=== PATIENT | female | born 1995 | race Caucasian/White ===

== ENCOUNTER 2023-11-02 15:18 | Outpatient (OUT) | payer MEDICAID, SELFPAY ==
[2023-11-02 15:45] LABS: Basophils Absolute Auto 0.1 10^3/uL (0.0-0.1); Basophils Percent Auto 0.6 % (0.2-2.0); Eosinophils Absolute Auto 0.2 10^3/uL (0.0-0.7); Eosinophils Percent Auto 1.6 % (0.9-7.0); Hematocrit 43.1 % (36.0-48.0); Hemoglobin 14.1 g/dL (12.0-16.0); Immature Granulocytes Abs Auto 0.04 10^3/uL (0.00-0.03); Immature Granulocytes Pct Auto 0.4 % (0.0-0.5); Lymphocytes Absolute Auto 2.5 10^3/uL (1.2-3.8); Lymphocytes Percent Auto 23.8 % (20.5-60.0); Mean Corpuscular HGB Conc 32.7 g/dL (29.9-35.2); Mean Corpuscular Hemoglobin 29.8 pg (26.7-34.0); Mean Corpuscular Volume 91.1 fL (81.0-99.0); Mean Platelet Volume 9.9 fL (9.5-13.5); Monocytes Absolute Auto 0.8 10^3/uL (0.3-0.8); Monocytes Percent Auto 7.9 % (1.7-12.0); Neutrophils Absolute Auto 6.8 10^3/uL (1.4-6.5); Neutrophils Percent Auto 65.7 % (43.0-75.0); Platelet Count 358 10^3/uL (150-450); Red Blood Count 4.73 10^6/uL (4.20-5.40); Red Cell Distribution Width 11.7 % (11.0-15.0); White Blood Count 10.4 10^3/uL (4.0-11.0)
[2023-11-02 15:53] LABS: Estimated Average Glucose 103 mg/dL; Glycohemoglobin A1C 5.2 % (4.5-6.2)
[2023-11-02 16:44] LABS: HCG Quantitative <1 mIU/mL; Thyroid Stimulating Hormone 2.276 uIU/mL (0.358-3.740)
[2023-11-03 04:07] LABS: Prolactin 8.1 ng/mL (4.8-33.4)
== END 2023-11-02 15:19 | disposition home or self-care (01) ==
LOC: LAB 15:22
PROVIDERS: PCP Family Medicine; Visit Provider Physician Assistant
DX: N91.2 Amenorrhea, unspecified (principal)
CPT/HCPCS: 36415; 83036; 84146; 84443; 84702; 85025

== ENCOUNTER 2023-11-04 18:51 | Outpatient (OUT) | payer MEDICAID, SELFPAY ==
--- OUTSIDE RECORDS SUMMARY | 2023-11-04 18:56 | XMS_ITS | CCD ---
Author Name Unknown Address Formerly [facility] [address] [place] [address] Organization [facility] Care Team Providers Care Etcher Photoengraving Name Role Phone Todd WHALEY Attending Unavailable PAY ., DR BROOKS Admitting Unavailable PAY ., DR BROOKS Consulting Unavailable PAY ., DR BROOKS Attending Unavailable BRISTOL, DR RUTHERFORD Primary Care Unavailable KARASIK, JEMAL Admitting Unavailable KARASIK, JEMAL Consulting Unavailable KARASIK, JEMAL Attending Unavailable BRISTOL, DR RUTHERFORD Primary Care Unavailable REINECK, DR KORY Mahan Admitting Unavailabl e REINECK, DR KORY Mahan Consulting Unavailabl e REINECK, DR KORY Mahan Attending Unavailabl e BRISTOL, DR RUTHERFORD Primary Care Unavailable BRISTOL, DR RUTHERFORD Primary Care Unavailable HOLLY ., KATIE Admitting Unavailable HOLLY ., KATIE Consulting Unavailable HOLLY ., KATIE Attending Unavailable Allergies Allergy Classification Reported Allergen(s) Allergy Type Date of Onset Reaction(s) Facility (1 source) No Known Medication Allergies; Translations: [No Known Medication Allergies] Propensity to adverse reactions (disorder) [facility] Repository Problems Active Problems Problem Classification Problem Date Documented Da te Episodic/Chronic Headache; including migraine (1 source) Headache; including migraine; Translations: [HEADACHE UNSPECIFIED] Onset: 03-15-2023 Lymphadenitis (1 source) Generalized enlarged lymph nodes; Translations: [GENERALIZED ENLARGED LYMPH NODES] Onset: 03-11-2023 Episodic Other screening for suspected conditions (not mental disorders or infectious disease) (4 sources) Encounter for screening for malignant neoplasm of cervix; Translations: [ENC SCREENING MALIG NEOPLASM CERV] Onset: 02-11-2023 Episodic Other upper respiratory infections (1 source) Chronic sinusitis, unspecified; Translations: [CHRONIC SINUSITIS UNSPECIFIED] Onset: 03-11-2023 Chronic Other upper respiratory infections (7 sources) Acute pharyngitis, unspecified; Translations: [Acute upper respiratory infection, unspecified] Onset: 07-24-2022 Episodic Screening and history of mental health and substance abuse codes (1 source) Personal history of nicotine dependence; Translations: [PERSONAL HISTORY OF NICOTINE DEPEND] Onset: 03-15-2023 Episodic Unclassified (3 sources) COUGH, UNSPECIFIED; Translations: [COUGH, UNSPECIFIED] Onset: 03-11-2023 Unclassified (1 source) CONTACT W/AND (SUSP) EXPOS COVID-19; Translations: [CONTACT W/AND (SUSP) EXPOS COVID-19] Onset: 07-24-2022 Viral infection (1 source) Disease caused by 2019-nCoV; Translations: [UNVACCINATED COVID 19] Onset: 07-24-2022 Past or Other Problems Problem Classification Problem Date Documented Da te Episodic/Chronic Unclassified (1 source) COUGH, UNSPECIFIED; Translations: [COUGH, UNSPECIFIED] Onset: 03-10-2023 Results Test Name Value Interpretation Reference Range Facil ity GROUP A STREP CULTUREon 02-14 S. pyogenes Ag Ql (Unsp spec) Culture Observations: NEGATIVE FOR GROUP A STREPTOCOCCUS. Normal The [facility] Comment on above: Performed By: #### G RASTCX, SSCRN #### [facility] [address] [place] [address] Dr. Aniceto Ashby MONOon 03-13-2023 Monocytes (Bld) [#/Vol] Negative Normal NEGATIVE The [facility] Comment on above: Performed By: #### M ERVIN #### [facility] [address] [place] [address] [address] Aniceto Ashby STREPT SCREENon 03-13-2023 STREP SCREEN A Negative Normal NEGATIVE The [facility] Comment on above: Performed By: #### G RASTCX, SSCRN #### [facility] [address] [address] [address] Aniceto Ashby GROUP A STREP CULTUREon 02-14 S. pyogenes Ag Ql (Unsp spec) Culture Observations: NEGATIVE FOR GROUP A STREPTOCOCCUS. Normal The [facility] Comment on above: Performed By: #### G RASTCX, SSCRN #### [facility] [address] [place] [address] Dr. Aniceto Ashby STREPT SCREENon 03-10-2023 STREP SCREEN A Negative Normal NEGATIVE [facility] Comment on above: Performed By: #### G RASTCX, SSCRN #### [facility] [address] [place] [address] Dr. Aniceto Ashby PAP ACOG PANEL 2: 21 to 29on 02-19-2023 . . Normal [facility] Comment on above: Performed By: #### 4 [id number] #### [facility] [address] [place] [address] Dr. Aniceto Ashby Age Gdln ACOG Testing - [facility] Comment on above: Performed By: #### 4 [id number] #### [facility] [address] [place] [address] Dr. Aniceto Ashby DIAGNOSIS: Comment [facility] Comment on above: Result Comment: NEGA TIVE FOR INTRAEPITHELIAL LESION OR MALIGNANCY. SHIFT IN DENNY SUGGESTIVE OF BACTERIAL VAGINOSIS. THIS SPECIMEN WAS RESCREENED PART OF OUR LYE TREATER PROGRAM. Performed By: #### 4 [id number] #### [facility] [address] [place] [address] Dr. Aniceto Ashby Methodology: Comment [facility] Comment on above: Result Comment: This liquid based ThinPrep(R) pap test was screened with the use of an image guided system. Performed By: #### 4 [id number] #### [facility] [address] [place] [address] Dr. Aniceto Ashby Note: Comment Normal [facility] Comment on above: Result Comment: The Pap smear is a screening test designed to aid in the detection of premalignant and malignant conditions of the uterine cervix. It is not a diagnostic procedure and should not be used as the sole means of detecting cervical cancer. Both false-positive and false-negative reports do occur. . Performed By: #### 4 [id number] #### [facility] [address] [place] [address] Dr. Aniceto Ashby Performed by: Comment Normal [facility] Comment on above: Result Comment: Cleo Dubon [employer] (ASCP) Performed By: #### 4 [id number] #### [facility] [address] [address] [address] Aniceto Ashby QC reviewed by: Comment Normal [facility] Comment on above: Result Comment: Cleo Dasilva, [employer] (ASCP) Performed By: #### 4 [id number] #### [facility] [address] [address] [address] Aniceto Ashby Reflex Criteria: Comment Normal [facility] Comment on above: Result Comment: The HPV DNA reflex criteria were not met with this specimen result therefore, no HPV testing was performed. . Performed By: #### 4 [id number] #### [facility] [address] [address] [address] Aniceto Ashby Specimen adequacy: Comment Normal [facility] Comment on above: Result Comment: Sati sfactory for evaluation. Endocervical and/or squamous metaplastic cells (endocervical component) are present. Performed By: #### 4 [id number] #### [facility] [address] [place] [address] Dr. Aniceto Ashby Consenton 02-01-2023 Consent [id number]. [id number]:127 Normal [facility] Registrationon 02-01-2023 Registration [id number]. [id number]:127 Normal [facility] Covid-19 PCR (CVDTB)on SARS-CoV-2 (COVID-19) RNA HUSEYIN+probe Ql (Unsp spec) Not detected Normal NOT DETECTED [facility] Comment on above: Result Comment: When diagnostic testing is negative, the possibility of a false negative should be considered in the context of a patient's recent exposures and the presence of clinical signs and symptoms consistent with SARS-CoV-2. This test is not yet approved or cleared by the [place] FDA. When there are no FDA-approved or cleared tests available, and other criteria are met, FDA can make tests available under an emergency access mechanism called an Emergency Use Authorization (EUA). The EUA for this test is supported by the Skin Care Therapist of Health and Human Service's declaration that circumstances exist to justify the emergency use of in vitro diagnostics for the detection and/or diagnosis of the virus that causes COVID-19. This EUA will remain in effect for the duration of the COVID-19 declaration justifying emergency of IVDs, unless it is terminated or revoked by the FDA (after which the test may no longer be used). Performed By: #### C [facility] #### [facility] [address] [place] [address] Dr. Aniceto Ashby Encounters Encounter Date Encounter Type Care Provider Facility Start: 03-13-2023 End: 03-13-[address] SANGEETA FUNK Facility:[facility] Start: 03-10-2023 End: 03-10-[address] TODD Yeboah Facility:[facility] Start: 02-11-2023 End: 02-11-2023 ambulatory JEMAL BEGUM Facility:[facility] Start: 02-01-2023 End: 02-02-2023 ambulatory Todd WHALEY Facility:[facility] Start: 07-23-2022 End: 07-23-[address] KORY MCLEAN Facility: Payers Date Payer Category Payer Medicaid [id number] 1995 Unknown [id number] 2.16.84 [id number] 1995 Unknown [id number] 2.16.84 [id number] 1996 Unknown [id number] 2.16.84 [id number] 1996 Unknown [id number] 2.16.84 [id number] 1959 Unknown [id number] Summary Purpose Family History No Family History Records FoundNo Family History Records Found Advance Directives No Advanced Directives Records FoundNo Advanced Directives Records Found Additional Source Comments INFORMATION SOURCE (unrecogn ized section and content) DATE CREATED AUTHOR 02/02/2023 [facility] DATE CREATED AUTHOR AUTHOR'S ORGANIZ ATION 03/15/2023 [facility] FOR RECORDS PERTAINING TO PATIENTS WHO ARE OR HAVE BEEN ENROLLED IN A CHEMICAL DEPENDENCY/SUBSTANCEABUSE PROGRAM, SOME INFORMATION MAY BE OMITTED. This clinical summary was aggregated from multiple sources. Caution should be exercised in using it in the provision of clinical care. This summary normalizes information from multiple sources, and as a consequence, information in this document may materially change the coding, format and clinical context of patient data. In addition, data may be omitted in some cases. CLINICAL DECISIONS SHOULD BE BASED ON THE PRIMARY CLINICAL RECORDS. [facility] [employer] [facility]. provides no warranty or guarantee of the accuracy or completeness of information in this document.
--- NOTE | 2023-11-04 19:01 | US_ITS ---
The [address] [address] Patient Name: LUKE OJEDA MRN: [id number] date: 1995 Sex: F Assigned Patient Location: US Current Patient Location: LAB Accession/Order Number: [id number] Exam Date: 11/04/2023 19:08 Report Date: 11/05/2023 13:33 At the request of: RAMSEY MADRID Procedure: US pelvis w/ transvaginal EXAMINATION: US pelvis w/ transvaginal HISTORY: AMENORRHEA N91.2 COMPARISON: No relevant comparison available. TECHNIQUE: Transabdominal and/or transvaginal sonographic examination was performed as indicated by examination type. FINDINGS: UTERUS: Normal size and appearance. Uterus size: 7.6 x 2.8 x 3.0 cm ENDOMETRIUM: Normal homogeneous appearance. Endometrial thickness: 8 mm RIGHT OVARY: Normal size and appearance. Duplex Doppler demonstrates normal waveform and flow; resistive index 0.6. Ovary size: 2.7 x 2.0 x 2.2 cm LEFT OVARY: Normal size and appearance. Duplex Doppler demonstrates normal waveform and flow; resistive index 0.6. Ovary size: 2.2 x 1.5 x 1.8 cm CUL-DE-SAC: Unremarkable. No significant free fluid. BLADDER: Unremarkable. OTHER: None. US/US pelvis w/ transvaginal IMPRESSION: 1. Normal pelvic ultrasound. No suspicious findings to account for patient's symptoms. Electronically authenticated by: GHAZALA WRIGHT Date: 11/05/2023 13:33
== END 2023-11-04 18:52 | disposition home or self-care (01) ==
LOC: US 18:51
PROVIDERS: PCP Family Medicine; Visit Provider Physician Assistant
DX: N91.2 Amenorrhea, unspecified (principal)
CPT/HCPCS: 76830; 76856

== ENCOUNTER 2024-09-07 12:53 | Outpatient (OUT) | payer BC, SELFPAY ==
--- NOTE | 2024-09-07 12:55 | US_ITS ---
[place] [id number] Patient Name: LUKE OJEDA MRN: [id number] date: 1995 Sex: F Assigned Patient Location: [facility] Current Patient Location: Accession/Order Number: [id number] Exam Date: 09/07/2024 12:56 Report Date: 09/08/2024 06:28 At the request of: MADIHA BURRELL Procedure: US OB transvaginal EXAMINATION: US OB transvaginal HISTORY: MISSED MENSES COMPARISON: No relevant comparison available. FINDINGS: GESTATIONAL SAC: Present and normal appearing. YOLK SAC: Present and normal appearing. POLE: Present and normal appearing. CARDIAC: Present. UTERUS: Normal size and appearance. OVARIES: Right: Corpus lutein cyst. Left: Not seen. CERVIX: 4.2 cm in length and closed. CUL-DE-SAC: Normal. OTHER: None. AGE BY LMP: 9 weeks 4 days LAN BY LMP: 04/08/2025 AGE BY US CRL: 6 weeks 2 days LAN BY US CRL: 05/01/2025 US/US OB transvaginal IMPRESSION: 1. Single live intrauterine . Electronically authenticated by: GHAZALA WRIGHT Date: 09/08/2024 06:28
--- OUTSIDE RECORDS SUMMARY | 2024-09-07 12:58 | XMS_ITS | CCD ---
Author Organization [facility] Care Team Providers Care Supervisor Inspection Room Name Role Phone PAY ., DR BROOKS Admitting Unavailable PAY ., DR BROOKS Consulting Unavailable PAY ., DR BROOKS Attending Unavailable BRISTOL, DR RUTHERFORD Primary Care Unavailable KARJEMAL BURGER Admitting Unavailable KARJEMAL BURGER Consulting Unavailable JEMAL BEGUM Attending Unavailable BRISTOL, DR RUTHERFORD Primary Care Unavailable REINECK, DR KORY Mahan Admitting Unavailabl e REINECK, DR KORY Mahan Consulting Unavailabl e REINECK, DR KORY Mahan Attending Unavailabl e BRISTOL, DR RUTHERFORD Primary Care Unavailable BRISTOL, DR RUTHERFORD Primary Care Unavailable HOLLY ., KATIE Admitting Unavailable HOLLY ., KATIE Consulting Unavailable HOLLY ., KATIE Attending Unavailable Michael Anderson Attending Unavailable IGNACIA CRAWFORD Attending Unavailable Michael Anderson Attending Unavailable Michael Anderson Attending Unavailable Allergies Allergy Classification Reported Allergen(s) Allergy Type Date of Onset Reaction(s) Facility (1 source) No Known Medication Allergies; Translations: [No Known Medication Allergies] Propensity to adverse reactions (disorder) [facility] Repository Problems Active Problems Problem Classification [...] Name Value Interpretation Reference Range Facil ity Ambulatory Visit Summaryon 0 06-22-2024 Ambulatory Visit Summary Ambulatory Visit Summary OJEDAJESICA :1995 Visit Date:06/22/2024 Ambulatory Visit Instructions Your Diagnosis Adult wellness visit Former smoker BMI 34.0-34.9,adult Your Care Team Attending Physician - IGNACIA CRAWFORD CNP Primary Care Physician - Michael Anderson MD Procedures Performed section. Discharge Vitals Temperature (Oral) 36.4 ?C Heart Rate (Peripheral) 76 Respiratory Rate 20 Blood Pressure 122/80 Height 166.0 cm Height 65 in Weight 95.3 kg Weight 209.66 lb BMI 34.58 Allergies No Known Medication Allergies Problems Ongoing - Any problem that you are currently receiving treatment for. Acute URI Cough COVID Elevated BP without diagnosis of hypertension Smoker 17-MAY-2014 12:37:00<$> Patient Survey You may receive a survey via text or e-mail asking about your office visit. Please share your experience with us by completing your survey. We appreciate your feedback and thank you for choosing us for your care. Education Materials Health Maintenance, Female Adopting a healthy lifestyle and getting preventive care are important in promoting health and wellness. Ask your health care provider about: ? The right schedule for you to have regular tests and exams. ? Things you can do on your own to prevent diseases and keep yourself healthy. What should I know about diet, weight, and exercise? Eat a healthy diet ? Eat a diet that includes plenty of vegetables, fruits, low-fat dairy products, and lean protein. ? Do not eat a lot of foods that are high in solid fats, added sugars, or sodium. Maintain a healthy weight Body mass index (BMI) is used to identify weight problems. It estimates body fat based on height and weight. Your health care provider can help determine your BMI and help you achieve or maintain a healthy weight. Get regular exercise Get regular exercise. This is one of the most important things you can do for your health. Most adults should: ? Exercise for at least 150 minutes each week. The exercise should increase your heart rate and make you sweat (moderate-intensity exercise). ? Do strengthening exercises at least twice a week. This is in addition to the moderate-intensity exercise. ? Spend less time sitting. Even light physical activity can be beneficial. Watch cholesterol and blood lipids Have your blood tested for lipids and cholesterol at 20 years of age, then have this test every 5 years. Have your cholesterol levels checked more often if: ? Your lipid or cholesterol levels are high. ? You are older than 40 years of age. ? You are at high risk for heart disease. What should I know about cancer screening? Depending on your health history and family history, you may need to have cancer screening at various ages. This may include screening for: ? Breast cancer. ? Cervical cancer. ? Colorectal cancer. ? Skin cancer. ? Lung cancer. What should I know about heart disease, diabetes, and high blood pressure? Blood pressure and heart disease ? High blood pressure causes heart disease and increases the risk of stroke. This is more likely to develop in people who have high blood pressure readings or are overweight. ? Have your blood pressure checked: ? Every 3?5 years if you are 18?39 years of age. ? Every year if you are 40 years old or older. Diabetes Have regular diabetes screenings. This checks your fasting blood sugar level. Have the screening done: ? Once every three years after age 40 if you are at a normal weight and have a low risk for diabetes. ? More often and at a younger age if you are overweight or have a high risk for diabetes. What should I know about preventing infection? Hepatitis B If you have a higher risk for hepatitis B, you should be screened for this virus. Talk with your health care provider to find out if you are at risk for hepatitis B infection. Hepatitis C Testing is recommended for: ? Everyone born from 1945 through 1965. ? Anyone with known risk factors for hepatitis C. Sexually transmitted infections (STIs) ? Get screened for STIs, including gonorrhea and chlamydia, if: ? You are sexually active and are younger than 24 years of age. ? You are older than 24 years of age and your health care provider tells you that you are at risk for this type of infection. ? Your sexual activity has changed since you were last screened, and you are at increased risk for chlamydia or gonorrhea. Ask your health care provider if you are at risk. ? Ask your health care provider about whether you are at high risk for HIV. Your health care provider may recommend a prescription medicine to help prevent HIV infection. If you choose to take medicine to prevent HIV, you should first get tested for HIV. You should then be tested every 3 months for as long as you are taki (more content not included)... Normal [facility] Family Medicine Office/Clini c Noteon 06-22-2024 Family Medicine Office/Clinic Note Family Medicine Office/Clinic Note HPI Staff Jose is a 29 year old female presenting for wellness PE for work Health Maintenance: Colonoscopy: never Mammo: never Pap: UTD January 2024 Last Labs: few years ago No paper work will all go through the portal History of Present Illness 29 [address] patient of Dr[address] Anderson presents today for a well visit. She reports she needs a well visit for her insurance through her employer. Review of Systems PHQ Score Initial Depression Screen Score: 0 SCORE Constitutional: no fever, no chills, no sweats, no weakness Skin: no Jaundice, no rash, no lesions, nopetechiae ENMT: no ear pain, no sore throat, no congestion, no hoarseness Respiratory: no shortness of breath, no cough, no orthopnea, no wheezing Cardiovascular: no chest pain, no palpitations, no edema Gastrointestinal: no nausea, no vomiting, no diarrhea, no GI bleeding Genitourinary: no dysuria, no hematuria, no discharge, no pain Musculoskeletal: no back pain, no trauma Neurologic: no headache, no dizziness, no numbness, no weakness Psychiatric: no sleeping problems, no irritability, no mood swings/depression. Heme/Lymph: no bleeding tendency, no bruising tendency, no petechiae, no swollen nodes Allergy/Immunologic: no seasonal allergies, no food allergies, no recurrent infections, no impaired immunity Additional ROS info: Except as noted in the above Review of Systems and in the History of Present Illness all other systems have been reviewed and are negative or noncontributory. Physical Exam Vitals & Measurements T: 36.4 ?C(Oral) HR: 76(Peripheral) RR: 20 BP: 122/80 SpO2: 98% HT: 65 in HT: 166.0 cm WT: 95.3 kg WT: 209.66 lb BMI: 34.58 General: alert, no acute distress Skin: warm, dry Head: no trauma, normocephalic Neck: Trachea midline, no adenopathy, no tenderness Eye: normal conjunctiva, sclera clear ENMT: TM's clear, oral mucosa moist, no pharyngeal erythema or exudate Cardiovascular: regular rate and rhythm, normal peripheral perfusion Respiratory: Lungs CTA, respirations non labored Chest wall: no deformity. Gastrointestinal: soft, non distended, no tenderness, no guarding. Back: No tenderness, Normal ROM, Normal alignment. Extremities: no deformity, no trauma Neurological: oriented x 4, LOC appropriate for age, CN II-XII intact, motor strength equal & normal bilaterally, sensation equal & normal bilaterally, speech normal Psychiatric: cooperative, affect appropriate for age, normal judgement, normal psychiatric thoughts. Assessment/Plan 1. Adult wellness visit (Z00.00: Encounter for general adult medical examination without abnormal findings) Healthy Encouraged daily exercise and portion control Immunizations UTD f/u one year 2. Former smoker (Z87.891: Personal history of nicotine dependence) Encouraged to continue as a non-smoker 3. BMI 34.0-34.9,adult (Z68.34: Body mass index [BMI] 34.0-34.9, adult) The standard range for ages 18 and older is >=18.5 and < 25 kg/m2. Your BMI today was above this range, this falls in the overweight to obese category and there are medical benefits to weight loss. We can offer counselling, referral, and/or medical support in addressing this problem. Your BMI and weight management will be followed at subsequent visits. Follow-up No qualifying data available Patient Education Health Maintenance, Female Problem List/Past Medical History Ongoing Acute URI Cough COVID Elevated BP without diagnosis of hypertension Smoker 17-MAY-2014 12:37:00<$> Historical No qualifying data Procedure/Surgical History section. Medications No active medications Allergies No Known Medication Allergies Social History Tobacco Former smoker, quit more than 30 days ago, quit 2022 Tobacco Use:. Never Smokeless Tobacco Use:. Cigarettes, Stopped age 28 Years., 06/22/2024 Former smoker, quit more than 30 days ago Tobacco Use:., 11/23/2023 Current Every Day Smoker, Cigarettes, Previous treatment: None. Ready to change: No. Household tobacco concerns: No., 07/04/2014 Family History Family history is negative Immunizations Vaccine Date Status poliovirus vaccine, inactivated 08/06/2001 Recorded measles/mumps/rubella virus vaccine 08/06/2001 Recorded DTaP, unspecified formulation 08/06/2001 Recorded varicella virus vaccine 07/15/1999 Recorded Normal [facility] Comment on above: Result Comment: Elec tronically Signed By: IGNACIA CRAWFORD CNP\.br\Date and Time Signed: 06/22/24 14:51 EDT Provider Letteron 06-16-2024 Provider Letter Provider Letter June 16, 2024 JESICA OJEDA [address] [place] [address] : 1995 To Whom It May Concern, Please excuse above patient from work due to Covid diagnosis. Date of Illness: From: 06/15/2024 To: 06/22/2024 May Return to Work On: 06/23/2024 Comments: May return to work sooner if symptom free. Sincerely, Family Medicine [address] [address] [facility] Ambulatory Visit Summaryon 0 06-15-2024 Ambulatory Visit Summary Ambulatory Visit Summary JESICA OJEDA :1995 Visit Date:06/15/2024 Ambulatory Visit Instructions Your Diagnosis COVID BMI 34.0-34.9,adult Class 1 obesity due to excess calories in adult Former smoker Your Care Team Attending Physician - Justin PEREIRAMichael Primary Care Physician - Michael Anderson MD Procedures Performed section. Discharge Vitals Temperature (Oral) 36.9 ?C Heart Rate (Peripheral) 84 Respiratory Rate 18 Blood Pressure 122/80 Height 166 cm Height 65 in Weight 95.6 kg Weight 210.32 lb BMI 34.69 What to do next Scheduled Follow-Up Appointments 2023 8:30 AM EDT With: Michael Anderson MD Where: [address] [address]- Allergies No Known Medication Allergies Problems Ongoing - Any problem that you are currently receiving treatment for. Acute URI Cough COVID Elevated BP without diagnosis of hypertension Smoker 17-MAY-2014 12:37:00<$> Patient Survey You may receive a survey via text or e-mail asking about your office visit. Please share your experience with us by completing your survey. We appreciate your feedback and thank you for choosing us for your care. Normal [facility] Family Medicine Office/Clini c Noteon 06-15-2024 Family Medicine Office/Clinic Note Family Medicine Office/Clinic Note HPI Staff Geno is a 29 year old female presenting with wellness visit for work She is sick today and prefers that be taken care of instead of her physical if we cannot do both Health Maintenance: Colonoscopy: never Mammo: never Pap: UTD Last Labs: few years Questions/Concerns: exposed to strep from her dad and his girlfriend, not feeling well for 4 days and now going into her chest, throat is sore and body aches, taking tylenol and ibuprofen around the clock History of Present Illness - See staff HPI. Review of Systems PHQ Score Initial Depression Screen Score: 1 SCORE Physical Exam Vitals & Measurements T: 36.9 ?C(Oral) HR: 84(Peripheral) RR: 18 BP: 122/80 SpO2: 99% HT: 65 in HT: 166 cm WT: 95.6 kg WT: 210.32 lb BMI: 34.69 General: alert, no acute distress ENMT: oral mucosa moist, Cardiovascular: regular rate and rhythm, normal peripheral perfusion Respiratory: Lungs CTA, respirations non labored Extremities: no deformity, no trauma Neurological: oriented x 4, LOC appropriate for age, CN II-XII intact, motor strength equal & normal bilaterally, speech normal Abdomen: Soft, Nontender, Non-distended, + BS Assessment/Plan 1. COVID (U07.1: COVID-19) - Will do medrol and azithromycin - OTC meds - Follow up in 1 week Ordered: azithromycin, 500 mg = 1 tab(s), Oral, Daily, # 3 tab(s), Refills(s) 0, Pharmacy: [facility] #[id number], 166, cm, 06/15/24 8:34:00 EDT, Height/Length Dosing, 95.6, kg, 06/15/24 8:34:00 EDT, Weight Dosing benzonatate, 200 mg = 1 cap(s), Oral, TID, X 7 day(s), # 21 cap(s), Refills(s) 0, Pharmacy: [facility] #[id number], 166, cm, 06/15/24 8:34:00 EDT, Height/Length Dosing, 95.6, kg, 06/15/24 8:34:00 EDT, Weight Dosing methylPREDNISolone, = 1 packet(s), Oral, As Directed, as directed on package labeling, X 6 day(s), # 21 tab(s), Refills(s) 0, Pharmacy: [facility] #[id number], 166, cm, 06/15/24 8:34:00 EDT, Height/Length Dosing, 95.6, kg, 06/15/24 8:34:00 EDT, Weight Dosing 2. BMI 34.0-34.9,adult (Z68.34: Body mass index [BMI] 34.0-34.9, adult) - BMI education added Ordered: azithromycin, 500 mg = 1 tab(s), Oral, Daily, # 3 tab(s), Refills(s) 0, Pharmacy: [facility] #[id number], 166, cm, 06/15/24 8:34:00 EDT, Height/Length Dosing, 95.6, kg, 06/15/24 8:34:00 EDT, Weight Dosing benzonatate, 200 mg = 1 cap(s), Oral, TID, X 7 day(s), # 21 cap(s), Refills(s) 0, Pharmacy: [facility] #[id number], 166, cm, 06/15/24 8:34:00 EDT, Height/Length Dosing, 95.6, kg, 06/15/24 8:34:00 EDT, Weight Dosing methylPREDNISolone, = 1 packet(s), Oral, As Directed, as directed on package labeling, X 6 day(s), # 21 tab(s), Refills(s) 0, Pharmacy: [facility] #[id number], 166, cm, 06/15/24 8:34:00 EDT, Height/Length Dosing, 95.6, kg, 06/15/24 8:34:00 EDT, Weight Dosing Rapid COVID POC 82917 Rapid Strep POC 08693 3. Class 1 obesity due to excess calories in adult (E66.09: Other obesity due to excess calories) - Diet and exercise advised Ordered: azithromycin, 500 mg = 1 tab(s), Oral, Daily, # 3 tab(s), Refills(s) 0, Pharmacy: [facility] #[id number], 166, cm, 06/15/24 8:34:00 EDT, Height/Length Dosing, 95.6, kg, 06/15/24 8:34:00 EDT, Weight Dosing benzonatate, 200 mg = 1 cap(s), Oral, TID, X 7 day(s), # 21 cap(s), Refills(s) 0, Pharmacy: [facility] #[id number], 166, cm, 06/15/24 8:34:00 EDT, Height/Length Dosing, 95.6, kg, 06/15/24 8:34:00 EDT, Weight Dosing methylPREDNISolone, = 1 packet(s), Oral, As Directed, as directed on package labeling, X 6 day(s), # 21 tab(s), Refills(s) 0, Pharmacy: [facility] #[id number], 166, cm, 06/15/24 8:34:00 EDT, Height/Length Dosing, 95.6, kg, 06/15/24 8:34:00 EDT, Weight Dosing Rapid COVID POC 34193 Rapid Strep POC 00652 4. Former smoker (Z87.891: Personal history of nicotine dependence) - Please continue to not smoke. Ordered: azithromycin, 500 mg = 1 tab(s), Oral, Daily, # 3 tab(s), Refills(s) 0, Pharmacy: [facility] #[id number], 166, cm, 06/15/24 8:34:00 EDT, Height/Length Dosing, 95.6, kg, 06/15/24 8:34:00 EDT, Weight Dosing benzonatate, 200 mg = 1 cap(s), Oral, TID, X 7 day(s), # 21 cap(s), Refills(s) 0, Pharmacy: [facility] #[id number], 166, cm, 06/15/24 8:34:00 EDT, Height/Length Dosing, 95.6, kg, 06/15/24 8:34:00 EDT, Weight Dosing methylPREDNISolone, = 1 packet(s), Oral, As Directed, as directed on package labeling, X 6 day(s), # 21 tab(s), Refills(s) 0, Pharmacy: [facility] #[id number], 166, cm, 06/15/24 8:34:00 EDT, Height/Length Dosing, 95.6, kg, 06/15/24 8:34:00 EDT, Weight Dosing Rapid COVID POC 75628 Rapid Strep POC 30970 Follow-up No qualifying data available Problem List/Past Medical History Ongoing Acute URI Cough COVID Elevated BP without diagnosis of hypertension Smoker 17-MAY-2014 12:37:00<$> Historical No qualifying data Procedure/Surgical History section. Medications Azithromycin 3 Day Dose Pack 500 mg oral tabl (more content not included)... Normal [facility] Comment on above: Result Comment: Elec tronically Signed By: Justin PEREIRA, Michael Dewitt.br\Date and Time Signed: 06/15/24 09:10 EDT Provider Letteron 06-15-2024 Provider Letter Provider Letter June 15, 2024 JESICA OJEDA [address] [place] [address] : 1995 To Whom It May Concern, Please excuse above patient from work due to illness. Date of Illness: From: 06-15-24 To: 06-22-24 May Return to Work On:06-23-24 Restrictions: _ Comments: _ Sincerely, [facility] [place] [address] [facility] Ambulatory Visit Summaryon 0 11-23-2023 Ambulatory Visit Summary JESICA OJEDA :1995 Visit Date:11/23/2023 Ambulatory Visit Instructions Your Diagnosis Acute URI Cough BMI 36.0-36.9,adult Non-smoker Elevated BP without diagnosis of hypertension Your Care Team Attending Physician - Michael Anderson MD Primary Care Physician - Michael Anderson MD This Is Your Medications List benzonatate (benzonatate 200 mg oral capsule) methylPREDNISolone (Medrol Dosepack 4 mg Tab) Procedures Performed section. Discharge Vitals Temperature (Temporal Artery) 36.4 ?C Heart Rate (Peripheral) 101 Blood Pressure 140/100 Height 65 in Height 166 cm Weight 201.52 lb Weight 91.6 kg BMI 33.24 What to do next Scheduled Follow-Up Appointments Wednesday 3:15 PM EST With: Michael Anderson MD Where: [facility] Family Medicine Office/Clini c Noteon 11-23-2023 Family Medicine Office/Clinic Note HPI Staff Jesica is a 28 year old female presenting to establish care Acute: cough, congestions, diarrhea,vomiting Establish Care: History: Any previous diagnosis: History of seeing any specialist: When was your last doctors visit: Last provider: Tammy Any recent labs: Health Maintenance UTD: Colonoscopy: Mammogram: Pelvic/Pap: flu: due Acute: Current issues/complaints: productive cough, sinus congestion, green/brown plem, vomiting and diarrhea History of Present Illness See staff HPI. - Loose stools are once a day. - Vomited once. Physical Exam Vitals & Measurements T: 36.4 ?C(Temporal Artery) HR: 101(Peripheral) BP: 140/100 SpO2: 98% HT: 65 in HT: 166 cm WT: 91.6 kg WT: 201.52 lb BMI: 33.24 General: alert, no acute distress ENMT: oral mucosa moist, Cardiovascular: regular rate and rhythm, normal peripheral perfusion Respiratory: Lungs CTA, respirations non labored, No cough During the exam Extremities: no deformity, no trauma Neurological: oriented x 4, LOC appropriate for age, CN II-XII intact, motor strength equal & normal bilaterally, speech normal Abdomen: Soft, Nontender, Non-distended, + BS Assessment/Plan 1. Acute URI (J06.9: Acute upper respiratory infection, unspecified) - Medrol, Lena conner - If no improvement in a few days Azithromycin Ordered: benzonatate, 200 mg = 1 cap(s), Oral, TID, X 7 day(s), # 21 cap(s), Refills(s) 0, Pharmacy: [facility] #[id number], 166, cm, 11/23/23 13:05:00 EST, Height/Length Dosing, 91.6, kg, 11/23/23 13:05:00 EST, Weight Dosing methylPREDNISolone, = 1 packet(s), Oral, As Directed, as directed on package labeling, X 6 day(s), # 21 tab(s), Refills(s) 0, Pharmacy: [facility] #[id number], 166, cm, 11/23/23 13:05:00 EST, Height/Length Dosing, 91.6, kg, 11/23/23 13:05:00 EST, Weight Dosing 2. Cough (R05.9: Cough, unspecified) - As above - Pending covid test. Ordered: benzonatate, 200 mg = 1 cap(s), Oral, TID, X 7 day(s), # 21 cap(s), Refills(s) 0, Pharmacy: [facility] #[id number], 166, cm, 11/23/23 13:05:00 EST, Height/Length Dosing, 91.6, kg, 11/23/23 13:05:00 EST, Weight Dosing methylPREDNISolone, = 1 packet(s), Oral, As Directed, as directed on package labeling, X 6 day(s), # 21 tab(s), Refills(s) 0, Pharmacy: [facility] #[id number], 166, cm, 11/23/23 13:05:00 EST, Height/Length Dosing, 91.6, kg, 11/23/23 13:05:00 EST, Weight Dosing 3. BMI 36.0-36.9,adult (Z68.36: Body mass index [BMI] 36.0-36.9, adult) - BMI education given Ordered: benzonatate, 200 mg = 1 cap(s), Oral, TID, X 7 day(s), # 21 cap(s), Refills(s) 0, Pharmacy: [facility] #[id number], 166, cm, 11/23/23 13:05:00 EST, Height/Length Dosing, 91.6, kg, 11/23/23 13:05:00 EST, Weight Dosing methylPREDNISolone, = 1 packet(s), Oral, As Directed, as directed on package labeling, X 6 day(s), # 21 tab(s), Refills(s) 0, Pharmacy: [facility] #[id number], 166, cm, 11/23/23 13:05:00 EST, Height/Length Dosing, 91.6, kg, 11/23/23 13:05:00 EST, Weight Dosing 4. Non-smoker (Z78.9: Other specified health status) - Please continue to not smoke Ordered: benzonatate, 200 mg = 1 cap(s), Oral, TID, X 7 day(s), # 21 cap(s), Refills(s) 0, Pharmacy: [facility] #[id number], 166, cm, 11/23/23 13:05:00 EST, Height/Length Dosing, 91.6, kg, 11/23/23 13:05:00 EST, Weight Dosing methylPREDNISolone, = 1 packet(s), Oral, As Directed, as directed on package labeling, X 6 day(s), # 21 tab(s), Refills(s) 0, Pharmacy: [facility] #[id number], 166, cm, 11/23/23 13:05:00 EST, Height/Length Dosing, 91.6, kg, 11/23/23 13:05:00 EST, Weight Dosing 5. Elevated BP without diagnosis of hypertension (R03.0: Elevated blood-pressure reading, without diagnosis of hypertension) - Likely 2/2 Meds and illness - Will recheck in 1 month - Monitor at home. Follow-up No qualifying data available Patient Education BMI for Adults Problem List/Past Medical History Ongoing Acute URI Cough Elevated BP without diagnosis of hypertension Smoker 17-MAY-2014 12:37:00<$> Historical No qualifying data Procedure/Surgical History section. Medications benzonatate 200 mg oral capsule, 200 mg= 1 cap(s), Oral, TID Medrol Dosepack 4 mg Tab, 1 packet(s), Oral, As Directed Allergies No Known Medication Allergies Social History Tobacco Former smoker, quit more than 30 days ago Tobacco Use:., 11/23/2023 10 or more cigarettes (1/2 pack or more)/day in last 30 days Tobacco Use:. Never Smokeless Tobacco Use:. Cigarettes, 11/23/2023 Current Every Day Smoker, Cigarettes, Previous treatment: None. Ready to change: No. Household tobacco concerns: No., 07/04/2014 Family History Family history is negative Immunizations Vaccine Date Status poliovirus vaccine, inactivated 08/06/2001 Recorded measles/mumps/rubella virus vaccine 08/06/2001 Recorded DTaP, unspecified formulation 08/06/2001 Recorded varicella virus vaccine 07/15/1999 Recorded Normal [facility] Comment on above: Result Comment: Elec tronically Signed By: Justin PEREIRA, Michael Quinones\.br\Date and Time Signed: 11/23/23 13:40 EST Patient Educationon 11-23-19 24 Patient Education Nutrition BMI for Adults What is BMI? Body mass index (BMI) is a number that is calculated from a person's weight and height. BMI can help estimate how much of a person's weight is composed of fat. BMI does not measure body fat directly. Rather, it is an alternative to procedures that directly measure body fat, which can be difficult and expensive. BMI can help identify people who may be at higher risk for certain medical problems. What are BMI measurements used for? BMI is used as a screening tool to identify possible weight problems. It helps determine whether a person is obese, overweight, a healthy weight, or underweight. BMI is useful for: ? Identifying a weight problem that may be related to a medical condition or may increase the risk for medical problems. ? Promoting changes, such as changes in diet and exercise, to help reach a healthy weight. BMI screening can be repeated to see if these changes are working. How is BMI calculated? BMI involves measuring your weight in relation to your height. Both height and weight are measured, and the BMI is calculated from those numbers. This can be done either in [place] or metric measurements. Note that charts and online BMI calculators are available to help you find your BMI quickly and easily without having to do these calculations yourself. To calculate your BMI in [place] measurements: 1. Measure your weight in pounds (lb). 2. Multiply the number of pounds by 703. ? For example, for a person who weighs 180 lb, multiply that number by 703, which equals 126,540. 3. Measure your height in inches. Then multiply that number by itself to get a measurement called inches squared. ? For example, for a person who is 70 inches tall, the inches squared measurement is 70 inches x 70 inches, which equals 4,900 inches squared. 4. Divide the total from step 2 (number of lb x 703) by the total from step 3 (inches squared): 126,540 ? 4,900 = 25.8. This is your BMI. To calculate your BMI in metric measurements: 1. Measure your weight in kilograms (kg). 2. Measure your height in meters (m). Then multiply that number by itself to get a measurement called meters squared. ? For example, for a person who is 1.75 m tall, the meters squared measurement is 1.75 m x 1.75 m, which is equal to 3.1 meters squared. 3. Divide the number of kilograms (your weight) by the meters squared number. In this example: 70 ? 3.1 = 22.6. This is your BMI. What do the results mean? BMI charts are used to identify whether you are underweight, normal weight, overweight, or obese. The following guidelines will be used: ? Underweight: BMI less than 18.5. ? Normal weight: BMI between 18.5 and 24.9. ? Overweight: BMI between 25 and 29.9. ? Obese: BMI of 30 or above. Keep these notes in mind: ? Weight includes both fat and muscle, so someone with a muscular build, such as an athlete, may have a BMI that is higher than 24.9. In cases like these, BMI is not an accurate measure of body fat. ? To determine if excess body fat is the cause of a BMI of 25 or higher, further assessments may need to be done by a health care provider. ? BMI is usually interpreted in the same way for men and women. Where to find more information For more information about BMI, including tools to quickly calculate your BMI, go to these websites: ? Centers for Disease Control and Prevention: www.cdc.gov ? [place] [employer]: www.heart.org ? National Heart, Lung, and Blood [place]: www.nhlbi.nih.gov Summary ? Body mass index (BMI) is a number that is calculated from a person's weight and height. ? BMI may help estimate how much of a person's weight is composed of fat. BMI can help identify those who may be at higher risk for certain medical problems. ? BMI can be measured using [place] measurements or metric measurements. ? BMI charts are used to identify whether you are underweight, normal weight, overweight, or obese. This information is not intended to replace advice given to you by your health care provider. Make sure you discuss any questions you have with your health care provider. Document Revised: 07/24/2020 Document Reviewed: 05/31/2020 [employer] Patient Education ? 2022 [employer] Normal [facility] GROUP A STREP CULTUREon 02-14 S. pyogenes Ag Ql (Unsp spec) Culture Observations: NEGATIVE FOR GROUP A STREPTOCOCCUS. Normal [facility] Comment on above: Performed By: #### G RASTCX, SSCRN #### [facility] [address] [address] [address] Aniceto Ashby MONOon 03-13-2023 Monocytes (Bld) [#/Vol] Negative Normal NEGATIVE [facility] Comment on above: Performed By: #### M ERVIN #### [facility] [address], [place] [address] Dr. Aniceto Ashby STREPT SCREENon 03-13-2023 STREP SCREEN A Negative Normal NEGATIVE [facility] Comment on above: Performed By: #### G RASTCX, SSCRN #### [facility] [address], [place] [address] Dr. Aniceto Ashby GROUP A STREP CULTUREon 02-14 S. pyogenes Ag Ql (Unsp spec) Culture Observations: NEGATIVE FOR GROUP A STREPTOCOCCUS. Normal [facility] Comment on above: Performed By: #### G RASTCX, SSCRN #### [facility] [address] [place] [address] Dr. Aniceto Ashby STREPT SCREENon 03-10-2023 STREP SCREEN A Negative Normal NEGATIVE [facility] Comment on above: Performed By: #### G RASTCX, SSCRN #### [facility] [address] [place] [address] Dr. Aniceto Ashby PAP ACOG PANEL 2: 21 to 29on 02-19-2023 . . Normal [facility] Comment on above: Performed By: #### [id number] #### [facility] [address] [place] [address] Dr. Aniceto Ashby Age Gdln ACOG Testing - [facility] Comment on above: Performed By: #### [id number] #### [facility] [address] [place] [address] Dr. Aniceto Ashby DIAGNOSIS: Comment [facility] Comment on above: Result Comment: NEGA TIVE FOR INTRAEPITHELIAL LESION OR MALIGNANCY. SHIFT IN DENNY SUGGESTIVE OF BACTERIAL VAGINOSIS. THIS SPECIMEN WAS RESCREENED PART OF OUR INTERVENTIONAL NEURORADIOLOGIST PROGRAM. Performed By: #### [id number] #### [facility] [address] [place] [address] Dr. Aniceto Ashby Methodology: Comment [facility] Comment on above: Result Comment: This liquid based ThinPrep(R) pap test was screened with the use of an image guided system. Performed By: #### [id number] #### [facility] [address] [place] [address] Dr. Aniceto Ashby Note: Comment [facility] Comment on above: Result Comment: The Pap smear is a screening test designed to aid in the detection of premalignant and malignant conditions of the uterine cervix. It is not a diagnostic procedure and should not be used as the sole means of detecting cervical cancer. Both false-positive and false-negative reports do occur. . Performed By: #### [id number] #### [facility] [address] [place] [address] Dr. Aniceto Ashby Performed by: Comment Normal [facility] Comment on above: Result Comment: Cleo Dubon, Supply Chain Associate (ASCP) Performed By: #### [id number] #### [facility] [address] [place] [address] Dr. Aniceto Ashby QC reviewed by: Comment Normal [facility] Comment on above: Result Comment: Cleo Dasilva, Supply Chain Associate (ASCP) Performed By: #### [id number] #### [facility] [address] [place] [address] Dr. Aniceto Ashby Reflex Criteria: Comment Normal [facility] Comment on above: Result Comment: The HPV DNA reflex criteria were not met with this specimen result therefore, no HPV testing was performed. . Performed By: #### [id number] #### [facility] [address] [place] [address] Dr. Aniceto Ashby Specimen adequacy: Comment Normal [facility] Comment on above: Result Comment: Sati sfactory for evaluation. Endocervical and/or squamous metaplastic cells (endocervical component) are present. Performed By: #### [id number] #### [facility] [address] [place] [address] Dr. Aniceto Ashby Covid-19 PCR ([facility])on SARS-CoV-2 (COVID-19) RNA HUSEYIN+probe Ql (Unsp spec) Not detected Normal NOT DETECTED [facility] Comment on above: Result Comment: When [...] for this test is supported by the Info Specialist of Health and Human Service's declaration that [...] longer be used). Performed By: #### [facility] #### [facility] [address] [place] [address] Dr. Aniceto Ashby Encounters Encounter Date Encounter Type Care Provider Facility Start: 06-22-2024 End: 06-22-2024 ambulatory IGNACIA CRAWFORD [facility] Start: 06-15-2024 End: 06-15-2024 ambulatory Michael Anderson Facility:[facility] [place] rafaela Start: 12-28-2023 ambulatory Michael Anderson Facility :[facility] [place] Start: 11-23-2023 ambulatory [facility] Start: 11-23-2023 [facility] Start: 03-13-2023 End: 03-13-[address] SANGEETA FUNK Facility:[facility] Start: 03-10-2023 End: 03-10-[address] TODD Yeboah Facility:[facility] Start: 02-11-2023 End: 02-11-2023 ambulatory JMEAL BEGUM Facility:[facility] Start: 07-23-2022 End: 07-23-[address] KORY MCLEAN Facility:[facility] Payers Date Payer Category Payer Unknown [id number] 2022 Medicaid [id number] 1996 Unknown [id number] .16.84 [id number] 1996 Unknown [id number] .16.84 [id number] 1996 Unknown [id number] .16.84 [id number] 1996 Unknown [id number] 1996 Unknown [id number] 2.16.8 [id number] 1996 Unknown [id number] 2.16.8 [id number] 1996 Unknown [id number] 2.16.8 [id number] 1996 Unknown [id number] 2.16.8 [id number] 1959 Unknown [id number] Clinical Note 06-22-2024 Note Date & Type Note Facility 06-22-2024 Note Patient Education Obstetrics and Gynecology Health Maintenance, Female Adopting a healthy lifestyle and getting preventive care are important in promoting health and wellness. Ask your health care provider about: ? The right schedule for you to have regular tests and exams. ? Things you can do on your own to prevent diseases and keep yourself healthy. What should I know about diet, weight, and exercise? Eat a healthy diet ? Eat a diet that includes plenty of vegetables, fruits, low-fat dairy products, and lean protein. ? Do not eat a lot of foods that are high in solid fats, added sugars, or sodium. Maintain a healthy weight Body mass index (BMI) is used to identify weight problems. It estimates body fat based on height and weight. Your health care provider can help determine your BMI and help you achieve or maintain a healthy weight. Get regular exercise Get regular exercise. This is one of the most important things you can do for your health. Most adults should: ? Exercise for at least 150 minutes each week. The exercise should increase your heart rate and make you sweat (moderate-intensity exercise). ? Do strengthening exercises at least twice a week. This is in addition to the moderate-intensity exercise. ? Spend less time sitting. Even light physical activity can be beneficial. Watch cholesterol and blood lipids Have your blood tested for lipids and cholesterol at 20 years of age, then have this test every 5 years. Have your cholesterol levels checked more often if: ? Your lipid or cholesterol levels are high. ? You are older than 40 years of age. ? You are at high risk for heart disease. What should I know about cancer screening? Depending on your health history and family history, you may need to have cancer screening at various ages. This may include screening for: ? Breast cancer. ? Cervical cancer. ? Colorectal cancer. ? Skin cancer. ? Lung cancer. What should I know about heart disease, diabetes, and high blood pressure? Blood pressure and heart disease ? High blood pressure causes heart disease and increases the risk of stroke. This is more likely to develop in people who have high blood pressure readings or are overweight. ? Have your blood pressure checked: ? Every 3?5 years if you are 18?39 years of age. ? Every year if you are 40 years old or older. Diabetes Have regular diabetes screenings. This checks your fasting blood sugar level. Have the screening done: ? Once every three years after age 40 if you are at a normal weight and have a low risk for diabetes. ? More often and at a younger age if you are overweight or have a high risk for diabetes. What should I know about preventing infection? Hepatitis B If you have a higher risk for hepatitis B, you should be screened for this virus. Talk with your health care provider to find out if you are at risk for hepatitis B infection. Hepatitis C Testing is recommended for: ? Everyone born from 1945 through 1965. ? Anyone with known risk factors for hepatitis C. Sexually transmitted infections (STIs) ? Get screened for STIs, including gonorrhea and chlamydia, if: ? You are sexually active and are younger than 24 years of age. ? You are older than 24 years of age and your health care provider tells you that you are at risk for this type of infection. ? Your sexual activity has changed since you were last screened, and you are at increased risk for chlamydia or gonorrhea. Ask your health care provider if you are at risk. ? Ask your health care provider about whether you are at high risk for HIV. Your health care provider may recommend a prescription medicine to help prevent HIV infection. If you choose to take medicine to prevent HIV, you should first get tested for HIV. You should then be tested every 3 months for as long as you are taking the medicine. ? If you are about to stop having your period (premenopausal) and you may become , seek counseling before you get . ? Take 400 to 800 micrograms (mcg) of folic acid every day if you become . ? Ask for control (contraception) if you want to prevent . Osteoporosis and menopause Osteoporosis is a disease in which the bones lose minerals and strength with aging. This can result in bone fractures. If you are 65 years old or older, or if you are at risk for osteoporosis and fractures, ask your health care provider if you should: ? Be screened for bone loss. ? Take a calcium or vitamin D supplement to lower your risk of fractures. ? Be given hormone replacement therapy (HRT) to treat symptoms of menopause. Follow these instructions at home: Alcohol use ? Do not drink alcohol if: ? Your health care provider tells you not to drink. ? You are , may be , or are planning to become . ? If you drink alcohol: ? Limit how much you have to: ? 0?1 drink a day. ? Know how (more content not included)... [facility] Summary Purpose Family History No Family History Records FoundNo Family History Records Found Advance Directives No Advanced Directives Records FoundNo Advanced Directives Records Found Additional Source Comments INFORMATION SOURCE (unrecogn ized section and content) DATE CREATED AUTHOR 03/15/2023 [facility] DATE CREATED AUTHOR AUTHOR'S ORGANIZ ATION 06/24/2024 [facility] FOR RECORDS PERTAINING TO PATIENTS WHO ARE [...] BE BASED ON THE PRIMARY CLINICAL RECORDS. [employer] provides no warranty or guarantee of the accuracy or completeness of information in this document.
== END 2024-09-07 12:54 | disposition home or self-care (01) ==
LOC: NOMS 12:54
PROVIDERS: PCP Family Medicine; Visit Provider Obstetrics & Gynecology
DX: N92.6 Irregular menstruation, unspecified (principal); Z3A.01 Less than 8 weeks gestation of pregnancy
CPT/HCPCS: 76817

== ENCOUNTER 2024-10-10 14:13 | Outpatient (OUT) | payer MEDICAID, SELFPAY ==
[2024-10-10 14:43] LABS: Basophils Percent Auto 0.2 % (0.2-2.0); Eosinophils Absolute Auto 0.1 10^3/uL (0.0-0.7); Hemoglobin 13.1 g/dL (12.0-16.0); Immature Granulocytes Abs Auto 0.04 10^3/uL (0.00-0.03); Immature Granulocytes Pct Auto 0.3 % (0.0-0.5); Lymphocytes Absolute Auto 2.1 10^3/uL (1.2-3.8); Lymphocytes Percent Auto 16.5 % (20.5-60.0); Mean Corpuscular HGB Conc 34.5 g/dL (29.9-35.2); Mean Corpuscular Hemoglobin 30.5 pg (26.7-34.0); Mean Corpuscular Volume 88.4 fL (81.0-99.0); Mean Platelet Volume 9.5 fL (9.5-13.5); Monocytes Absolute Auto 0.8 10^3/uL (0.3-0.8); Monocytes Percent Auto 6.1 % (1.7-12.0); Neutrophils Absolute Auto 9.4 10^3/uL (1.4-6.5); Neutrophils Percent Auto 75.9 % (43.0-75.0); Platelet Count 335 10^3/uL (150-450); Red Cell Distribution Width 11.9 % (11.0-15.0); White Blood Count 12.4 10^3/uL (4.0-11.0)
[2024-10-10 14:47] LABS: BOX Test Reference Lab UNITY; BOX Test Sent Out Y
[2024-10-10 14:57] LABS: Amphetamine Screen Urine NEGATIVE (NEGATIVE); Barbiturates Screen Urine NEGATIVE (NEGATIVE); Benzodiazepines Screen Urine NEGATIVE (NEGATIVE); Buprenorphine Screen Urine NEGATIVE (NEGATIVE); Cannabinoid Screen Urine POSITIVE (NEGATIVE); Cocaine Screen Urine NEGATIVE (NEGATIVE); Methadone Screen Urine NEGATIVE (NEGATIVE); Methamphetamines Screen Urine NEGATIVE (NEGATIVE); Opiate Screen Urine NEGATIVE (NEGATIVE); Oxycodone Screen Urine NEGATIVE (NEGATIVE); Phencyclidine Screen Urine NEGATIVE (NEGATIVE); Tricyclic Antidepressant Urine NEGATIVE (NEGATIVE)
[2024-10-10 15:36] LABS: Estimated Average Glucose 94 mg/dL; Glycohemoglobin A1C 4.9 % (4.5-6.2)
[2024-10-11 06:10] LABS: HBsAg Screen Negative (Negative)
[2024-10-11 07:09] LABS: HCV Ab Non Reactive (Non Reactive)
[2024-10-11 08:13] LABS: Rubella Antibodies, IgG 1.67 index (Immune >0.99)
[2024-10-11 09:09] LABS: HIV Ab/p24 Ag Screen Non Reactive (Non Reactive)
[2024-10-11 13:11] LABS: Rapid Plasma Reagin, Quant Non Reactive titer (NonRea<1:1)
[2024-10-13 22:06] LABS: Cannabinoid Positive (.); Carboxy THC Conf, MS, UR >750 ng/mL (Cutoff=10)
== END 2024-10-10 14:14 | disposition home or self-care (01) ==
LOC: LAB 14:15
PROVIDERS: PCP Family Medicine; Visit Provider Obstetrics & Gynecology
DX: Z34.01 Encounter for supervision of normal first pregnancy, first trimester (principal); Z36.0 Encounter for antenatal screening for chromosomal anomalies; N92.6 Irregular menstruation, unspecified
CPT/HCPCS: 36415; 80307; 80349; 83036; 85025; 86592; 86762; 86803; 86850; 86900; 86901; 87086; 87340; 87389

== ENCOUNTER 2024-11-09 11:14 | Outpatient (OUT) | payer MEDICAID, SELFPAY ==
--- OUTSIDE RECORDS SUMMARY | 2024-11-09 11:23 | XMS_ITS | CCD ---
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 Name Role Phone PAY ., DR BROOKS Admitting Unavailable PAY ., DR BROOKS Consulting Unavailable PAY ., DR BROOKS Attending Unavailable BLESSING, DR RUTHERFORD Primary Care Unavailable JEMAL BEGUM Admitting Unavailable JEMAL BEGUM Consulting Unavailable JEMAL BEGUM Attending Unavailable BLESSING, DR RUTHERFORD Primary Care Unavailable CARIDAD, DR KORY Mahan Admitting Unavailabl e REINSTACIA, DR KORY Mahan Consulting Unavailabl e CARIDAD, DR KORY Mahan Attending Unavailabl e BRISTOL, DR RUTHERFORD Primary Care Unavailable BRISTOL, DR RUTHERFORD Primary Care Unavailable HOLLY ., KATIE Admitting Unavailable HOLLY ., KATIE Consulting Unavailable KATIE GEORGE Attending Unavailable Michael Anderson Attending Unavailable IGNACIA CRAWFORD Attending Unavailable Michael Anderson Attending Unavailable Michael Anderson Attending Unavailable Michael Anderson MD Primary Care Provider MADIHA HAIRSTON Attending Unavailable RAMSEY MADRID Attending Unavailable Allergies Allergy Classification Reported Allergen(s) Allergy Type Date of Onset Reaction(s) Facility (1 source) No Known Medication Allergies; Translations: [No Known Medication Allergies] Propensity to adverse reactions (disorder) [facility] Medications Current Medications Medication Drug Class(es) Dates Sig (Normalized) Sig (Original) Ethinyl Estradiol / Ferrous fumarate / Norethindrone (1 source) Estrogen End: 09-07-2024 take 1 tablet by mouth in the morning [place] FE 12/04 1-20 MG-MCG tablet Take 1 tablet by mouth in the morning. 09/07/2024 Discontinued ondansetron 4 mg disintegrating oral tablet (5 sources) Serotonin-3 Receptor Antagonist Start: 09-07-2024 End: 10-28-2024 take 1 tablet by mouth every six hours for nausea ondansetron ODT (Zofran-ODT) 4 MG disintegrating tablet Indications: Nausea and vomiting in Take 1 tablet (4 mg) by mouth every 6 (six) hours if needed for nausea or vomiting 30 tablet 3 09/28/2024 10/28/2024 Active Vit-Fe Fumarate-FA ( Vitamins) 28-0.8 MG tablet (6 sources) Start: 09-28-2024 End: 09-28-2025 take 1 tablet by mouth once daily Vit-Fe Fumarate-FA ( Vitamins) 28-0.8 MG tablet Indications: , unspecified gestational age Take 1 tablet by mouth Daily 30 tablet 11 09/28/2024 09/28/2025 Active Start: 09-07-2024 End: 09-07-2025 take 1 tablet by mouth once daily Vit-Fe Fumarate-FA ( Vitamins) 28-0.8 MG tablet Indications: 6 weeks gestation of , , unspecified gestational age Take 1 tablet by mouth Daily 30 tablet 3 09/07/2024 09/07/2025 Active Problems Active Problems Problem Classification Problem Date Documented Da te Episodic/Chronic Headache; including migraine (1 source) Headache; including migraine; Translations: [HEADACHE UNSPECIFIED] Onset: 03-15-2023 Lymphadenitis (1 source) Generalized enlarged lymph nodes; Translations: [GENERALIZED ENLARGED LYMPH NODES] Onset: 03-11-2023 Episodic Menstrual disorders (1 source) Missed period; Translations: [Irregular menstruation, unspecified] 09-07-2024 Chronic Other and delivery including normal (4 sources) ; Translations: [Encounter for supervision of normal , unspecified, unspecified trimester] 09-07-2024 Episodic Other screening for suspected conditions (not [...] upper respiratory infection, unspecified] Onset: 07-24-2022 Episodic Residual codes; unclassified (1 source) Gestation period, 6 weeks; Translations: [Less than 8 weeks gestation of ] 09-07-2024 Episodic Residual codes; unclassified (2 sources) Gestation period, 11 weeks; Translations: [11 weeks gestation of ] 10-10-2024 Episodic Screening and history of mental health [...] Results Test Name Value Interpretation Reference Range Facility ALL CBC WITH AUTO DIFFon BASOPHILS ABSOLUTE AUTO 0 [facility] Basophils/100 WBC (Bld) 0.2 % 0.2 - 2.0 % [facility] Eosinophils/100 WBC (Bld) 1 % 0.9 - 7.0 % [facility] Erythrocyte distribution width (RBC) [Ratio] 11.9 % 11.0 - 15.0 % [facility] Hematocrit (Bld) [Volume fraction] 38 % 36.0 - 48.0 % [facility] Hemoglobin (Bld) [Mass/Vol] 13.1 g/dL 12.0 - 16.0 g/dL [facility] IMMATURE GRANULOCYTES ABS AUTO 0.04 High [facility] Immature granulocytes/100 WBC (Bld) 0.3 % 0.0 - 0.5 % [facility] Interpretation and review of laboratory results Abnormal [facility] LYMPHOCYTES ABSOLUTE AUTO 2.1 [facility] Lymphocytes/100 WBC (Bld) 16.5 % Low 20.5 - 60.0 % [facility] MCH (RBC) [Entitic mass] 30.5 pg 26.7 - 34.0 pg [facility] MCHC (RBC) [Mass/Vol] 34.5 g/dL 29.9 - 35.2 g/dL [facility] MCV (RBC) [Entitic vol] 88.4 fL 81.0 - 99.0 fL [facility] MONOCYTES ABSOLUTE AUTO 0.8 [facility] Monocytes/100 WBC (Bld) 6.1 % 1.7 - 12.0 % [facility] NEUTROPHILS ABSOLUTE AUTO 9.4 High [facility] Neutrophils/100 WBC (Bld) 75.9 % High 43.0 - 75.0 % [facility] Platelet mean volume (Bld) [Entitic vol] 9.5 fL 9.5 - 13.5 fL [facility] EO # 0.1 [facility] PLT [address] [facility] RBC 4.3 [facility] WBC 12.4 High [facility] BOX TESTon 10-10-2024 BOX TEST SENT OUT Y [facility] BOX1 [facility] BOX2 10/10/24 [facility] S[facility] RAPID (URINE )on 10-10-2024 AMPHETAMINE SCREEN URINE Negative NEGATIVE [facility] BARBITURATES SCREEN URINE Negative NEGATIVE [facility] BENZODIAZEPINES SCREEN URINE Negative NEGATIVE [facility] BUPRENORPHINE SCREEN URINE Negative NEGATIVE [facility] Comment on above: DRUG CLASS TEST SYST EM CUT-OFF CONCENTRATIONS ARE FOLLOWS: AMP (Amphetamine): 500 ng/mL BAR (Barbiturates): 200 ng/mL BZO (Benzodiazepines): 150 ng/mL BUP (Buprenorphine): 10 ng/mL CHIARA (Cocaine): 150 ng/mL mAMP (Methamphetamine): 500 ng/mL MTD (Methadone): 200 ng/mL OPI (Opiates): 100 ng/mL OXY (Oxycodone): 100 ng/mL PCP (Phencyclidine): 25 ng/mL THC (Cannabinoids): 50 ng/mL TCA (Trycyclic Antidepressants): 300 ng/mL CANNABINOID SCREEN URINE Positive Abnormal NEGATIVE [facility] COCAINE SCREEN URINE Negative NEGATIVE [facility] Interpretation and review of laboratory results Abnormal [facility] METHADONE SCREEN URINE Negative NEGATIVE [facility] METHAMPHETAMINES SCREEN URINE Negative NEGATIVE [facility] OPIATE SCREEN URINE Negative NEGATIVE [facility] OXYCODONE SCREEN URINE Negative NEGATIVE [facility] PHENCYCLIDINE SCREEN URINE Negative NEGATIVE [facility] TRICYCLIC ANTIDEPRESSANT URINE Negative NEGATIVE [facility] Urinalysis macro (dipstick) panel (U)on 10-10-2024 Bilirubin, UA Negative Negative - 4(70) +++ mg/dL [facility] Blood, UA Negative Negative - 50 Neil/mcL [facility] Clarity, UA Clear [facility] Color, UA Yellow [facility] Glucose, UA Negative Negative - 1999(110) ++++ mg/dL [facility] Interpretation and review of laboratory results Normal [facility] Ketones, UA Negative Negative - 160(16) ++++ mg/dL [facility] Leukocytes, UA Negative Negative - 500+++ Chanel/mcL [facility] Nitrite, UA Negative Negative - Positive [facility] pH, UA 7 5 - 9 [facility] Protein, UA Negative Negative - 1999(20) ++++ mg/dL [facility] Spec Grav, UA 1.02 1 - 1.03 [facility] Urobilinogen, UA 0.2 0.2 - 12 mg/dL [facility] HCG ( test) Ql (U)o n 09-07-2024 Interpretation and review of laboratory results Abnormal [facility] Preg Test, Ur Positive [facility] Urinalysis macro (dipstick) panel (U)on 09-07-2024 Bilirubin, UA Negative Negative - 4(70) +++ mg/dL [facility] Blood, UA Negative Negative - 50 Neil/mcL [facility] Clarity, UA Clear [facility] Color, UA Yellow [facility] Glucose, UA Negative Negative - 1999(110) ++++ mg/dL [facility] Interpretation and review of laboratory results Normal [facility] Ketones, UA Negative Negative - 160(16) ++++ mg/dL [facility] Leukocytes, UA Negative Negative - 500+++ Chanel/mcL [facility] Nitrite, UA Negative Negative - Positive [facility] pH, UA 6 5 - 9 [facility] Protein, UA Negative Negative - 1999(20) ++++ mg/dL [facility] Spec Grav, UA 1.02 1 - 1.03 [facility] Urobilinogen, UA 1.0 0.2 - 12 mg/dL [facility] Ambulatory Visit Summaryon 0 06-22-2024 Ambulatory Visit Summary Ambulatory Visit Summary JESICA DOSHI :1995 Visit Date:06/22/2024 Ambulatory Visit Instructions Your [...] are taki (more content not included)... [facility] Family Medicine Office/Clini c Andie 06-22-2024 Family Medicine Office/Clinic Note Family Medicine Office/Clinic Note [facility] Staff Jose is a 29 year old [...] varicella virus vaccine 07/15/1999 Recorded [facility] Comment on above: Result Comment: Elec tronically Signed By: IGNACIA CRAWFORD CNP\pedro luis\Date and Time Signed: 06/22/24 14:51 EDT Provider Letteron 06-16-2024 Provider Letter Provider Letter June 16, 2024 JESICA DOSHI [address] [place] [address] : 1995 To Whom It May Concern, Please excuse above patient from work due to Covid diagnosis. Date of Illness: From: 06/15/2024 To: 06/22/2024 May Return to Work On: 06/23/2024 Comments: May return to work sooner if symptom free. Sincerely, Family Medicine [address] [address] [facility] Ambulatory Visit Summaryon 0 06-15-2024 Ambulatory Visit Summary Ambulatory Visit Summary JESICA DOSHI :1995 Visit Date:06/15/2024 Ambulatory Visit Instructions Your Diagnosis COVID BMI 34.0-34.9,adult Class 1 obesity due to excess calories in adult Former smoker Your Care Team Attending Physician - Michael [...] AM EDT With: Michael Anderson MD Where: [address] [address]- Allergies No Known Medication Allergies Problems Ongoing [...] for choosing us for your care. [facility] Family Medicine Office/Clini c Noteon 06-15-2024 Family Medicine Office/Clinic Note Family Medicine Office/Clinic Note HPI Staff Gill is a 29 year old female presenting [...] Daily, # 3 tab(s), Refills(s) 0, Pharmacy: [facility] #[id number], 166, cm, 06/15/24 8:34:00 EDT, Height/Length Dosing, 95.6, kg, 06/15/24 8:34:00 EDT, Weight Dosing benzonatate, 200 mg = 1 cap(s), Oral, TID, X 7 day(s), # 21 cap(s), Refills(s) 0, Pharmacy: [facility] #[id number], 166, cm, 06/15/24 8:34:00 EDT, Height/Length Dosing, 95.6, kg, 06/15/24 8:34:00 EDT, Weight Dosing methylPREDNISolone, = 1 packet(s), Oral, As Directed, as directed on package labeling, X 6 day(s), # 21 tab(s), Refills(s) 0, Pharmacy: [facility] #[id number], 166, cm, 06/15/24 8:34:00 EDT, Height/Length Dosing, 95.6, kg, 06/15/24 8:34:00 EDT, Weight Dosing 2. BMI 34.0-34.9,adult (Z68.34: Body mass index [BMI] 34.0-34.9, adult) - BMI education added Ordered: azithromycin, 500 mg = 1 tab(s), Oral, Daily, # 3 tab(s), Refills(s) 0, Pharmacy: [facility] #[id number], 166, cm, 06/15/24 8:34:00 EDT, Height/Length Dosing, 95.6, kg, 06/15/24 8:34:00 EDT, Weight Dosing benzonatate, 200 mg = 1 cap(s), Oral, TID, X 7 day(s), # 21 cap(s), Refills(s) 0, Pharmacy: [facility] #[id number], 166, cm, 06/15/24 8:34:00 EDT, Height/Length Dosing, 95.6, kg, 06/15/24 8:34:00 EDT, Weight Dosing methylPREDNISolone, = 1 packet(s), Oral, As Directed, as directed on package labeling, X 6 day(s), # 21 tab(s), Refills(s) 0, Pharmacy: [facility] #[id number], 166, cm, 06/15/24 8:34:00 EDT, Height/Length Dosing, 95.6, kg, 06/15/24 8:34:00 EDT, Weight Dosing Rapid COVID POC 28260 Rapid Strep POC 95254 3. Class 1 obesity due to excess calories in adult (E66.09: Other obesity due to excess calories) - Diet and exercise advised Ordered: azithromycin, 500 mg = 1 tab(s), Oral, Daily, # 3 tab(s), Refills(s) 0, Pharmacy: [facility] #[id number], 166, cm, 06/15/24 8:34:00 EDT, Height/Length Dosing, 95.6, kg, 06/15/24 8:34:00 EDT, Weight Dosing benzonatate, 200 mg = 1 cap(s), Oral, TID, X 7 day(s), # 21 cap(s), Refills(s) 0, Pharmacy: [facility] #[id number], 166, cm, 06/15/24 8:34:00 EDT, Height/Length Dosing, 95.6, kg, 06/15/24 8:34:00 EDT, Weight Dosing methylPREDNISolone, = 1 packet(s), Oral, As Directed, as directed on package labeling, X 6 day(s), # 21 tab(s), Refills(s) 0, Pharmacy: [facility] #[id number], 166, cm, 06/15/24 8:34:00 EDT, Height/Length Dosing, 95.6, kg, 06/15/24 8:34:00 EDT, Weight Dosing Rapid COVID POC 59925 Rapid Strep POC 63844 4. Former smoker (Z87.891: Personal history of nicotine dependence) - Please continue to not smoke. Ordered: azithromycin, 500 mg = 1 tab(s), Oral, Daily, # 3 tab(s), Refills(s) 0, Pharmacy: [facility] #[id number], 166, cm, 06/15/24 8:34:00 EDT, Height/Length Dosing, 95.6, kg, 06/15/24 8:34:00 EDT, Weight Dosing benzonatate, 200 mg = 1 cap(s), Oral, TID, X 7 day(s), # 21 cap(s), Refills(s) 0, Pharmacy: [facility] #[id number], 166, cm, 06/15/24 8:34:00 EDT, Height/Length Dosing, 95.6, kg, 06/15/24 8:34:00 EDT, Weight Dosing methylPREDNISolone, = 1 packet(s), Oral, As Directed, as directed on package labeling, X 6 day(s), # 21 tab(s), Refills(s) 0, Pharmacy: [facility] #[id number], 166, cm, 06/15/24 8:34:00 EDT, Height/Length Dosing, 95.6, kg, 06/15/24 8:34:00 EDT, Weight Dosing Rapid COVID POC 92655 Rapid Strep POC 43717 Follow-up No qualifying data available Problem List/Past Medical History Ongoing Acute URI Cough COVID Elevated BP without diagnosis of hypertension Smoker 17-MAY-2014 12:37:00<$> Historical No qualifying data Procedure/Surgical History section. Medications Azithromycin 3 Day Dose Pack 500 mg oral tabl (more content not included)... [facility] Comment on above: Result Comment: Elec tronically Signed By: Michael Anderson MD\.br\Date and Time Signed: 06/15/24 09:10 EDT Provider Letteron 06-15-2024 Provider Letter Provider Letter June 15, 2024 JESICA DOSHI [address] [place] [address] : 1995 To Whom It May Concern, Please excuse above patient from work due to illness. Date of Illness: From: _06-15-24 To: _06-22-24 May Return to Work On:06-23-24 Restrictions: _ Comments: _ Sincerely, [place] [address] [facility] Ambulatory Visit Summaryon 0 11-23-2023 Ambulatory Visit Summary RUSTY JESICA GILL :1995 Visit Date:11/23/2023 Ambulatory Visit Instructions Your [...] Follow-Up Appointments Wednesday 3:15 PM EST With: Justin PEREIRA, Michael Quinones Where: [facility] Medicine [place] [facility] Medicine Office/Clini c Noteon 11-23-2023 Family Medicine [...] day(s), # 21 cap(s), Refills(s) 0, Pharmacy: [facility] #[id number], 166, cm, 11/23/23 13:05:00 EST, Height/Length Dosing, 91.6, kg, 11/23/23 13:05:00 EST, Weight Dosing methylPREDNISolone, = 1 packet(s), Oral, As Directed, as directed on package labeling, X 6 day(s), # 21 tab(s), Refills(s) 0, Pharmacy: [facility] #[id number], 166, cm, 11/23/23 13:05:00 EST, Height/Length Dosing, 91.6, kg, 11/23/23 13:05:00 EST, Weight Dosing 2. Cough (R05.9: Cough, unspecified) - As above - Pending covid test. Ordered: benzonatate, 200 mg = 1 cap(s), Oral, TID, X 7 day(s), # 21 cap(s), Refills(s) 0, Pharmacy: [facility] #[id number], 166, cm, 11/23/23 13:05:00 EST, Height/Length Dosing, 91.6, kg, 11/23/23 13:05:00 EST, Weight Dosing methylPREDNISolone, = 1 packet(s), Oral, As Directed, as directed on package labeling, X 6 day(s), # 21 tab(s), Refills(s) 0, Pharmacy: [facility] #[id number], 166, cm, 11/23/23 13:05:00 EST, Height/Length Dosing, 91.6, kg, 11/23/23 13:05:00 EST, Weight Dosing 3. BMI 36.0-36.9,adult (Z68.36: Body mass index [BMI] 36.0-36.9, adult) - BMI education given Ordered: benzonatate, 200 mg = 1 cap(s), Oral, TID, X 7 day(s), # 21 cap(s), Refills(s) 0, Pharmacy: [facility] #[id number], 166, cm, 11/23/23 13:05:00 EST, Height/Length Dosing, 91.6, kg, 11/23/23 13:05:00 EST, Weight Dosing methylPREDNISolone, = 1 packet(s), Oral, As Directed, as directed on package labeling, X 6 day(s), # 21 tab(s), Refills(s) 0, Pharmacy: [facility] #[id number], 166, cm, 11/23/23 13:05:00 EST, Height/Length Dosing, 91.6, kg, 11/23/23 13:05:00 EST, Weight Dosing 4. Non-smoker (Z78.9: Other specified health status) - Please continue to not smoke Ordered: benzonatate, 200 mg = 1 cap(s), Oral, TID, X 7 day(s), # 21 cap(s), Refills(s) 0, Pharmacy: [facility] #[id number], 166, cm, 11/23/23 13:05:00 EST, Height/Length Dosing, 91.6, kg, 11/23/23 13:05:00 EST, Weight Dosing methylPREDNISolone, = 1 packet(s), Oral, As Directed, as directed on package labeling, X 6 day(s), # 21 tab(s), Refills(s) 0, Pharmacy: [facility] #[id number], 166, cm, 11/23/23 13:05:00 EST, Height/Length Dosing, [...] Recorded varicella virus vaccine 07/15/1999 Recorded [facility] Comment on above: Result Comment: Elec tronically Signed By: uJstin PEREIRA, Michael Dewitt.mark\Date and Time Signed: 11/23/23 13:40 EST Patient Educationon 11-23-19 Patient Education Nutrition BMI for Adults What [...] numbers. This can be done either in [place] or metric measurements. Note that charts and online BMI calculators are available to help you find your BMI quickly and easily without having to do these calculations yourself. To calculate your BMI in [place] measurements: 1. Measure your weight in [...] for Disease Control and Prevention: www.cdc.gov ? [employer]: www.heart.org ? National Heart, Lung, and Blood [place]: www.nhlbi.nih.gov Summary ? Body mass index (BMI) is a number that is calculated from a person's weight and height. ? BMI may help estimate how much of a person's weight is composed of fat. BMI can help identify those who may be at higher risk for certain medical problems. ? BMI can be measured using [place] measurements or metric measurements. ? BMI charts are used to identify whether you are underweight, normal weight, overweight, or obese. This information is not intended to replace advice given to you by your health care provider. Make sure you discuss any questions you have with your health care provider. Document Revised: 07/24/2020 Document Reviewed: 05/31/2020 Elsevier Patient Education ? 2022 [employer]. [facility] GROUP A STREP CULTUREon 02-14 S. pyogenes Ag Ql (Unsp spec) Culture Observations: NEGATIVE FOR GROUP A STREPTOCOCCUS. Normal [facility] Comment on above: Performed By: #### G RASTCX, SSCRN #### [facility] [address] [place] [address] Dr. Aniceto Ashby MONOon 03-13-2023 Monocytes (Bld) [#/Vol] Negative Normal NEGATIVE [facility] Comment on above: Performed By: #### M ERVIN #### [facility] [address] [place] [address] Dr. Aniceto Ashby STREPT SCREENon 03-13-2023 STREP SCREEN A Negative Normal NEGATIVE [facility] Comment on above: Performed By: #### G RASTCX, SSCRN #### [facility] [address] [place] [address] Dr. Aniceto Ashby GROUP A STREP CULTUREon 02-14 S. pyogenes Ag Ql (Unsp spec) Culture Observations: NEGATIVE FOR GROUP A STREPTOCOCCUS. [facility] Comment on above: Performed By: #### G RASTCX, SSCRN #### [facility] [address] [place] [address] Dr. Aniceto Ashby STREPT SCREENon 03-10-2023 STREP SCREEN A Negative Normal NEGATIVE [facility] Comment on above: Performed By: #### G RASTCX, SSCRN #### [facility] [address] [place] [address] Dr. Aniceto Ashby PAP ACOG PANEL 2: to on 02-19-2023 . . Normal [facility] Comment on above: Performed By: #### [id number] #### [facility] [address] [place] [address] Dr. Aniceto Ashby Age Gdln ACOG Testing [facility] Comment on above: Performed By: #### [id number] #### [facility] [address] [place] [address] Dr. Aniceto Ashby DIAGNOSIS: Comment [facility] Comment on above: Result Comment: NEGA TIVE FOR INTRAEPITHELIAL LESION OR MALIGNANCY. SHIFT IN DENNY SUGGESTIVE OF BACTERIAL VAGINOSIS. THIS SPECIMEN WAS RESCREENED PART OF OUR [employer] PROGRAM. Performed By: #### [id number] #### [facility] [address] [place] [address] Dr. Aniceto Ashby Methodology: Comment Normal [facility] Comment on above: Result Comment: This liquid based ThinPrep(R) pap test was screened with the use of an image guided system. Performed By: #### [id number] #### [facility] [address] [place] [address] Dr. Aniceto Ashby Note: Comment Normal [facility] Comment on above: Result Comment: The Pap smear is a screening test designed to aid in the detection of premalignant and malignant conditions of the uterine cervix. It is not a diagnostic procedure and should not be used as the sole means of detecting cervical cancer. Both false-positive and false-negative reports do occur. . Performed By: #### [id number] #### [facility] [address] [place] [address] Dr. Aniceto Ashby Performed by: Comment Normal [facility] Comment on above: Result Comment: Cleo Dubon, Machine Hoop Maker (ASCP) Performed By: #### [id number] #### [facility] [address] [place] [address] Dr. Aniceto Ashby QC reviewed by: Comment Normal [facility] Comment on above: Result Comment: Cleo Dasilva Machine Hoop Maker (ASCP) Performed By: #### [id number] #### [facility] [address] [place] [address] Dr. Aniceto Ashby Reflex Criteria: Comment Normal [facility] Comment on above: Result Comment: The HPV DNA reflex criteria were not met with this specimen result therefore, no HPV testing was performed. . Performed By: #### [id number] #### [facility] [address] [place] [address] Dr. Aniceto Ashby Specimen adequacy: Comment Normal [facility] Comment on above: Result Comment: Sati sfactory for evaluation. Endocervical and/or squamous metaplastic cells (endocervical component) are present. Performed By: #### 4 [id number] #### [facility] [address] [place] [address] Dr. Aniceto Ashby Covid-19 PCR ([facility])on SARS-CoV-2 (COVID-19) RNA HUSEYIN+probe Ql (Unsp spec) Not detected Normal NOT DETECTED [facility] Comment on above: Result Comment: When [...] for this test is supported by the [place] of Health and Human Service's declaration that [...] longer be used). Performed By: #### C VDTBH #### [facility] [facility] [address] [place] [id number] Aniceto Ashby Vital Signs Date Time Vital Sign Value Performing Clinician Faci lity 10-10-2024 13:35-0500 Body mass index (BMI) [Ratio] 33.17 kg/m2 [employer] Work Phone: [facility] 10-10-2024 13:35-0500 Body weight 96.07 kg [employer] Work Phone: [facility] 10-10-2024 13:35-0500 Diastolic blood pressure 80 mm[Hg] [employer] Work Phone: [facility] 10-10-2024 13:35-0500 Systolic blood pressure 120 mm[Hg] [employer] Work Phone: [facility] 09-07-2024 13:52-0400 Body mass index (BMI) [Ratio] 34.16 kg/m2 [facility] 09-07-2024 13:52-0400 Body weight 98.94 kg [facility] 09-07-2024 13:52-0400 Diastolic blood pressure 70 mm[Hg] [facility] 09-07-2024 13:52-0400 Systolic blood pressure 120 mm[Hg] [facility] Encounters Encounter Date Encounter Type Care Provider Facility Start: 11-09-2024 End: 11-09-2024 Bamboo flowsheet Madiha Marika DO Work Phone: [facility] Start: 11-09-2024 End: 11-09-2024 Bamboo flowsheet Madiha Marika DO Work Phone: [facility] Start: 10-10-2024 End: 10-10-2024 Bamboo flowsheet Madiha Marika DO Work Phone: [facility] Start: 10-10-2024 End: 10-10-2024 Bamboo flowsheet Madiha Marika DO Work Phone: [facility] Start: 10-10-2024 End: 10-10-2024 Clinisync Result Encounter Madiha Marika DO Work Phone: [facility] External Department Unsolicited Start: 10-10-2024 End: 10-10-2024 Office outpatient visit 15 minutes Madiha Marika DO Work Phone: [facility] Comment on above: 11 weeks gestation o f ; First trimester Start: 10-10-2024 End: 10-10-2024 ambulatory MADIHA MARIKA Not Available Start: 09-07-2024 End: 09-07-2024 Office outpatient visit 5 minutes [facility] Marika Nurse [facility] Comment on above: GA: 6w2d Start: 09-07-2024 End: 09-07-2024 ambulatory MADIHA MARIKA Not Available Start: 06-22-2024 End: 06-22-2024 ambulatory IGNACIA CRAWFORD Facility:[facility] Start: 06-15-2024 End: 06-15-2024 ambulatory Michael EObinna Anderson Facility: [facility] Start: 12-28-2023 ambulatory Michael Joni Anderson Facility : [facility] Start: 11-23-2023 ambulatory Michael Anderson Facility :[facility] Start: 11-23-2023 ambulatory Michael Anderson Facility:[facility] Start: 11-02-2023 End: 11-02-2023 ambulatory RAMSEY JULIUS Not Available Start: 03-13-2023 End: 03-13-[address] SANGEETA FUNK Facility:[facility] Start: 03-10-2023 End: 03-10-[address] TODD Yeboah Facility:[facility] Start: 02-11-2023 End: 02-11-2023 ambulatory JEMAL BEGUM Facility:[facility] Start: 07-23-2022 End: 07-23-[address] KORY MCLEAN Facility: Procedures Date Procedure Procedure Detail Performing Clinician Start: 10-10-2024 ALL CBC WITH AUTO DIFF Madiha Marika DO Work Phone: Start: 10-10-2024 BOX TEST Madiha Fazi o DO Work Phone: Start: 10-10-2024 TB DRUG SCREEN RAPI D (URINE) Madiha Marika DO Work Phone: Start: 10-10-2024 Urnls dip stick/tabl et rgnt non-auto w/o micrscp Madiha Marika DO Work Phone: Start: 09-07-2024 End: 09-07-2024 Urnls dip stick/tablet rgnt non-auto w/o micrscp Madiha Marika DO Work Phone: Plan of Treatment Date Care Activity Detail Author Start: 11-09-2024 End: 11-09-2024 Patient encounter procedure [facility] Comment on above: Arrived Start: 10-10-2024 End: 10-10-2024 Patient encounter procedure 10/10/2024 1:10 PM EST Routine [facility] [address] [place] [id number] Madiha Hairston, DO [address] [place] [address] [facility] Start: 09-07-2024 End: 09-07-2025 ABO/Rh ABO/Rh Lab Routine Missed menses , unspecified gestational age Expected: 09/07/2024 (Approximate), Expires: 09/07/2025 [facility] Comment on above: Expected: 09/07/2024 (Approximate), Expires: 09/07/2025 Start: 09-07-2024 End: 09-07-2025 Blood type and Indirect antibody screen panel - Blood Type and screen Lab Routine Missed menses , unspecified gestational age Expected: 09/07/2024 (Approximate), Expires: 09/07/2025 [facility] Work Phone: Comment on above: Expected: 09/07/2024 (Approximate), Expires: 09/07/2025 Start: 09-07-2024 End: 09-07-2025 Drugs of abuse panel - Urine by Screen method Rapid drug screen, urine Lab Routine , unspecified gestational age Encounter for supervision of normal first in first trimester Expected: 09/07/2024 (Approximate), Expires: 09/07/2025 [facility] Comment on above: Expected: 09/07/2024 (Approximate), Expires: 09/07/2025 Start: 09-07-2024 End: 09-07-2025 US Pelvis transvaginal US OB transvaginal Imaging Routine Missed menses Expected: 09/07/2024 (Approximate), Expires: 09/07/2025 [facility] Comment on above: Expected: 09/07/2024 (Approximate), Expires: 09/07/2025 Bacteria identified in Urine by Culture Urine culture Microbiology Routine Missed menses Ordered: 09/07/2024 [facility] Comment on above: Ordered: 09/07/2024 CBC W Auto Different ial panel - Blood CBC and differential Lab Routine Missed menses , unspecified gestational age Ordered: 09/07/2024 [facility] Comment on above: Ordered: 09/07/2024 Hemoglobin A1c/Hemoglobin.total in Blood Hemoglobin A1c Lab Routine Missed menses , unspecified gestational age Ordered: 09/07/2024 [facility] Comment on above: Ordered: 09/07/2024 Hepatitis B virus surface Ag [Presence] in Serum or Plasma by Immunoassay Hepatitis B surface antigen Lab Routine Missed menses , unspecified gestational age Ordered: 09/07/2024 [facility] Comment on above: Ordered: 09/07/2024 Hepatitis C virus Ab [Presence] in Serum or Plasma by Immunoassay Hepatitis C antibody Lab Routine Missed menses , unspecified gestational age Ordered: 09/07/2024 [facility] Comment on above: Ordered: 09/07/2024 HIV-1/HIV-2 antigen/antibody combination immunoassay HIV-1 and HIV-2 antibodies Lab Routine Missed menses , unspecified gestational age Ordered: 09/07/2024 [facility] Comment on above: Ordered: 09/07/2024 Reagin Ab [Presence] in Serum by RPR RPR Lab Routine Missed menses , unspecified gestational age Ordered: 09/07/2024 [facility] Comment on above: Ordered: 09/07/2024 Rubella antibody, IgG Rubella an tibody, IgG Lab Routine Missed menses , unspecified gestational age Ordered: 09/07/2024 [facility] Comment on above: Ordered: 09/07/2024 Payers Date Payer Category Payer Medicaid [employer] [place] [place] [id number] 2023 [facility] [id number] 2023 Unknown [id number] 2022 Medicaid [id number] 1996 Unknown [id number]. 593 1996 Unknown [id number]. 593 1996 Unknown [id number] [id number]. 593 1996 Unknown [id number] [id number]. 593 1996 Unknown [id number] [id number]. 727 1996 Unknown [id number]. 727 1996 Unknown [id number] [id number]. 727 1996 Unknown [id number] [id number]. 727 1996 Unknown [id number] [id number]. 1259 1996 Unknown [id number] [id number]. 1259 1996 Unknown [id number] [id number]. 1259 1959 Unknown [id number] Social History Date Type Detail Facility Start: 11-01-2023 Tobacco smoking status NHIS Ex-smoke r [facility] Start: 01-13-2013 End: 10-19-2022 History of tobacco use Current smoker [facility] Start: 01-13-2013 End: 10-19-2022 History of tobacco use Cigarette Smoker [facility] Start: 11-01-2023 History of Social function [facility] Start: 11-01-2023 Tobacco use panel [facility] Start: 08-08-2024 [facility] Start: 1995 Sex assigned at Not on file [facility] History of Present illness Narrative 10-10-2024 Ramila Stone, [employer] - 10/10/2024 1:10 PM EST Note Date & Type Note Facility 10-10-2024 History of Presen t illness Narrative Reason for Appointment: Patient ID: Jesica Doshi is a 29 y.o. female who presents for Well Women Visit Patient presents today for Return OB appointment. MEDICATIONS Current Outpatient Medications Medication Instructions ondansetron ODT (ZOFRAN-ODT) 4 mg, Oral, Every 6 hours PRN Vit-Fe Fumarate-FA ( Vitamins) 28-0.8 MG tablet 1 tablet, Oral, Daily ALLERGIES No Known Allergies PROBLEMS Active Ambulatory Problems Diagnosis Date Noted No Active Ambulatory Problems Resolved Ambulatory Problems Diagnosis Date Noted No Resolved Ambulatory Problems Past Medical History: Diagnosis Date Pap smear for cervical cancer screening 02/11/2023 HISTORY PAST MEDICAL HISTORY SOCIAL HISTORY Past Medical History: Diagnosis Date Pap smear for cervical cancer screening 02/11/2023 neg Social History Tobacco Use Smoking status: Former Current packs/day: 0.00 Types: Cigarettes Start date: 01/13/2013 Quit date: 10/19/2022 Years since quittin.9 Smokeless tobacco: Not on file Substance Use Topics Alcohol use: Not on file Drug use: Not on file FAMILY HISTORY Family History Problem Relation Name Age of Onset Other (mhthr) Mother Other (rh negative) Mother Melanoma Neg Hx SURGICAL HISTORY Past Surgical History: Procedure Laterality Date SECTION, LOW TRANSVERSE 09/02/2013 REVIEW OF SYSTEMS Review of Systems: Review of Systems Constitutional: Negative. HENT: Negative. Eyes: Negative. Respiratory: Negative. Cardiovascular: Negative. Gastrointestinal: Negative. Genitourinary: Negative. Musculoskeletal: Negative. Skin: Negative. Neurological: Negative. All other systems reviewed and are negative. Hematological: Negative. Endocrine: Negative. Allergic/Immunologic: Negative. OBJECTIVE Objective: Physical Exam Constitutional: Appearance: Normal appearance. She is well-developed. Cardiovascular: Rate and Rhythm: Normal rate and regular rhythm. Pulmonary: Effort: Pulmonary effort is normal. Breath sounds: Normal breath sounds. Abdominal: General: Bowel sounds are normal. There is no distension. Palpations: Abdomen is soft. Tenderness: There is no abdominal tenderness. There is no guarding or rebound. Musculoskeletal: General: No swelling. Normal range of motion. Right lower leg: No edema. Left lower leg: No edema. Neurological: Mental Status: She is alert and oriented to person, place, and time. Skin: General: Skin is warm and dry. Psychiatric: Mood and Affect: Mood normal. Behavior: Behavior normal. Vitals and nursing note reviewed. Exam conducted with a supervisor lump room present. Vitals: Estimated body mass index is 33.17 kg/m as calculated from the following: Height as of 08/11/23: 5' 7 . Weight as of this encounter: 211 lb 12.8 oz. BP: 120/80 Patient's last menstrual period was 07/02/2024. ASSESSMENT & PLAN ICD-10-CM 1. 11 weeks gestation of Z3A.11 POCT urinalysis dipstick manually resulted 2. First trimester Z34.91 POCT urinalysis dipstick manually resulted New OB: Patient presents today for 1st time obstetrics appointment with provider. Patient is currently 11w0d . Patients history has been reviewed in great detail including any potential risks. Patient stated she currently has no complaints. Expectations throughout regarding labs, ultrasounds, and appointments have been discussed with the patient in detail. It was reiterated that the patient is to drink 6-8 glasses of water a day, eat 6 small meals a day, do not consume raw or undercooked meat, and stay away from [facility]. Patient has been consulted regarding any further do's and don'ts of . Patient voiced understanding and all questions and concerns were answered. Pt to start baby aspirin at 16 weeks. C/S date 04/24/25. Orders Placed This Encounter Procedures POCT urinalysis dipstick manually resulted Follow Up: Patient is to return in 4 weeks for routine OB appointment. Documented by Ramila Stone LPN on behalf of: Madiha Hairston DO documented in this encounter [facility] History of Present illness Narrative 09-07-2024 Milvia Chirinos LPN - 09/07/2024 1:30 PM EDT Note Date & Type Note Facility 09-07-2024 History of Presen t illness Narrative Reason for Appointment: Patient ID: Jesica Doshi is a 29 y.o. female who presents for Amenorrhea Patient presents today for a Nurse OB Intake appointment. Patient is 6w2d with a Estimated Date of Delivery: 05/01/25 OB History Para Term AB Living 2 1 1 0 0 1 SAB IAB Ectopic Multiple Live Births 0 0 0 0 0 # Outcome Date GA Lbr Reji/2nd Weight Sex Type Anes PTL Lv 2 Current 1 Term 09/02/13 7 lb 1 oz CS-[id number] Obstetric Comments Last pap smear date 02/11/2023 Current Medications: has a current medication list which includes the following prescription(s): ondansetron odt and vitamins. Medical History: Active Ambulatory Problems Diagnosis Date Noted No Active Ambulatory Problems Resolved Ambulatory Problems Diagnosis Date Noted No Resolved Ambulatory Problems Past Medical History: Diagnosis Date Pap smear for cervical cancer screening 02/11/2023 Family History Problem Relation Name Age of Onset Other (mhthr) Mother Other (rh negative) Mother Melanoma Neg Hx Social History Tobacco Use Smoking status: Former Current packs/day: 0.00 Types: Cigarettes Start date: 01/13/2013 Quit date: 10/19/2022 Years since quittin.8 Smokeless tobacco: Not on file Substance Use Topics Alcohol use: Not on file Drug use: Not on file Past Surgical History: Procedure Laterality Date SECTION, LOW TRANSVERSE 09/02/2013 No Known Allergies Vitals: Estimated body mass index is 34.16 kg/m as calculated from the following: Height as of 08/11/23: 5' 7 . Weight as of this encounter: 218 lb 1.9 oz. BP: 120/70 Patient's last menstrual period was 07/02/2024. Assessment/Plan Diagnoses and all orders for this visit: 6 weeks gestation of - ondansetron ODT (Zofran-ODT) 4 MG disintegrating tablet; Take 1 tablet (4 mg) by mouth every 6 (six) hours if needed for nausea or vomiting - Vit-Fe Fumarate-FA ( Vitamins) 28-0.8 MG tablet; Take 1 tablet by mouth Daily Missed menses - Type and screen; Future - ABO/Rh; Future - CBC and differential - Hemoglobin A1c - RPR - Rubella antibody, IgG - Hepatitis B surface antigen - Hepatitis C antibody - HIV-1 and HIV-2 antibodies - Urine culture - OB transvaginal; Future - POCT , urine manually resulted - POCT urinalysis dipstick manually resulted , unspecified gestational age - Type and screen; Future - ABO/Rh; Future - CBC and differential - Hemoglobin A1c - RPR - Rubella antibody, IgG - Hepatitis B surface antigen - Hepatitis C antibody - HIV-1 and HIV-2 antibodies - Rapid drug screen, urine; Future - ondansetron ODT (Zofran-ODT) 4 MG disintegrating tablet; Take 1 tablet (4 mg) by mouth every 6 (six) hours if needed for nausea or vomiting - Vit-Fe Fumarate-FA ( Vitamins) 28-0.8 MG tablet; Take 1 tablet by mouth Daily Encounter for supervision of normal first in first trimester - Rapid drug screen, urine; Future Nurse Note: OB Intake: Patient presents today for first OB visit. Patients history has been reviewed in great detail including any potential risks. Patient signed consent forms and patient desires testing in both trimesters. Patient currently has no complaints and has been advised to drink 6-8 glasses of water a day, eat no raw or undercooked meat, and stay away from [facility]. Patient has also been advised to not change litter boxes and eat 6 small meals a day. Patient has been consulted regarding the do's and don'ts of . Patient was given labs and all questions and concerns were answered. Script was sent for Zofran, and Fleming labs given to patient. Follow Up: Patient is to return in 4 weeks for routine OB appointment. Follow Up: Patient is to have labs drawn at directed and return to office for initial OB appointment with provider. Patient may call office as needed with any concerns or questions. Nurse Visit Completed by: Milvia Chirinos LPN documented in this encounter [facility] Clinical Note 06-22-2024 Note Date & Type [...] ? Know how (more content not included)... [facility] Evaluation note Note Date & Type Note Facility Evaluation note Diagnosis 6 weeks gestation of Missed menses , unspecified gestational age Encounter for supervision of normal first in first trimester documented in this encounter [facility] Evaluation note Note Date & Type Note Facility Evaluation note Diagnosis 11 weeks gestation of First trimester state, incidental documented in this encounter [facility] Summary Purpose Family History No Family History Records FoundNo Family History Records FoundNo Family History Records Found Advance Directives No Advanced Directives Records FoundNo Advanced Directives Records FoundNo Advanced Directives Records Found Additional Source Comments INFORMATION SOURCE (unrecogn ized section and content) DATE CREATED AUTHOR 03/15/2023 [facility] DATE CREATED AUTHOR AUTHOR'S ORGANIZ ATION 06/24/2024 [facility] DATE CREATED AUTHOR AUTHOR'S ORGANIZ ATION 10/13/2024 [facility] EPIC Reason for Visit (unrecogniz ed section and content) Reason Comments Amenorrhea Reason Comments [facility] Visit Care Teams (unrecognized sec tion and content) Table Top Tile Setter Relationship Specialty Start Date End Date Michael Anderson MD [address] [place] [address] PCP - General Family Medicine 09/07/24 Table Top Tile Setter Relationship Specialty Start Date End Date Michael Anderson MD [address] [place], [place] [id number] PCP - General Family Medicine 09/07/24 Table Top Tile Setter Relationship Specialty Start Date End Date Michael Anderson MD [address] [place], [place] [phone] PCP - General Family Medicine 09/07/24 Table Top Tile Setter Relationship Specialty Start Date End Date Michael Anderson MD [address] [place] [address] [id number] PCP - General Family Medicine 09/07/24 Table Top Tile Setter Relationship Specialty Start Date End Date Michael Anderson MD [address] [place] [address] PCP - General Family Medicine 09/07/24 FOR RECORDS PERTAINING TO PATIENTS WHO ARE [...] BE BASED ON THE PRIMARY CLINICAL RECORDS. [facility] [facility]. provides no warranty or guarantee of the accuracy or completeness of information in this document.
[2024-11-11 00:07] LABS: Gest. Age on Collection Date 15.3 weeks (.); Gestat. Age Based On Ultrasound (.); Insulin Dep Diabetes No (.); Maternal Age At EDD 28.9 yr (.); OSBR Risk 1 IN 4399 (.); Results Report (.)
== END 2024-11-09 11:15 | disposition home or self-care (01) ==
LOC: LAB 11:16
PROVIDERS: PCP Family Medicine; Visit Provider Obstetrics & Gynecology
DX: Z34.92 Encounter for supervision of normal pregnancy, unspecified, second trimester (principal)
CPT/HCPCS: 36415; 82105; 88175

== ENCOUNTER 2024-11-09 16:54 | Outpatient (REF) | payer MEDICAID, SELFPAY ==
--- OUTSIDE RECORDS SUMMARY | 2024-11-09 16:58 | XMS_ITS | CCD ---
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 Repository Medications Current Medications Medication Drug [...] Vit-Fe Fumarate-FA ( Vitamins) 28-0.8 MG tablet (8 sources) Start: 09-28-2024 End: 09-28-2025 take 1 [...] 09-07-2024 Chronic Other and delivery including normal (8 sources) ; Translations: [Encounter for supervision of normal , unspecified, unspecified trimester] Onset: 11-09-2024 09-07-2024 Episodic Other screening for suspected conditions (not mental disorders or infectious disease) (6 sources) Encounter for screening for malignant neoplasm of cervix; Translations: [Patient encounter status] Onset: 02-11-2023 Episodic Other upper respiratory infections [...] [11 weeks gestation of ] 10-10-2024 Episodic Residual codes; unclassified (4 sources) Gestation period, 15 weeks; Translations: [15 weeks gestation of ] Onset: 11-09-2024 11-09-2024 Episodic Screening and history of mental health [...] Test Name Value Interpretation Reference Range Facility Urinalysis macro (dipstick) panel (U)on 11-09-2024 Bilirubin, UA Negative Negative - 4(70) +++ mg/dL [facility] Blood, UA Negative Negative - 50 Neil/mcL [facility] Clarity, UA Clear [facility] Color, UA Yellow [facility] Glucose, UA Negative Negative - 1999(110) ++++ mg/dL [facility] Interpretation and review of laboratory results Normal [facility] Ketones, UA Negative Negative - 160(16) ++++ mg/dL [facility] Leukocytes, UA Negative Negative - 500+++ Chanel/mcL [facility] Nitrite, UA Negative Negative - Positive [facility] pH, UA 7.5 5 - 9 [facility] Protein, UA Negative Negative - 2000(20) ++++ mg/dL [facility] Spec Grav, UA 1.02 1 - 1.03 [facility] Urobilinogen, UA 0.2 0.2 - 12 mg/dL [facility] ALL CBC WITH AUTO DIFFon BASOPHILS ABSOLUTE AUTO 0 [facility] Basophils/100 WBC (Bld) 0.2 % 0.2 - 2.0 % [facility] Eosinophils/100 WBC (Bld) 1 % 0.9 - 7.0 % [facility] Erythrocyte distribution width (RBC) [Ratio] 11.9 % 11.0 - 15.0 % [facility] Hematocrit (Bld) [Volume fraction] 38 % 36.0 - 48.0 % [facility] Hemoglobin (Bld) [Mass/Vol] 13.1 g/dL 12.0 - 16.0 g/dL [facility] IMMATURE GRANULOCYTES ABS AUTO 0.04 High [facility] Immature granulocytes/100 WBC (Bld) 0.3 % 0.0 - 0.5 % [facility] Interpretation and review of laboratory results Abnormal [facility] LYMPHOCYTES ABSOLUTE AUTO 2.1 [facility] Lymphocytes/100 WBC (Bld) 16.5 % Low 20.5 - 60.0 % [facility] MCH (RBC) [Entitic mass] 30.5 pg 26.7 - 34.0 pg [facility] MCHC (RBC) [Mass/Vol] 34.5 g/dL 29.9 - 35.2 g/dL [facility] MCV (RBC) [Entitic vol] 88.4 fL 81.0 - 99.0 fL [facility] MONOCYTES ABSOLUTE AUTO 0.8 [facility] Monocytes/100 WBC (Bld) 6.1 % 1.7 - 12.0 % [facility] NEUTROPHILS ABSOLUTE AUTO 9.4 High [facility] Neutrophils/100 WBC (Bld) 75.9 % High 43.0 - 75.0 % [facility] Platelet mean volume (Bld) [Entitic vol] 9.5 fL 9.5 - 13.5 fL [facility] EO # 0.1 [facility] TB PLT 335 [facility] RBC 4.3 [facility] TB WBC 12.4 High [facility] BOX TESTon 10-10-2024 BOX TEST SENT OUT Y [facility] BOX1 [facility] BOX2 10/10/24 [facility] BOX [facility] DRUG SCREEN RAPID (URINE )on 10-10-2024 AMPHETAMINE SCREEN URINE Negative NEGATIVE [facility] BARBITURATES SCREEN URINE Negative NEGATIVE [facility] BENZODIAZEPINES SCREEN URINE Negative NEGATIVE [facility] BUPRENORPHINE SCREEN URINE Negative NEGATIVE [facility] Comment on above: DRUG CLASS TEST [...] ng/mL CANNABINOID SCREEN URINE Positive Abnormal NEGATIVE [facility] COCAINE SCREEN URINE Negative NEGATIVE [facility] Interpretation and review of laboratory results Abnormal [facility] METHADONE SCREEN URINE Negative NEGATIVE [facility] METHAMPHETAMINES SCREEN URINE Negative NEGATIVE [facility] OPIATE SCREEN URINE Negative NEGATIVE [facility] OXYCODONE SCREEN URINE Negative NEGATIVE [facility] PHENCYCLIDINE SCREEN URINE Negative NEGATIVE [facility] TRICYCLIC ANTIDEPRESSANT URINE Negative NEGATIVE [facility] Urinalysis macro (dipstick) panel (U)on 10-10-2024 Bilirubin, UA Negative Negative - 4(70) +++ mg/dL [facility] Blood, UA Negative Negative - 50 Neil/mcL [facility] Clarity, UA Clear [facility] Color, UA Yellow [facility] Glucose, UA Negative Negative - 1999(110) ++++ mg/dL [facility] Interpretation and review of laboratory results Normal [facility] Ketones, UA Negative Negative - 160(16) ++++ mg/dL [facility] Leukocytes, UA Negative Negative - 500+++ Chanel/mcL [facility] Nitrite, UA Negative Negative - Positive [facility] pH, UA 7 5 - 9 [facility] Protein, UA Negative Negative - 1999(20) ++++ mg/dL [facility] Spec Grav, UA 1.02 1 - 1.03 [facility] Urobilinogen, UA 0.2 0.2 - 12 mg/dL [facility] HCG ( test) Ql (U)o n 09-07-2024 Interpretation and review of laboratory results Abnormal [facility] Preg Test, Ur Positive [facility] Urinalysis macro (dipstick) panel (U)on 09-07-2024 Bilirubin, UA Negative Negative - 4(70) +++ mg/dL [facility] Blood, UA Negative Negative - 50 Neil/mcL [facility] Clarity, UA Clear [facility] Color, UA Yellow [facility] Glucose, UA Negative Negative - 2000(110) ++++ mg/dL [facility] Interpretation and review of laboratory results Normal [facility] Ketones, UA Negative Negative - 160(16) ++++ mg/dL [facility] Leukocytes, UA Negative Negative - 500+++ Chanel/mcL [facility] Nitrite, UA Negative Negative - Positive [facility] pH, UA 6 5 - 9 [facility] Protein, UA Negative Negative - 2000(20) ++++ mg/dL [facility] Spec Grav, UA 1.02 1 - 1.03 [facility] Urobilinogen, UA 1.0 0.2 - 12 mg/dL [facility] Ambulatory Visit Summaryon 0 06-22-2024 Ambulatory Visit Summary Ambulatory Visit Summary RUSTY JESICA GILL :1995 Visit Date:06/22/2024 Ambulatory Visit Instructions Your [...] are taki (more content not included)... Normal [facility] Family Medicine Office/Clini c Noteon 06-22-2024 [...] Recorded varicella virus vaccine 07/15/[address] [facility] Comment on above: Result Comment: Elec tronically Signed By: IGNACIA CRAWFORD CNP\.br\Date and Time Signed: 06/22/24 14:51 EDT Provider Letteron 06-16-2024 Provider Letter Provider Letter June 16, 2024 JESICA DOSHI [address] [place] [address] : 1995 To Whom It May Concern, Please excuse above patient from work due to Covid diagnosis. Date of Illness: From: 06/15/2024 To: 06/22/2024 May Return to Work On: 06/23/2024 Comments: May return to work sooner if symptom free. Sincerely, Family Medicine [address] [address] [facility] Ambulatory Visit Summaryon 0 06-15-2024 Ambulatory Visit [...] AM EDT With: Michael Anderson MD Where: [facility] Medicine [address] [address]- Allergies No Known Medication Allergies Problems Ongoing [...] for choosing us for your care. Normal [facility] Family Medicine Office/Clini c Noteon 06-15-2024 [...] Daily, # 3 tab(s), Refills(s) 0, Pharmacy: [facility] #[id number], 166, cm, 06/15/24 8:34:00 EDT, Height/Length Dosing, 95.6, kg, 06/15/24 8:34:00 EDT, Weight Dosing benzonatate, 200 mg = 1 cap(s), Oral, TID, X 7 day(s), # 21 cap(s), Refills(s) 0, Pharmacy: [facility] #[id number], 166, cm, 06/15/24 8:34:00 EDT, Height/Length Dosing, 95.6, kg, 06/15/24 8:34:00 EDT, Weight Dosing methylPREDNISolone, = 1 packet(s), Oral, As Directed, as directed on package labeling, X 6 day(s), # 21 tab(s), Refills(s) 0, Pharmacy: [facility] #[id number], 166, cm, 06/15/24 8:34:00 EDT, Height/Length Dosing, 95.6, kg, 06/15/24 8:34:00 EDT, Weight Dosing 2. BMI 34.0-34.9,adult (Z68.34: Body mass index [BMI] 34.0-34.9, adult) - BMI education added Ordered: azithromycin, 500 mg = 1 tab(s), Oral, Daily, # 3 tab(s), Refills(s) 0, Pharmacy: [facility] #[id number], 166, cm, 06/15/24 8:34:00 EDT, Height/Length Dosing, 95.6, kg, 06/15/24 8:34:00 EDT, Weight Dosing benzonatate, 200 mg = 1 cap(s), Oral, TID, X 7 day(s), # 21 cap(s), Refills(s) 0, Pharmacy: [facility] #[id number], 166, cm, 06/15/24 8:34:00 EDT, Height/Length Dosing, 95.6, kg, 06/15/24 8:34:00 EDT, Weight Dosing methylPREDNISolone, = 1 packet(s), Oral, As Directed, as directed on package labeling, X 6 day(s), # 21 tab(s), Refills(s) 0, Pharmacy: [facility] STORE #[id number], 166, cm, 06/15/24 8:34:00 EDT, Height/Length Dosing, 95.6, kg, 06/15/24 8:34:00 EDT, Weight Dosing Rapid COVID POC 51539 Rapid Strep POC 02774 3. Class 1 obesity due to excess calories in adult (E66.09: Other obesity due to excess calories) - Diet and exercise advised Ordered: azithromycin, 500 mg = 1 tab(s), Oral, Daily, # 3 tab(s), Refills(s) 0, [id number], 166, cm, 06/15/24 8:34:00 EDT, Height/Length Dosing, 95.6, kg, 06/15/24 8:34:00 EDT, Weight Dosing benzonatate, 200 mg = 1 cap(s), Oral, TID, X 7 day(s), # 21 cap(s), Refills(s) 0, [id number], 166, cm, 06/15/24 8:34:00 EDT, Height/Length Dosing, 95.6, kg, 06/15/24 8:34:00 EDT, Weight Dosing methylPREDNISolone, = 1 packet(s), Oral, As Directed, as directed on package labeling, X 6 day(s), # 21 tab(s), Refills(s) 0, [id number], 166, cm, 06/15/24 8:34:00 EDT, Height/Length Dosing, 95.6, kg, 06/15/24 8:34:00 EDT, Weight Dosing Rapid COVID POC 36231 Rapid Strep POC 75679 4. Former smoker (Z87.891: Personal history of nicotine dependence) - Please continue to not smoke. Ordered: azithromycin, 500 mg = 1 tab(s), Oral, Daily, # 3 tab(s), Refills(s) 0, Pharmacy: [facility] #[id number], 166, cm, 06/15/24 8:34:00 EDT, Height/Length Dosing, 95.6, kg, 06/15/24 8:34:00 EDT, Weight Dosing benzonatate, 200 mg = 1 cap(s), Oral, TID, X 7 day(s), # 21 cap(s), Refills(s) 0, Pharmacy: [facility] #[id number], 166, cm, 06/15/24 8:34:00 EDT, Height/Length Dosing, 95.6, kg, 06/15/24 8:34:00 EDT, Weight Dosing methylPREDNISolone, = 1 packet(s), Oral, As Directed, as directed on package labeling, X 6 day(s), # 21 tab(s), Refills(s) 0, Pharmacy: [facility] #[id number], 166, cm, 06/15/24 8:34:00 EDT, Height/Length Dosing, 95.6, kg, 06/15/24 8:34:00 EDT, Weight Dosing Rapid COVID POC 50503 Rapid Strep POC 18060 Follow-up No qualifying data available Problem List/Past Medical History Ongoing Acute URI Cough COVID Elevated BP without diagnosis of hypertension Smoker 17-MAY-2014 12:37:00<$> Historical No qualifying data Procedure/Surgical History section. Medications Azithromycin 3 Day Dose Pack 500 mg oral tabl (more content not included)... Normal [facility] Comment on above: Result Comment: Elec tronically Signed By: Justin PEREIRA, Michael Dewitt.br\Date and Time Signed: 06/15/24 09:10 EDT Provider Letteron 06-15-2024 Provider Letter Provider Letter June 15, 2024 JESICA DOSHI [address] [place] [address] : 1995 To Whom It May Concern, Please excuse above patient from work due to illness. Date of Illness: From: 06-15-24 To: _06-22-24 May Return to Work On:06-23-24 Restrictions: _ Comments: _ Sincerely, [place] [address] [facility] Ambulatory Visit Summaryon 0 11-23-2023 Ambulatory Visit Summary JESICA DOSHI :1995 Visit Date:11/23/2023 Ambulatory Visit Instructions Your [...] PM EST With: Michael Anderson MD Where: [facility] Family Medicine Office/Clini c Noteon [...] (J06.9: Acute upper respiratory infection, unspecified) - Medchayito, Lena conner - If no improvement in a few days Azithromycin Ordered: benzonatate, 200 mg = 1 cap(s), Oral, TID, X 7 day(s), # 21 cap(s), Refills(s) 0, Pharmacy: [facility] #[id number], 166, cm, 11/23/23 13:05:00 EST, Height/Length Dosing, 91.6, kg, 11/23/23 13:05:00 EST, Weight Dosing methylPREDNISolone, = 1 packet(s), Oral, As Directed, as directed on package labeling, X 6 day(s), # 21 tab(s), Refills(s) 0, Pharmacy: [facility] #[id number], 166, cm, 11/23/23 13:05:00 EST, Height/Length Dosing, 91.6, kg, 11/23/23 13:05:00 EST, Weight Dosing 2. Cough (R05.9: Cough, unspecified) - As above - Pending covid test. Ordered: benzonatate, 200 mg = 1 cap(s), Oral, TID, X 7 day(s), # 21 cap(s), Refills(s) 0, Pharmacy: [facility] #[id number], 166, cm, 11/23/23 13:05:00 EST, Height/Length Dosing, 91.6, kg, 11/23/23 13:05:00 EST, Weight Dosing methylPREDNISolone, = 1 packet(s), Oral, As Directed, as directed on package labeling, X 6 day(s), # 21 tab(s), Refills(s) 0, Pharmacy: [facility] #[id number], 166, cm, 11/23/23 13:05:00 EST, Height/Length Dosing, 91.6, kg, 11/23/23 13:05:00 EST, Weight Dosing 3. BMI 36.0-36.9,adult (Z68.36: Body mass index [BMI] 36.0-36.9, adult) - BMI education given Ordered: benzonatate, 200 mg = 1 cap(s), Oral, TID, X 7 day(s), # 21 cap(s), Refills(s) 0, Pharmacy: [facility] #[id number], 166, cm, 11/23/23 13:05:00 EST, Height/Length Dosing, 91.6, kg, 11/23/23 13:05:00 EST, Weight Dosing methylPREDNISolone, = 1 packet(s), Oral, As Directed, as directed on package labeling, X 6 day(s), # 21 tab(s), Refills(s) 0, Pharmacy: [facility] #[id number], 166, cm, 11/23/23 13:05:00 EST, Height/Length Dosing, 91.6, kg, 11/23/23 13:05:00 EST, Weight Dosing 4. Non-smoker (Z78.9: Other specified health status) - Please continue to not smoke Ordered: benzonatate, 200 mg = 1 cap(s), Oral, TID, X 7 day(s), # 21 cap(s), Refills(s) 0, Pharmacy: [facility] #[id number], 166, cm, 11/23/23 13:05:00 EST, Height/Length Dosing, 91.6, kg, 11/23/23 13:05:00 EST, Weight Dosing methylPREDNISolone, = 1 packet(s), Oral, As Directed, as directed on package labeling, X 6 day(s), # 21 tab(s), Refills(s) 0, Pharmacy: [facility] #[id number], 166, cm, 11/23/23 13:05:00 EST, Height/Length Dosing, [...] varicella virus vaccine 07/15/1999 Recorded Normal [facility] Comment on above: Result Comment: Elec tronically [...] numbers. This can be done either in [place] or metric measurements. Note that charts and online BMI calculators are available to help you find your BMI quickly and easily without having to do these calculations yourself. To calculate your BMI in [place] ([place] measurements: 1. Measure your weight in [...] for Disease Control and Prevention: www.cdc.gov ? [place] Heart Association: www.heart.org ? National Heart, Lung, and Blood [place]: www.nhlbi.nih.gov Summary ? Body mass index (BMI) is a number that is calculated from a person's weight and height. ? BMI may help estimate how much of a person's weight is composed of fat. BMI can help identify those who may be at higher risk for certain medical problems. ? BMI can be measured using [place]e measurements or metric measurements. ? BMI charts are used to identify whether you are underweight, normal weight, overweight, or obese. This information is not intended to replace advice given to you by your health care provider. Make sure you discuss any questions you have with your health care provider. Document Revised: 07/24/2020 Document Reviewed: 05/31/2020 [employer] Patient Education ? 2022 [employer] Normal [facility] GROUP A STREP CULTUREon 02-14 S. pyogenes Ag Ql (Unsp spec) Culture Observations: NEGATIVE FOR GROUP A STREPTOCOCCUS. Normal [facility] Comment on above: Performed By: #### G RASTCX, SSCRN #### [facility] [address] [address] [address] Aniceto Ashby MONOon 03-13-2023 Monocytes (Bld) [#/Vol] Negative Normal NEGATIVE [facility] Comment on above: Performed By: #### M ERVIN #### [facility] [address] [place], [place] [address] Dr. Aniceto Ashby STREPT SCREENon 03-13-2023 STREP SCREEN A Negative Normal NEGATIVE [facility] Comment on above: Performed By: #### G RASTCX, SSCRN #### [facility] [address] [place], [place] [address] Dr. Aniceto Ashby GROUP A STREP CULTUREon 02-14 S. pyogenes Ag Ql (Unsp spec) Culture Observations: NEGATIVE FOR GROUP A STREPTOCOCCUS. Normal [facility] Comment on above: Performed By: #### G RASTCX, SSCRN #### [facility] [address] [place] [address] Dr. Aniceto Ashby STREPT SCREENon 03-10-2023 STREP SCREEN A Negative Normal NEGATIVE [facility] Comment on above: Performed By: #### G RASTCX, SSCRN #### [facility] [address] [place] [address] Dr. Aniceto Ashby PAP ACOG PANEL 2: 21 to 29on 02-19-2023 . . Normal [facility] Comment on above: Performed By: #### [id number] #### [facility] [address] [place] [address] Dr. Aniceto Ashby Age Gdln ACOG Testing - [facility] Comment on above: Performed By: #### 4 [id number] #### [facility] [address] [place] [address] Dr. Aniceto Ashby DIAGNOSIS: Comment [facility] Comment on above: Result Comment: NEGA TIVE FOR INTRAEPITHELIAL LESION OR MALIGNANCY. SHIFT IN DENNY SUGGESTIVE OF BACTERIAL VAGINOSIS. THIS SPECIMEN WAS RESCREENED PART OF OUR BUSINESS SUPPORT ASSISTANT PROGRAM. Performed By: #### 4 [id number] #### [facility] [address] [place] [address] Dr. Aniceto Ashby Methodology: Comment [facility] Comment on above: Result Comment: This liquid based ThinPrep(R) pap test was screened with the use of an image guided system. Performed By: #### 4 [id number] #### [facility] [address] [place] [address] Dr. Aniceto Ashby Note: Comment [facility] Comment on above: Result Comment: The Pap smear is a screening test designed to aid in the detection of premalignant and malignant conditions of the uterine cervix. It is not a diagnostic procedure and should not be used as the sole means of detecting cervical cancer. Both false-positive and false-negative reports do occur. . Performed By: #### 4 [id number] #### [facility] [address] [address] [address] Aniceto Ashby Performed by: Comment Normal The [facility] Comment on above: Result Comment: Cleo Dubon, B2B Appointment Setter (ASCP) Performed By: #### [id number] #### [facility] [address] [address] [address] Aniceto Ashby QC reviewed by: Comment Normal [facility] Comment on above: Result Comment: Cleo Dasilva, B2B Appointment Setter (ASCP) Performed By: #### 4 [id number] #### [facility] [address] [address] [address] Aniceto Ashby Reflex Criteria: Comment Normal [facility] Comment on above: Result Comment: The HPV DNA reflex criteria were not met with this specimen result therefore, no HPV testing was performed. . Performed By: #### [id number] #### [facility] [address] [place] [address] Dr. Aniceto Ashby Specimen adequacy: Comment Normal [facility] Comment on above: Result Comment: Sati sfactory for evaluation. Endocervical and/or squamous metaplastic cells (endocervical component) are present. Performed By: #### 4 [id number] #### [facility] [address] [address] [address] Aniceto Ashby [facility]on SARS-CoV-2 (COVID-19) RNA HUSEYIN+probe Ql (Unsp spec) Not detected Normal NOT DETECTED [facility] Comment on above: Result Comment: When [...] for this test is supported by the [place] of Health and Human Service's declaration that [...] longer be used). Performed By: #### C [facility] #### [facility] [address] [place] [address] Dr. Aniceto Ashby Vital Signs Date Time Vital Sign Value Performing Clinician Faci lity 11-09-2024 10:53-0500 Body mass index (BMI) [Ratio] 33.67 kg/m2 Madiha Marika DO Work Phone: [facility] 11-09-2024 10:53-0500 Body weight 97.52 kg Madiha Marika DO Work Phone: [facility] 11-09-2024 10:53-0500 Diastolic blood pressure 82 mm[Hg] Madiha Marika DO Work Phone: [facility] 11-09-2024 10:53-0500 Systolic blood pressure 122 mm[Hg] Madiha Marika DO Work Phone: [facility] 10-10-2024 13:35-0500 Body mass index (BMI) [Ratio] 33.17 kg/m2 Madiha Marika DO Work Phone: [facility] 10-10-2024 13:35-0500 Body weight 96.07 kg Madiha Marika DO Work Phone: [facility] 10-10-2024 13:35-0500 Diastolic blood pressure 80 mm[Hg] Madiha Marika DO Work Phone: [facility] 10-10-2024 13:35-0500 Systolic blood pressure 120 mm[Hg] Madiha Marika DO Work Phone: [facility] 09-07-2024 13:52-0400 Body mass index (BMI) [Ratio] 34.16 kg/m2 [facility] 09-07-2024 13:52-0400 Body weight 98.94 kg [facility] Nurse [facility] 09-07-2024 13:52-0400 Diastolic blood pressure 70 mm[Hg] [facility] 09-07-2024 13:52-0400 Systolic blood pressure 120 mm[Hg] [facility] Encounters Encounter Date Encounter Type Care Provider Facility Start: 11-09-2024 End: 11-09-2024 Bamboo flowsheet Madiha Marika DO Work Phone: [facility] Start: 11-09-2024 End: 11-09-2024 Bamboo flowsheet Madiha Marika DO Work Phone: [facility] Start: 11-09-2024 End: 11-09-2024 Office outpatient visit 15 minutes Madiha Marika DO Work Phone: [facility] Comment on above: 15 weeks gestation o f ; Second trimester ; Screening, , for anatomic survey Start: 10-10-2024 End: 10-10-2024 Bamboo flowsheet Madiha Marika DO Work Phone: [facility] Start: 10-10-2024 End: 10-10-2024 Bamboo flowsheet Madiha Marika DO Work Phone: [facility] Start: 10-10-2024 End: 10-10-2024 [facility] Result Encounter Madiha Marika DO Work Phone: [facility] Unsolicited Start: 10-10-2024 End: 10-10-2024 Office outpatient visit 15 minutes Madiha Marika DO Work Phone: [facility] Comment on above: 11 weeks gestation o f ; First trimester Start: 10-10-2024 End: 10-10-2024 ambulatory MADIHA MARIKA Not Available Start: 09-07-2024 End: 09-07-2024 Office outpatient visit 5 minutes [facility] Nurse [facility] Comment on above: GA: 6w2d Start: 09-07-2024 End: 09-07-2024 ambulatory MADIHA MARIKA Not Available Start: 06-22-2024 End: 06-22-2024 ambulatory [facility] [facility] rafaela Start: 06-15-2024 End: 06-15-2024 ambulatory Michael Anderson Facility: [facility] Start: 12-28-2023 ambulatory Michael Anderson Facility : [facility] Start: 11-23-2023 ambulatory Michael Anderson Facility :[facility] Start: 11-23-2023 ambulatory Michael Anderson Facility: [facility] Start: 11-02-2023 End: 11-02-2023 ambulatory SUGEY JULIUS Not Available Start: 03-13-2023 End: 03-13-[address] SANGEETA FUNK Facility:[facility] Start: 03-10-2023 End: 03-10-[address] TODD Yeboah Facility:[facility] Start: 02-11-2023 End: 02-11-2023 ambulatory JEMAL BEGUM Facility:[facility] Start: 07-23-2022 End: 07-23-[address] KORY MCLEAN Facility: Procedures Date Procedure Procedure Detail Performing Clinician Start: 11-09-2024 Urnls dip stick/tabl et rgnt non-auto w/o micrscp Madiha Marika DO Work Phone: Start: 10-10-2024 ALL CBC WITH AUTO DIFF [...] Treatment Date Care Activity Detail Author Start: 12-07-2024 End: 12-07-2024 Patient encounter procedure 12/07/2024 11:30 AM EST Routine [facility] [address] [place] [id number] Sugey Madrid PA [address] [place] [address] [facility] Start: 11-09-2024 End: 01-10-2025 Alpha fetoprotein, maternal Alpha fetoprotein, maternal Lab Routine 15 weeks gestation of Second trimester Expected: 11/09/2024 (Approximate), Expires: 01/10/2025 [facility] Comment on above: Expected: 11/09/2024 (Approximate), Expires: 01/10/2025 Start: 11-09-2024 End: 11-09-2025 US for US OB ANATOMY SINGLE W US OB CERVICAL LENGTH Imaging Routine 15 weeks gestation of Second trimester Screening, , for anatomic survey Expected: 11/09/2024 (Approximate), Expires: 11/09/2025 [facility] Comment on above: Expected: 11/09/2024 (Approximate), Expires: 11/09/2025 Start: 11-09-2024 End: 11-09-2024 Patient encounter procedure [facility] Comment on above: Arrived Start: 10-10-2024 End: 10-10-2024 Patient encounter procedure 10/10/2024 1:10 PM EST Routine [facility] [address] [place] [id number] Madiha Hairston DO [address] [place] [address] [facility] Start: 09-07-2024 End: 09-07-2025 ABO/Rh ABO/Rh Lab Routine Missed menses , unspecified gestational age Expected: 09/07/2024 (Approximate), Expires: 09/07/2025 [facility] Comment on above: Expected: 09/07/2024 (Approximate), Expires: 09/07/2025 Start: 09-07-2024 End: 09-07-2025 Blood type and Indirect antibody screen panel - Blood Type and screen Lab Routine Missed menses , unspecified gestational age Expected: 09/07/2024 (Approximate), Expires: 09/07/2025 [facility] Work Phone: Comment on above: Expected: 09/07/2024 (Approximate), Expires: 09/07/2025 Start: 09-07-2024 End: 09-07-2025 Drugs of abuse panel - Urine by Screen method Rapid drug screen, urine Lab Routine , unspecified gestational age Encounter for supervision of normal first in first trimester Expected: 09/07/2024 (Approximate), Expires: 09/07/2025 [facility] Comment on above: Expected: 09/07/2024 (Approximate), Expires: 09/07/2025 Start: 09-07-2024 End: 09-07-2025 US Pelvis transvaginal US OB transvaginal Imaging Routine Missed menses Expected: 09/07/2024 (Approximate), Expires: 09/07/2025 [facility] Comment on above: Expected: 09/07/2024 (Approximate), Expires: 09/07/2025 Bacteria identified in Urine by Culture Urine culture Microbiology Routine Missed menses Ordered: 09/07/2024 [facility] Comment on above: Ordered: 09/07/2024 CBC W Auto Different ial panel - Blood CBC and differential Lab Routine Missed menses , unspecified gestational age Ordered: 09/07/2024 [facility] Comment on above: Ordered: 09/07/2024 CHLAMYDIA TRACHOMATI S (GENITO/STI) CHLAMYDIA TRACHOMATIS (GENITO/STI) Lab Routine 15 weeks gestation of Second trimester Ordered: 11/09/2024 [facility] Comment on above: Ordered: 11/09/2024 Cytology Cervical or vaginal smear or scraping study Pap Smear Pathology and Cytology Routine 15 weeks gestation of Second trimester Ordered: 11/09/2024 [facility] Work Phone: Comment on above: Ordered: 11/09/2024 Hemoglobin A1c/Hemoglobin.total in Blood Hemoglobin A1c Lab Routine Missed menses , unspecified gestational age Ordered: 09/07/2024 [facility] Comment on above: Ordered: 09/07/2024 Hepatitis B virus surface Ag [Presence] in Serum or Plasma by Immunoassay Hepatitis B surface antigen Lab Routine Missed menses , unspecified gestational age Ordered: 09/07/2024 [facility] Comment on above: Ordered: 09/07/2024 Hepatitis C virus Ab [Presence] in Serum or Plasma by Immunoassay Hepatitis C antibody Lab Routine Missed menses , unspecified gestational age Ordered: 09/07/2024 [facility] Comment on above: Ordered: 09/07/2024 HIV-1/HIV-2 antigen/antibody combination immunoassay HIV-1 and HIV-2 antibodies Lab Routine Missed menses , unspecified gestational age Ordered: 09/07/2024 [facility] Comment on above: Ordered: 09/07/2024 Neisseria gonorrhoea e DNA [Presence] in Unspecified specimen by HUSEYIN with probe detection Neisseria gonorrhea DNA probe, direct Lab Routine 15 weeks gestation of Second trimester Ordered: 11/09/2024 [facility] Comment on above: Ordered: 11/09/2024 Reagin Ab [Presence] in Serum by RPR RPR Lab Routine Missed menses , unspecified gestational age Ordered: 09/07/2024 [facility] Comment on above: Ordered: 09/07/2024 Rubella antibody, IgG Rubella an tibody, IgG Lab Routine Missed menses , unspecified gestational age Ordered: 09/07/2024 [facility] Comment on above: Ordered: 09/07/2024 SURESWAB(R) ADVANCED VAGINITIS PLUS, TMA SURESWAB(R) ADVANCED VAGINITIS PLUS, TMA Pathology and Cytology Routine 15 weeks gestation of Second trimester Ordered: 11/09/2024 [facility] Comment on above: Ordered: 11/09/2024 Payers Date Payer Category Payer Medicaid [employer] [place] [place] [id number] 2023 [facility] BCBS [id number] 2023 Unknown [id number] 2022 Medicaid [id number] 1996 Unknown [id number]. 593 1996 Unknown [id number] [id number]. 593 1996 Unknown [id number] [id number]. 593 1996 Unknown [id number] [id number]. 593 1996 Unknown [id number] [id number]. 727 1996 Unknown [id number] [id number]. 727 1996 Unknown [id number] 2.16.840.1.248730.3.579.2. 727 1996 Unknown [id number] 2.16.840.1.455760.3.579.2. 727 1996 Unknown [id number] 2.16.840.1.331015.3.579.2. 1259 1996 Unknown [id number] 2.16.840.1.586283.3.579.2. 1259 1996 Unknown [id number] [id number]. 1259 1959 Unknown [id number] Social History Date Type Detail Facility Start: 11-01-2023 Tobacco smoking status NHIS Ex-smoke r [facility] Start: 01-13-2013 End: 10-19-2022 History of tobacco use Current smoker [facility] Start: 01-13-2013 End: 10-19-2022 History of tobacco use Cigarette Smoker [facility] Start: 11-01-2023 History of Social function [facility] Start: 11-01-2023 Tobacco use panel [facility] Start: 08-08-2024 [facility] Start: 1995 Sex assigned at Not on file [facility] History of Present illness Narrative 11-09-2024 Ramila Stone, ERICKSON - 11/09/2024 10:00 AM EST Note Date & Type Note Facility 11-09-2024 History of Presen t illness Narrative Reason for Appointment: Patient ID: Jesica Doshi is a 29 y.o. female who presents for No chief complaint on file. Patient presents today for Return OB appointment. MEDICATIONS Current Outpatient Medications Medication Instructions Vit-Fe Fumarate-FA ( Vitamins) 28-0.8 MG tablet 1 tablet, Oral, Daily ALLERGIES No Known Allergies PROBLEMS Active Ambulatory Problems Diagnosis Date Noted 15 weeks gestation of 11/09/2024 Second trimester 11/09/2024 Resolved Ambulatory Problems Diagnosis Date Noted No Resolved Ambulatory Problems Past Medical History: Diagnosis Date Pap smear for cervical cancer screening 02/11/2023 HISTORY PAST MEDICAL HISTORY SOCIAL HISTORY Past Medical History: Diagnosis Date Pap smear for cervical cancer screening 02/11/2023 neg Social History Tobacco Use Smoking status: Former Current packs/day: 0.00 Types: Cigarettes Start date: 01/13/2013 Quit date: 10/19/2022 Years since quittin.0 Smokeless tobacco: Not on file Substance Use [...] Constitutional: Appearance: Normal appearance. She is well-developed. Genitourinary: Vulva normal. Breasts: Breasts are soft. Right: Normal. Left: Normal. Cardiovascular: Rate and Rhythm: Normal rate and [...] nursing note reviewed. Exam conducted with a machine tool mechanic present. Vitals: Estimated body mass index is 33.17 kg/m as calculated from the following: Height as of 08/11/23: 5' 7 . Weight as of 10/10/24: 211 lb 12.8 oz. BP: Patient's last menstrual period was 07/02/2024. ASSESSMENT & PLAN ICD-10-CM 1. 15 weeks gestation of Z3A.15 Pap Smear US OB ANATOMY SINGLE W US OB CERVICAL LENGTH SURESWAB(R) ADVANCED VAGINITIS PLUS, TMA CHLAMYDIA TRACHOMATIS (GENITO/STI) Neisseria gonorrhea DNA probe, direct POCT urinalysis dipstick manually resulted Alpha fetoprotein, maternal Alpha fetoprotein, maternal 2. Second trimester Z34.92 Pap Smear US OB ANATOMY SINGLE W US OB CERVICAL LENGTH SURESWAB(R) ADVANCED VAGINITIS PLUS, TMA CHLAMYDIA TRACHOMATIS (GENITO/STI) Neisseria gonorrhea DNA probe, direct POCT urinalysis dipstick manually resulted Alpha fetoprotein, maternal Alpha fetoprotein, maternal 3. Screening, , for anatomic survey Z36.89 US OB ANATOMY SINGLE W US OB CERVICAL LENGTH Return OB/Annual Exam: Patient presents today for a annual exam/routine obstetrics appointment. Patient is currently 15w2d . Patient states she is doing well but has complaints of nausea in the morning. Pap and cultures was obtained without difficulty and patient was given orders for anatomy scan and msAFP to be obtained. Orders Placed This Encounter Procedures US OB ANATOMY SINGLE W US OB CERVICAL LENGTH CHLAMYDIA TRACHOMATIS (GENITO/STI) Neisseria gonorrhea DNA probe, direct Alpha fetoprotein, maternal POCT urinalysis dipstick manually resulted Follow Up: Patient is to schedule annual exam for next year and return to office in 4 weeks for OB appointment. Documented by Ramila Stone LPN on behalf of: Madiha Hairston DO documented in this encounter [facility] History of Present illness Narrative 10-10-2024 Ramila Stone LPN - 10/10/2024 1:10 PM EST Note Date [...] nursing note reviewed. Exam conducted with a machine tool mechanic present. Vitals: Estimated body mass index is [...] or undercooked meat, and stay away from [facility]. Patient has been consulted regarding any [...] and HIV-2 antibodies - Urine culture - US OB transvaginal; Future - POCT , urine [...] or undercooked meat, and stay away from [facility]. Patient has also been advised to not change litter boxes and eat 6 small meals a day. Patient has been consulted regarding the do's and don'ts of . Patient was given labs and all questions and concerns were answered. Script was sent for Zofran, and Gladys labs given to patient. Follow Up: Patient is to return in 4 weeks for routine OB appointment. Follow Up: Patient is to have labs drawn at directed and return to office for initial OB appointment with provider. Patient may call office as needed with any concerns or questions. Nurse Visit Completed by: Milvia Chirinos LPN documented in this encounter [facility] Clinical Note 06-22-2024 Note Date & [...] ? Know how (more content not included)... [facility] Evaluation note Note Date & Type Note Facility Evaluation note Diagnosis 6 weeks gestation of Missed menses , unspecified gestational age Encounter for supervision of normal first in first trimester documented in this encounter [facility] Evaluation note Note Date & Type Note Facility Evaluation note Diagnosis 11 weeks gestation of First trimester state, incidental documented in this encounter [facility] Evaluation note Note Date & Type Note Facility Evaluation note Diagnosis 15 weeks gestation of Second trimester state, incidental Screening, , for anatomic survey Encounter for anatomic survey documented in this encounter [facility] Summary Purpose Family History No Family History Records FoundNo Family History Records FoundNo Family History Records Found Advance Directives No Advanced Directives Records FoundNo Advanced Directives Records FoundNo Advanced Directives Records Found Additional Source Comments INFORMATION SOURCE (unrecogn ized section and content) DATE CREATED AUTHOR 03/15/2023 [facility] DATE CREATED AUTHOR AUTHOR'S ORGANIZ ATION 06/24/2024 [facility] DATE CREATED AUTHOR AUTHOR'S ORGANIZ ATION 10/13/2024 [facility] EPIC Reason for Visit (unrecogniz ed section and content) Reason Comments Amenorrhea Reason Comments [facility] Visit Care Teams (unrecognized sec tion and content) [employer]ellite [employer] 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 Relationship Specialty Start Date End Date Michael Anderson MD [address] [place] [address] PCP - General Family Medicine 09/07/24 Satellite Tv 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 Relationship Specialty Start Date End Date Michael Anderson MD [address] [place] [address] PCP - General Family Medicine 09/07/24 Satellite Tv 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 Relationship Specialty Start Date End Date Michael Anderson MD [address] [place] [address] PCP - [facility] 09/07/24 Satellite Tv 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 Relationship Specialty Start Date End Date Michael Anderson MD [address] [facility] PCP - [facility] 09/07/24 Satellite Tv 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 Relationship Specialty Start Date End Date Michael Anderson MD [address] [facility] PCP - [facility] 09/07/24 Satellite Tv 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 Relationship Specialty Start Date End Date [facility] MD [address] [facility] [place] [id number] PCP - [facility] 09/07/24 FOR RECORDS PERTAINING TO PATIENTS WHO [...] BE BASED ON THE PRIMARY CLINICAL RECORDS. [facility] [employer] [facility]. provides no warranty or guarantee of the accuracy or completeness of information in this document.
--- OUTSIDE RECORDS SUMMARY | 2024-11-09 17:07 | XMS_ITS | CCD ---
Author Organization [facility] Care Team Providers Care Independent Beauty Consultant Name Role Phone PAY ., DR BROOKS [...] Primary Care Provider MADIHA HAIRSTON Attending Unavailable SUGEY MADRID Attending Unavailable Allergies Allergy Classification Reported Allergen(s) Allergy Type Date of Onset Reaction(s) Facility (1 source) No Known Medication Allergies; Translations: [No Known Medication Allergies] Propensity to adverse reactions (disorder) [facility] Repository Medications Current Medications Medication Drug Class(es) [...] UA Negative Negative - 4(70) +++ mg/dL [facility] Blood, UA Negative Negative - 50 Neil/mcL [facility] Clarity, UA Clear [facility] Color, UA Yellow [facility] Glucose, UA Negative Negative - 1999(110) ++++ mg/dL [facility] Interpretation and review of laboratory results Normal [facility] Ketones, UA Negative Negative - 160(16) ++++ mg/dL [facility] Leukocytes, UA Negative Negative - 500+++ Chanel/mcL [facility] Nitrite, UA Negative Negative - Positive [facility] pH, UA 7.5 5 - 9 [facility] Protein, UA Negative Negative - 2000(20) ++++ mg/dL [facility] Spec Grav, UA 1.02 1 - 1.03 [facility] Urobilinogen, UA 0.2 0.2 - 12 mg/dL [facility] ALL CBC WITH AUTO DIFFon BASOPHILS ABSOLUTE AUTO 0 [facility] Basophils/100 WBC (Bld) 0.2 % 0.2 - 2.0 % [facility] Eosinophils/100 WBC (Bld) 1 % 0.9 - 7.0 % [facility] Erythrocyte distribution width (RBC) [Ratio] 11.9 % 11.0 - 15.0 % [facility] Hematocrit (Bld) [Volume fraction] 38 % 36.0 - 48.0 % [facility] Hemoglobin (Bld) [Mass/Vol] 13.1 g/dL 12.0 - 16.0 g/dL [facility] IMMATURE GRANULOCYTES ABS AUTO 0.04 High [facility] Immature granulocytes/100 WBC (Bld) 0.3 % 0.0 - 0.5 % [facility] Interpretation and review of laboratory results Abnormal [facility] LYMPHOCYTES ABSOLUTE AUTO 2.1 [facility] Lymphocytes/100 WBC (Bld) 16.5 % Low 20.5 - 60.0 % [facility] MCH (RBC) [Entitic mass] 30.5 pg 26.7 - 34.0 pg [facility] MCHC (RBC) [Mass/Vol] 34.5 g/dL 29.9 - 35.2 g/dL [facility] MCV (RBC) [Entitic vol] 88.4 fL 81.0 - 99.0 fL [facility] MONOCYTES ABSOLUTE AUTO 0.8 [facility] Monocytes/100 WBC (Bld) 6.1 % 1.7 - 12.0 % [facility] NEUTROPHILS ABSOLUTE AUTO 9.4 High [facility] Neutrophils/100 WBC (Bld) 75.9 % High 43.0 - 75.0 % [facility] Platelet mean volume (Bld) [Entitic vol] 9.5 fL 9.5 - 13.5 fL [facility] EO # 0.1 [facility] TB PLT [address] [facility] RBC 4.3 [facility] TB WBC 12.4 High [facility] BOX TESTon 10-10-2024 BOX TEST SENT OUT Y [facility] BOX1 [facility] BOX2 10/10/24 [facility] BOX [facility] DRUG SCREEN RAPID (URINE )on 10-10-2024 AMPHETAMINE SCREEN URINE Negative NEGATIVE [facility] BARBITURATES SCREEN URINE Negative NEGATIVE [facility] BENZODIAZEPINES SCREEN URINE Negative NEGATIVE [facility] BUPRENORPHINE SCREEN URINE Negative NEGATIVE [facility] Comment on above: DRUG CLASS TEST [...] ng/mL CANNABINOID SCREEN URINE Positive Abnormal NEGATIVE [facility] COCAINE SCREEN URINE Negative NEGATIVE [facility] Interpretation and review of laboratory results Abnormal [facility] METHADONE SCREEN URINE Negative NEGATIVE [facility] METHAMPHETAMINES SCREEN URINE Negative NEGATIVE [facility] OPIATE SCREEN URINE Negative NEGATIVE [facility] OXYCODONE SCREEN URINE Negative NEGATIVE [facility] PHENCYCLIDINE SCREEN URINE Negative NEGATIVE [facility] TRICYCLIC ANTIDEPRESSANT URINE Negative NEGATIVE [facility] Urinalysis macro (dipstick) panel (U)on 10-10-2024 Bilirubin, UA Negative Negative - 4(70) +++ mg/dL [facility] Blood, UA Negative Negative - 50 Neil/mcL [facility] Clarity, UA Clear [facility] Color, UA Yellow [facility] Glucose, UA Negative Negative - 1999(110) ++++ mg/dL [facility] Interpretation and review of laboratory results Normal [facility] Ketones, UA Negative Negative - 160(16) ++++ mg/dL [facility] Leukocytes, UA Negative Negative - 500+++ Chanel/mcL [facility] Nitrite, UA Negative Negative - Positive [facility] pH, UA 7 5 - 9 [facility] Protein, UA Negative Negative - 1999(20) ++++ mg/dL [facility] Spec Grav, UA 1.02 1 - 1.03 [facility] Urobilinogen, UA 0.2 0.2 - 12 mg/dL [facility] HCG ( test) Ql (U)o n 09-07-2024 Interpretation and review of laboratory results Abnormal [facility] Preg Test, Ur Positive [facility] Urinalysis macro (dipstick) panel (U)on 09-07-2024 Bilirubin, UA Negative Negative - 4(70) +++ mg/dL [facility] Blood, UA Negative Negative - 50 Neil/mcL [facility] Clarity, UA Clear [facility] Color, UA Yellow [facility] Glucose, UA Negative Negative - 2000(110) ++++ mg/dL [facility] Interpretation and review of laboratory results Normal [facility] Ketones, UA Negative Negative - 160(16) ++++ mg/dL [facility] Leukocytes, UA Negative Negative - 500+++ Chanel/mcL [facility] Nitrite, UA Negative Negative - Positive [facility] pH, UA 6 5 - 9 [facility] Protein, UA Negative Negative - 2000(20) ++++ mg/dL [facility] Spec Grav, UA 1.02 1 - 1.03 [facility] Urobilinogen, UA 1.0 0.2 - 12 mg/dL [facility] Ambulatory Visit Summaryon 0 06-22-2024 Ambulatory Visit [...] are taki (more content not included)... Normal [facility] Family Medicine Office/Clini c Noteon 06-22-2024 Family [...] Recorded varicella virus vaccine 07/15/1999 Recorded Normal [facility] Comment on above: Result Comment: Elec tronically Signed By: IGNACIA CRAWFORD CNP\.br\Date and Time Signed: 06/22/24 14:51 EDT Provider Letteron 06-16-2024 Provider Letter Provider Letter June 16, 2024 JESICA DOSHI [address] [place] [address] : 1995 To Whom It May Concern, Please excuse above patient from work due to Covid diagnosis. Date of Illness: From: 06/15/2024 To: 06/22/2024 May Return to Work On: 06/23/2024 Comments: May return to work sooner if symptom free. Sincerely, Family Medicine [address] [address] [facility] Ambulatory Visit Summaryon 0 06-15-2024 Ambulatory [...] AM EDT With: Michael Anderson MD Where: [facility] [address] [address]- Allergies No Known Medication Allergies Problems Ongoing [...] for choosing us for your care. Normal [facility] Family Medicine Office/Clini c Noteon 06-15-2024 Family [...] Daily, # 3 tab(s), Refills(s) 0, Pharmacy: [facility] #[id number], 166, cm, 06/15/24 8:34:00 EDT, Height/Length Dosing, 95.6, kg, 06/15/24 8:34:00 EDT, Weight Dosing benzonatate, 200 mg = 1 cap(s), Oral, TID, X 7 day(s), # 21 cap(s), Refills(s) 0, Pharmacy: [facility] #[id number], 166, cm, 06/15/24 8:34:00 EDT, Height/Length Dosing, 95.6, kg, 06/15/24 8:34:00 EDT, Weight Dosing methylPREDNISolone, = 1 packet(s), Oral, As Directed, as directed on package labeling, X 6 day(s), # 21 tab(s), Refills(s) 0, Pharmacy: [facility] #[id number], 166, cm, 06/15/24 8:34:00 EDT, Height/Length Dosing, 95.6, kg, 06/15/24 8:34:00 EDT, Weight Dosing 2. BMI 34.0-34.9,adult (Z68.34: Body mass index [BMI] 34.0-34.9, adult) - BMI education added Ordered: azithromycin, 500 mg = 1 tab(s), Oral, Daily, # 3 tab(s), Refills(s) 0, Pharmacy: [facility] #[id number], 166, cm, 06/15/24 8:34:00 EDT, Height/Length Dosing, 95.6, kg, 06/15/24 8:34:00 EDT, Weight Dosing benzonatate, 200 mg = 1 cap(s), Oral, TID, X 7 day(s), # 21 cap(s), Refills(s) 0, Pharmacy: [facility][id number], 166, cm, 06/15/24 8:34:00 EDT, Height/Length Dosing, 95.6, kg, 06/15/24 8:34:00 EDT, Weight Dosing methylPREDNISolone, = 1 packet(s), Oral, As Directed, as directed on package labeling, X 6 day(s), # 21 tab(s), Refills(s) 0, Pharmacy: [facility] #[id number], 166, cm, 06/15/24 8:34:00 EDT, Height/Length Dosing, 95.6, kg, 06/15/24 8:34:00 EDT, Weight Dosing Rapid COVID POC 74635 Rapid Strep POC 40386 3. Class 1 obesity due to excess calories in adult (E66.09: Other obesity due to excess calories) - Diet and exercise advised Ordered: azithromycin, 500 mg = 1 tab(s), Oral, Daily, # 3 tab(s), Refills(s) 0, [id number], 166, cm, 06/15/24 8:34:00 EDT, Height/Length Dosing, 95.6, kg, 06/15/24 8:34:00 EDT, Weight Dosing benzonatate, 200 mg = 1 cap(s), Oral, TID, X 7 day(s), # 21 cap(s), Refills(s) 0, [id number], 166, cm, 06/15/24 8:34:00 EDT, Height/Length Dosing, 95.6, kg, 06/15/24 8:34:00 EDT, Weight Dosing methylPREDNISolone, = 1 packet(s), Oral, As Directed, as directed on package labeling, X 6 day(s), # 21 tab(s), Refills(s) 0, [id number], 166, cm, 06/15/24 8:34:00 EDT, Height/Length Dosing, 95.6, kg, 06/15/24 8:34:00 EDT, Weight Dosing Rapid COVID POC 67822 Rapid Strep POC 41541 4. Former smoker (Z87.891: Personal history of nicotine dependence) - Please continue to not smoke. Ordered: azithromycin, 500 mg = 1 tab(s), Oral, Daily, # 3 tab(s), Refills(s) 0, Pharmacy: [facility] #[id number], 166, cm, 06/15/24 8:34:00 EDT, Height/Length Dosing, 95.6, kg, 06/15/24 8:34:00 EDT, Weight Dosing benzonatate, 200 mg = 1 cap(s), Oral, TID, X 7 day(s), # 21 cap(s), Refills(s) 0, Pharmacy: [facility] #[id number], 166, cm, 06/15/24 8:34:00 EDT, Height/Length Dosing, 95.6, kg, 06/15/24 8:34:00 EDT, Weight Dosing methylPREDNISolone, = 1 packet(s), Oral, As Directed, as directed on package labeling, X 6 day(s), # 21 tab(s), Refills(s) 0, Pharmacy: [facility] #[id number], 166, cm, 06/15/24 8:34:00 EDT, Height/Length Dosing, 95.6, kg, 06/15/24 8:34:00 EDT, Weight Dosing Rapid COVID POC 33777 Rapid Strep POC 75792 Follow-up No qualifying data available Problem List/Past Medical History Ongoing Acute URI Cough COVID Elevated BP without diagnosis of hypertension Smoker 17-MAY-2014 12:37:00<$> Historical No qualifying data Procedure/Surgical History section. Medications Azithromycin 3 Day Dose Pack 500 mg oral tabl (more content not included)... Normal [facility] Comment on above: Result Comment: Elec tronically Signed By: Justin PEREIRA, Michael Dewitt.br\Date and Time Signed: 06/15/24 09:10 EDT Provider Letteron 06-15-2024 Provider Letter Provider Letter June 15, 2024 JESICA DOSHI [address] [place] [address] : 1995 To Whom It May Concern, Please excuse above patient from work due to illness. Date of Illness: From: 06-15-24 To: _06-22-24 May Return to Work On:06-23-24 Restrictions: _ Comments: _ Sincerely, [place] [address] [facility] Ambulatory Visit Summaryon 0 11-23-2023 Ambulatory [...] PM EST With: Michael Anderson MD Where: [facility] Family Medicine Office/Clini c Noteon [...] day(s), # 21 cap(s), Refills(s) 0, Pharmacy: [facility] #[id number], 166, cm, 11/23/23 13:05:00 EST, Height/Length Dosing, 91.6, kg, 11/23/23 13:05:00 EST, Weight Dosing methylPREDNISolone, = 1 packet(s), Oral, As Directed, as directed on package labeling, X 6 day(s), # 21 tab(s), Refills(s) 0, Pharmacy: [facility] #[id number], 166, cm, 11/23/23 13:05:00 EST, Height/Length Dosing, 91.6, kg, 11/23/23 13:05:00 EST, Weight Dosing 2. Cough (R05.9: Cough, unspecified) - As above - Pending covid test. Ordered: benzonatate, 200 mg = 1 cap(s), Oral, TID, X 7 day(s), # 21 cap(s), Refills(s) 0, Pharmacy: [facility] #[id number], 166, cm, 11/23/23 13:05:00 EST, Height/Length Dosing, 91.6, kg, 11/23/23 13:05:00 EST, Weight Dosing methylPREDNISolone, = 1 packet(s), Oral, As Directed, as directed on package labeling, X 6 day(s), # 21 tab(s), Refills(s) 0, Pharmacy: [facility] #[id number], 166, cm, 11/23/23 13:05:00 EST, Height/Length Dosing, 91.6, kg, 11/23/23 13:05:00 EST, Weight Dosing 3. BMI 36.0-36.9,adult (Z68.36: Body mass index [BMI] 36.0-36.9, adult) - BMI education given Ordered: benzonatate, 200 mg = 1 cap(s), Oral, TID, X 7 day(s), # 21 cap(s), Refills(s) 0, Pharmacy: [facility] #[id number], 166, cm, 11/23/23 13:05:00 EST, Height/Length Dosing, 91.6, kg, 11/23/23 13:05:00 EST, Weight Dosing methylPREDNISolone, = 1 packet(s), Oral, As Directed, as directed on package labeling, X 6 day(s), # 21 tab(s), Refills(s) 0, Pharmacy: [facility] #[id number], 166, cm, 11/23/23 13:05:00 EST, Height/Length Dosing, 91.6, kg, 11/23/23 13:05:00 EST, Weight Dosing 4. Non-smoker (Z78.9: Other specified health status) - Please continue to not smoke Ordered: benzonatate, 200 mg = 1 cap(s), Oral, TID, X 7 day(s), # 21 cap(s), Refills(s) 0, Pharmacy: [facility] #[id number], 166, cm, 11/23/23 13:05:00 EST, Height/Length Dosing, 91.6, kg, 11/23/23 13:05:00 EST, Weight Dosing methylPREDNISolone, = 1 packet(s), Oral, As Directed, as directed on package labeling, X 6 day(s), # 21 tab(s), Refills(s) 0, Pharmacy: [facility] #[id number], 166, cm, 11/23/23 13:05:00 EST, Height/Length Dosing, [...] varicella virus vaccine 07/15/1999 Recorded Normal [facility] Comment on above: Result Comment: Elec tronically [...] numbers. This can be done either in [place] ([place] or metric measurements. Note that charts and online BMI calculators are available to help you find your BMI quickly and easily without having to do these calculations yourself. To calculate your BMI in German ([place] measurements: 1. Measure your weight in [...] for Disease Control and Prevention: www.cdc.gov ? [place] [employer]: www.heart.org ? National Heart, Lung, and Blood [place]: www.nhlbi.nih.gov Summary ? Body mass index (BMI) is a number that is calculated from a person's weight and height. ? BMI may help estimate how much of a person's weight is composed of fat. BMI can help identify those who may be at higher risk for certain medical problems. ? BMI can be measured using German measurements or metric measurements. ? BMI charts are used to identify whether you are underweight, normal weight, overweight, or obese. This information is not intended to replace advice given to you by your health care provider. Make sure you discuss any questions you have with your health care provider. Document Revised: 07/24/2020 Document Reviewed: 05/31/2020 [employer] Patient Education ? 2022 [employer] Normal [facility] GROUP A STREP CULTUREon 02-14 S. pyogenes Ag Ql (Unsp spec) Culture Observations: NEGATIVE FOR GROUP A STREPTOCOCCUS. Normal [facility] Comment on above: Performed By: #### G RASTCX, SSCRN #### [facility] [address] [address] [address] Aniceto Ashby MONOon 03-13-2023 Monocytes (Bld) [#/Vol] Negative Normal NEGATIVE [facility] Comment on above: Performed By: #### M ERVIN #### [facility] [address] [place], [place] [address] Dr. Aniceto Ashby STREPT SCREENon 03-13-2023 STREP SCREEN A Negative Normal NEGATIVE [facility] Comment on above: Performed By: #### G RASTCX, SSCRN #### [facility] [address] [place], [place] [address] Dr. Aniceto Ashby GROUP A STREP CULTUREon 02-14 S. pyogenes Ag Ql (Unsp spec) Culture Observations: NEGATIVE FOR GROUP A STREPTOCOCCUS. Normal [facility] Comment on above: Performed By: #### G RASTCX, SSCRN #### [facility] [address] [place] [address] Dr. Aniceto Ashby STREPT SCREENon 03-10-2023 STREP SCREEN A Negative Normal NEGATIVE [facility] Comment on above: Performed By: #### G RASTCX, SSCRN #### [facility] [address] [place] [address] Dr. Aniceto Ashby PAP ACOG PANEL 2: 21 to 29on 02-19-2023 . . Normal [facility] Comment on above: Performed By: #### 4 [id number] #### [facility] [address] [place] [address] Dr. Aniceto Ashby Age Gdln ACOG Testing - [facility] Comment on above: Performed By: #### 4 [id number] #### [facility] [address] [place] [address] Dr. Aniceto Ashby DIAGNOSIS: Comment [facility] Comment on above: Result Comment: NEGA TIVE FOR INTRAEPITHELIAL LESION OR MALIGNANCY. SHIFT IN DENNY SUGGESTIVE OF BACTERIAL VAGINOSIS. THIS SPECIMEN WAS RESCREENED PART OF OUR BUMPER OPERATOR PROGRAM. Performed By: #### 4 [id number] #### [facility] [address] [place] [address] Dr. Aniceto Ashby Methodology: Comment [facility] Comment on above: Result Comment: This liquid based ThinPrep(R) pap test was screened with the use of an image guided system. Performed By: #### 4 [id number] #### [facility] [address] [place] [address] Dr. Aniceto Ashby Note: Comment [facility] Comment on above: Result Comment: The Pap smear is a screening test designed to aid in the detection of premalignant and malignant conditions of the uterine cervix. It is not a diagnostic procedure and should not be used as the sole means of detecting cervical cancer. Both false-positive and false-negative reports do occur. . Performed By: #### 4 [id number] #### [facility] [address] [address] [address] Aniceto Ashby Performed by: Comment Normal [facility] [place] [facility] Comment on above: Result Comment: Cleo Dubon, Forge Operator (ASCP) Performed By: #### 4 [id number] #### [facility] [address] [address] [address] Aniceto Ashby QC reviewed by: Comment Normal [facility] Comment on above: Result Comment: Cleo Dasilva, Forge Operator (ASCP) Performed By: #### 4 [id number] #### [facility] [address] [address] [address] Aniceto Ashby Reflex Criteria: Comment Normal [facility] Comment on above: Result Comment: The HPV DNA reflex criteria were not met with this specimen result therefore, no HPV testing was performed. . Performed By: #### 4 [id number] #### [facility] [address] [place] [address] Dr. Aniceto Ashby Specimen adequacy: Comment Normal [facility] Comment on above: Result Comment: Sati sfactory for evaluation. Endocervical and/or squamous metaplastic cells (endocervical component) are present. Performed By: #### 4 [id number] #### [facility] [address] [address] [address] Aniceto Ashby Covid-19 PCR ([facility])on SARS-CoV-2 (COVID-19) RNA HUSEYIN+probe Ql (Unsp spec) Not detected Normal NOT DETECTED [facility] Comment on above: Result Comment: When [...] for this test is supported by the Time Buyer of Health and Human Service's declaration that [...] longer be used). Performed By: #### C [facility] #### [facility] [address] [place] [address] Dr. Aniceto Ashby Vital Signs Date Time Vital Sign Value Performing Clinician Faci lity 11-09-2024 10:53-0500 Body mass index (BMI) [Ratio] 33.67 kg/m2 Amdiha Marika DO Work Phone: [facility] 11-09-2024 10:53-0500 Body weight 97.52 kg Madiha Marika DO Work Phone: [facility] 11-09-2024 10:53-0500 Diastolic blood pressure 82 mm[Hg] Madiha Marika DO Work Phone: [facility] 11-09-2024 10:53-0500 Systolic blood pressure 122 mm[Hg] Madiha Marika DO Work Phone: [facility] 10-10-2024 13:35-0500 Body mass index (BMI) [Ratio] 33.17 kg/m2 Madiha Marika DO Work Phone: [facility] 10-10-2024 13:35-0500 Body weight 96.07 kg Madiha Marika DO Work Phone: [facility] 10-10-2024 13:35-0500 Diastolic blood pressure 80 mm[Hg] Madiha Marika DO Work Phone: [facility] 10-10-2024 13:35-0500 Systolic blood pressure 120 mm[Hg] Madiha Marika DO Work Phone: [facility] 09-07-2024 13:52-0400 Body mass index (BMI) [Ratio] 34.16 kg/m2 [facility] 09-07-2024 13:52-0400 Body weight 98.94 kg [facility] Nurse [facility] 09-07-2024 13:52-0400 Diastolic blood pressure 70 [...] Not Available Start: 06-22-2024 End: 06-22-2024 ambulatory [facility]: MARIMAR Lynne rafaela Start: 06-15-2024 End: 06-15-2024 ambulatory Michael Anderson Facility: [facility] Start: 12-28-2023 ambulatory Michael Anderson Facility : [facility] Start: 11-23-2023 ambulatory Michael Anderson Facility :[facility] Start: 11-23-2023 ambulatory Michael Anderson Facility: T [...] AM EST Routine [facility] [address] [id number] Sugey Madrid PA [address] [place] [address] [facility] Start: 11-09-2024 End: 01-10-2025 [...] PM EST Routine [facility] [address] [id number] Madiha Hairston DO [address] [place] [address] [facility] Start: 09-07-2024 End: 09-07-2025 ABO/Rh ABO/Rh Lab Routine Missed menses , unspecified gestational age Expected: 09/07/2024 (Approximate), Expires: 09/07/2025 [facility] Comment on above: Expected: 09/07/2024 (Approximate), Expires: 09/07/2025 Start: 09-07-2024 End: 09-07-2025 Blood type and Indirect antibody screen panel - Blood Type and screen Lab Routine Missed menses , unspecified gestational age Expected: 09/07/2024 (Approximate), Expires: 09/07/2025 [facility] Work Phone: Comment on above: Expected: 09/07/2024 (Approximate), Expires: 09/07/2025 Start: 09-07-2024 End: 09-07-2025 Drugs of abuse panel - Urine by Screen method Rapid drug screen, urine Lab Routine , unspecified gestational age Encounter for supervision of normal first in first trimester Expected: 09/07/2024 (Approximate), Expires: 09/07/2025 [facility] Comment on above: Expected: 09/07/2024 (Approximate), Expires: 09/07/2025 Start: 09-07-2024 End: 09-07-2025 US Pelvis transvaginal US OB transvaginal Imaging Routine Missed menses Expected: 09/07/2024 (Approximate), Expires: 09/07/2025 [facility] Comment on above: Expected: 09/07/2024 (Approximate), Expires: 09/07/2025 Bacteria identified in Urine by Culture Urine culture Microbiology Routine Missed menses Ordered: 09/07/2024 [facility] Comment on above: Ordered: 09/07/2024 CBC W Auto Different ial panel - Blood CBC and differential Lab Routine Missed menses , unspecified gestational age Ordered: 09/07/2024 [facility] Comment on above: Ordered: 09/07/2024 CHLAMYDIA TRACHOMATI S (GENITO/STI) CHLAMYDIA TRACHOMATIS (GENITO/STI) Lab Routine 15 weeks gestation of Second trimester Ordered: 11/09/2024 [facility] Comment on above: Ordered: 11/09/2024 Cytology Cervical or vaginal smear or scraping study Pap Smear Pathology and Cytology Routine 15 weeks gestation of Second trimester Ordered: 11/09/2024 [facility] Work Phone: Comment on above: Ordered: 11/09/2024 Hemoglobin A1c/Hemoglobin.total in Blood Hemoglobin A1c Lab Routine Missed menses , unspecified gestational age Ordered: 09/07/2024 [facility] Comment on above: Ordered: 09/07/2024 Hepatitis B virus surface Ag [Presence] in Serum or Plasma by Immunoassay Hepatitis B surface antigen Lab Routine Missed menses , unspecified gestational age Ordered: 09/07/2024 [facility] Comment on above: Ordered: 09/07/2024 Hepatitis C virus Ab [Presence] in Serum or Plasma by Immunoassay Hepatitis C antibody Lab Routine Missed menses , unspecified gestational age Ordered: 09/07/2024 [facility] Comment on above: Ordered: 09/07/2024 HIV-1/HIV-2 antigen/antibody combination immunoassay HIV-1 and HIV-2 antibodies Lab Routine Missed menses , unspecified gestational age Ordered: 09/07/2024 [facility] Comment on above: Ordered: 09/07/2024 Neisseria gonorrhoea e DNA [Presence] in Unspecified specimen by HUSEYIN with probe detection Neisseria gonorrhea DNA probe, direct Lab Routine 15 weeks gestation of Second trimester Ordered: 11/09/2024 [facility] Comment on above: Ordered: 11/09/2024 Reagin Ab [Presence] in Serum by RPR RPR Lab Routine Missed menses , unspecified gestational age Ordered: 09/07/2024 [facility] Comment on above: Ordered: 09/07/2024 Rubella antibody, IgG Rubella an tibody, IgG Lab Routine Missed menses , unspecified gestational age Ordered: 09/07/2024 [facility] Comment on above: Ordered: 09/07/2024 SURESWAB(R) ADVANCED VAGINITIS PLUS, TMA SURESWAB(R) ADVANCED VAGINITIS PLUS, TMA Pathology and Cytology Routine 15 weeks gestation of Second trimester Ordered: 11/09/2024 [facility] Comment on above: Ordered: 11/09/2024 Payers Date Payer Category Payer Medicaid [employer] [place] [id number] 2023 [facility] BCBS [id number] 2023 Unknown [id number] 2022 Medicaid [id number] 1996 Unknown [id number] 2.16.840.1.049621.3.579.2. 593 1996 Unknown [id number] 2.16.840.1.725082.3.579.2. 593 1996 Unknown [id number] 2.16.840.1.208787.3.579.2. 593 1996 Unknown [id number] 2.16.840.1.045047.3.579.2. 593 1996 Unknown [id number] 2.16.840.1.763337.3.579.2. 727 1996 Unknown [id number] 2.16.840.1.455462.3.579.2. 727 1996 Unknown [id number] 2.16.840.1.808853.3.579.2. 727 1996 Unknown [id number] 2.16.840.1.169222.3.579.2. 727 1996 Unknown [id number] 2.16.840.1.534584.3.579.2. 1259 1996 Unknown [id number] 2.16.840.1.497424.3.579.2. 1259 1996 Unknown [id number] 2.16.840.1.190754.3.579.2. 1259 1959 Unknown [id number] Social History Date Type Detail Facility Start: [...] nursing note reviewed. Exam conducted with a operations administrative assistant present. Vitals: Estimated body mass index is [...] nursing note reviewed. Exam conducted with a operations administrative assistant present. Vitals: Estimated body mass index is [...] or undercooked meat, and stay away from formerly [facility]. Patient has been consulted regarding any further [...] or undercooked meat, and stay away from formerly [facility]. Patient has also been advised to not change litter boxes and eat 6 small meals a day. Patient has been consulted regarding the do's and don'ts of . Patient was given labs and all questions and concerns were answered. Script was sent for Zofran, and [place] labs given to patient. Follow Up: Patient is to return in 4 weeks for routine OB appointment. Follow Up: Patient is to have labs drawn at directed and return to office for initial OB appointment with provider. Patient may call office as needed with any concerns or questions. Nurse Visit Completed by: Milvia Chirinos LPN documented in this encounter [facility] Clinical Note 06-22-2024 Note Date & [...] ? Know how (more content not included)... [facility] Evaluation note Note Date & Type Note Facility Evaluation note Diagnosis 6 weeks gestation of Missed menses , unspecified gestational age Encounter for supervision of normal first in first trimester documented in this encounter [facility] Evaluation note Note Date & Type Note Facility Evaluation note Diagnosis 11 weeks gestation of First trimester state, incidental documented in this encounter [facility] Evaluation note Note Date & Type Note Facility Evaluation note Diagnosis 15 weeks gestation of Second trimester state, incidental Screening, , for anatomic survey Encounter for anatomic survey documented in this encounter [facility] Healthcare Summary Purpose Family History No Family History Records FoundNo Family History Records FoundNo Family History Records Found Advance Directives No Advanced Directives Records FoundNo Advanced Directives Records FoundNo Advanced Directives Records Found Additional Source Comments INFORMATION SOURCE (unrecogn ized section and content) DATE CREATED AUTHOR 03/15/2023 [facility] DATE CREATED AUTHOR AUTHOR'S ORGANIZ ATION 06/24/2024 [facility] DATE CREATED AUTHOR AUTHOR'S ORGANIZ ATION 10/13/2024 [facility] EPIC Reason for Visit (unrecogniz ed section and content) Reason Comments Amenorrhea Reason Comments [facility] Visit Care Teams (unrecognized sec tion and content) Independent Beauty Consultant Relationship Specialty Start Date End Date Michael Anderson MD [address] [place] [address] PCP - General Family Medicine 09/07/24 Independent Beauty Consultant Relationship Specialty Start Date End Date Michael Anderson MD [address] [place] [address] PCP - General Family Medicine 09/07/24 Independent Beauty Consultant Relationship Specialty Start Date End Date Michael Anderson MD [address] [place] [address] PCP - [facility] 09/07/24 Independent Beauty Consultant Relationship Specialty Start Date End Date Michael Anderson MD [address] [facility] PCP - [facility] 09/07/24 Independent Beauty Consultant Relationship Specialty Start Date End Date Michael Anderson MD [address] [facility], [facility] PCP - [facility] 09/07/24 Independent Beauty Consultant Relationship Specialty Start Date End Date Michael Anderson MD [address] [facility] [place] [id number] PCP - [facility] 09/07/24 FOR RECORDS PERTAINING TO PATIENTS WHO [...] BE BASED ON THE PRIMARY CLINICAL RECORDS. [facility] [employer] [facility]. provides no warranty or guarantee of the accuracy or completeness of information in this document.
[2024-11-16 14:07] LABS: Age Gdln ACOG Testing Note (.); IGP, rfx Aptima HPV ASCU Note (.)
== END 2024-11-09 16:55 | disposition home or self-care (01) ==
LOC: LAB 16:54
PROVIDERS: PCP Family Medicine; Visit Provider Obstetrics & Gynecology
DX: Z34.92 Encounter for supervision of normal pregnancy, unspecified, second trimester (principal)
CPT/HCPCS: 88175

== ENCOUNTER 2024-11-21 18:23 | Emergency (ER) | payer MEDICAID, SELFPAY ==
[2024-11-21 18:31] VITALS: BP 122/79; PULSE 78; TEMP 36.9; O2SAT 98; BMI 33.7
--- NOTE | 2024-11-21 18:36 | XR_ITS ---
The [place] [id number] Patient Name: LUKE OJEDA MRN: [id number] date: 1995 Sex: F Assigned Patient Location: ED.MAIN Current Patient Location: Accession/Order Number: [id number] Exam Date: 11/21/2024 18:47 Report Date: 11/21/2024 19:16 At the request of: ZBIGNIEW MONTALVO Procedure: XR finger LT min 2V Exam: Radiographs: XR finger LT min 2V Reason for exam: crush injury Comparison: None XR/XR finger LT min 2V IMPRESSION: Slight contour irregularity along the base of the fifth distal phalanx is best seen on the lateral view and could represent an acute nondisplaced fracture involving the PIP joint, correlate clinically. Remainder of the left hand radiographs is unremarkable. Electronically authenticated by: DENISHA COULTER Date: 11/21/2024 19:16
--- NOTE | 2024-11-21 18:42 | ED_ITS ---
HPI HPI - Extremity Injury (Upper) General Chief Complaint: Extremity Injury, Upper Stated Complaint: UE INJURY Time Seen by Provider: 11/21/24 18:31 Source: patient Mode of arrival: walk-in Limitations: no limitations History of Present Illness HPI narrative: Patient is a 29-year-old female who presents to the emergency department for an injury to the left fifth finger. Patient states 1-1/2 weeks ago she smashed her left fifth finger on the sink. She states that the distal phalanx continues to look abnormal to her. She has very little pain. She is 17 weeks with no concerns. No medications prior to arrival. She is right-hand dominant. Related Data Home Medications ?Medication ?Instructions ?Recorded ?Confirmed aspirin 81 mg capsule 81 mg PO DAILY 11/21/24 11/21/24 vit no.95-ferrous tab PO 11/21/24 fumarate 28 mg-folic acid 800 mcg tablet () Allergies Allergy/AdvReac Type Severity Reaction Status Date / Time No Known Drug Allergies Allergy Verified 11/21/24 18:29 Opioid HPI Opioid Management Most Recent Pain and Opioid Data: Last Pain Scale 3 11/21/24 18:50 11/21/24 Last MAR Pain Assessment 11/21/24 18:50 Urine Cannabinoids Positive (.) A 10/10/24 14:21 10/10/24 Ur Phencyclidine Scrn Negative (NEGATIVE) 10/10/24 14:21 09/16 05/08 Review of Systems ROS Constitutional Denies: fever or chills Ears, nose, mouth, and throat Denies: throat pain or nasal congestion Respiratory Denies: shortness of breath Gastrointestinal Denies: nausea or vomiting Integumentary/Breast Denies: rash Neurological Denies: numbness in extremities or weakness in extremities Hematologic/Lymphatic Denies: easy bruising or easy bleeding PFSH PFSH Social History Little interest or pleasure in doing things: not at all Feeling down, depressed, or hopeless: not at all Exam Narrative Exam Narrative: Gen.: Awake, alert, in no distress Head: Normocephalic, atraumatic ENT: Moist mucous membranes Respiratory: No respiratory distress Extremities: Left fifth finger with DIP joint mildly angulated, normal flexion of the DIP joint with limited extension at the DIP joint. No significant pain with range of motion. Psych: Normal mood and affect Neuro: No focal neuro deficit Skin: Warm, dry, intact Constitutional Vital Signs, click to edit/add: Last Vital Signs Temp 98.5 F 11/21/24 18:31 Pulse 78 11/21/24 18:31 Resp 118 H 11/21/24 18:31 BP 122/79 11/21/24 18:31 Pulse Ox 98 11/21/24 18:31 O2 Del Method Room Air 11/21/24 18:31 Course Vital Signs Vital signs: Vital Signs Temperature 98.5 F 11/21/24 18:31 Pulse Rate 78 11/21/24 18:31 Respiratory Rate 118 H 11/21/24 18:31 Blood Pressure 122/79 11/21/24 18:31 Pulse Oximetry 98 11/21/24 18:31 Oxygen Delivery Method Room Air 11/21/24 18:31 Temperature 98.5 F 11/21/24 18:31 Pulse Rate 78 11/21/24 18:31 Respiratory Rate 118 H 11/21/24 18:31 Blood Pressure 122/79 11/21/24 18:31 Pulse Oximetry 98 11/21/24 18:31 Oxygen Delivery Method Room Air 11/21/24 18:31 MDM - Extremity Injury (Upper) MDM Narrative Medical decision making narrative: X-rays show a mildly displaced fracture at the base of the distal phalanx of the left fifth finger. Patient placed in a finger splint. Tylenol was given in the ER. She was shielded for x-rays. She is referred to orthopedics for further evaluation and treatment. She is neurovascularly intact at discharge. SUPERVISED APC VISIT, PHYSICIAN ATTESTATION: Based on the medical record the care appears appropriate. ? Medical Records Attestation: I reviewed the patient's medical records. Imaging Data XR finger: Attestation: I have reviewed the pertinent imaging results. Discharge Plan Discharge Chief Complaint: Extremity Injury, Upper Clinical Impression: Closed fracture of distal phalanx of left hand Patient Disposition: Home, Self-Care Time of Disposition Decision: 18:53 Condition: Good Prescriptions / Home Meds: No Action PNV cmb#95-ferrous fumarate-FA [] 28 mg iron- 800 mcg tablet PO aspirin 81 mg capsule 81 mg PO DAILY Print Language: Icelandic Instructions: Finger Fracture (ED) Referrals: Jay Gomez MD [Physician] - 11/27/24 11:30 am KOKI ZAPATA [Primary Care Provider] - 1 week
[2024-11-21] MEDS: ACETAMINOPHEN 325 MG TABLET 650 MG PO (18:50)
== END 2024-11-21 19:10 | disposition home or self-care (01) ==
PROVIDERS: Emergency Provider Emergency Medicine; PCP Family Medicine
DX: O9A.212 Injury, poisoning and certain other consequences of external causes complicating pregnancy, second trimester (principal); S62.637A Displaced fracture of distal phalanx of left little finger, initial encounter for closed fracture; Z3A.17 17 weeks gestation of pregnancy; X58.XXXA Exposure to other specified factors, initial encounter
CPT/HCPCS: 29130; 73140; 99283

== ENCOUNTER 2025-01-19 14:49 | Outpatient (OUT) | payer MEDICAID, SELFPAY ==
--- NOTE | 2025-01-19 14:51 | US_ITS ---
The [address] [address] Patient Name: LUKE OJEDA MRN: [id number] date: 1995 Sex: F Assigned Patient Location: US Current Patient Location: Accession/Order Number: [id number] Exam Date: 01/20/2025 00:21 Report Date: 01/20/2025 00:25 At the request of: MADIHA BURRELL DO Procedure: US OB incomplete anatomy ULTRASOUND OB INCOMPLETE ANATOMY COMPARISON: 09/07/2024 CLINICAL DATA: Incomplete visualization of the heart and umbilical cord There is a live intrauterine gestation in cephalic presentation. measurements were not obtained however the reported gestational age is 25 weeks 3 days. There is cardiac activity with heart rate of 134 bpm. A four-chamber heart and the outflow tracts were imaged. A three-vessel cord in the cervical spine were still not well-visualized. US/US OB incomplete anatomy IMPRESSION: SINGLE LIVE INTRAUTERINE GESTATION. CONTINUED POOR VISUALIZATION OF THE UMBILICAL CORD AND CERVICAL SPINE. Impression dictated by: Ramila Hanks M.D.01/20/2025 12:25 AM Dictation Location: [place] [address] Electronically authenticated by: [id number] Y Date: 01/20/2025 00:25
--- OUTSIDE RECORDS SUMMARY | 2025-01-19 15:09 | XMS_ITS | CCD ---
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 [employer] Name Role Phone PAY ., DR BROOKS Admitting Unavailable PAY ., DR BROOKS Consulting Unavailable PAY ., DR BROOKS Attending Unavailable BLESSING, DR RUTHERFORD Primary Care Unavailable JEMAL BEGUM Admitting Unavailable JEMAL BEGUM Consulting Unavailable JEMAL BEGUM Attending Unavailable BLESSING, DR RUTHERFORD Primary Care Unavailable CARIDAD, DR KORY Mahan Admitting Unavailabl e CARIDAD, DR KORY Mahan Consulting Unavailabl e CARIDAD, DR KORY Mahan Attending Unavailabl e BRISTOL, DR RUTHERFORD Primary Care Unavailable BRISTOL, DR RUTHERFORD Primary Care Unavailable HOLLY ., KATIE Admitting Unavailable HOLLY ., KATIE Consulting Unavailable KATIE GEORGE Attending Unavailable Michael Anderson Attending Unavailable IGNACIA CRAWFORD Attending Unavailable Michael Anderson Attending Unavailable Michael Anderson Attending Unavailable Michael Anderson MD Primary Care Provider [phone] SUGEY MADRID Attending Unavailable MADIHA HAIRSTON Attending Unavailable MADIHA HAIRSTON Attending Unavailable MADIHA HAIRSTON Attending Unavailable Allergies Allergy Classification Reported Allergen(s) Allergy Type Date of Onset Reaction(s) Facility (1 source) No Known Medication Allergies; Translations: [No Known Medication Allergies] Propensity to adverse reactions (disorder) [facility] Repository Medications Current Medications Medication Drug Class(es) Dates Sig (Normalized) Sig (Original) azithromycin 250 mg oral tablet (6 sources) Macrolide Antimicrobial Start: 12-07-2024 azithromycin (Zithromax Z-Twin) 250 MG tablet Indications: Fever, unspecified fever cause , Cough, unspecified type As directed 6 tablet 12/07/2024 Active Ethinyl Estradiol / Ferrous fumarate / Norethindrone [...] Vit-Fe Fumarate-FA ( Vitamins) 28-0.8 MG tablet (17 sources) Start: 09-28-2024 End: 09-28-2025 take 1 [...] Classification Problem Date Documented Da te Episodic/Chronic Fever of unknown origin (2 sources) Fever; Translations: [Fever, unspecified] 12-07-2024 Episodic Headache; including migraine (1 source) Headache; including migraine; Translations: [HEADACHE UNSPECIFIED] Onset: 03-15-2023 Lymphadenitis (1 source) Generalized enlarged lymph nodes; Translations: [GENERALIZED ENLARGED LYMPH NODES] Onset: 03-11-2023 Episodic Menstrual disorders (1 source) Missed period; Translations: [Irregular menstruation, unspecified] 09-07-2024 Chronic Other lower respiratory disease (2 sources) Cough; Translations: [Cough, unspecified type] 12-07-2024 Episodic Other and delivery including normal (20 sources) ; Translations: [Encounter for supervision of normal , unspecified, unspecified trimester] Onset: 11-09-2024 09-07-2024 Episodic Other screening for suspected conditions (not mental disorders or infectious disease) (8 sources) Encounter for screening for malignant neoplasm [...] of ] 10-10-2024 Episodic Residual codes; unclassified (13 sources) Gestation period, 15 weeks; Translations: [15 weeks gestation of ] Onset: 11-09-2024 11-09-2024 Episodic Residual codes; unclassified (2 sources) Gestation period, 19 weeks; Translations: [19 weeks gestation of ] 12-07-2024 Episodic Residual codes; unclassified (2 sources) Gestation period, 23 weeks; Translations: [23 weeks gestation of ] 01-04-2025 Episodic Screening and history of mental health [...] Range Facility Urinalysis macro (dipstick) panel (U)on 01-04-2025 Bilirubin, UA Negative Negative - 4(70) +++ mg/dL [facility] Blood, UA Negative Negative - 50 Neil/mcL [facility] Clarity, UA Clear [facility] Color, UA Yellow [facility] Glucose, UA Negative Negative - 2000(110) ++++ mg/dL [facility] Interpretation and review of laboratory results Normal [facility] Ketones, UA Negative Negative - 160(16) ++++ mg/dL [facility] Leukocytes, UA Negative Negative - 500+++ Chanel/mcL [facility] Nitrite, UA Negative Negative - Positive [facility] pH, UA 6.5 5 - 9 [facility] Protein, UA Negative Negative - 2000(20) ++++ mg/dL [facility] Spec Grav, UA 1.03 1 - 1.03 [facility] Urobilinogen, UA 0.2 0.2 - 12 mg/dL [facility] US OB 14+ WEEKS ANATOMY SCAN on 12-18-2024 US OB 14+ WEEKS ANATOMY SCAN TITLE OF EXAM: OB Ultrasound: REASON FOR EXAM: Anatomy. COMPARISON: None TECHNIQUE: Grayscale and M-mode Doppler imaging is performed. FINDINGS: heart rate: 140 bpm BPD: 5.0 cm HC: 19.1 cm AC: 16.9 cm FL: 3.6 cm GA for sonogram: 21.1 wk (19.7-22.5) Hadlock Cervix length: 3.7 cm LAN: 05/01/2025 Weight Estimate: Weight: 433 gm / 0 lbs, 15 oz (369-496 gm) Hadlock Normal: 389 gm (323-456 gm) Hadlock Wt%: 81% for 20.9 wks Presentation: Breech Lie: Longitudinal Amniotic Fluid: Subjectively normal Placental Location: Posterior, low lying Distance from Placenta edge to Cervical os: 2.7 cm Cervical Length: 3.7 cm Closed Heart Rate: 140 bpm Anatomy Observed: Lateral Ventricles: Visualized Cerebellum: Visualized Posterior Fossa: Visualized Nose Lips: Visualized Orbits: Visualized 4 Chamber heart: Not visualized RVOT/LVOT: Not visualized Diaphragm: Visualized Stomach: Visualized Kidneys: Visualized Abd Cord Insert: Visualized Bladder: Visualized Umbilical Arteries: Visualized 3 Vessel Cord: Not visualized Spine: Visualized Extremities: Visualized Gender: XY Nuchal lucency and cervical spine are visualized in a limited fashion. IMPRESSION: 1. Single live intrauterine gestation in breech position estimated at 21.1 weeks. This is concordant with the provided clinical dates. 2. cardiac structures and four-chamber view not well visualized due to habitus and lie. 3. Three-vessel view suboptimally demonstrated. 4. Cervical spine and nuchal area not well visualized. RECOMMEND: Repeat ultrasound in 4-6 weeks could be useful to reassess the above structures. *This report is generated using voice recognition reporting (Socialmoth). On occasion [employer] erroneously drops words from the report or replaces the spoken word with similar sounding words. Please call with any questions/concerns regarding this report.* Dictated and transcribed 12/19/24/dpd This report has been electronically signed and approved by the interpreting radiologist. Normal Not Available Comment on above: Order Comment: US OB ANATOMY SINGLE W US OB CERVICAL LENGTH Estimated Date of Delivery: 05/01/25 Gestational Age as of 11/09/2024: 20w6d Urinalysis macro (dipstick) panel (U)on 12-07-2024 Bilirubin, UA Negative Negative - 4(70) +++ mg/dL [facility] Blood, UA Negative Negative - 50 Neil/mcL [facility] Clarity, UA Clear [facility] Color, UA Yellow [facility] Glucose, UA Negative Negative - 2000(110) ++++ mg/dL [facility] Interpretation and review of laboratory results Normal [facility] Ketones, UA Negative Negative - 160(16) ++++ mg/dL [facility] Leukocytes, UA Negative Negative - 500+++ Chanel/mcL [facility] Nitrite, UA Negative Negative - Positive [facility] pH, UA 6 5 - 9 [facility] Protein, UA Negative Negative - 2000(20) ++++ mg/dL [facility] Spec Grav, UA 1.01 1 - 1.03 [facility] Urobilinogen, UA 0.2 0.2 - 12 mg/dL [facility] AFP, SERUM, OPEN SPINA BIFID Aon 11-11-2024 AFP MOM 1.33 . [facility] AFP VALUE 32.0 ng/mL . [facility] COMMENT: Comment . [facility] Comment on above: Carla Briones , Ph.D., [facility] Director References: Available Upon Request. Multiples Of Median Cutoffs For AFP Elevations Adams 2.5 Black 2.8 IDD 2.0 Twins 4.5 Abbreviation Definitions IDD - Insulin Dep Diabetes OSBR - Open Spina Bifida Risk For further inquiries contact [facility] at [phone]. This test was developed and its performance characteristics determined by [facility]. It has not been cleared or approved by the Food and Drug Administration. Performed at: [facility] [address] [place], [place] [id number] Case Coordinator: Quincy Montez [facility], Phone: [phone] GEST. AGE ON COLLECTION DATE 15.3 . weeks [facility] GESTAT. AGE BASED ON Ultrasound . [facility] Comment on above: 15.3 on 11/09/2024 Recalculations are not recommended when gestational dating by LMP and ultrasound are within 10 days. INSULIN DEP DIABETES No . [facility] INTERPRETATION Comment . [facility] Comment on above: Interpretation: Scre en Negative This result is screen negative for OSB. The AFP MoM calculated is based on the gestational age provided. MS-AFP can identify up to 80% of open neural tube defects. Closed neural tube defects and some open defects may not be detected by this test. This test does not screen for Down Syndrome or Trisomy 18. If screening for Down Syndrome or Trisomy 18 is desired, contact [facility] to discuss available options. The [employer] recommends amniocentesis be offered to women age 35 and older. [age] LAN 28.9 . [age] [facility] MULTIPLE GESTATION No . [facility] OSBR RISK 1 [place] 4399 . [facility] RACE . [facility] RESULTS Report . [facility] TEST RESULTS: Negative . [facility] WEIGHT 216 . lbs [facility] N [id number] N ULTRASOUND [id number] 2 15 N 1 Y 216 N N N N N White/ [facility] RECURRENT VAGINITIS (HTRX)on 11-10-2024 ATOPOBIUM VAGINAE 0 [facility] ATOPOBIUM VAGINAE Not detected [facility] BVAB 2,3 (BACTERIAL VAGINOSIS ASSOCIATED BACTERIA 2, 3); MOBILUNCUS SPP 0 [facility] BVAB 2,3 (BACTERIAL VAGINOSIS ASSOCIATED BACTERIA 2, 3); MOBILUNCUS SPP Not detected [facility] MARIO ALBICANS, PARAPSILOSIS, TROPICALIS 0 [facility] MARIO ALBICANS, PARAPSILOSIS, TROPICALIS Not detected [facility] MARIO GLABRATA 0 [facility] MARIO GLABRATA Not detected [facility] MARIO KRUSEI 0 [facility] MARIO KRUSEI Not detected [facility] CHLAMYDIA TRACHOMATIS 0 [facility] CHLAMYDIA TRACHOMATIS Not detected N [facility] GARDNERELLA VAGINALIS [address] [facility] GARDNERELLA VAGINALIS Not detected N [facility] MEGASPHAERA (TYPES 1, 2) 0 [facility] MEGASPHAERA (TYPES 1, 2) Not detected [facility] MYCOPLASMA GENITALIUM 0 [facility] MYCOPLASMA GENITALIUM Not detected N [facility] NEISSERIA GONORRHOEAE [address] [facility] NEISSERIA GONORRHOEAE Not detected N [facility] TRICHOMONAS VAGINALIS [address] [facility] TRICHOMONAS VAGINALIS Not detected N [facility] Urinalysis macro (dipstick) panel (U)on 11-09-2024 Bilirubin, UA Negative Negative - 4(70) +++ mg/dL [facility] Blood, UA Negative Negative - 50 Neil/mcL [facility] Clarity, UA Clear [facility] Color, UA Yellow [facility] Glucose, UA Negative Negative - 1999(110) ++++ mg/dL [facility] Interpretation and review of laboratory results Normal [facility] Ketones, UA Negative Negative - 160(16) ++++ mg/dL [facility] Leukocytes, UA Negative Negative - 500+++ Chanel/mcL [facility] Nitrite, UA Negative Negative - Positive [facility] pH, UA 7.5 5 - 9 [facility] Protein, UA Negative Negative - 1999(20) ++++ mg/dL [facility] Spec Grav, UA 1.02 1 - 1.03 [facility] Urobilinogen, UA 0.2 0.2 - 12 mg/dL [facility] ALL CBC WITH AUTO DIFFon BASOPHILS ABSOLUTE AUTO 0 [facility] Basophils/100 WBC (Bld) 0.2 % 0.2 - 2.0 % [facility] Eosinophils/100 WBC (Bld) 1 % 0.9 - 7.0 % [facility] Erythrocyte distribution width (RBC) [Ratio] 11.9 % 11.0 - 15.0 % [facility] Hematocrit (Bld) [Volume fraction] 38 % 36.0 - 48.0 % [facility] Hemoglobin (Bld) [Mass/Vol] 13.1 g/dL 12.0 - 16.0 g/dL [facility] IMMATURE GRANULOCYTES ABS AUTO 0.04 High [facility] Immature granulocytes/100 WBC (Bld) 0.3 % 0.0 - 0.5 % [facility] Interpretation and review of laboratory results Abnormal [facility] LYMPHOCYTES ABSOLUTE AUTO 2.1 [facility] Lymphocytes/100 WBC (Bld) 16.5 % Low 20.5 - 60.0 % [facility] MCH (RBC) [Entitic mass] 30.5 pg 26.7 - 34.0 pg [facility] MCHC (RBC) [Mass/Vol] 34.5 g/dL 29.9 - 35.2 g/dL [facility] MCV (RBC) [Entitic vol] 88.4 fL 81.0 - 99.0 fL [facility] MONOCYTES ABSOLUTE AUTO 0.8 [facility] Monocytes/100 WBC (Bld) 6.1 % 1.7 - 12.0 % [facility] NEUTROPHILS ABSOLUTE AUTO 9.4 High [facility] Neutrophils/100 WBC (Bld) 75.9 % High 43.0 - 75.0 % [facility] Platelet mean volume (Bld) [Entitic vol] 9.5 fL 9.5 - 13.5 fL [facility] EO # 0.1 [facility] PLT 335 [facility] RBC 4.3 [facility] WBC 12.4 High [facility]on 10-10-2024 BOX TEST SENT OUT Y [facility] BOX1 [facility] BOX2 10/10/24 [facility] DR[facility] SCREEN RAPID (URINE )on 10-10-2024 AMPHETAMINE SCREEN URINE Negative NEGATIVE [facility] BARBITURATES SCREEN URINE Negative NEGATIVE [facility] BENZODIAZEPINES SCREEN URINE Negative NEGATIVE [facility] BUPRENORPHINE SCREEN URINE Negative NEGATIVE [facility] Comment on above: DRUG CLASS TEST SYST [...] ng/mL CANNABINOID SCREEN URINE Positive Abnormal NEGATIVE [facility] COCAINE SCREEN URINE Negative NEGATIVE [facility] Interpretation and review of laboratory results Abnormal [facility] METHADONE SCREEN URINE Negative NEGATIVE [facility] METHAMPHETAMINES SCREEN URINE Negative NEGATIVE [facility] OPIATE SCREEN URINE Negative NEGATIVE [facility] OXYCODONE SCREEN URINE Negative NEGATIVE [facility] PHENCYCLIDINE SCREEN URINE Negative NEGATIVE [facility] TRICYCLIC ANTIDEPRESSANT URINE Negative NEGATIVE [facility] Urinalysis macro (dipstick) panel (U)on 10-10-2024 Bilirubin, UA Negative Negative - 4(70) +++ mg/dL [facility] Blood, UA Negative Negative - 50 Neil/mcL [facility] Clarity, UA Clear [facility] Color, UA Yellow [facility] Glucose, UA Negative Negative - 1999(110) ++++ mg/dL [facility] Interpretation and review of laboratory results Normal [facility] Ketones, UA Negative Negative - 160(16) ++++ mg/dL [facility] Leukocytes, UA Negative Negative - 500+++ Chanel/mcL [facility] Nitrite, UA Negative Negative - Positive [facility] pH, UA 7 5 - 9 [facility] Protein, UA Negative Negative - 1999(20) ++++ mg/dL [facility] Spec Grav, UA 1.02 1 - 1.03 [facility] Urobilinogen, UA 0.2 0.2 - 12 mg/dL [facility] HCG ( test) Ql (U)o n 09-07-2024 Interpretation and review of laboratory results Abnormal [facility] Preg Test, Ur Positive [facility] Urinalysis macro (dipstick) panel (U)on 09-07-2024 Bilirubin, UA Negative Negative - (70) +++ mg/dL [facility] Blood, UA Negative Negative - 50 Neil/mcL [facility] Clarity, UA Clear [facility] Color, UA Yellow [facility] Glucose, UA Negative Negative - 1999(110) ++++ mg/dL [facility] Interpretation and review of laboratory results Normal [facility] Ketones, UA Negative Negative - 160(16) ++++ mg/dL [facility] Leukocytes, UA Negative Negative - 500+++ Chanel/mcL [facility] Nitrite, UA Negative Negative - Positive [facility] pH, UA 6 5 - 9 [facility] Protein, UA Negative Negative - 2000(20) ++++ mg/dL [facility] Spec Grav, UA 1.02 1 - 1.03 [facility] Urobilinogen, UA 1.0 0.2 - 12 mg/dL [facility] Ambulatory Visit Summaryon 0 - Ambulatory Visit Summary Ambulatory Visit Summary JESICA DOSHI :1995 Visit Date:06/22/2024 Ambulatory Visit Instructions Your Diagnosis Adult wellness visit Former smoker BMI 34.0-34.9,adult Your Care Team Attending Physician - IGNACIA CRAWFORD CNP Primary Care Physician - Justin PEREIRA, Michael Quinones Procedures Performed section. Discharge Vitals Temperature (Oral) [...] taki (more content not included)... Normal [facility]ini [facility] Noteon 06-22-2024 Family [...] Recorded varicella virus vaccine 07/15/1999 Recorded Normal [facility] Comment on above: Result Comment: Elec tronically Signed By: IGNACIA CRAWFORD CNP\pedro luis\Date and Time Signed: 06/22/24 14:51 EDT Provider Letteron 06-16-2024 Provider Letter Provider Letter June 16, 2024 JESICA DOSHI [address] [place] [address] : 1995 To Whom It May Concern, Please excuse above patient from work due to Covid diagnosis. Date of Illness: From: 06/15/2024 To: 06/22/2024 May Return to Work On: 06/23/2024 Comments: May return to work sooner if symptom free. Sincerely, [address] [address] Normal [facility] Ambulatory Visit Summaryon 0 06-15-2024 Ambulatory Visit Summary Ambulatory Visit Summary GILBERT DOSHII GILL :1995 Visit Date:06/15/2024 Ambulatory Visit Instructions Your [...] AM EDT With: Michael Anderson MD Where: [address] [phone]- Allergies No Known Medication Allergies Problems Ongoing [...] for choosing us for your care. Normal [facility] Office/Clini c Noteon 06-15-2024 Family [...] Daily, # 3 tab(s), Refills(s) 0, Pharmacy: [facility] #[id number], 166, cm, 06/15/24 8:34:00 EDT, Height/Length Dosing, 95.6, kg, 06/15/24 8:34:00 EDT, Weight Dosing benzonatate, 200 mg = 1 cap(s), Oral, TID, X 7 day(s), # 21 cap(s), Refills(s) 0, Pharmacy: [facility] #[id number], 166, cm, 06/15/24 8:34:00 EDT, Height/Length Dosing, 95.6, kg, 06/15/24 8:34:00 EDT, Weight Dosing methylPREDNISolone, = 1 packet(s), Oral, As Directed, as directed on package labeling, X 6 day(s), # 21 tab(s), Refills(s) 0, Pharmacy: [facility] #[id number], 166, cm, 06/15/24 8:34:00 EDT, Height/Length Dosing, 95.6, kg, 06/15/24 8:34:00 EDT, Weight Dosing 2. BMI 34.0-34.9,adult (Z68.34: Body mass index [BMI] 34.0-34.9, adult) - BMI education added Ordered: azithromycin, 500 mg = 1 tab(s), Oral, Daily, # 3 tab(s), Refills(s) 0, Pharmacy: [facility] #[id number], 166, cm, 06/15/24 8:34:00 EDT, Height/Length Dosing, 95.6, kg, 06/15/24 8:34:00 EDT, Weight Dosing benzonatate, 200 mg = 1 cap(s), Oral, TID, X 7 day(s), # 21 cap(s), Refills(s) 0, Pharmacy: [facility] #[id number], 166, cm, 06/15/24 8:34:00 EDT, Height/Length Dosing, 95.6, kg, 06/15/24 8:34:00 EDT, Weight Dosing methylPREDNISolone, = 1 packet(s), Oral, As Directed, as directed on package labeling, X 6 day(s), # 21 tab(s), Refills(s) 0, Pharmacy: [facility] #[id number], 166, cm, 06/15/24 8:34:00 EDT, Height/Length Dosing, 95.6, kg, 06/15/24 8:34:00 EDT, Weight Dosing Rapid COVID POC 32543 Rapid Strep POC 84661 3. Class 1 obesity due to excess calories in adult (E66.09: Other obesity due to excess calories) - Diet and exercise advised Ordered: azithromycin, 500 mg = 1 tab(s), Oral, Daily, # 3 tab(s), Refills(s) 0, Pharmacy: [facility] #[id number], 166, cm, 06/15/24 8:34:00 EDT, Height/Length Dosing, 95.6, kg, 06/15/24 8:34:00 EDT, Weight Dosing benzonatate, 200 mg = 1 cap(s), Oral, TID, X 7 day(s), # 21 cap(s), Refills(s) 0, Pharmacy: [facility] #[id number], 166, cm, 06/15/24 8:34:00 EDT, Height/Length Dosing, 95.6, kg, 06/15/24 8:34:00 EDT, Weight Dosing methylPREDNISolone, = 1 packet(s), Oral, As Directed, as directed on package labeling, X 6 day(s), # 21 tab(s), Refills(s) 0, Pharmacy: [facility] #[id number], 166, cm, 06/15/24 8:34:00 EDT, Height/Length Dosing, 95.6, kg, 06/15/24 8:34:00 EDT, Weight Dosing Rapid COVID POC 84416 Rapid Strep POC 14802 4. Former smoker (Z87.891: Personal history of nicotine dependence) - Please continue to not smoke. Ordered: azithromycin, 500 mg = 1 tab(s), Oral, Daily, # 3 tab(s), Refills(s) 0, Pharmacy: [facility] #[id number], 166, cm, 06/15/24 8:34:00 EDT, Height/Length Dosing, 95.6, kg, 06/15/24 8:34:00 EDT, Weight Dosing benzonatate, 200 mg = 1 cap(s), Oral, TID, X 7 day(s), # 21 cap(s), Refills(s) 0, Pharmacy: [facility] #[id number], 166, cm, 06/15/24 8:34:00 EDT, Height/Length Dosing, 95.6, kg, 06/15/24 8:34:00 EDT, Weight Dosing methylPREDNISolone, = 1 packet(s), Oral, As Directed, as directed on package labeling, X 6 day(s), # 21 tab(s), Refills(s) 0, Pharmacy: [facility] #[id number], 166, cm, 06/15/24 8:34:00 EDT, Height/Length Dosing, 95.6, kg, 06/15/24 8:34:00 EDT, Weight Dosing Rapid COVID POC 03988 Rapid Strep POC 66376 Follow-up No qualifying data available Problem List/Past Medical History Ongoing Acute URI Cough COVID Elevated BP without diagnosis of hypertension Smoker 17-MAY-2014 12:37:00<$> Historical No qualifying data Procedure/Surgical History section. Medications Azithromycin 3 Day Dose Pack 500 mg oral tabl (more content not included)... [facility] Comment on above: Result Comment: Elec tronically Signed By: Justin PEREIRA, Michael Quinones\.br\Date and Time Signed: 06/15/24 09:10 EDT Provider Letteron 06-15-2024 Provider Letter Provider Letter June 15, 2024 JESICA DOSHI [address] [place] [address] : 1995 To Whom It May Concern, Please excuse above patient from work due to illness. Date of Illness: From: 06-15-24 To: 06-22-24 May Return to Work On:06-23-24 Restrictions: _ Comments: _ Sincerely, [address] [address] [facility] Ambulatory Visit Summaryon 0 11-23-2023 [...] PM EST With: Michael Anderson MD Where: [facility] Luis Normal [facility] Office/Clini c Noteon 11-23-2023 Family [...] Acute upper respiratory infection, unspecified) - Medrol, Tessalon perles - If no improvement in a few days Azithromycin Ordered: benzonatate, 200 mg = 1 cap(s), Oral, TID, X 7 day(s), # 21 cap(s), Refills(s) 0, Pharmacy: [facility] #[id number], 166, cm, 11/23/23 13:05:00 EST, Height/Length Dosing, 91.6, kg, 11/23/23 13:05:00 EST, Weight Dosing methylPREDNISolone, = 1 packet(s), Oral, As Directed, as directed on package labeling, X 6 day(s), # 21 tab(s), Refills(s) 0, Pharmacy: [facility] #[id number], 166, cm, 11/23/23 13:05:00 EST, Height/Length Dosing, 91.6, kg, 11/23/23 13:05:00 EST, Weight Dosing 2. Cough (R05.9: Cough, unspecified) - As above - Pending covid test. Ordered: benzonatate, 200 mg = 1 cap(s), Oral, TID, X 7 day(s), # 21 cap(s), Refills(s) 0, Pharmacy: [facility] #[id number], 166, cm, 11/23/23 13:05:00 EST, Height/Length Dosing, 91.6, kg, 11/23/23 13:05:00 EST, Weight Dosing methylPREDNISolone, = 1 packet(s), Oral, As Directed, as directed on package labeling, X 6 day(s), # 21 tab(s), Refills(s) 0, Pharmacy: [facility] #[id number], 166, cm, 11/23/23 13:05:00 EST, Height/Length Dosing, 91.6, kg, 11/23/23 13:05:00 EST, Weight Dosing 3. BMI 36.0-36.9,adult (Z68.36: Body mass index [BMI] 36.0-36.9, adult) - BMI education given Ordered: benzonatate, 200 mg = 1 cap(s), Oral, TID, X 7 day(s), # 21 cap(s), Refills(s) 0, Pharmacy: [facility] #[id number], 166, cm, 11/23/23 13:05:00 EST, Height/Length Dosing, 91.6, kg, 11/23/23 13:05:00 EST, Weight Dosing methylPREDNISolone, = 1 packet(s), Oral, As Directed, as directed on package labeling, X 6 day(s), # 21 tab(s), Refills(s) 0, Pharmacy: [facility] #[id number], 166, cm, 11/23/23 13:05:00 EST, Height/Length Dosing, 91.6, kg, 11/23/23 13:05:00 EST, Weight Dosing 4. Non-smoker (Z78.9: Other specified health status) - Please continue to not smoke Ordered: benzonatate, 200 mg = 1 cap(s), Oral, TID, X 7 day(s), # 21 cap(s), Refills(s) 0, Pharmacy: [facility] #[id number], 166, cm, 11/23/23 13:05:00 EST, Height/Length Dosing, 91.6, kg, 11/23/23 13:05:00 EST, Weight Dosing methylPREDNISolone, = 1 packet(s), Oral, As Directed, as directed on package labeling, X 6 day(s), # 21 tab(s), Refills(s) 0, Pharmacy: [facility] #[id number], 166, cm, 11/23/23 13:05:00 EST, Height/Length Dosing, [...] varicella virus vaccine 07/15/1999 Recorded Normal [facility] Comment on above: Result Comment: Elec tronically Signed By: Justin PEREIRA, Michael Dewitt.br\Date and Time Signed: 11/23/23 13:40 EST Patient [...] numbers. This can be done either in [place] or metric measurements. Note that charts and online BMI calculators are available to help you find your BMI quickly and easily without having to do these calculations yourself. To calculate your BMI in [place] measurements: 1. Measure your weight in [...] for Disease Control and Prevention: www.cdc.gov ? [place] [employer]: www.heart.org ? National Heart, Lung, and Blood [place]: www.nhlbi.nih.gov Summary ? Body mass index (BMI) is a number that is calculated from a person's weight and height. ? BMI may help estimate how much of a person's weight is composed of fat. BMI can help identify those who may be at higher risk for certain medical problems. ? BMI can be measured using [place]ian measurements or metric measurements. ? BMI charts are used to identify whether you are underweight, normal weight, overweight, or obese. This information is not intended to replace advice given to you by your health care provider. Make sure you discuss any questions you have with your health care provider. Document Revised: 07/24/2020 Document Reviewed: 05/31/2020 [employer] Patient Education ? 2022 [employer] Normal [facility] GROUP A STREP CULTUREon 02-14 S. pyogenes Ag Ql (Unsp spec) Culture Observations: NEGATIVE FOR GROUP A STREPTOCOCCUS. Normal [facility] Comment on above: Performed By: #### G RASTCX, SSCRN #### [facility] [address] [place] [address] Dr. Aniceto Ashby MONOon 03-13-2023 Monocytes (Bld) [#/Vol] Negative Normal NEGATIVE [facility] Comment on above: Performed By: #### M ERVIN #### [facility] [address] [address] [address] Aniceto Ashby STREPT SCREENon 03-13-2023 STREP SCREEN A Negative Normal NEGATIVE [facility] Comment on above: Performed By: #### G RASTCX, SSCRN #### [facility] [address] [address] [address] Aniceto Ashby GROUP A STREP CULTUREon 02-14 S. pyogenes Ag Ql (Unsp spec) Culture Observations: NEGATIVE FOR GROUP A STREPTOCOCCUS. Normal [facility] Comment on above: Performed By: #### G RASTCX, SSCRN #### [facility] [address] [address] [address] Aniceto Ashby STREPT SCREENon 03-10-2023 STREP SCREEN A Negative Normal NEGATIVE [facility] Comment on above: Performed By: #### G RASTCX, SSCRN #### [facility] [address] [place] [address] Dr. Aniceto Ashby PAP ACOG PANEL 2: 21 to 29on 02-19-2023 . . Normal [facility] Comment on above: Performed By: #### 4 [id number] #### [facility] [address] [place] [address] Dr. Aniceto Ashby Age Gdln ACOG Testing 21-29 [facility] Comment on above: Performed By: #### 4 [id number] #### [facility] [address] [place] [address] Dr. Aniceto Ashby DIAGNOSIS: Comment [facility] Comment on above: Result Comment: NEGA TIVE FOR INTRAEPITHELIAL LESION OR MALIGNANCY. SHIFT IN DENNY SUGGESTIVE OF BACTERIAL VAGINOSIS. THIS SPECIMEN WAS RESCREENED PART OF OUR PROOF CLERK PROGRAM. Performed By: #### 4 [id number] #### [facility] [address] [place] [address] Dr. Aniceto Ashby Methodology: Comment [facility] Comment on above: Result Comment: This liquid based ThinPrep(R) pap test was screened with the use of an image guided system. Performed By: #### 4 [id number] #### [facility] [address] [place] [address] Dr. Aniceto Ashby Note: Comment [facility] Comment on above: Result Comment: The Pap smear is a screening test designed to aid in the detection of premalignant and malignant conditions of the uterine cervix. It is not a diagnostic procedure and should not be used as the sole means of detecting cervical cancer. Both false-positive and false-negative reports do occur. . Performed By: #### 4 [id number] #### [facility] [address] [place] [address] Dr. Aniceto Ashby Performed by: Comment [facility] Comment on above: Result Comment: Cleo Dubon Match Marker (ASCP) Performed By: #### 4 [id number] #### [facility] [address] [place] [address] Dr. Aniceto Ashby QC reviewed by: Comment Normal [facility] Comment on above: Result Comment: Cleo Dasilva Match Marker (ASCP) Performed By: #### 4 [id number] #### [facility] [address] [place] [address] Dr. Aniceto Ashby Reflex Criteria: Comment Normal [facility] Comment on above: Result Comment: The HPV DNA reflex criteria were not met with this specimen result therefore, no HPV testing was performed. . Performed By: #### 4 [id number] #### [facility] [address] [place] [address] Dr. Aniceto Ashby Specimen adequacy: Comment Normal [facility] Comment on above: Result Comment: Sati sfactory for evaluation. Endocervical and/or squamous metaplastic cells (endocervical component) are present. Performed By: #### 4 [id number] #### [facility] [address] [place] [address] Dr. Aniceto Ashby Covid-19 PCR (CVDTB)on SARS-CoV-2 (COVID-19) RNA HUSEYIN+probe Ql (Unsp spec) Not detected Normal NOT DETECTED [facility] Comment on above: Result Comment: When diagnostic [...] for this test is supported by the Cloth Finishing Range Tender of Health and Human Service's declaration that [...] used). Performed By: #### C VDTBH #### [facility] [address] [place] [address] Dr. Aniceto Ashby Vital Signs Date Time Vital Sign Value Performing Clinician Angelai lity 01-04-2025 09:11-0500 Body mass index (BMI) [Ratio] 35.55 kg/m2 Madiha Marika DO Work Phone: [facility] 01-04-2025 09:11-0500 Body weight 102.97 kg Madiha Marika DO Work Phone: [facility] 01-04-2025 09:11-0500 Diastolic blood pressure 78 mm[Hg] Madiha Marika DO Work Phone: [facility] 01-04-2025 09:11-0500 Systolic blood pressure 122 mm[Hg] Madiha Marika DO Work Phone: [facility] 12-07-2024 15:35-0500 Body mass index (BMI) [Ratio] 34.36 kg/m2 Sugey Madrid PA Work Phone: [facility] 12-07-2024 15:35-0500 Body weight 99.52 kg Sugey Madrid PA Work Phone: [facility] 12-07-2024 15:35-0500 Diastolic blood pressure 70 mm[Hg] Sugey Madrid PA Work Phone: [facility] 12-07-2024 15:35-0500 Systolic blood pressure 122 mm[Hg] Sugey Madrid PA Work Phone: [facility] 11-09-2024 10:53-0500 Body mass index (BMI) [Ratio] 33.67 kg/m2 Madiha Marika DO Work Phone: [facility] 11-09-2024 10:53-0500 Body weight 97.52 kg Madiha Marika DO Work Phone: [facility] 11-09-2024 10:53-0500 Diastolic blood pressure 82 mm[Hg] Madiha Marika DO Work Phone: [facility] 11-09-2024 10:53-0500 Systolic blood pressure 122 mm[Hg] Madiha Marika DO Work Phone: [facility] 10-10-2024 13:35-0500 Body mass index (BMI) [Ratio] 33.17 kg/m2 Madiha Marika DO Work Phone: [facility] 10-10-2024 13:35-0500 Body weight 96.07 kg Madiha Marika DO Work Phone: [facility] 10-10-2024 13:35-0500 Diastolic blood pressure 80 mm[Hg] Madiha Marika DO Work Phone: [facility] 10-10-2024 13:35-0500 Systolic blood pressure 120 mm[Hg] Madiha Marika DO Work Phone: [facility] 09-07-2024 13:52-0400 Body mass index (BMI) [Ratio] 34.16 kg/m2 N[facility] Nurse [facility] 09-07-2024 13:52-0400 Body weight 98.94 kg Noms Nurse [facility] 09-07-2024 13:52-0400 Diastolic blood pressure 70 mm[Hg] Noms Nurse [facility] 09-07-2024 13:52-0400 Systolic blood pressure 120 mm[Hg] [facility] Nurse [facility] Encounters Encounter Date Encounter Type Care Provider Facility Start: 01-04-2025 End: 01-04-2025 Bamboo flowsheet Madiha Marika DO Work Phone: [facility] Start: 01-04-2025 End: 01-04-2025 Bamboo flowsheet Madiha Marika DO Work Phone: [facility] Start: 01-04-2025 End: 01-04-2025 ambulatory MADIHA MARIKA Not Available Start: 01-04-2025 End: 01-04-2025 Office outpatient visit 15 minutes Madiha Marika DO Work Phone: [facility] Comment on above: Second trimester pre gnancy; 23 weeks gestation of ; Diabetes mellitus screening Start: 12-18-2024 End: 12-18-2024 ambulatory SUGEY MADRID Not Available Start: 12-11-2024 End: 12-11-2024 Telephone encounter Rohini Eric LPN [facility] Start: 12-07-2024 End: 12-07-2024 Office outpatient visit 15 minutes Sugey BADILLO Work Phone: [facility] Comment on above: Second trimester pre gnancy; 19 weeks gestation of ; Fever, unspecified fever cause; Cough, unspecified type Start: 12-07-2024 End: 12-07-2024 ambulatory SUGEY MADRID Not Available Start: 12-07-2024 End: 12-07-2024 Bamboo flowsheet Sugey BADILLO Work Phone: [facility] Start: 12-07-2024 End: 12-07-2024 Bamboo flowsheet Sugey BADILLO Work Phone: [facility] Start: 11-09-2024 End: 11-09-2024 Bamboo flowsheet Madiha Marika DO Work Phone: [facility] Start: 11-09-2024 End: 11-11-2024 Bamboo flowsheet Madiha Marika DO Work Phone: [facility] Start: 11-09-2024 End: 11-11-2024 Clinisync Result Encounter Madiha Marika DO Work Phone: [facility] External Department Unsolicited Start: 11-09-2024 End: 11-10-2024 External Result Encounter Madiha Marika DO Work Phone: [facility] External Department Unsolicited Start: 11-09-2024 End: 11-09-2024 Office outpatient visit 15 minutes Madiha Marika DO Work Phone: [facility] Comment on above: 15 weeks gestation o f ; Second trimester ; Screening, , for anatomic survey Start: 11-09-2024 End: 11-09-2024 ambulatory MADIHA MARIKA Not Available Start: 10-10-2024 End: 10-10-2024 Bamboo flowsheet Madiha Marika DO Work Phone: [facility] Start: 10-10-2024 End: 10-10-2024 Bamboo flowsheet Madiha Marika DO Work Phone: [facility] Start: 10-10-2024 End: 10-10-2024 Clinisync Result Encounter Madiha Pedrazao DO Work Phone: [facility] Unsolicited [...] GA: 6w2d Start: 09-07-2024 End: 09-07-2024 ambulatory SUGEY MADRID Not Available Start: 06-22-2024 End: 06-22-2024 ambulatory IGNACIA CRAWFORD Facility:[facility] Start: 06-15-2024 End: 06-15-2024 ambulatory Michael Anderson Facility:[facility] Start: 12-28-2023 ambulatory Michael Anderson Facility :[facility] Start: 11-23-2023 ambulatory Michael Anderson Facility :[facility] Start: 11-23-2023 ambulatory Michael Anderson Facility: [facility] Start: 03-13-2023 End: 03-13-[address] SANGEETA FUNK Facility:[facility] Start: 03-10-2023 End: 03-10-[address] TODD RM . Facility:[facility] Start: 02-11-2023 End: 02-11-2023 ambulatory JEMAL BEGUM Facility:[facility] Start: 07-23-2022 End: 07-23-[address] KORY MCLEAN Facility:[facility] Procedures Date Procedure Procedure Detail Performing Clinician Start: 01-04-2025 Urnls dip stick/tabl et rgnt non-auto w/o micrscp Madiha Marika DO Work Phone: Start: 12-07-2024 Urnls dip stick/tabl et rgnt non-auto w/o micrscp Sugey Madrid PA Work Phone: Start: 11-09-2024 RECURRENT VAGINITIS (HTRX) Madiha Marika DO Work Phone: Start: 11-09-2024 AFP, SERUM, OPEN SPI NA BIFIDA Madiha Marika DO Work Phone: Start: 11-09-2024 Urnls dip stick/tabl et rgnt non-auto w/o micrscp Madiha Marika DO Work Phone: Start: 10-10-2024 ALL CBC WITH AUTO DIFF Madiha Marika DO Work Phone: Start: 10-10-2024 BOX TEST Madiha Fazi o DO Work Phone: Start: 10-10-2024 [facility] DRUG SCREEN RAPI D (URINE) Madiha Marika DO Work Phone: Start: 10-10-2024 Urnls dip stick/tabl et rgnt non-auto w/o micrscp Madiha Marika DO Work Phone: Start: 09-07-2024 End: 09-07-2024 Urnls dip stick/tablet rgnt non-auto w/o micrscp Madiha Marika DO Work Phone: Plan of Treatment Date Care Activity Detail Author Start: 02-05-2025 End: 02-05-2025 Patient encounter procedure 02/05/2025 3:40 PM EDT Routine [facility] [address] [facility] [place] [address] Madiha Hairston, DO [address] [place] [address] [facility] Start: 01-04-2025 End: 01-04-2026 CBC panel - Blood by Automated count CBC Lab Routine Diabetes mellitus screening Expected: 01/04/2025 (Approximate), Expires: 01/04/2026 [facility] Work Phone: Comment on above: Expected: 01/04/2025 (Approximate), Expires: 01/04/2026 Start: 01-04-2025 End: 01-04-2026 Measurement of glucose 1 hour after glucose challenge for glucose tolerance test Glucose tolerance, 1 hour Lab Routine Diabetes mellitus screening Expected: 01/04/2025 (Approximate), Expires: 01/04/2026 [facility] Comment on above: Expected: 01/04/2025 (Approximate), Expires: 01/04/2026 Start: 01-04-2025 End: 01-04-2025 Patient encounter procedure 01/04/2025 8:50 AM EST Routine [facility] [address] [facility] [address] [place] [address] Madiha Hairston DO [address] [place] [address] [facility] Start: 12-18-2024 End: 12-18-2024 Professional / ancillary services management 12/18/2024 2:00 PM EST Ancillary Procedure [facility] [address] [facility] [place] [id number] [facility] Start: 12-07-2024 End: 12-07-2024 Patient encounter procedure 12/07/2024 3:30 PM EST Routine [facility] [address] [place] [address] Sugey Madrid PA [address] [place] [address] Arrived [facility] Comment on above: Arrived Start: 12-07-2024 End: 12-07-2024 Patient encounter procedure 12/07/2024 11:30 AM EST Routine [facility] [address] [place] [phone] Sugey Madrid, PA [address] [place] [address] [facility] Start: 11-09-2024 End: 01-10-2025 Alpha fetoprotein, maternal Alpha fetoprotein, maternal Lab Routine 15 weeks gestation of Second trimester Expected: 11/09/2024 (Approximate), Expires: 01/10/2025 [facility] Comment on above: Expected: 11/09/2024 (Approximate), Expires: 01/10/2025 Start: 11-09-2024 End: 11-09-2025 US for US OB ANATOMY SINGLE W US OB CERVICAL LENGTH Imaging Routine 15 weeks gestation of Second trimester Screening, , for anatomic survey Expected: 11/09/2024 (Approximate), Expires: 11/09/2025 [facility] Comment on above: Expected: 11/09/2024 (Approximate), Expires: 11/09/2025 Start: 11-09-2024 End: 11-09-2024 Patient encounter procedure [facility] Comment on above: Arrived Start: 10-10-2024 End: 10-10-2024 Patient encounter procedure 10/10/2024 1:10 PM EST Routine [facility] [address] [place] [id number] Madiha Hairston DO [address] [facility] [place] [address] [facility] Start: 09-07-2024 End: 09-07-2025 ABO/Rh ABO/Rh Lab Routine Missed menses , unspecified gestational age Expected: 09/07/2024 (Approximate), Expires: 09/07/2025 [facility] Comment on above: Expected: 09/07/2024 (Approximate), Expires: 09/07/2025 Start: 09-07-2024 End: 09-07-2025 Blood type and Indirect antibody screen panel - Blood Type and screen Lab Routine Missed menses , unspecified gestational age Expected: 09/07/2024 (Approximate), Expires: 09/07/2025 [facility] Work Phone: Comment on above: Expected: 09/07/2024 (Approximate), Expires: 09/07/2025 Start: 09-07-2024 End: 09-07-2025 Drugs of abuse panel - Urine by Screen method Rapid drug screen, urine Lab Routine , unspecified gestational age Encounter for supervision of normal first in first trimester Expected: 09/07/2024 (Approximate), Expires: 09/07/2025 [facility] Comment on above: Expected: 09/07/2024 (Approximate), Expires: 09/07/2025 Start: 09-07-2024 End: 09-07-2025 US Pelvis transvaginal US OB transvaginal Imaging Routine Missed menses Expected: 09/07/2024 (Approximate), Expires: 09/07/2025 [facility] Comment on above: Expected: 09/07/2024 (Approximate), Expires: 09/07/2025 Bacteria identified in Urine by Culture Urine culture Microbiology Routine Missed menses Ordered: 09/07/2024 [facility] Comment on above: Ordered: 09/07/2024 CBC W Auto Different ial panel - Blood CBC and differential Lab Routine Missed menses , unspecified gestational age Ordered: 09/07/2024 [facility] Comment on above: Ordered: 09/07/2024 CHLAMYDIA TRACHOMATI S (GENITO/STI) CHLAMYDIA TRACHOMATIS (GENITO/STI) Lab Routine 15 weeks gestation of Second trimester Ordered: 11/09/2024 [facility] Comment on above: Ordered: 11/09/2024 Cytology Cervical or vaginal smear or scraping study Pap Smear Pathology and Cytology Routine 15 weeks gestation of Second trimester Ordered: 11/09/2024 [facility] Work Phone: Comment on above: Ordered: 11/09/2024 Hemoglobin A1c/Hemoglobin.total in Blood Hemoglobin A1c Lab Routine Missed menses , unspecified gestational age Ordered: 09/07/2024 [facility] Comment on above: Ordered: 09/07/2024 Hepatitis B virus surface Ag [Presence] in Serum or Plasma by Immunoassay Hepatitis B surface antigen Lab Routine Missed menses , unspecified gestational age Ordered: 09/07/2024 [facility] Comment on above: Ordered: 09/07/2024 Hepatitis C virus Ab [Presence] in Serum or Plasma by Immunoassay Hepatitis C antibody Lab Routine Missed menses , unspecified gestational age Ordered: 09/07/2024 [facility] Comment on above: Ordered: 09/07/2024 HIV-1/HIV-2 antigen/antibody combination immunoassay HIV-1 and HIV-2 antibodies Lab Routine Missed menses , unspecified gestational age Ordered: 09/07/2024 [facility] Comment on above: Ordered: 09/07/2024 Neisseria gonorrhoea e DNA [Presence] in Unspecified specimen by HUSEYIN with probe detection Neisseria gonorrhea DNA probe, direct Lab Routine 15 weeks gestation of Second trimester Ordered: 11/09/2024 [facility] Comment on above: Ordered: 11/09/2024 Reagin Ab [Presence] in Serum by RPR RPR Lab Routine Missed menses , unspecified gestational age Ordered: 09/07/2024 [facility] Comment on above: Ordered: 09/07/2024 Rubella antibody, IgG Rubella an tibody, IgG Lab Routine Missed menses , unspecified gestational age Ordered: 09/07/2024 [facility] Comment on above: Ordered: 09/07/2024 SURESWAB(R) ADVANCED VAGINITIS PLUS, TMA SURESWAB(R) ADVANCED VAGINITIS PLUS, TMA Pathology and Cytology Routine 15 weeks gestation of Second trimester Ordered: 11/09/2024 [facility] Comment on above: Ordered: 11/09/2024 Payers Date Payer Category Payer Medicaid [employer] [place] [id number] 2023 [facility] [id number] 2023 Unknown [id number] 2022 Medicaid [id number] 1996 Unknown [id number] 2.16.840.1.835378.3.579.2. 593 1996 Unknown [id number] 2.16.840.1.891039.3.579.2. 593 1996 Unknown [id number] 2.16.840.1.016522.3.579.2. 593 1996 Unknown [id number] 2.16.840.1.623511.3.579.2. 593 1996 Unknown [id number] 2.16.840.1.797856.3.579.2. 727 1996 Unknown [id number] 2.16.840.1.247545.3.579.2. 727 1996 Unknown [id number] 2.16.840.1.408154.3.579.2. 727 1996 Unknown [id number] 2.16.840.1.036619.3.579.2. 727 1996 Unknown [id number] 2.16.840.1.512217.3.579.2. 1259 1996 Unknown [id number] 2.16.840.1.797765.3.579.2. 1259 1996 Unknown [id number] 2.16.840.1.409129.3.579.2. 1259 1996 Unknown [id number] 2.16.840.1.351643.3.579.2. 1259 1996 Unknown [id number] 2.16.840.1.413516.3.579.2. 1259 1996 Unknown [id number] 2.16.840.1.787978.3.579.2. 1259 1959 Unknown [id number] Social History Date Type Detail Facility Start: 11-01-2023 Tobacco smoking status NHIS Ex-smoke r [facility] Start: 01-13-2013 End: 10-19-2022 History of tobacco use Current smoker [facility] Start: 01-13-2013 End: 10-19-2022 History of tobacco use Cigarette Smoker [facility] Start: 11-01-2023 History of Social function [facility] Start: 11-01-2023 Tobacco use panel [facility] Start: 08-08-2024 [facility] Start: 1995 Sex assigned at Not on file [facility] Clinical Notes 06-22-2024 to 01-04-2025 Rohini Eric, [employer] - 01/04/2025 8:50 AM ESTTelephone Encounter - Hillary Rivera - 12/11/2024 2:09 PM ESTTelephone Encounter - Hillary ruth ann - 12/11/2024 2:09 PM EST Note Date & Type Note Facility 01-04-2025 History of Presen t illness Narrative Reason for Appointment: Patient ID: Jesica Doshi is a 29 y.o. female who presents for Routine Visit Patient presents today for Return OB appointment. MEDICATIONS Current Outpatient Medications Medication Instructions azithromycin (Zithromax Z-Twin) 250 MG tablet As directed Vit-Fe Fumarate-FA ( Vitamins) 28-0.8 MG tablet [...] date: 01/13/2013 Quit date: 10/19/2022 Years since quittin.2 Smokeless tobacco: Not on file Substance Use Topics Alcohol use: Not on file Drug use: Not on file FAMILY HISTORY Family History Problem Relation Name Age of Onset Other (mhthr) Mother Other (rh negative) Mother Melanoma Neg Hx SURGICAL HISTORY Past Surgical History: Procedure Laterality Date SECTION, LOW TRANSVERSE 09/02/2013 REVIEW OF SYSTEMS Review of Systems: Review of Systems All other systems reviewed and are negative. OBJECTIVE Objective: Physical Exam Constitutional: Appearance: Normal [...] nursing note reviewed. Exam conducted with a summer nanny present. Vitals: Estimated body mass index is 35.55 kg/m as calculated from the following: Height as of 08/11/23: 5' 7 . Weight as of this encounter: 227 lb. BP: 122/78 Patient's last menstrual period was 07/02/2024. ASSESSMENT & PLAN ICD-10-CM 1. Second trimester Z34.92 POCT urinalysis dipstick manually resulted 2. 23 weeks gestation of Z3A.23 3. Diabetes mellitus screening Z13.1 CBC Glucose tolerance, 1 hour CBC Glucose tolerance, 1 hour Patient presents today for a routine obstetrics appointment. Patient is currently 23w2d with a Estimated Date of Delivery: 05/01/25. Patient given order for repeat US to have scheduled. Patient also given orders for 1 hour gtt and CBC to have obtained prior to next appointment. Patient to return to clinic in 4 weeks. Documented by Rohini Eric LPN on behalf of: Madiha Hairston DO documented in this encounter [facility] 12-11-2024 Telephone encounter Note Work note written and faxed to employer. [facility] 12-11-2024 Miscellaneous Notes Work note written and faxed to employer. 12/11/24 @ 0906 Patient called and LMOM stating that she was seen in office last week with Sugey and patient had Influenza A. Patient stated that she called in sick to work today as she is still not feeling well & would like to know if a work note can be faxed to her employer. Patient request a call back. 12/11/24942 Called patient and informed her that nursing spoke with Sugey HUNTER and she is able to obtain a work note excusing her for today. Hillary, Could you please fax a work note Attn: Do @ [phone]? Thank you, Rohini Ritter LPN documented in this encounter [facility] 12-11-2024 Telephone encounter Note 12/11/24 @ 0906 Patient called and LMOM stating that she was seen in office last week with Sugey and patient had Influenza A. Patient stated that she called in sick to work today as she is still not feeling well & would like to know if a work note can be faxed to her employer. Patient request a call back. 12/11/24942 Called patient and informed her that nursing spoke with Sugey HUNTER and she is able to obtain a work note excusing her for today. Hillary, Could you please fax a work note Attn: Do @ [phone]? Thank you, Rohini Ritter LPN [facility] 12-07-2024 History of Presen t illness Narrative Reason for Appointment: Patient ID: Jesica Doshi is a 29 y.o. female who presents for Routine Visit Patient presents today for Return OB appointment. MEDICATIONS Current Outpatient Medications Medication Instructions azithromycin (Zithromax Z-Twin) 250 MG tablet As directed Vit-Fe Fumarate-FA ( Vitamins) 28-0.8 MG tablet [...] date: 01/13/2013 Quit date: 10/19/2022 Years since quittin.1 Smokeless tobacco: Not on file Substance Use [...] Exam Constitutional: Appearance: Normal appearance. She is normal weight. HENT: Head: Normocephalic. Cardiovascular: Rate and Rhythm: Normal rate. Pulses: Normal pulses. Pulmonary: Effort: Pulmonary effort is normal. Breath sounds: Normal breath sounds. Abdominal: Palpations: Abdomen is soft. Musculoskeletal: General: Normal range of motion. Neurological: General: No focal deficit present. Mental Status: She is alert and oriented to person, place, and time. Psychiatric: Mood and Affect: Mood normal. Behavior: Behavior normal. Thought Content: Thought content normal. Judgment: Judgment normal. Vitals and nursing note reviewed. Vitals: Estimated body mass index is 34.36 kg/m as calculated from the following: Height as of 08/11/23: 5' 7 . Weight as of this encounter: 219 lb 6.4 oz. BP: 122/70 Patient's last menstrual period was 07/02/2024. ASSESSMENT & PLAN ICD-10-CM 1. Second trimester Z34.92 POCT urinalysis dipstick manually resulted 2. 19 weeks gestation of Z3A.19 3. Fever, unspecified fever cause R50.9 azithromycin (Zithromax Z-Twin) 250 MG tablet 4. Cough, unspecified type R05.9 azithromycin (Zithromax Z-Twin) 250 MG tablet Return OB: Patient presents today for a routine obstetrics appointment. Patient is currently 19w6d . Patient states she is doing well but has complaints of being tired due to current . Patient has verbalizes frequent movement. labor precautions was discussed/given and patient was instructed to perform kick counts three times a day. Patient tested positive for influenza a and having some cough with body aches Orders Placed This Encounter Procedures POCT urinalysis dipstick manually resulted Follow Up: Patient is to return to office in 2 week for routine OB appointment. Documented by ABY Erickson on behalf of: ABY Erickson documented in this encounter [facility] 11-09-2024 History of Presen t illness Narrative [...] nursing note reviewed. Exam conducted with a summer nanny present. Vitals: Estimated body mass index is [...] Madiha Hairston DO documented in this encounter [facility] 10-10-2024 History of Presen t illness Narrative [...] nursing note reviewed. Exam conducted with a summer nanny present. Vitals: Estimated body mass index is [...] or undercooked meat, and stay away from [facility]. Patient has been consulted regarding any [...] Madiha Hairston DO documented in this encounter [facility] 09-07-2024 History of Presen t illness Narrative [...] or undercooked meat, and stay away from [facility]. Patient has also been advised to not change litter boxes and eat 6 small meals a day. Patient has been consulted regarding the do's and don'ts of . Patient was given labs and all questions and concerns were answered. Script was sent for Zofran, and [place] labs given to patient. Follow Up: Patient is to return in 4 weeks for routine OB appointment. Follow Up: Patient is to have labs drawn at directed and return to office for initial OB appointment with provider. Patient may call office as needed with any concerns or questions. Nurse Visit Completed by: Milvia Chirinos LPN documented in this encounter [facility] 06-22-2024 Note Patient Education Obstetrics and Gynecology [...] ? Know how (more content not included)... [facility] Evaluation note Diagnosis 6 weeks gestation of Missed menses , unspecified gestational age Encounter for supervision of normal first in first trimester [facility] Diagnosis 11 weeks gestation of First trimester state, incidental [facility] Diagnosis 15 weeks gestation of Second trimester state, incidental Screening, , for anatomic survey Encounter for anatomic survey [facility] Diagnosis Second trimester state, incidental 19 weeks gestation of Fever, unspecified fever cause Cough, unspecified type [facility] Diagnosis Second trimester state, incidental 23 weeks gestation of Diabetes mellitus screening Screening for diabetes mellitus documented in this encounter [facility] Summary Purpose Family History No Family History Records FoundNo Family History Records FoundNo Family History Records Found Advance Directives No Advanced Directives Records FoundNo Advanced Directives Records FoundNo Advanced Directives Records Found Additional Source Comments INFORMATION SOURCE (unrecogn ized section and content) DATE CREATED AUTHOR 03/15/2023 [facility] DATE CREATED AUTHOR AUTHOR'S ORGANIZ ATION 06/24/2024 [facility] DATE CREATED AUTHOR AUTHOR'S ORGANIZ ATION 01/06/2025 [facility] EPIC Reason for Visit (unrecogniz ed section and content) Reason Comments Amenorrhea Reason Comments Well Women Visit Reason Comments Routine Visit Care Teams (unrecognized sec tion and content) [employer] Relationship Specialty Start Date End Date Michael Anderson MD [address] [place] [address] PCP - General Family Medicine 09/07/24 [employer] Relationship Specialty Start Date End Date Michael Anderson MD [address] [place] [address] PCP - General Family Medicine 09/07/24 [employer] Relationship Specialty Start Date End Date Michael Anderson MD [address] [place] [address] PCP - General Family Medicine 09/07/24 [employer] Relationship Specialty Start Date End Date Michael Anderson MD [address] [place] [address] PCP - General Family Medicine 09/07/24 [employer] Relationship Specialty Start Date End Date Michael Anderson MD [address] [place] [address] PCP - General Family Medicine 09/07/24 [employer] Relationship Specialty Start Date End Date Michael Anderson MD [address] [place] [address] PCP - General Family Medicine 09/07/24 [employer] Relationship Specialty Start Date End Date Michael Anderson MD [address] [place] [address] PCP - General Family Medicine 09/07/24 [employer] Relationship Specialty Start Date End Date Micahel Anderson MD [address] [place] [address] PCP - General Family Medicine 09/07/24 [employer] Relationship Specialty Start Date End Date Michael Anderson MD [address] [place] [address] PCP - General Family Medicine 09/07/24 FOR [...] BE BASED ON THE PRIMARY CLINICAL RECORDS. [facility]. provides no warranty or guarantee of the accuracy or completeness of information in this document.
== END 2025-01-19 14:50 | disposition home or self-care (01) ==
LOC: US 14:49
PROVIDERS: PCP Family Medicine; Visit Provider Obstetrics & Gynecology
DX: Z36.2 Encounter for other antenatal screening follow-up (principal); Z3A.25 25 weeks gestation of pregnancy
CPT/HCPCS: 76815

== ENCOUNTER 2025-01-20 09:23 | Outpatient (OUT) | payer MEDICAID, SELFPAY ==
--- OUTSIDE RECORDS SUMMARY | 2025-01-20 09:25 | XMS_ITS | CCD ---
Author Organization [facility] Care Team Providers Care Remedial Project Manager Name Role Phone PAY ., DR BROOKS [...] Unavailable Michael Anderson MD Primary Care Provider SUGEY MADRID Attending Unavailable MADIHA HAIRSTON Attending Unavailable MADIHA HAIRSTON Attending Unavailable MADIHA HAIRSTON Attending Unavailable Allergies Allergy Classification Reported Allergen(s) Allergy Type Date of Onset Reaction(s) Facility (1 source) No Known Medication Allergies; Translations: [No Known Medication Allergies] Propensity to adverse reactions (disorder) [facility] Repository Medications Current Medications Medication Drug Class(es) [...] UA Negative Negative - 4(70) +++ mg/dL [facility] Blood, UA Negative Negative - 50 Neil/mcL [facility] Clarity, UA Clear [facility] Color, UA Yellow [facility] Glucose, UA Negative Negative - 2000(110) ++++ mg/dL [facility] Interpretation and review of laboratory results Normal [facility] Ketones, UA Negative Negative - 160(16) ++++ mg/dL [facility] Leukocytes, UA Negative Negative - 500+++ Chanel/mcL [facility] Nitrite, UA Negative Negative - Positive [facility] pH, UA 6.5 5 - 9 [facility] Protein, UA Negative Negative - 2000(20) ++++ mg/dL [facility] Spec Grav, UA 1.03 1 - 1.03 [facility] Urobilinogen, UA 0.2 0.2 - 12 mg/dL [facility] US OB 14+ WEEKS ANATOMY SCAN on [...] report is generated using voice recognition reporting (Storybird). On occasion TapFite erroneously drops words from the report or [...] UA Negative Negative - 4(70) +++ mg/dL [facility] Blood, UA Negative Negative - 50 Neil/mcL [facility] Clarity, UA Clear [facility] Color, UA Yellow [facility] Glucose, UA Negative Negative - 2000(110) ++++ mg/dL [facility] Interpretation and review of laboratory results Normal [facility] Ketones, UA Negative Negative - 160(16) ++++ mg/dL [facility] Leukocytes, UA Negative Negative - 500+++ Chanel/mcL [facility] Nitrite, UA Negative Negative - Positive [facility] pH, UA 6 5 - 9 [facility] Protein, UA Negative Negative - 2000(20) ++++ mg/dL [facility] Spec Grav, UA 1.01 1 - 1.03 [facility] Urobilinogen, UA 0.2 0.2 - 12 mg/dL [facility] AFP, SERUM, OPEN SPINA BIFID Aon 11-11-2024 AFP MOM 1.33 . [facility] AFP VALUE 32.0 ng/mL . [facility] COMMENT: Comment . [facility] Comment on above: Carla Briones , Ph.D., [facility] Director References: Available Upon Request. Multiples Of Median Cutoffs For AFP Elevations Adams 2.5 Black 2.8 IDD 2.0 Twins 4.5 Abbreviation Definitions IDD - Insulin Dep Diabetes OSBR - Open Spina Bifida Risk For further inquiries contact [facility] at [phone]. This test was developed and its performance characteristics determined by [facility]. It has not been cleared or approved by the Food and Drug Administration. Performed at: [facility] [address] [place], [place] [id number] Web Application Dev Specialist: Quincy Montez Formerly [facility], Phone: [phone] GEST. AGE ON COLLECTION DATE 15.3 . weeks [facility] GESTAT. AGE BASED ON Ultrasound . [facility] Comment on above: 15.3 on 11/09/2024 Recalculations are not recommended when gestational dating by LMP and ultrasound are within 10 days. INSULIN DEP DIABETES No . [facility] INTERPRETATION Comment . [facility] Comment on above: Interpretation: Scre en Negative [...] Customer Services to discuss available options. The [place] [employer] recommends amniocentesis be offered to women age 35 and older. [age] [facility] MULTIPLE GESTATION No . [facility] OSBR RISK 1 [place] 4399 . [facility] RACE . [facility] RESULTS Report . [facility] TEST RESULTS: Negative . [facility] WEIGHT 216 . lbs [facility] N [id number] N ULTRASOUND [id number] 2 15 N 1 Y 216 N N N N N White/ [facility] RECURRENT VAGINITIS (HTRX)on 11-10-2024 ATOPOBIUM VAGINAE 0 [facility] ATOPOBIUM VAGINAE Not detected [facility] BVAB 2,3 (BACTERIAL VAGINOSIS ASSOCIATED BACTERIA 2, 3); MOBILUNCUS SPP 0 [facility] BVAB 2,3 (BACTERIAL VAGINOSIS ASSOCIATED BACTERIA 2, 3); MOBILUNCUS SPP Not detected [facility] MARIO ALBICANS, PARAPSILOSIS, TROPICALIS 0 [facility] MARIO ALBICANS, PARAPSILOSIS, TROPICALIS Not detected [facility] MARIO GLABRATA 0 [facility] MARIO GLABRATA Not detected [facility] MARIO KRUSEI 0 [facility] MARIO KRUSEI Not detected [facility] CHLAMYDIA TRACHOMATIS [facility] CHLAMYDIA TRACHOMATIS Not detected N [facility] GARDNERELLA VAGINALIS 0 [facility] GARDNERELLA VAGINALIS Not detected N [facility] MEGASPHAERA (TYPES 1, 2) 0 [facility] MEGASPHAERA (TYPES 1, 2) Not detected [facility] MYCOPLASMA GENITALIUM 0 [facility] MYCOPLASMA GENITALIUM Not detected N [facility] NEISSERIA GONORRHOEAE 0 [facility] NEISSERIA GONORRHOEAE Not detected N [facility] TRICHOMONAS VAGINALIS 0 [facility] TRICHOMONAS VAGINALIS Not detected N [facility] Urinalysis macro (dipstick) panel (U)on 11-09-2024 Bilirubin, UA Negative Negative - 4(70) +++ mg/dL [facility] Blood, UA Negative Negative - 50 Neil/mcL [facility] Clarity, UA Clear [facility] Color, UA Yellow [facility] Glucose, UA Negative Negative - 1999(110) ++++ mg/dL [facility] Interpretation and review of laboratory results Normal [facility] Ketones, UA Negative Negative - 160(16) ++++ mg/dL [facility] Leukocytes, UA Negative Negative - 500+++ Chanel/mcL [facility] Nitrite, UA Negative Negative - Positive [facility] pH, UA 7.5 5 - 9 [facility] Protein, UA Negative Negative - 1999(20) ++++ mg/dL [facility] Spec Grav, UA 1.02 1 - 1.03 [facility] Urobilinogen, UA 0.2 0.2 - 12 mg/dL [facility] ALL CBC WITH AUTO DIFFon BASOPHILS ABSOLUTE AUTO 0 [facility] Basophils/100 WBC (Bld) 0.2 % 0.2 - 2.0 % [facility] Eosinophils/100 WBC (Bld) 1 % 0.9 - 7.0 % [facility] Erythrocyte distribution width (RBC) [Ratio] 11.9 % 11.0 - 15.0 % [facility] Hematocrit (Bld) [Volume fraction] 38 % 36.0 - 48.0 % [facility] Hemoglobin (Bld) [Mass/Vol] 13.1 g/dL 12.0 - 16.0 g/dL [facility] IMMATURE GRANULOCYTES ABS AUTO 0.04 High [facility] Immature granulocytes/100 WBC (Bld) 0.3 % 0.0 - 0.5 % [facility] Interpretation and review of laboratory results Abnormal [facility] LYMPHOCYTES ABSOLUTE AUTO 2.1 [facility] Lymphocytes/100 WBC (Bld) 16.5 % Low 20.5 - 60.0 % [facility] MCH (RBC) [Entitic mass] 30.5 pg 26.7 - 34.0 pg [facility] MCHC (RBC) [Mass/Vol] 34.5 g/dL 29.9 - 35.2 g/dL [facility] MCV (RBC) [Entitic vol] 88.4 fL 81.0 - 99.0 fL [facility] MONOCYTES ABSOLUTE AUTO 0.8 [facility] Monocytes/100 WBC (Bld) 6.1 % 1.7 - 12.0 % [facility] NEUTROPHILS ABSOLUTE AUTO 9.4 High [facility] Neutrophils/100 WBC (Bld) 75.9 % High 43.0 - 75.0 % [facility] Platelet mean volume (Bld) [Entitic vol] 9.5 fL 9.5 - 13.5 fL [facility] EO # 0.1 [facility] PLT 335 [facility] RBC 4.3 [facility] WBC 12.4 High [facility] BOX TEST SENT OUT Y [facility] BOX1 [facility] BOX2 10/10/24 [facility]APID (URINE )on 10-10-2024 AMPHETAMINE SCREEN URINE Negative NEGATIVE [facility] BARBITURATES SCREEN URINE Negative NEGATIVE [facility] BENZODIAZEPINES SCREEN URINE Negative NEGATIVE [facility] BUPRENORPHINE SCREEN URINE Negative NEGATIVE [facility] Comment on above: DRUG CLASS [...] ng/mL CANNABINOID SCREEN URINE Positive Abnormal NEGATIVE [facility] COCAINE SCREEN URINE Negative NEGATIVE [facility] Interpretation and review of laboratory results Abnormal [facility] METHADONE SCREEN URINE Negative NEGATIVE [facility] METHAMPHETAMINES SCREEN URINE Negative NEGATIVE [facility] OPIATE SCREEN URINE Negative NEGATIVE [facility] OXYCODONE SCREEN URINE Negative NEGATIVE [facility] PHENCYCLIDINE SCREEN URINE Negative NEGATIVE [facility] TRICYCLIC ANTIDEPRESSANT URINE Negative NEGATIVE [facility] Urinalysis macro (dipstick) panel (U)on 10-10-2024 Bilirubin, UA Negative Negative - 4(70) +++ mg/dL [facility] Blood, UA Negative Negative - 50 Neil/mcL [facility] Clarity, UA Clear [facility] Color, UA Yellow [facility] Glucose, UA Negative Negative - 1999(110) ++++ mg/dL [facility] Interpretation and review of laboratory results Normal [facility] Ketones, UA Negative Negative - 160(16) ++++ mg/dL [facility] Leukocytes, UA Negative Negative - 500+++ Chanel/mcL [facility] Nitrite, UA Negative Negative - Positive [facility] pH, UA 7 5 - 9 [facility] Protein, UA Negative Negative - 1999(20) ++++ mg/dL [facility] Spec Grav, UA 1.02 1 - 1.03 [facility] Urobilinogen, UA 0.2 0.2 - 12 mg/dL [facility] HCG ( test) Ql (U)o n 09-07-2024 Interpretation and review of laboratory results Abnormal [facility] Preg Test, Ur Positive [facility] Urinalysis macro (dipstick) panel (U)on 09-07-2024 Bilirubin, UA Negative Negative - (70) +++ mg/dL [facility] Blood, UA Negative Negative - 50 Neil/mcL [facility] Clarity, UA Clear [facility] Color, UA Yellow [facility] Glucose, UA Negative Negative - 1999(110) ++++ mg/dL [facility] Interpretation and review of laboratory results Normal [facility] Ketones, UA Negative Negative - 160(16) ++++ mg/dL [facility] Leukocytes, UA Negative Negative - 500+++ Chanel/mcL [facility] Nitrite, UA Negative Negative - Positive [facility] pH, UA 6 5 - 9 [facility] Protein, UA Negative Negative - 2000(20) ++++ mg/dL [facility] Spec Grav, UA 1.02 1 - 1.03 [facility] Urobilinogen, UA 1.0 0.2 - 12 mg/dL [facility] Ambulatory Visit Summaryon 0 - Ambulatory [...] taki (more content not included)... Normal [facility] Family Medicine Office/Clini c Noteon 06-22-2024 Family [...] Recorded varicella virus vaccine 07/15/1999 Recorded Normal [facility] Comment on above: Result Comment: Elec tronically Signed By: IGNACIA CRAWFORD CNP\pedro luis\Date and Time Signed: 06/22/24 14:51 EDT Provider Letteron 06-16-2024 Provider Letter Provider Letter June 16, 2024 JESICA DOSHI [address] [place] [address] : 1995 To Whom It May Concern, Please excuse above patient from work due to Covid diagnosis. Date of Illness: From: 06/15/2024 To: 06/22/2024 May Return to Work On: 06/23/2024 Comments: May return to work sooner if symptom free. Sincerely, [address] [address] Normal [facility] Ambulatory Visit Summaryon 0 06-15-2024 [...] AM EDT With: Michael Anderson MD Where: [address] [address]- Allergies No Known Medication Allergies Problems Ongoing [...] choosing us for your care. Normal [facility] Family Medicine Office/Clini c Noteon 06-15-2024 Family [...] Daily, # 3 tab(s), Refills(s) 0, Pharmacy: [facility] #[id number], 166, cm, 06/15/24 8:34:00 EDT, Height/Length Dosing, 95.6, kg, 06/15/24 8:34:00 EDT, Weight Dosing benzonatate, 200 mg = 1 cap(s), Oral, TID, X 7 day(s), # 21 cap(s), Refills(s) 0, Pharmacy: [facility] #[id number], 166, cm, 06/15/24 8:34:00 EDT, Height/Length Dosing, 95.6, kg, 06/15/24 8:34:00 EDT, Weight Dosing methylPREDNISolone, = 1 packet(s), Oral, As Directed, as directed on package labeling, X 6 day(s), # 21 tab(s), Refills(s) 0, Pharmacy: [facility] #[id number], 166, cm, 06/15/24 8:34:00 EDT, Height/Length Dosing, 95.6, kg, 06/15/24 8:34:00 EDT, Weight Dosing 2. BMI 34.0-34.9,adult (Z68.34: Body mass index [BMI] 34.0-34.9, adult) - BMI education added Ordered: azithromycin, 500 mg = 1 tab(s), Oral, Daily, # 3 tab(s), Refills(s) 0, Pharmacy: [facility] #[id number], 166, cm, 06/15/24 8:34:00 EDT, Height/Length Dosing, 95.6, kg, 06/15/24 8:34:00 EDT, Weight Dosing benzonatate, 200 mg = 1 cap(s), Oral, TID, X 7 day(s), # 21 cap(s), Refills(s) 0, Pharmacy: [facility] #[id number], 166, cm, 06/15/24 8:34:00 EDT, Height/Length Dosing, 95.6, kg, 06/15/24 8:34:00 EDT, Weight Dosing methylPREDNISolone, = 1 packet(s), Oral, As Directed, as directed on package labeling, X 6 day(s), # 21 tab(s), Refills(s) 0, Pharmacy: [facility] #[id number], 166, cm, 06/15/24 8:34:00 EDT, Height/Length Dosing, 95.6, kg, 06/15/24 8:34:00 EDT, Weight Dosing Rapid COVID POC 21774 Rapid Strep POC 13786 3. Class 1 obesity due to excess calories in adult (E66.09: Other obesity due to excess calories) - Diet and exercise advised Ordered: azithromycin, 500 mg = 1 tab(s), Oral, Daily, # 3 tab(s), Refills(s) 0, Pharmacy: [facility] #[id number], 166, cm, 06/15/24 8:34:00 EDT, Height/Length Dosing, 95.6, kg, 06/15/24 8:34:00 EDT, Weight Dosing benzonatate, 200 mg = 1 cap(s), Oral, TID, X 7 day(s), # 21 cap(s), Refills(s) 0, Pharmacy: [facility] #[id number], 166, cm, 06/15/24 8:34:00 EDT, Height/Length Dosing, 95.6, kg, 06/15/24 8:34:00 EDT, Weight Dosing methylPREDNISolone, = 1 packet(s), Oral, As Directed, as directed on package labeling, X 6 day(s), # 21 tab(s), Refills(s) 0, Pharmacy: [facility] #[id number], 166, cm, 06/15/24 8:34:00 EDT, Height/Length Dosing, 95.6, kg, 06/15/24 8:34:00 EDT, Weight Dosing Rapid COVID POC 24299 Rapid Strep POC 91063 4. Former smoker (Z87.891: Personal history of nicotine dependence) - Please continue to not smoke. Ordered: azithromycin, 500 mg = 1 tab(s), Oral, Daily, # 3 tab(s), Refills(s) 0, Pharmacy: [facility] #[id number], 166, cm, 06/15/24 8:34:00 EDT, Height/Length Dosing, 95.6, kg, 06/15/24 8:34:00 EDT, Weight Dosing benzonatate, 200 mg = 1 cap(s), Oral, TID, X 7 day(s), # 21 cap(s), Refills(s) 0, Pharmacy: [facility] #[id number], 166, cm, 06/15/24 8:34:00 EDT, Height/Length Dosing, 95.6, kg, 06/15/24 8:34:00 EDT, Weight Dosing methylPREDNISolone, = 1 packet(s), Oral, As Directed, as directed on package labeling, X 6 day(s), # 21 tab(s), Refills(s) 0, Pharmacy: [facility] #[id number], 166, cm, 06/15/24 8:34:00 EDT, Height/Length Dosing, 95.6, kg, 06/15/24 8:34:00 EDT, Weight Dosing Rapid COVID POC 66527 Rapid Strep POC 47722 Follow-up No qualifying data available Problem List/Past Medical History Ongoing Acute URI Cough COVID Elevated BP without diagnosis of hypertension Smoker 17-MAY-2014 12:37:00<$> Historical No qualifying data Procedure/Surgical History section. Medications Azithromycin 3 Day Dose Pack 500 mg oral tabl (more content not included)... [facility] Comment on above: Result Comment: Elec tronically Signed By: Justin PEREIRA, Michael Quinones\.br\Date and Time Signed: 06/15/24 09:10 EDT Provider Letteron 06-15-2024 Provider Letter Provider Letter June 15, 2024 JESICA DOSHI [address] [place] [address] : 1995 To Whom It May Concern, Please excuse above patient from work due to illness. Date of Illness: From: 06-15-24 To: 06-22-24 May Return to Work On:06-23-24 Restrictions: _ Comments: _ Sincerely, [address] [address] [facility] Ambulatory Visit Summaryon 0 11-23-2023 Ambulatory [...] PM EST With: Michael Anderson MD Where: [facility] Family Medicine Luis Normal [facility] Family Medicine Office/Clini c Noteon [...] day(s), # 21 cap(s), Refills(s) 0, Pharmacy: [facility] #[id number], 166, cm, 11/23/23 13:05:00 EST, Height/Length Dosing, 91.6, kg, 11/23/23 13:05:00 EST, Weight Dosing methylPREDNISolone, = 1 packet(s), Oral, As Directed, as directed on package labeling, X 6 day(s), # 21 tab(s), Refills(s) 0, Pharmacy: [facility] #[id number], 166, cm, 11/23/23 13:05:00 EST, Height/Length Dosing, 91.6, kg, 11/23/23 13:05:00 EST, Weight Dosing 2. Cough (R05.9: Cough, unspecified) - As above - Pending covid test. Ordered: benzonatate, 200 mg = 1 cap(s), Oral, TID, X 7 day(s), # 21 cap(s), Refills(s) 0, Pharmacy: [facility] #[id number], 166, cm, 11/23/23 13:05:00 EST, Height/Length Dosing, 91.6, kg, 11/23/23 13:05:00 EST, Weight Dosing methylPREDNISolone, = 1 packet(s), Oral, As Directed, as directed on package labeling, X 6 day(s), # 21 tab(s), Refills(s) 0, Pharmacy: [facility] #[id number], 166, cm, 11/23/23 13:05:00 EST, Height/Length Dosing, 91.6, kg, 11/23/23 13:05:00 EST, Weight Dosing 3. BMI 36.0-36.9,adult (Z68.36: Body mass index [BMI] 36.0-36.9, adult) - BMI education given Ordered: benzonatate, 200 mg = 1 cap(s), Oral, TID, X 7 day(s), # 21 cap(s), Refills(s) 0, Pharmacy: [facility] #[id number], 166, cm, 11/23/23 13:05:00 EST, Height/Length Dosing, 91.6, kg, 11/23/23 13:05:00 EST, Weight Dosing methylPREDNISolone, = 1 packet(s), Oral, As Directed, as directed on package labeling, X 6 day(s), # 21 tab(s), Refills(s) 0, Pharmacy: [facility] #[id number], 166, cm, 11/23/23 13:05:00 EST, Height/Length Dosing, 91.6, kg, 11/23/23 13:05:00 EST, Weight Dosing 4. Non-smoker (Z78.9: Other specified health status) - Please continue to not smoke Ordered: benzonatate, 200 mg = 1 cap(s), Oral, TID, X 7 day(s), # 21 cap(s), Refills(s) 0, Pharmacy: [facility] #[id number], 166, cm, 11/23/23 13:05:00 EST, Height/Length Dosing, 91.6, kg, 11/23/23 13:05:00 EST, Weight Dosing methylPREDNISolone, = 1 packet(s), Oral, As Directed, as directed on package labeling, X 6 day(s), # 21 tab(s), Refills(s) 0, Pharmacy: [facility] #[id number], 166, cm, 11/23/23 13:05:00 EST, Height/Length Dosing, [...] varicella virus vaccine 07/15/1999 Recorded Normal [facility] Comment on above: Result Comment: Elec [...] can be done either in [place] or metric measurements. Note that charts and online BMI calculators are available to help you find your BMI quickly and easily without having to do these calculations yourself. To calculate your BMI in [place] measurements: 1. Measure your weight in [...] for Disease Control and Prevention: www.cdc.gov ? [place] [employer]: www.heart.org ? National Heart, Lung, and Blood Cascade: www.nhlbi.nih.gov Summary ? Body mass index (BMI) is a number that is calculated from a person's weight and height. ? BMI may help estimate how much of a person's weight is composed of fat. BMI can help identify those who may be at higher risk for certain medical problems. ? BMI can be measured using [place] measurements or metric measurements. ? BMI charts are used to identify whether you are underweight, normal weight, overweight, or obese. This information is not intended to replace advice given to you by your health care provider. Make sure you discuss any questions you have with your health care provider. Document Revised: 07/24/2020 Document Reviewed: 05/31/2020 [employer] Patient Education ? 2022 [employer] Normal [facility] GROUP A STREP CULTUREon 02-14 S. pyogenes Ag Ql (Unsp spec) Culture Observations: NEGATIVE FOR GROUP A STREPTOCOCCUS. Normal [facility] Comment on above: Performed By: #### G RASTCX, SSCRN #### [facility] [address] [place] [address] Dr. Aniceto Ashby MONOon 03-13-2023 Monocytes (Bld) [#/Vol] Negative Normal NEGATIVE [facility] Comment on above: Performed By: #### M ERVIN #### [facility] [address] [address] [address] Aniceto Ashby STREPT SCREENon 03-13-2023 STREP SCREEN A Negative Normal NEGATIVE [facility] Comment on above: Performed By: #### G RASTCX, SSCRN #### [facility] [address] [address] [address] Aniceto Ashby GROUP A STREP CULTUREon 02-14 S. pyogenes Ag Ql (Unsp spec) Culture Observations: NEGATIVE FOR GROUP A STREPTOCOCCUS. Normal [facility] Comment on above: Performed By: #### G RASTCX, SSCRN #### [facility] [address] [address] [address] Aniceto Ashby STREPT SCREENon 03-10-2023 STREP SCREEN A Negative Normal NEGATIVE [facility] Comment on above: Performed By: #### G RASTCX, SSCRN #### [facility] [address] [place] [address] Dr. Aniceto Ashby PAP ACOG PANEL 2: 21 to 29on 02-19-2023 . . Normal [facility] Comment on above: Performed By: #### [id number] #### [facility] [address] [place] [address] Dr. Aniceto Ashby Age Gdln ACOG Testing 21-30 [facility] Comment on above: Performed By: #### [id number] #### [facility] [address] [place] [address] Dr. Aniceto Ashby DIAGNOSIS: Comment [facility] Comment on above: Result Comment: NEGA TIVE FOR INTRAEPITHELIAL LESION OR MALIGNANCY. SHIFT IN DENNY SUGGESTIVE OF BACTERIAL VAGINOSIS. THIS SPECIMEN WAS RESCREENED PART OF OUR CORONER FORENSIC TECHNICIAN PROGRAM. Performed By: #### [id number] #### [facility] [address] [place] [address] Dr. Aniceto Ashby Methodology: Comment [facility] Comment on above: Result Comment: This liquid based ThinPrep(R) pap test was screened with the use of an image guided system. Performed By: #### [id number] #### [facility] [address] [place] [address] Dr. Aniceto Ashby Note: Comment [facility] Comment on above: Result Comment: The Pap smear is a screening test designed to aid in the detection of premalignant and malignant conditions of the uterine cervix. It is not a diagnostic procedure and should not be used as the sole means of detecting cervical cancer. Both false-positive and false-negative reports do occur. . Performed By: #### 4 [id number] #### [facility] [address] [place] [address] Dr. Aniceto Ashby Performed by: Comment [facility] Comment on above: Result Comment: Cleo Dubon Mobility Specialist (ASCP) Performed By: #### [id number] #### [facility] [address] [place] [address] Dr. Aniceto Ashby QC reviewed by: Comment Normal [facility] Comment on above: Result Comment: Cleo Dasilva Mobility Specialist (ASCP) Performed By: #### [id number] #### [facility] [address] [place] [address] Dr. Aniceto Ashby Reflex Criteria: Comment Normal [facility] Comment on above: Result Comment: The HPV DNA reflex criteria were not met with this specimen result therefore, no HPV testing was performed. . Performed By: #### [id number] #### [facility] [address] [place] [address] Dr. Aniceto Ashby Specimen adequacy: Comment Normal [facility] Comment on above: Result Comment: Sati sfactory for evaluation. Endocervical and/or squamous metaplastic cells (endocervical component) are present. Performed By: #### [id number] #### [facility] [address] [place] [address] Dr. Aniceto Ashby Covid-19 PCR (CVDTB)on SARS-CoV-2 (COVID-19) RNA HUSEYIN+probe Ql (Unsp spec) Not detected Normal NOT DETECTED [facility] Comment on above: Result Comment: When diagnostic [...] for this test is supported by the Development Expert of Health and Human Service's declaration that [...] used). Performed By: #### C [id number] #### [facility] [address] [place] [address] Dr. Aniceto Ashby Vital Signs Date Time Vital Sign Value Performing Clinician Angelai lity 01-04-2025 09:11-0500 Body mass index (BMI) [Ratio] 35.55 kg/m2 Madiha Marika DO Work Phone: [facility] 01-04-2025 09:11-0500 Body weight 102.97 kg Madiha Marika DO Work Phone: [facility] 01-04-2025 09:11-0500 Diastolic blood pressure 78 mm[Hg] Madiha Marika DO Work Phone: [facility] 01-04-2025 09:11-0500 Systolic blood pressure 122 mm[Hg] Madiha Marika DO Work Phone: [facility] 12-07-2024 15:35-0500 Body mass index (BMI) [Ratio] 34.36 kg/m2 Sugey Madrid PA Work Phone: [facility] 12-07-2024 15:35-0500 Body weight 99.52 kg Sugey Madrid PA Work Phone: [facility] 12-07-2024 15:35-0500 Diastolic blood pressure 70 mm[Hg] Sugey Madrid PA Work Phone: [facility] 12-07-2024 15:35-0500 Systolic blood pressure 122 mm[Hg] Sugey Madrid PA Work Phone: [facility] 11-09-2024 10:53-0500 Body mass index (BMI) [Ratio] 33.67 kg/m2 Madiha Marika DO Work Phone: [facility] 11-09-2024 10:53-0500 Body weight 97.52 kg Madiha Marika DO Work Phone: [facility] 11-09-2024 10:53-0500 Diastolic blood pressure 82 mm[Hg] Madiha Marika DO Work Phone: [facility] 11-09-2024 10:53-0500 Systolic blood pressure 122 mm[Hg] Madiha Marika DO Work Phone: [facility] 10-10-2024 13:35-0500 Body mass index (BMI) [Ratio] 33.17 kg/m2 Madiha Marika DO Work Phone: [facility] 10-10-2024 13:35-0500 Body weight 96.07 kg Madiha Marika DO Work Phone: [facility] 10-10-2024 13:35-0500 Diastolic blood pressure 80 mm[Hg] Madiha Marika DO Work Phone: [facility] 10-10-2024 13:35-0500 Systolic blood pressure 120 mm[Hg] Madiha Marika DO Work Phone: [facility] 09-07-2024 13:52-0400 Body mass index (BMI) [Ratio] 34.16 kg/m2 [facility] 09-07-2024 13:52-0400 Body weight 98.94 kg [facility] 09-07-2024 13:52-0400 Diastolic blood pressure 70 mm[Hg] [facility] 09-07-2024 13:52-0400 Systolic blood pressure 120 mm[Hg] [facility] Nurse [facility] Healthcare Encounters Encounter Date Encounter Type Care Provider Facility Start: 01-04-2025 End: 01-04-2025 Bamboo flowsheet Madiha Marika DO Work Phone: [facility] Start: 01-04-2025 End: 01-04-2025 Bamboo flowsheet Madiha Marika DO Work Phone: [facility] Start: 01-04-2025 End: 01-04-2025 ambulatory MADIHA MARIKA Not Available Start: 01-04-2025 End: 01-04-2025 Office outpatient visit 15 minutes Madiha Marika DO Work Phone: [facility] Comment on above: Second trimester pre gnancy; 23 weeks gestation of ; Diabetes mellitus screening Start: 12-18-2024 End: 12-18-2024 ambulatory SUGEY MADRID Not Available Start: 12-11-2024 End: 12-11-2024 Telephone encounter Rohini Eric LPN [facility] Start: 12-07-2024 End: 12-07-2024 Office outpatient visit 15 minutes Sugey BADILLO Work Phone: [facility] Comment on above: Second trimester pre gnancy; 19 weeks gestation of ; Fever, unspecified fever cause; Cough, unspecified type Start: 12-07-2024 End: 12-07-2024 ambulatory SUGEY MADRID Not Available Start: 12-07-2024 End: 12-07-2024 Bamboo flowsheet Sugey BADILLO Work Phone: [facility] Start: 12-07-2024 End: 12-07-2024 Bamboo flowsheet Sugey BADILLO Work Phone: [facility] Start: 11-09-2024 End: 11-09-2024 Bamboo flowsheet Madiha Marika DO Work Phone: [facility] Start: 11-09-2024 End: 11-11-2024 Bamboo flowsheet Madiha Marika DO Work Phone: [facility] Start: 11-09-2024 End: 11-11-2024 Clinisync Result Encounter Madiha Marika DO Work Phone: [facility] External Department Unsolicited Start: 11-09-2024 End: 11-10-2024 External Result Encounter Madiha Marika DO Work Phone: [facility] External Department Unsolicited Start: 11-09-2024 End: 11-09-2024 Office outpatient visit 15 minutes Madiha Marika DO Work Phone: [facility] Comment on above: 15 weeks gestation o f ; Second trimester ; Screening, , for anatomic survey Start: 11-09-2024 End: 11-09-2024 ambulatory MADIHA MARIKA Not Available Start: 10-10-2024 End: 10-10-2024 Bamboo flowsheet Madiha Marika DO Work Phone: [facility] Start: 10-10-2024 End: 10-10-2024 Bamboo flowsheet Madiha Marika DO Work Phone: [facility] Start: 10-10-2024 End: 10-10-2024 Clinisync [...] End: 06-22-2024 ambulatory IGNACIA CRAWFORD Facility:[facility] Start: 06-15-2024 End: 06-15-2024 ambulatory Michael Anderson Facility:[facility] Start: 12-28-2023 ambulatory Michael Anderson Facility :[facility] Start: 11-23-2023 ambulatory Michael Anderson Facility :[facility] Start: 11-23-2023 ambulatory Michael Anderson Facility: [facility] [...] PM EDT Routine [facility] [address] [facility] [place] [address] Madiha Hairston, DO [address] [place] [address] [facility] Start: 01-04-2025 End: 01-04-2026 [...] mellitus screening Expected: 01/04/2025 (Approximate), Expires: 01/04/2026 [facility] Comment on above: Expected: 01/04/2025 (Approximate), Expires: 01/04/2026 Start: 01-04-2025 End: 01-04-2025 Patient encounter procedure 01/04/2025 8:50 AM EST Routine [facility] [address] [place] [address] Madiha Hairston DO [address] [place] [address] [facility] Start: 12-18-2024 End: 12-18-2024 Professional / ancillary services management 12/18/2024 2:00 PM EST Ancillary Procedure [facility] [address] [facility] [place] [id number] [facility] Start: 12-07-2024 End: 12-07-2024 Patient encounter procedure 12/07/2024 3:30 PM EST Routine [facility] [address] [place] [address] Sugey Madrid PA [address] [place] [address] Arrived [facility] Comment on above: Arrived Start: 12-07-2024 End: 12-07-2024 Patient encounter procedure 12/07/2024 11:30 AM EST Routine [facility] [address] [place] [id number] Sugey Madrid, PA [address] [place] [address] [facility] Start: 11-09-2024 End: 01-10-2025 Alpha fetoprotein, maternal Alpha fetoprotein, maternal Lab Routine 15 weeks gestation of Second trimester Expected: 11/09/2024 (Approximate), Expires: 01/10/2025 [facility] Comment on above: Expected: 11/09/2024 (Approximate), Expires: 01/10/2025 Start: 11-09-2024 End: 11-09-2025 US for US OB ANATOMY SINGLE W US OB CERVICAL LENGTH Imaging Routine 15 weeks gestation of Second trimester Screening, , for anatomic survey Expected: 11/09/2024 (Approximate), Expires: 11/09/2025 [facility] Comment on above: Expected: 11/09/2024 (Approximate), Expires: 11/09/2025 Start: 11-09-2024 End: 11-09-2024 Patient encounter procedure [facility] Comment on above: Arrived Start: 10-10-2024 End: 10-10-2024 Patient encounter procedure 10/10/2024 1:10 PM EST Routine [facility] [address] [facility] [place] [id number] Madiha Hairston DO [address] [place] [address] [facility] Start: 09-07-2024 End: 09-07-2025 ABO/Rh ABO/Rh Lab Routine Missed menses , unspecified gestational age Expected: 09/07/2024 (Approximate), Expires: 09/07/2025 [facility] Healthcare Comment on above: Expected: 09/07/2024 (Approximate), Expires: 09/07/2025 Start: 09-07-2024 End: 09-07-2025 Blood type and Indirect antibody screen panel - Blood Type and screen Lab Routine Missed menses , unspecified gestational age Expected: 09/07/2024 (Approximate), Expires: 09/07/2025 [facility] Work Phone: Comment on above: Expected: 09/07/2024 (Approximate), Expires: 09/07/2025 Start: 09-07-2024 End: 09-07-2025 Drugs of abuse panel - Urine by Screen method Rapid drug screen, urine Lab Routine , unspecified gestational age Encounter for supervision of normal first in first trimester Expected: 09/07/2024 (Approximate), Expires: 09/07/2025 [facility] Comment on above: Expected: 09/07/2024 (Approximate), Expires: 09/07/2025 Start: 09-07-2024 End: 09-07-2025 US Pelvis transvaginal US OB transvaginal Imaging Routine Missed menses Expected: 09/07/2024 (Approximate), Expires: 09/07/2025 [facility] Comment on above: Expected: 09/07/2024 (Approximate), Expires: 09/07/2025 Bacteria identified in Urine by Culture Urine culture Microbiology Routine Missed menses Ordered: 09/07/2024 [facility] Comment on above: Ordered: 09/07/2024 CBC W Auto Different ial panel - Blood CBC and differential Lab Routine Missed menses , unspecified gestational age Ordered: 09/07/2024 [facility] Comment on above: Ordered: 09/07/2024 CHLAMYDIA TRACHOMATI S (GENITO/STI) CHLAMYDIA TRACHOMATIS (GENITO/STI) Lab Routine 15 weeks gestation of Second trimester Ordered: 11/09/2024 [facility] Comment on above: Ordered: 11/09/2024 Cytology Cervical or vaginal smear or scraping study Pap Smear Pathology and Cytology Routine 15 weeks gestation of Second trimester Ordered: 11/09/2024 [facility] Work Phone: Comment on above: Ordered: 11/09/2024 Hemoglobin A1c/Hemoglobin.total in Blood Hemoglobin A1c Lab Routine Missed menses , unspecified gestational age Ordered: 09/07/2024 [facility] Comment on above: Ordered: 09/07/2024 Hepatitis B virus surface Ag [Presence] in Serum or Plasma by Immunoassay Hepatitis B surface antigen Lab Routine Missed menses , unspecified gestational age Ordered: 09/07/2024 [facility] Comment on above: Ordered: 09/07/2024 Hepatitis C virus Ab [Presence] in Serum or Plasma by Immunoassay Hepatitis C antibody Lab Routine Missed menses , unspecified gestational age Ordered: 09/07/2024 [facility] Comment on above: Ordered: 09/07/2024 HIV-1/HIV-2 antigen/antibody combination immunoassay HIV-1 and HIV-2 antibodies Lab Routine Missed menses , unspecified gestational age Ordered: 09/07/2024 [facility] Comment on above: Ordered: 09/07/2024 Neisseria gonorrhoea e DNA [Presence] in Unspecified specimen by HUSEYIN with probe detection Neisseria gonorrhea DNA probe, direct Lab Routine 15 weeks gestation of Second trimester Ordered: 11/09/2024 [facility] Comment on above: Ordered: 11/09/2024 Reagin Ab [Presence] in Serum by RPR RPR Lab Routine Missed menses , unspecified gestational age Ordered: 09/07/2024 [facility] Comment on above: Ordered: 09/07/2024 Rubella antibody, IgG Rubella an tibody, IgG Lab Routine Missed menses , unspecified gestational age Ordered: 09/07/2024 [facility] Comment on above: Ordered: 09/07/2024 SURESWAB(R) ADVANCED VAGINITIS PLUS, TMA SURESWAB(R) ADVANCED VAGINITIS PLUS, TMA Pathology and Cytology Routine 15 weeks gestation of Second trimester Ordered: 11/09/2024 [facility] Comment on above: Ordered: 11/09/2024 Payers Date Payer Category Payer Medicaid [employer] [place] [place] [id number] 2023 [facility] [id number] 2023 Unknown [id number] 2022 Medicaid [id number] 1996 Unknown [id number] [id number]. 593 1996 Unknown [id number] 2.16.840.1.219876.3.579.2. 593 1996 Unknown [id number] 2.16.840.1.349212.3.579.2. 593 1996 Unknown [id number] 2.16.840.1.391181.3.579.2. 593 1996 Unknown [id number] 2.16.840.1.495740.3.579.2. 727 1996 Unknown [id number] 2.16.840.1.915267.3.579.2. 727 1996 Unknown [id number] 2.16.840.1.625204.3.579.2. 727 1996 Unknown [id number] 2.16.840.1.445460.3.579.2. 727 1996 Unknown [id number] 2.16.840.1.225374.3.579.2. 1259 1996 Unknown [id number] 2.16.840.1.523141.3.579.2. 1259 1996 Unknown [id number] 2.16.840.1.327938.3.579.2. 1259 1996 Unknown [id number] 2.16.840.1.077602.3.579.2. 1259 1996 Unknown [id number] 2.16.840.1.814953.3.579.2. 1259 1996 Unknown [id number] 2.16.840.1.424493.3.579.2. 1259 1959 Unknown [id number] Social History Date Type Detail Facility Start: 11-01-2023 Tobacco smoking status NHIS Ex-smoke r [facility] Start: 01-13-2013 End: 10-19-2022 History of tobacco use Current smoker [facility] Start: 01-13-2013 End: 10-19-2022 History of tobacco use Cigarette Smoker [facility] Start: 11-01-2023 History of Social function [facility] Start: 11-01-2023 Tobacco use panel [facility] Start: 08-08-2024 [facility] Start: 1995 Sex assigned at Not on file N [facility] Clinical Notes 06-22-2024 to 01-04-2025 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 Exam conducted with a lineman a class present. Vitals: Estimated body mass index is [...] Madiha Hairston DO documented in this encounter [facility] 12-11-2024 Telephone encounter Note Work note written and faxed to employer. [facility] 12-11-2024 Miscellaneous Notes Work note written and [...] fax a work note Attn: Do @ [phone]? Thank you, Rohini Ritter LPN documented in this encounter [facility] 12-11-2024 Telephone encounter Note 12/11/24 @ 0906 [...] fax a work note Attn: Do @ [phone]? Thank you, Rohini Ritter LPN [facility] 12-07-2024 History of Presen t illness Narrative [...] of: ABY Erickson documented in this encounter [facility] 11-09-2024 History of Presen t illness Narrative [...] nursing note reviewed. Exam conducted with a lineman a class present. Vitals: Estimated body mass index is [...] Madiha Hairston DO documented in this encounter [facility] 10-10-2024 History of Presen t illness Narrative [...] nursing note reviewed. Exam conducted with a lineman a class present. Vitals: Estimated body mass index is [...] or undercooked meat, and stay away from [facility]. Patient has been consulted regarding any [...] Madiha Hairston DO documented in this encounter [facility] 09-07-2024 History of Presen t illness Narrative [...] or undercooked meat, and stay away from [facility]. Patient has also been advised to not change litter boxes and eat 6 small meals a day. Patient has been consulted regarding the do's and don'ts of . Patient was given labs and all questions and concerns were answered. Script was sent for Zofran, and [place] labs given to patient. Follow Up: Patient is to return in 4 weeks for routine OB appointment. Follow Up: Patient is to have labs drawn at directed and return to office for initial OB appointment with provider. Patient may call office as needed with any concerns or questions. Nurse Visit Completed by: Milvia Chirinos LPN documented in this encounter [facility] 06-22-2024 Note Patient Education Obstetrics and Gynecology [...] ? Know how (more content not included)... [facility] Evaluation note Diagnosis 6 weeks gestation of [...] and content) DATE CREATED AUTHOR 03/15/2023 [facility] DATE CREATED AUTHOR AUTHOR'S ORGANIZ ATION 06/24/2024 [facility] DATE CREATED AUTHOR AUTHOR'S ORGANIZ ATION 01/06/2025 [facility] EPIC Reason for Visit (unrecogniz ed section and content) Reason Comments Amenorrhea Reason Comments Well Women Visit Reason Comments Routine Visit Care Teams (unrecognized sec tion and content) Remedial Project Manager Relationship Specialty Start Date End Date Michael Anderson MD [address] [place] [address] PCP - General Family Medicine 09/07/24 Remedial Project Manager Relationship Specialty Start Date End Date Michael Anderson MD [address] [place] [address] PCP - General Family Medicine 09/07/24 Remedial Project Manager Relationship Specialty Start Date End Date Michael Anderson MD [address] [place] [address] PCP - General Family Medicine 09/07/24 Remedial Project Manager Relationship Specialty Start Date End Date Michael Anderson MD [address] [place] [address] PCP - General Family Medicine 09/07/24 Remedial Project Manager Relationship Specialty Start Date End Date Michael Anderson MD [address] [place] [address] PCP - General Family Medicine 09/07/24 Remedial Project Manager Relationship Specialty Start Date End Date Michael Anderson MD [address] [place] [address] PCP - General Family Medicine 09/07/24 Remedial Project Manager Relationship Specialty Start Date End Date Michael Anderson MD [address] [place] [address] PCP - General Family Medicine 09/07/24 Remedial Project Manager Relationship Specialty Start Date End Date Michael Anderson MD [address] [place] [address] PCP - General Family Medicine 09/07/24 Remedial Project Manager Relationship Specialty Start Date End Date Michael Anderson MD [address] [place] [address] PCP - General Family Medicine 09/07/24 FOR [...] BE BASED ON THE PRIMARY CLINICAL RECORDS. [facility], [facility]. provides no warranty or guarantee of the accuracy or completeness of information in this document.
[2025-01-20 10:32] LABS: Basophils Percent Auto 0.3 % (0.2-2.0); Eosinophils Absolute Auto 0.2 10^3/uL (0.0-0.7); Eosinophils Percent Auto 1.4 % (0.9-7.0); Hematocrit 35.6 % (36.0-48.0); Hemoglobin 11.9 g/dL (12.0-16.0); Immature Granulocytes Abs Auto 0.11 10^3/uL (0.00-0.03); Immature Granulocytes Pct Auto 0.9 % (0.0-0.5); Lymphocytes Absolute Auto 1.6 10^3/uL (1.2-3.8); Lymphocytes Percent Auto 13.8 % (20.5-60.0); Mean Corpuscular HGB Conc 33.4 g/dL (29.9-35.2); Mean Corpuscular Hemoglobin 30.7 pg (26.7-34.0); Mean Platelet Volume 9.2 fL (9.5-13.5); Monocytes Absolute Auto 0.7 10^3/uL (0.3-0.8); Monocytes Percent Auto 5.6 % (1.7-12.0); Neutrophils Absolute Auto 9.2 10^3/uL (1.4-6.5); Platelet Count 311 10^3/uL (150-450); Red Blood Count 3.87 10^6/uL (4.20-5.40); Red Cell Distribution Width 13.4 % (11.0-15.0); White Blood Count 11.8 10^3/uL (4.0-11.0)
[2025-01-20 10:47] LABS: Glucose 1 Hour 133 mg/dL (<130)
== END 2025-01-20 09:24 | disposition home or self-care (01) ==
LOC: LAB 09:23
PROVIDERS: PCP Family Medicine; Visit Provider Obstetrics & Gynecology
DX: Z13.1 Encounter for screening for diabetes mellitus (principal)
CPT/HCPCS: 36415; 82950; 85025

== ENCOUNTER 2025-01-29 17:15 | Emergency (ER) | payer MEDICAID, SELFPAY ==
[2025-01-29 17:21] VITALS: BP 134/74; PULSE 88; TEMP 37.1; O2SAT 99; BMI 36.0
--- OUTSIDE RECORDS SUMMARY | 2025-01-29 17:22 | XMS_ITS | CCD ---
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 Role Phone PAY ., DR BROOKS [...] Medication Allergies] Propensity to adverse reactions (disorder) [facility] Repository Medications Current Medications Medication [...] UA Negative Negative - 4(70) +++ mg/dL [facility] Blood, UA Negative Negative - 50 Neil/mcL [facility] Clarity, UA Clear [facility] Color, UA Yellow [facility] Glucose, UA Negative Negative - 2000(110) ++++ mg/dL [facility] Interpretation and review of laboratory results Normal [facility] Ketones, UA Negative Negative - 160(16) ++++ mg/dL [facility] Leukocytes, UA Negative Negative - 500+++ Chanel/mcL [facility] Nitrite, UA Negative Negative - Positive [facility] pH, UA 6.5 5 - 9 [facility] Protein, UA Negative Negative - 2000(20) ++++ mg/dL [facility] Spec Grav, UA 1.03 1 - 1.03 [facility] Urobilinogen, UA 0.2 0.2 - 12 mg/dL [facility] US OB 14+ WEEKS ANATOMY SCAN on [...] report is generated using voice recognition reporting (Survature). On occasion [employer] erroneously drops words from the report or [...] UA Negative Negative - 4(70) +++ mg/dL [facility] Blood, UA Negative Negative - 50 Neil/mcL [facility] Clarity, UA Clear [facility] Color, UA Yellow [facility] Glucose, UA Negative Negative - 2000(110) ++++ mg/dL [facility] Interpretation and review of laboratory results Normal [facility] Ketones, UA Negative Negative - 160(16) ++++ mg/dL [facility] Leukocytes, UA Negative Negative - 500+++ Chanel/mcL [facility] Nitrite, UA Negative Negative - Positive [facility] pH, UA 6 5 - 9 [facility] Protein, UA Negative Negative - 2000(20) ++++ mg/dL [facility] Spec Grav, UA 1.01 1 - 1.03 [facility] Urobilinogen, UA 0.2 0.2 - 12 mg/dL [facility] AFP, SERUM, OPEN SPINA BIFID Aon 11-11-2024 AFP MOM 1.33 . [facility] AFP VALUE 32.0 ng/mL . [facility] COMMENT: Comment . [facility] Comment on above: Carla Briones , Ph.D., [facility] Director References: Available Upon Request. Multiples Of Median Cutoffs For AFP Elevations Adams 2.5 Black 2.8 IDD 2.0 Twins 4.5 Abbreviation Definitions IDD - Insulin Dep Diabetes OSBR - Open Spina Bifida Risk For further inquiries contact [facility] at [phone]. This test was developed and its performance characteristics determined by [facility]. It has not been cleared or approved by the Food and Drug Administration. Performed at: [facility] [address] [place], [place] [id number] Link Trainer Maintenance Man: Quincy Montez [facility], Phone: [phone] GEST. AGE ON COLLECTION DATE 15.3 . weeks [facility] GESTAT. AGE BASED ON Ultrasound . [facility] Comment on above: 15.3 on 11/09/2024 Recalculations are not recommended when gestational dating by LMP and ultrasound are within 10 days. INSULIN DEP DIABETES No . [facility] INTERPRETATION Comment . [facility] Comment on above: Interpretation: Scre en [...] Customer Services to discuss available options. The [employer] recommends amniocentesis be offered to women age 35 and older. [age] [facility] MULTIPLE GESTATION No . [facility] OSBR RISK 1 [place] 4399 . [facility] RACE . [facility] RESULTS Report . [facility] TEST RESULTS: Negative . [facility] WEIGHT 216 . lbs [facility] N [id number] N ULTRASOUND [id number] 2 15 N 1 Y 216 N N N N N White/ [facility] RECURRENT VAGINITIS (HTRX)on 11-10-2024 ATOPOBIUM VAGINAE 0 [facility] ATOPOBIUM VAGINAE Not detected [facility] BVAB 2,3 (BACTERIAL VAGINOSIS ASSOCIATED BACTERIA 2, 3); MOBILUNCUS SPP 0 [facility] BVAB 2,3 (BACTERIAL VAGINOSIS ASSOCIATED BACTERIA 2, 3); MOBILUNCUS SPP Not detected [facility] MARIO ALBICANS, PARAPSILOSIS, TROPICALIS 0 [facility] MARIO ALBICANS, PARAPSILOSIS, TROPICALIS Not detected [facility] MARIO GLABRATA 0 [facility] MARIO GLABRATA Not detected [facility] MARIO KRUSEI 0 [facility] MARIO KRUSEI Not detected [facility] CHLAMYDIA TRACHOMATIS 0 [facility] CHLAMYDIA TRACHOMATIS Not detected N [facility] GARDNERELLA VAGINALIS 0 [facility] GARDNERELLA VAGINALIS Not detected N [facility] MEGASPHAERA (TYPES 1, 2) 0 [facility] MEGASPHAERA (TYPES 1, 2) Not detected [facility] MYCOPLASMA GENITALIUM 0 [facility] MYCOPLASMA GENITALIUM Not detected N [facility] NEISSERIA GONORRHOEAE 0 [facility] NEISSERIA GONORRHOEAE Not detected N [facility] TRICHOMONAS VAGINALIS 0 [facility] TRICHOMONAS VAGINALIS Not detected N [facility] Urinalysis macro (dipstick) panel (U)on 11-09-2024 Bilirubin, UA Negative Negative - 4(70) +++ mg/dL [facility] Blood, UA Negative Negative - 50 Neil/mcL [facility] Clarity, UA Clear [facility] Color, UA Yellow [facility] Glucose, UA Negative Negative - 1999(110) ++++ mg/dL [facility] Interpretation and review of laboratory results Normal [facility] Ketones, UA Negative Negative - 160(16) ++++ mg/dL [facility] Leukocytes, UA Negative Negative - 500+++ Chanel/mcL [facility] Nitrite, UA Negative Negative - Positive [facility] pH, UA 7.5 5 - 9 [facility] Protein, UA Negative Negative - 1999(20) ++++ mg/dL [facility] Spec Grav, UA 1.02 1 - 1.03 [facility] Urobilinogen, UA 0.2 0.2 - 12 mg/dL [facility] ALL CBC WITH AUTO DIFFon BASOPHILS ABSOLUTE AUTO 0 [facility] Basophils/100 WBC (Bld) 0.2 % 0.2 - 2.0 % [facility] Eosinophils/100 WBC (Bld) 1 % 0.9 - 7.0 % [facility] Erythrocyte distribution width (RBC) [Ratio] 11.9 % 11.0 - 15.0 % [facility] Hematocrit (Bld) [Volume fraction] 38 % 36.0 - 48.0 % [facility] Hemoglobin (Bld) [Mass/Vol] 13.1 g/dL 12.0 - 16.0 g/dL [facility] IMMATURE GRANULOCYTES ABS AUTO 0.04 High [facility] Immature granulocytes/100 WBC (Bld) 0.3 % 0.0 - 0.5 % [facility] Interpretation and review of laboratory results Abnormal [facility] LYMPHOCYTES ABSOLUTE AUTO 2.1 [facility] Lymphocytes/100 WBC (Bld) 16.5 % Low 20.5 - 60.0 % [facility] MCH (RBC) [Entitic mass] 30.5 pg 26.7 - 34.0 pg [facility] MCHC (RBC) [Mass/Vol] 34.5 g/dL 29.9 - 35.2 g/dL [facility] MCV (RBC) [Entitic vol] 88.4 fL 81.0 - 99.0 fL [facility] MONOCYTES ABSOLUTE AUTO 0.8 [facility] Monocytes/100 WBC (Bld) 6.1 % 1.7 - 12.0 % [facility] NEUTROPHILS ABSOLUTE AUTO 9.4 High [facility] Neutrophils/100 WBC (Bld) 75.9 % High 43.0 - 75.0 % [facility] Platelet mean volume (Bld) [Entitic vol] 9.5 fL 9.5 - 13.5 fL [facility] EO # 0.1 [facility] PLT 335 [facility] RBC 4.3 [facility] WBC 12.4 High [facility] BOX TEST SENT OUT Y [facility] BOX1 [facility] BOX2 10/10/24 [facility]APID (URINE )on 10-10-2024 AMPHETAMINE SCREEN URINE Negative NEGATIVE [facility] BARBITURATES SCREEN URINE Negative NEGATIVE [facility] BENZODIAZEPINES SCREEN URINE Negative NEGATIVE [facility] BUPRENORPHINE SCREEN URINE Negative NEGATIVE [facility] Comment on above: DRUG CLASS TEST [...] ng/mL CANNABINOID SCREEN URINE Positive Abnormal NEGATIVE [facility] COCAINE SCREEN URINE Negative NEGATIVE [facility] Interpretation and review of laboratory results Abnormal [facility] METHADONE SCREEN URINE Negative NEGATIVE [facility] METHAMPHETAMINES SCREEN URINE Negative NEGATIVE [facility] OPIATE SCREEN URINE Negative NEGATIVE [facility] OXYCODONE SCREEN URINE Negative NEGATIVE [facility] PHENCYCLIDINE SCREEN URINE Negative NEGATIVE [facility] TRICYCLIC ANTIDEPRESSANT URINE Negative NEGATIVE [facility] Urinalysis macro (dipstick) panel (U)on 10-10-2024 Bilirubin, UA Negative Negative - 4(70) +++ mg/dL [facility] Blood, UA Negative Negative - 50 Neil/mcL [facility] Clarity, UA Clear [facility] Color, UA Yellow [facility] Glucose, UA Negative Negative - 1999(110) ++++ mg/dL [facility] Interpretation and review of laboratory results Normal [facility] Ketones, UA Negative Negative - 160(16) ++++ mg/dL [facility] Leukocytes, UA Negative Negative - 500+++ Chanel/mcL [facility] Nitrite, UA Negative Negative - Positive [facility] pH, UA 7 5 - 9 [facility] Protein, UA Negative Negative - 1999(20) ++++ mg/dL [facility] Spec Grav, UA 1.02 1 - 1.03 [facility] Urobilinogen, UA 0.2 0.2 - 12 mg/dL [facility] HCG ( test) Ql (U)o n 09-07-2024 Interpretation and review of laboratory results Abnormal [facility] Preg Test, Ur Positive [facility] Urinalysis macro (dipstick) panel (U)on 09-07-2024 Bilirubin, UA Negative Negative - (70) +++ mg/dL [facility] Blood, UA Negative Negative - 50 Neil/mcL [facility] Clarity, UA Clear [facility] Color, UA Yellow [facility] Glucose, UA Negative Negative - 1999(110) ++++ mg/dL [facility] Interpretation and review of laboratory results Normal [facility] Ketones, UA Negative Negative - 160(16) ++++ mg/dL [facility] Leukocytes, UA Negative Negative - 500+++ Chanel/mcL [facility] Nitrite, UA Negative Negative - Positive [facility] pH, UA 6 5 - 9 [facility] Protein, UA Negative Negative - 2000(20) ++++ mg/dL [facility] Spec Grav, UA 1.02 1 - 1.03 [facility] Urobilinogen, UA 1.0 0.2 - 12 mg/dL [facility] Ambulatory Visit Summaryon 0 - Ambulatory [...] [facility] Office/Clini c Noteon 06-22-2024 [...] Recorded varicella virus vaccine 07/15/1999 Recorded Normal [facility] Comment on above: Result Comment: Elec tronically Signed By: IGNACIA CRAWFORD CNP\pedro luis\Date and Time Signed: 06/22/24 14:51 EDT Provider Letteron 06-16-2024 Provider Letter Provider Letter June 16, 2024 JESICA DOSHI [address] [place] [address] : 1995 To Whom It May Concern, Please excuse above patient from work due to Covid diagnosis. Date of Illness: From: 06/15/2024 To: 06/22/2024 May Return to Work On: 06/23/2024 Comments: May return to work sooner if symptom free. Sincerely, [address] [address] Normal [facility] Ambulatory Visit Summaryon 0 06-15-2024 [...] AM EDT With: Michael Anderson MD Where: [address] [address]- Allergies No Known Medication Allergies Problems Ongoing [...] choosing us for your care. Normal [facility] Office/Clini c Noteon 06-15-2024 [...] Daily, # 3 tab(s), Refills(s) 0, Pharmacy: [facility] #[id number], 166, cm, 06/15/24 8:34:00 EDT, Height/Length Dosing, 95.6, kg, 06/15/24 8:34:00 EDT, Weight Dosing benzonatate, 200 mg = 1 cap(s), Oral, TID, X 7 day(s), # 21 cap(s), Refills(s) 0, Pharmacy: [facility] #[id number], 166, cm, 06/15/24 8:34:00 EDT, Height/Length Dosing, 95.6, kg, 06/15/24 8:34:00 EDT, Weight Dosing methylPREDNISolone, = 1 packet(s), Oral, As Directed, as directed on package labeling, X 6 day(s), # 21 tab(s), Refills(s) 0, Pharmacy: [facility] #[id number], 166, cm, 06/15/24 8:34:00 EDT, Height/Length Dosing, 95.6, kg, 06/15/24 8:34:00 EDT, Weight Dosing 2. BMI 34.0-34.9,adult (Z68.34: Body mass index [BMI] 34.0-34.9, adult) - BMI education added Ordered: azithromycin, 500 mg = 1 tab(s), Oral, Daily, # 3 tab(s), Refills(s) 0, Pharmacy: [facility] #[id number], 166, cm, 06/15/24 8:34:00 EDT, Height/Length Dosing, 95.6, kg, 06/15/24 8:34:00 EDT, Weight Dosing benzonatate, 200 mg = 1 cap(s), Oral, TID, X 7 day(s), # 21 cap(s), Refills(s) 0, Pharmacy: [facility] #[id number], 166, cm, 06/15/24 8:34:00 EDT, Height/Length Dosing, 95.6, kg, 06/15/24 8:34:00 EDT, Weight Dosing methylPREDNISolone, = 1 packet(s), Oral, As Directed, as directed on package labeling, X 6 day(s), # 21 tab(s), Refills(s) 0, Pharmacy: [facility] #[id number], 166, cm, 06/15/24 8:34:00 EDT, Height/Length Dosing, 95.6, kg, 06/15/24 8:34:00 EDT, Weight Dosing Rapid COVID POC 05483 Rapid Strep POC 62621 3. Class 1 obesity due to excess calories in adult (E66.09: Other obesity due to excess calories) - Diet and exercise advised Ordered: azithromycin, 500 mg = 1 tab(s), Oral, Daily, # 3 tab(s), Refills(s) 0, Pharmacy: [facility] #[id number], 166, cm, 06/15/24 8:34:00 EDT, Height/Length Dosing, 95.6, kg, 06/15/24 8:34:00 EDT, Weight Dosing benzonatate, 200 mg = 1 cap(s), Oral, TID, X 7 day(s), # 21 cap(s), Refills(s) 0, Pharmacy: [facility] #[id number], 166, cm, 06/15/24 8:34:00 EDT, Height/Length Dosing, 95.6, kg, 06/15/24 8:34:00 EDT, Weight Dosing methylPREDNISolone, = 1 packet(s), Oral, As Directed, as directed on package labeling, X 6 day(s), # 21 tab(s), Refills(s) 0, Pharmacy: [facility] #[id number], 166, cm, 06/15/24 8:34:00 EDT, Height/Length Dosing, 95.6, kg, 06/15/24 8:34:00 EDT, Weight Dosing Rapid COVID POC 50130 Rapid Strep POC 68498 4. Former smoker (Z87.891: Personal history of nicotine dependence) - Please continue to not smoke. Ordered: azithromycin, 500 mg = 1 tab(s), Oral, Daily, # 3 tab(s), Refills(s) 0, Pharmacy: [facility] #[id number], 166, cm, 06/15/24 8:34:00 EDT, Height/Length Dosing, 95.6, kg, 06/15/24 8:34:00 EDT, Weight Dosing benzonatate, 200 mg = 1 cap(s), Oral, TID, X 7 day(s), # 21 cap(s), Refills(s) 0, Pharmacy: [facility] #[id number], 166, cm, 06/15/24 8:34:00 EDT, Height/Length Dosing, 95.6, kg, 06/15/24 8:34:00 EDT, Weight Dosing methylPREDNISolone, = 1 packet(s), Oral, As Directed, as directed on package labeling, X 6 day(s), # 21 tab(s), Refills(s) 0, Pharmacy: [facility] #[id number], 166, cm, 06/15/24 8:34:00 EDT, Height/Length Dosing, 95.6, kg, 06/15/24 8:34:00 EDT, Weight Dosing Rapid COVID POC 80205 Rapid Strep POC 02965 Follow-up No qualifying data available Problem List/Past Medical History Ongoing Acute URI Cough COVID Elevated BP without diagnosis of hypertension Smoker 17-MAY-2014 12:37:00<$> Historical No qualifying data Procedure/Surgical History section. Medications Azithromycin 3 Day Dose Pack 500 mg oral tabl (more content not included)... [facility] Comment on above: Result Comment: Elec tronically Signed By: Justin PEREIRA, Michael Quinones\.br\Date and Time Signed: 06/15/24 09:10 EDT Provider Letteron 06-15-2024 Provider Letter Provider Letter June 15, 2024 JESICA DOSHI [address] [place] [address] : 1995 To Whom It May Concern, Please excuse above patient from work due to illness. Date of Illness: From: 06-15-24 To: 06-22-24 May Return to Work On:06-23-24 Restrictions: _ Comments: _ Sincerely, [address] [address] [facility] Ambulatory Visit Summaryon 0 11-23-2023 Ambulatory [...] PM EST With: Michael Anderson MD Where: [facility] [place] Normal [facility] Family Medicine Office/Clini c Noteon [...] day(s), # 21 cap(s), Refills(s) 0, Pharmacy: [facility] #[id number], 166, cm, 11/23/23 13:05:00 EST, Height/Length Dosing, 91.6, kg, 11/23/23 13:05:00 EST, Weight Dosing methylPREDNISolone, = 1 packet(s), Oral, As Directed, as directed on package labeling, X 6 day(s), # 21 tab(s), Refills(s) 0, Pharmacy: [facility] #[id number], 166, cm, 11/23/23 13:05:00 EST, Height/Length Dosing, 91.6, kg, 11/23/23 13:05:00 EST, Weight Dosing 2. Cough (R05.9: Cough, unspecified) - As above - Pending covid test. Ordered: benzonatate, 200 mg = 1 cap(s), Oral, TID, X 7 day(s), # 21 cap(s), Refills(s) 0, Pharmacy: [facility] #[id number], 166, cm, 11/23/23 13:05:00 EST, Height/Length Dosing, 91.6, kg, 11/23/23 13:05:00 EST, Weight Dosing methylPREDNISolone, = 1 packet(s), Oral, As Directed, as directed on package labeling, X 6 day(s), # 21 tab(s), Refills(s) 0, Pharmacy: [facility] #[id number], 166, cm, 11/23/23 13:05:00 EST, Height/Length Dosing, 91.6, kg, 11/23/23 13:05:00 EST, Weight Dosing 3. BMI 36.0-36.9,adult (Z68.36: Body mass index [BMI] 36.0-36.9, adult) - BMI education given Ordered: benzonatate, 200 mg = 1 cap(s), Oral, TID, X 7 day(s), # 21 cap(s), Refills(s) 0, Pharmacy: [facility] #[id number], 166, cm, 11/23/23 13:05:00 EST, Height/Length Dosing, 91.6, kg, 11/23/23 13:05:00 EST, Weight Dosing methylPREDNISolone, = 1 packet(s), Oral, As Directed, as directed on package labeling, X 6 day(s), # 21 tab(s), Refills(s) 0, Pharmacy: [facility] #[id number], 166, cm, 11/23/23 13:05:00 EST, Height/Length Dosing, 91.6, kg, 11/23/23 13:05:00 EST, Weight Dosing 4. Non-smoker (Z78.9: Other specified health status) - Please continue to not smoke Ordered: benzonatate, 200 mg = 1 cap(s), Oral, TID, X 7 day(s), # 21 cap(s), Refills(s) 0, Pharmacy: [facility] #[id number], 166, cm, 11/23/23 13:05:00 EST, Height/Length Dosing, 91.6, kg, 11/23/23 13:05:00 EST, Weight Dosing methylPREDNISolone, = 1 packet(s), Oral, As Directed, as directed on package labeling, X 6 day(s), # 21 tab(s), Refills(s) 0, Pharmacy: [facility] #[id number], 166, cm, 11/23/23 13:05:00 EST, Height/Length Dosing, [...] numbers. This can be done either in [place] or metric measurements. Note that charts and online BMI calculators are available to help you find your BMI quickly and easily without having to do these calculations yourself. To calculate your BMI in [place] measurements: 1. Measure your weight in [...] for Disease Control and Prevention: www.cdc.gov ? [place] Heart [employer]: www.heart.org ? National Heart, Lung, and Blood [place]: www.nhlbi.nih.gov Summary ? Body mass index (BMI) is a number that is calculated from a person's weight and height. ? BMI may help estimate how much of a person's weight is composed of fat. BMI can help identify those who may be at higher risk for certain medical problems. ? BMI can be measured using [place] measurements or metric measurements. ? BMI charts are used to identify whether you are underweight, normal weight, overweight, or obese. This information is not intended to replace advice given to you by your health care provider. Make sure you discuss any questions you have with your health care provider. Document Revised: 07/24/2020 Document Reviewed: 05/31/2020 [employer] Patient Education ? 2022 [employer] Normal [facility] GROUP A STREP CULTUREon 02-14 S. pyogenes Ag Ql (Unsp spec) Culture Observations: NEGATIVE FOR GROUP A STREPTOCOCCUS. Normal [facility] Comment on above: Performed By: #### G RASTCX, SSCRN #### [facility] [address] [place] [address] Dr. Aniceto Ashby MONOon 03-13-2023 Monocytes (Bld) [#/Vol] Negative Normal NEGATIVE [facility] Comment on above: Performed By: #### M ERVIN #### [facility] [address] [address] [address] Aniceto Ashby STREPT SCREENon 03-13-2023 STREP SCREEN A Negative Normal NEGATIVE [facility] Comment on above: Performed By: #### G RASTCX, SSCRN #### [facility] [address] [address] [address] Aniceto Ashby GROUP A STREP CULTUREon 02-14 S. pyogenes Ag Ql (Unsp spec) Culture Observations: NEGATIVE FOR GROUP A STREPTOCOCCUS. Normal [facility] Comment on above: Performed By: #### G RASTCX, SSCRN #### [facility] [address] [address] [address] Aniceto Ashby STREPT SCREENon 03-10-2023 STREP SCREEN A Negative Normal NEGATIVE [facility] Comment on above: Performed By: #### G RASTCX, SSCRN #### [facility] [address] [place] [address] Dr. Aniceto Ashby PAP ACOG PANEL 2: 21 to 29on 02-19-2023 . . Normal [facility] Comment on above: Performed By: #### [id number] #### [facility] [address] [place] [address] Dr. Aniceto Ashby Age Gdln ACOG Testing 21-29 [facility] Comment on above: Performed By: #### [id number] #### [facility] [address] [place] [address] Dr. Aniceto Ashby DIAGNOSIS: Comment [facility] Comment on above: Result Comment: NEGA TIVE FOR INTRAEPITHELIAL LESION OR MALIGNANCY. SHIFT IN DENNY SUGGESTIVE OF BACTERIAL VAGINOSIS. THIS SPECIMEN WAS RESCREENED PART OF OUR LEAD PORTFOLIO MANAGER PROGRAM. Performed By: #### [id number] #### [facility] [address] [place] [address] Dr. Aniceto Ashby Methodology: Comment [facility] Comment on above: Result Comment: This liquid based ThinPrep(R) pap test was screened with the use of an image guided system. Performed By: #### 4 [id number] #### [facility] [address] [place] [address] Dr. Aniceto Ashby Note: Comment [facility] Comment on above: Result Comment: The Pap smear is a screening test designed to aid in the detection of premalignant and malignant conditions of the uterine cervix. It is not a diagnostic procedure and should not be used as the sole means of detecting cervical cancer. Both false-positive and false-negative reports do occur. . Performed By: #### [id number] #### [facility] [address] [place] [address] Dr. Aniceto Ashby Performed by: Comment [facility] Comment on above: Result Comment: Cleo Dubon Clerical Grader (ASCP) Performed By: #### [id number] #### [facility] [address] [place] [address] Dr. Aniceto Ashby QC reviewed by: Comment Normal [facility] Comment on above: Result Comment: Cleo Dasilva Clerical Grader (ASCP) Performed By: #### 4 [id number] #### [facility] [address] [place] [address] Dr. Aniceto Ashby Reflex Criteria: Comment Normal [facility] Comment on above: Result Comment: The HPV DNA reflex criteria were not met with this specimen result therefore, no HPV testing was performed. . Performed By: #### 4 [id number] #### [facility] [address] [place] [address] Dr. Aniceto Ashby Specimen adequacy: Comment Normal [facility] Comment on above: Result Comment: Sati sfactory for evaluation. Endocervical and/or squamous metaplastic cells (endocervical component) are present. Performed By: #### [id number] #### [facility] [address] [place] [address] Dr. Aniceto Ashby Covid-19 PCR (CVDTB)on SARS-CoV-2 (COVID-19) RNA HUSEYIN+probe Ql (Unsp spec) Not detected Normal NOT DETECTED [facility] Comment on above: Result Comment: When [...] for this test is supported by the [place] of Health and Human Service's declaration that [...] used). Performed By: #### C VDTBH #### [facility] [address] [place] [address] Dr. Aniceto Ashby Vital Signs Date Time Vital Sign Value Performing Clinician Angelai lity 01-04-2025 09:11-0500 Body mass index (BMI) [Ratio] 35.55 kg/m2 Madiha Marika DO Work Phone: [facility] 01-04-2025 09:11-0500 Body weight 102.97 kg Madiha Marika DO Work Phone: [facility] 01-04-2025 09:11-0500 Diastolic blood pressure 78 mm[Hg] Madiha Marika DO Work Phone: [facility] 01-04-2025 09:11-0500 Systolic blood pressure 122 mm[Hg] Madiha Marika DO Work Phone: [facility] 12-07-2024 15:35-0500 Body mass index (BMI) [Ratio] 34.36 kg/m2 Sugey Madrid PA Work Phone: [facility] 12-07-2024 15:35-0500 Body weight 99.52 kg Sugey Madrid PA Work Phone: [facility] 12-07-2024 15:35-0500 Diastolic blood pressure 70 mm[Hg] Sugey Madrid PA Work Phone: [facility] 12-07-2024 15:35-0500 Systolic blood pressure 122 mm[Hg] Sugey Madrid PA Work Phone: [facility] 11-09-2024 10:53-0500 Body mass index (BMI) [Ratio] 33.67 kg/m2 Madiha Marika DO Work Phone: [facility] 11-09-2024 10:53-0500 Body weight 97.52 kg Madiha Marika DO Work Phone: [facility] 11-09-2024 10:53-0500 Diastolic blood pressure 82 mm[Hg] Madiha Marika DO Work Phone: [facility] 11-09-2024 10:53-0500 Systolic blood pressure 122 mm[Hg] Madiha Marika DO Work Phone: [facility] 10-10-2024 13:35-0500 Body mass index (BMI) [Ratio] 33.17 kg/m2 Madiha Marika DO Work Phone: [facility] 10-10-2024 13:35-0500 Body weight 96.07 kg Madiha Marika DO Work Phone: [facility] 10-10-2024 13:35-0500 Diastolic blood pressure 80 mm[Hg] Madiha Marika DO Work Phone: [facility] 10-10-2024 13:35-0500 Systolic blood pressure 120 mm[Hg] Madiha Marika DO Work Phone: [facility] 09-07-2024 13:52-0400 Body mass index (BMI) [Ratio] 34.16 kg/m2 [facility] 09-07-2024 13:52-0400 Body weight 98.94 kg Noms Nurse [facility] 09-07-2024 13:52-0400 Diastolic blood pressure 70 mm[Hg] [facility] Nurse [facility] 09-07-2024 13:52-0400 Systolic blood pressure 120 mm[Hg] [facility] Nurse [facility] Encounters Encounter Date Encounter Type Care Provider Facility Start: 01-04-2025 End: 01-04-2025 Bamboo flowsheet Madiha Marika DO Work Phone: [facility] Start: 01-04-2025 End: 01-04-2025 Bamboo flowsheet Madiha Marika DO Work Phone: [facility] Start: 01-04-2025 End: 01-04-2025 ambulatory MADIHA MARIKA Not Available Start: 01-04-2025 End: 01-04-2025 Office outpatient visit 15 minutes Madiha Marika DO Work Phone: [facility] Comment on above: Second trimester pre gnancy; 23 weeks gestation of ; Diabetes mellitus screening Start: 12-18-2024 End: 12-18-2024 ambulatory SUGEY MADRID Not Available Start: 12-11-2024 End: 12-11-2024 Telephone encounter Rohini Eric LPN [facility] Start: 12-07-2024 End: 12-07-2024 Office outpatient visit 15 minutes Sugey BADILLO Work Phone: [facility] Comment on above: Second trimester pre gnancy; 19 weeks gestation of ; Fever, unspecified fever cause; Cough, unspecified type Start: 12-07-2024 End: 12-07-2024 ambulatory SUGEY MADRID Not Available Start: 12-07-2024 End: 12-07-2024 Bamboo flowsheet Sugey BADILLO Work Phone: [facility] Start: 12-07-2024 End: 12-07-2024 Bamboo flowsheet Sugey BADILLO Work Phone: [facility] Start: 11-09-2024 End: 11-09-2024 Bamboo flowsheet Madiha Marika DO Work Phone: [facility] Start: 11-09-2024 End: 11-11-2024 Bamboo flowsheet Madiha Marika DO Work Phone: [facility] Start: 11-09-2024 End: 11-11-2024 Clinisync Result Encounter Madiha Marika DO Work Phone: [facility] External Department Unsolicited Start: 11-09-2024 End: 11-10-2024 External Result Encounter Madiha Marika DO Work Phone: [facility] External Department Unsolicited Start: 11-09-2024 End: 11-09-2024 Office outpatient visit 15 minutes Madiha Marika DO Work Phone: [facility] Comment on above: 15 weeks gestation o f ; Second trimester ; Screening, , for anatomic survey Start: 11-09-2024 End: 11-09-2024 ambulatory MADIHA MARIKA Not Available Start: 10-10-2024 End: 10-10-2024 Bamboo flowsheet Madiha Marika DO Work Phone: [facility] Start: 10-10-2024 End: 10-10-2024 Bamboo flowsheet Madiha Marika DO Work Phone: [facility] Start: 10-10-2024 End: 10-10-2024 [...] End: 06-22-2024 ambulatory IGNACIA CRAWFORD Facility:[facility] Start: 06-15-2024 End: 06-15-2024 ambulatory Michael Anderson Facility:[facility] Start: 12-28-2023 ambulatory Michael Anderson Facility :[facility] Start: 11-23-2023 ambulatory Michael Anderson Facility :[facility] Start: 11-23-2023 ambulatory Michael Anderson Facility: T [...] PM EDT Routine [facility] [address] [address] Madiha Hairston, DO [address] [place] [address] [facility] Start: 01-04-2025 End: 01-04-2026 [...] mellitus screening Expected: 01/04/2025 (Approximate), Expires: 01/04/2026 [facility] Comment on above: Expected: 01/04/2025 (Approximate), Expires: 01/04/2026 Start: 01-04-2025 End: 01-04-2025 Patient encounter procedure 01/04/2025 8:50 AM EST Routine [facility] [address] [place] [address] Madiha Hairston DO [address] [place] [address] [facility] Start: 12-18-2024 End: 12-18-2024 Professional / ancillary services management 12/18/2024 2:00 PM EST Ancillary Procedure [facility] [address] [place] [id number] [facility] Start: 12-07-2024 End: 12-07-2024 Patient encounter procedure 12/07/2024 3:30 PM EST Routine [facility] [address] [place] [address] Sugey Madrid PA [address] [place] [address] Arrived [facility] Comment on above: Arrived Start: 12-07-2024 End: 12-07-2024 Patient encounter procedure 12/07/2024 11:30 AM EST Routine [facility] [address] [place] [id number] Sugey Madrid, PA [address] [place] [address] [facility] Start: 11-09-2024 End: 01-10-2025 Alpha fetoprotein, maternal Alpha fetoprotein, maternal Lab Routine 15 weeks gestation of Second trimester Expected: 11/09/2024 (Approximate), Expires: 01/10/2025 [facility] Comment on above: Expected: 11/09/2024 (Approximate), Expires: 01/10/2025 Start: 11-09-2024 End: 11-09-2025 US for US OB ANATOMY SINGLE W US OB CERVICAL LENGTH Imaging Routine 15 weeks gestation of Second trimester Screening, , for anatomic survey Expected: 11/09/2024 (Approximate), Expires: 11/09/2025 [facility] Comment on above: Expected: 11/09/2024 (Approximate), Expires: 11/09/2025 Start: 11-09-2024 End: 11-09-2024 Patient encounter procedure [facility] Comment on above: Arrived Start: 10-10-2024 End: 10-10-2024 Patient encounter procedure 10/10/2024 1:10 PM EST Routine [facility] [address] [place] [id number] Madiha Hairston DO [address] [address] [facility] Start: 09-07-2024 End: 09-07-2025 ABO/Rh ABO/Rh Lab Routine Missed menses , unspecified gestational age Expected: 09/07/2024 (Approximate), Expires: 09/07/2025 [facility] Comment on above: Expected: 09/07/2024 (Approximate), Expires: 09/07/2025 Start: 09-07-2024 End: 09-07-2025 Blood type and Indirect antibody screen panel - Blood Type and screen Lab Routine Missed menses , unspecified gestational age Expected: 09/07/2024 (Approximate), Expires: 09/07/2025 [facility] Work Phone: Comment on above: Expected: 09/07/2024 (Approximate), Expires: 09/07/2025 Start: 09-07-2024 End: 09-07-2025 Drugs of abuse panel - Urine by Screen method Rapid drug screen, urine Lab Routine , unspecified gestational age Encounter for supervision of normal first in first trimester Expected: 09/07/2024 (Approximate), Expires: 09/07/2025 [facility] Comment on above: Expected: 09/07/2024 (Approximate), Expires: 09/07/2025 Start: 09-07-2024 End: 09-07-2025 US Pelvis transvaginal US OB transvaginal Imaging Routine Missed menses Expected: 09/07/2024 (Approximate), Expires: 09/07/2025 [facility] Comment on above: Expected: 09/07/2024 (Approximate), Expires: 09/07/2025 Bacteria identified in Urine by Culture Urine culture Microbiology Routine Missed menses Ordered: 09/07/2024 [facility] Comment on above: Ordered: 09/07/2024 CBC W Auto Different ial panel - Blood CBC and differential Lab Routine Missed menses , unspecified gestational age Ordered: 09/07/2024 [facility] Comment on above: Ordered: 09/07/2024 CHLAMYDIA TRACHOMATI S (GENITO/STI) CHLAMYDIA TRACHOMATIS (GENITO/STI) Lab Routine 15 weeks gestation of Second trimester Ordered: 11/09/2024 [facility] Comment on above: Ordered: 11/09/2024 Cytology Cervical or vaginal smear or scraping study Pap Smear Pathology and Cytology Routine 15 weeks gestation of Second trimester Ordered: 11/09/2024 [facility] Work Phone: Comment on above: Ordered: 11/09/2024 Hemoglobin A1c/Hemoglobin.total in Blood Hemoglobin A1c Lab Routine Missed menses , unspecified gestational age Ordered: 09/07/2024 [facility] Comment on above: Ordered: 09/07/2024 Hepatitis B virus surface Ag [Presence] in Serum or Plasma by Immunoassay Hepatitis B surface antigen Lab Routine Missed menses , unspecified gestational age Ordered: 09/07/2024 [facility] Comment on above: Ordered: 09/07/2024 Hepatitis C virus Ab [Presence] in Serum or Plasma by Immunoassay Hepatitis C antibody Lab Routine Missed menses , unspecified gestational age Ordered: 09/07/2024 [facility] Comment on above: Ordered: 09/07/2024 HIV-1/HIV-2 antigen/antibody combination immunoassay HIV-1 and HIV-2 antibodies Lab Routine Missed menses , unspecified gestational age Ordered: 09/07/2024 [facility] Comment on above: Ordered: 09/07/2024 Neisseria gonorrhoea e DNA [Presence] in Unspecified specimen by HUSEYIN with probe detection Neisseria gonorrhea DNA probe, direct Lab Routine 15 weeks gestation of Second trimester Ordered: 11/09/2024 [facility] Comment on above: Ordered: 11/09/2024 Reagin Ab [Presence] in Serum by RPR RPR Lab Routine Missed menses , unspecified gestational age Ordered: 09/07/2024 [facility] Comment on above: Ordered: 09/07/2024 Rubella antibody, IgG Rubella an tibody, IgG Lab Routine Missed menses , unspecified gestational age Ordered: 09/07/2024 [facility] Comment on above: Ordered: 09/07/2024 SURESWAB(R) ADVANCED VAGINITIS PLUS, TMA SURESWAB(R) ADVANCED VAGINITIS PLUS, TMA Pathology and Cytology Routine 15 weeks gestation of Second trimester Ordered: 11/09/2024 [facility] Comment on above: Ordered: 11/09/2024 Payers Date Payer Category Payer Medicaid [employer] [place] [place] [id number] 2023 [facility] [id number] 2023 Unknown [id number] 2022 Medicaid [id number] 1996 Unknown [id number] [id number]. 593 1996 Unknown [id number] [id number]. 593 1996 Unknown [id number] 2.16.840.1.926871.3.579.2. 593 1996 Unknown [id number] 2.16.840.1.356103.3.579.2. 593 1996 Unknown [id number] 2.16.840.1.890651.3.579.2. 727 1996 Unknown [id number] 2.16.840.1.396012.3.579.2. 727 1996 Unknown [id number] 2.16.840.1.745928.3.579.2. 727 1996 Unknown [id number] 2.16.840.1.769577.3.579.2. 727 1996 Unknown [id number] 2.16.840.1.423081.3.579.2. 1259 1996 Unknown [id number] 2.16.840.1.454442.3.579.2. 1259 1996 Unknown [id number] 2.16.840.1.898768.3.579.2. 1259 1996 Unknown [id number] 2.16.840.1.667436.3.579.2. 1259 1996 Unknown [id number] 2.16.840.1.008896.3.579.2. 1259 1996 Unknown [id number] [id number]. 1259 1959 Unknown [id number] Social History Date Type Detail Facility Start: 11-01-2023 Tobacco smoking status NHIS Ex-smoke r [facility] Start: 01-13-2013 End: 10-19-2022 History of tobacco use Current smoker [facility] Start: 01-13-2013 End: 10-19-2022 History of tobacco use Cigarette Smoker [facility] Start: 11-01-2023 History of Social function [facility] Start: 11-01-2023 Tobacco use panel [facility] Start: 08-08-2024 [facility] Start: 1995 Sex assigned at Not on file [facility] Clinical Notes 06-22-2024 to 01-04-2025 Rohini Eric, MEMORANDUM STATEMENT CLERK - 01/04/2025 8:50 AM ESTTelephone Encounter - [...] nursing note reviewed. Exam conducted with a engineering team supervisor present. Vitals: Estimated body mass index is [...] Madiha Hairston DO documented in this encounter [facility] 12-11-2024 Telephone encounter Note Work note written and faxed to employer. [facility] 12-11-2024 Miscellaneous Notes Work note written [...] fax a work note Attn: Do @ [phone]? Thank you, Rohini Ritter LPN documented in this encounter [facility] 12-11-2024 Telephone encounter Note 12/11/24 @ [...] fax a work note Attn: Do @ [phone]? Thank you, Rohini Ritter LPN [facility] 12-07-2024 History of Presen t illness [...] of: ABY Erickson documented in this encounter [facility] 11-09-2024 History of Presen t illness [...] nursing note reviewed. Exam conducted with a engineering team supervisor present. Vitals: Estimated body mass index is [...] Madiha Hairston DO documented in this encounter [facility] 10-10-2024 History of Presen t illness [...] nursing note reviewed. Exam conducted with a engineering team supervisor present. Vitals: Estimated body mass index is [...] or undercooked meat, and stay away from [facility]. Patient has been consulted regarding any further do's and don'ts of . Patient voiced understanding and all questions and concerns were answered. Pt to start baby aspirin at 16 weeks. C/S date 04/24/25. Orders Placed This Encounter Procedures POCT urinalysis dipstick manually resulted Follow Up: Patient is to return in 4 weeks for routine OB appointment. Documented by Raimla Stone LPN on behalf of: Madiha Hairston DO documented in this encounter [facility] 09-07-2024 History of Presen t illness [...] or undercooked meat, and stay away from [facility]. Patient has also been advised to not change litter boxes and eat 6 small meals a day. Patient has been consulted regarding the do's and don'ts of . Patient was given labs and all questions and concerns were answered. Script was sent for Zofran, and [place] labs given to patient. Follow Up: Patient is to return in 4 weeks for routine OB appointment. Follow Up: Patient is to have labs drawn at directed and return to office for initial OB appointment with provider. Patient may call office as needed with any concerns or questions. Nurse Visit Completed by: Milvia Chirinos LPN documented in this encounter [facility] 06-22-2024 Note Patient Education Obstetrics and [...] ? Know how (more content not included)... [facility] Evaluation note Diagnosis 6 weeks [...] and content) DATE CREATED AUTHOR 03/15/2023 [facility] DATE CREATED AUTHOR AUTHOR'S ORGANIZ ATION 06/24/2024 [facility] DATE CREATED AUTHOR AUTHOR'S ORGANIZ ATION 01/06/2025 [facility] EPIC Reason for Visit (unrecogniz ed section and content) Reason Comments Amenorrhea Reason Comments Well Women Visit Reason Comments Routine Visit Care Teams (unrecognized sec tion and content) Beveling Machine Operator Relationship Specialty Start Date End Date Michael Anderson MD [address] [place] [address] PCP - General Family Medicine 09/07/24 Beveling Machine Operator Relationship Specialty Start Date End Date Michael Anderson MD [address] [place] [address] PCP - General Family Medicine 09/07/24 Beveling Machine Operator Relationship Specialty Start Date End Date Michael Anderson MD [address] [place] [address] PCP - General Family Medicine 09/07/24 Beveling Machine Operator Relationship Specialty Start Date End Date Michael Anderson MD [address] [place] [address] PCP - General Family Medicine 09/07/24 Beveling Machine Operator Relationship Specialty Start Date End Date Michael Anderson MD [address] [place] [address] PCP - General Family Medicine 09/07/24 Beveling Machine Operator Relationship Specialty Start Date End Date Michael Anderson MD [address] [place] [address] PCP - General Family Medicine 09/07/24 Beveling Machine Operator Relationship Specialty Start Date End Date Michael Anderson MD [address] [place] [address] PCP - General Family Medicine 09/07/24 Beveling Machine Operator Relationship Specialty Start Date End Date Michael Anderson MD [address] [place] [address] PCP - General Family Medicine 09/07/24 Beveling Machine Operator Relationship Specialty Start Date End Date Michael Anderson MD [address] [place] [address] PCP - General Family Medicine 09/07/24 FOR [...] BE BASED ON THE PRIMARY CLINICAL RECORDS. [facility], [facility]. provides no warranty or guarantee of the accuracy or completeness of information in this document.
--- NOTE | 2025-01-29 17:34 | ED.URI1 ---
HPI - URI/Sore Throat General Chief Complaint: Extremity Injury, Lower Stated Complaint: right foot pain, sinus congestion Time Seen by Provider: 01/29/25 17:16 Source: patient History of Present Illness HPI Narrative: Patient is a 29-year-old female who presents to the emergency department for evaluation of multiple complaints. She is 26 weeks . She states for the last 2 weeks she has had pain on the dorsal lateral aspect of the right foot. Her feet have been swollen throughout her . She has not had any specific mechanism of injury or trauma. No redness, wounds or drainage. Pain is worse with flexion and extension of the toes of the right foot. She further complains of a 3-day history of sinus congestion, cough. She has had no fevers. Symptoms started in her sinuses. She has been taking Tylenol intermittently for the foot, no medications taken for her upper respiratory symptoms. No vomiting or diarrhea. No sick contacts in the home. Related Data Home Medications ?Medication ?Instructions ?Recorded ?Confirmed aspirin 81 mg capsule 81 mg PO DAILY 11/21/24 01/29/25 vit no.95-ferrous tab PO 11/21/24 fumarate 28 mg-folic acid 800 mcg tablet () Previous Rx's ?Medication ?Instructions ?Recorded albuterol sulfate 90 mcg/actuation 2 inh inhalation Q4H PRN shortness 01/29/25 aerosol inhaler of breath or wheezing #8.5 grams amoxicillin 875 mg-potassium 1 tab PO Q12H #20 tabs 01/29/25 clavulanate 125 mg tablet Allergies Allergy/AdvReac Type Severity Reaction Status Date / Time No Known Drug Allergies Allergy Verified 01/29/25 17:21 Review of Systems ROS Constitutional Denies: fever or chills Ears, nose, mouth, and throat Reports: nasal congestion; Denies: throat pain Cardiovascular Denies: chest pain Respiratory Reports: cough; Denies: shortness of breath Gastrointestinal Denies: abdominal pain, nausea, vomiting or diarrhea Genitourinary Denies: painful urination Musculoskeletal Reports: extremity pain; Denies: back pain or neck pain Integumentary/Breast Denies: rash Neurological Denies: numbness in extremities or weakness in extremities Hematologic/Lymphatic Denies: easy bruising or easy bleeding PFSH PFSH Social History Little interest or pleasure in doing things: not at all Feeling down, depressed, or hopeless: not at all Exam Narrative Exam Narrative: Gen.: Awake, alert, in no distress Head: Normocephalic, atraumatic ENT: Moist mucous membranes Respiratory: No respiratory distress, lungs clear bilaterally Cardio: Regular rate and rhythm Extremities: Moves extremities equally, tenderness of the dorsal lateral right foot. Minimal diffuse edema noted of the foot and the ankle with no erythema. No open wounds or redness. No red streaking. Normal flexion extension of the toes of the right foot. Psych: Normal mood and affect Neuro: No focal neuro deficit Skin: Warm, dry, intact Constitutional Vital Signs, click to edit/add: Last Vital Signs Temp 98.7 F 01/29/25 17:21 Pulse 88 01/29/25 17:21 Resp 20 01/29/25 17:48 BP 134/74 01/29/25 17:21 Pulse Ox 99 01/29/25 17:21 O2 Del Method Room Air 01/29/25 17:21 Course Vital Signs Vital signs: Vital Signs Temperature 98.7 F 01/29/25 17:21 Pulse Rate 88 01/29/25 17:21 Respiratory Rate 18 01/29/25 17:21 Blood Pressure 134/74 01/29/25 17:21 Pulse Oximetry 99 01/29/25 17:21 Oxygen Delivery Method Room Air 01/29/25 17:21 Temperature 98.7 F 01/29/25 17:21 Pulse Rate 88 01/29/25 17:21 Respiratory Rate 20 01/29/25 17:48 Blood Pressure 134/74 01/29/25 17:21 Pulse Oximetry 99 01/29/25 17:21 Oxygen Delivery Method Room Air 01/29/25 17:21 MDM - URI/Sore Throat MDM Narrative Medical decision making narrative: Patient is negative for COVID and flu. X-rays of the right foot are unremarkable. She is treated with Tylenol in the ER. She is given Luis wrap, postop shoe and remains neurovascularly intact. Rest, ice, elevate. Follow-up with podiatry as needed. Due to her , she will be treated for sinus symptoms and cough with Augmentin and albuterol inhaler. Follow-up with PCP and return to the ER if symptoms change or worsen. SUPERVISED APC VISIT, PHYSICIAN ATTESTATION: Based on the medical record the care appears appropriate. ? Medical Records Attestation: I reviewed the patient's medical records. Lab Data Attestation: I reviewed the patient's lab results. Labs: Lab Results 01/29/25 Range/Units 17:40 Influenza Type A Ag Negative Influenza Type B Ag Negative SARS-CoV-2 Ag (CV2AG) Negative (NEGATIVE) Discharge Plan Discharge Chief Complaint: Extremity Injury, Lower Clinical Impression: URI (upper respiratory infection), Acute pain of right foot Patient Disposition: Home, Self-Care Time of Disposition Decision: 18:15 Condition: Good Prescriptions / Home Meds: New albuterol sulfate 90 mcg/actuation HFA aerosol inhaler 2 inh inhalation Q4H PRN (Reason: shortness of breath or wheezing) Qty: 8.5 0RF amoxicillin-pot clavulanate 875-125 mg tablet 1 tab PO Q12H Qty: 20 0RF No Action PNV cmb#95-ferrous fumarate-FA [] 28 mg iron- 800 mcg tablet PO aspirin 81 mg capsule 81 mg PO DAILY Print Language: Bahraini Instructions: Upper Respiratory Infection (ED), Arthralgia (ED) Referrals: Morgan Warner DPM [Physician] - As needed KOKI ZAPATA [Primary Care Provider] - 1 week
[2025-01-29] MEDS: ACETAMINOPHEN 325 MG TABLET 650 MG PO (17:41)
--- NOTE | 2025-01-29 17:46 | PC.NURSE ---
Right foot and ankle swelling with no known injury , no bruising and skin intact. strong pedal pulse.
--- NOTE | 2025-01-29 17:49 | PC.NURSE ---
pt reports yellow sputum.
[2025-01-29 18:00] LABS: Influenza Virus A Antigen Negative; Influenza Virus B Antigen Negative; Internal Control Within Normal Limits; SARS-CoV-2 Ag NEGATIVE (NEGATIVE)
== END 2025-01-29 18:30 | disposition home or self-care (01) ==
PROVIDERS: Physician Assistant; Emergency Provider Student in an Organized Health Care Education/Training Program; PCP Family Medicine
DX: O99.891 Other specified diseases and conditions complicating pregnancy (principal); M79.671 Pain in right foot; O99.512 Diseases of the respiratory system complicating pregnancy, second trimester; Z3A.26 26 weeks gestation of pregnancy; J06.9 Acute upper respiratory infection, unspecified
CPT/HCPCS: 73630; 87804; 87811; 99285

== ENCOUNTER 2025-04-03 19:30 | Outpatient (REF) | payer MEDICAID, SELFPAY ==
--- OUTSIDE RECORDS SUMMARY | 2018-12-30 12:14 | XMS_ITS | Continuity of Care Document ---
Author Organization [facility] Address [address] [place] [address] Phone Care Team Providers Care Early Learning Teacher Name Role Phone Naif Perdomo Unavailable Unavailable [...] Diagnoses Date Provider Providers Copied on Encounter [facility], [address], [place], [id number], [place] tel:[phone] [facility] No Information Chary Castellano. [address] [place] [address], [id number], [place]. tel:[phone] [facility], [address] [place] [address], [id number], [place] tel:[phone] [facility] Encounter for screening for respiratory tuberculosis Chary Castellano. [address], [place], [id number], [place]. tel:[phone] [facility], [address], [place], [id number], [place] tel:[phone] [facility] Clinic No Information [place] DMD Dannielle. [address], [place], [id number], [place]. tel:[phone] [facility], [address] [place] [address], [id number], [place] tel:[phone] Dental Clinic Dental examination [place] DMD Dannielle. [address], [place], [id number], [place]. tel:[phone] [facility], [address] [place] [address], [id number], [place] tel:[phone] [facility] Dental examination [place] DMD Dannielle. [address], [place], [id number], [place]. tel:[phone] [facility], [address] [place] [address], [id number], [place] tel:[phone] [facility] Dental examination [place] DMD Dannielle. [address], [place], [id number], [place]. tel:[phone] Family History Family Member Type Diagnosis Age At Onset No Information Payers Payer name Insurance type Covered libertarian ID Authoriza tion(s) [place] Adv [facility] 190 [id number] Social History Type Description Quantity Date Captured [...]
--- OUTSIDE RECORDS SUMMARY | 2024-11-27 07:30 | XMS_ITS ---
Author Organization [facility] Address [address] [place] [address] Care Team Providers Care Rock Splitter Name Role Phone Pamela Avila Unavailable [phone] REASON FOR VISIT [facility] ER LEFT FINGER FX Encounters Encounter Location Date Provider Diagnosis [facility] Office [address] [place] [address] [place] [address] 11/27/2024 Pamela Avila Closed nondisplaced fracture of [...] * LUKE OJEDA KDOB:1994 (29 yo F)Acc No.[id number]:11/27/2024 Patient: Ellis SAAVEDRA LUKE Sandoval Provider: ABY Farrar :1995 A ge:29 Y S ex:Female Date:11/27/2024 Address:[address], [place], [place] Subjective: * Chief Complaints: * T ER LEFT FINGER FX * HPI: G eneral Follow Up Information: Patient is a 29-year-old female that presents to the office with complaints of left fifth finger pain after she hit it with a frying talavera approximately 3 weeks ago. She had presented to the [facility] ER last week where x-rays were positive [...] left fifth digit were reviewed from the [facility] from 11/21/2024 with a fracture of the base of the fifth distal phalanx noted. No dislocation. Assessment: * Assessment: 1. C losed nondisplaced fracture of distal phalanx of right little finger, initial encounter - S62.316D (Primary) Plan: * Treatment: * Procedure Codes: * Follow Up: 6 Weeks Forms: * Images: * Sign off status: Completed true * Provider: ABY Farrar Date: 0 11/27/2024 Generated for Delroy garcia/Sourav/Edwin on: 0 04/03/2025 02:21 PM EDT History and Physical Notes * HPI (History of Present Illness) Category Sub-Category Detail Notes Category Not es General Follow Up Information Patient is a 29-year -old female that presents to the office with complaints of left fifth finger pain after she hit it with a frying talavera approximately 3 weeks ago. She had presented to the [facility] ER last week where x-rays were positive [...] left fifth digit were reviewed from the [facility] from 11/21/2024 with a fracture of the base of the fifth distal phalanx noted. No dislocation.
--- OUTSIDE RECORDS SUMMARY | 2024-12-18 10:45 | XMS_ITS ---
Author Organization [facility] es Address [address] [place] [address] Care Team Providers Care Feedlot Manager Name Role Phone Dr. Carlos Abrams Primary Care Provider [phone] Deng Maria A Molina Unavailable [phone] Karlene Duran Unavailable [phone] REASON FOR VISIT 6 MONTH PROPHY +BW Encounters Encounter Location Date Provider Diagnosis [facility] [address] [place] [address] 12/18/2024 Karlene Duran Plan Of Treatment Next Appt Details Provider Name:Maritza Pate, 04/24/2025 08:30:00 AM, [address], [place], [address], Provider Name:Maria A lyle, 05/11/2025 09:30:00 AM, [address], [place], [address], Progress Notes * LUKE OJEDA KDOB:1994 (29 yo F)Acc No.[id number]:12/18/2024 Patient: Ellis SÁNCHEZLUKE ZAYAS Provider: Luiza Luque :1995 A ge:29 Y S ex:Female Date:12/18/2024 [address] [id number] Pcp:Dr. Carlos Abrams Subjective: * Chief Complaints: * 1 . 6 MONTH PROPHY +BW. * Medical History: Objective: * Vitals: Assessment: Plan: * Treatment: * Images: * Electronic signature of Deana veronique Duran on 04/03/2025 at 02:21 PM EDT Sign off status: Pending * Provider: Luiza Luque Date: 0 12/18/2024 Generated for Delroy garcia/Sourav/Edwin on: 0 04/03/2025 02:21 PM EDT
--- OUTSIDE RECORDS SUMMARY | 2025-01-01 09:40 | XMS_ITS ---
Author Organization [facility] Address [address] [place] [address] Care Team Providers Care Plant Assigner Name Role Phone Pamela Avila Unavailable [phone] REASON FOR VISIT LEFT 5TH PROX PHALANX FX Encounters Encounter Location Date Provider Diagnosis [facility] Office [address] [facility] [address] [place] [address] 01/01/2025 Pamela Avila Closed nondisplaced fracture of distal phalanx of right little finger, initial encounter S62.666A Assessments Encounter Date Diagnosis (ICD Code) Assessment Notes Treatment Notes Treatment Clinical Notes Section Notes 01/01/2025 Closed nondisplaced fracture of distal phalanx of right little finger, initial encounter (ICD-10 - S62.666A) 01/01/2025 Other Today replace patient's stack splint with instructions not to remove. We will see her back in 1 week for reevaluation. Plan Of Treatment Treatment Notes Assessment Notes Other Today replace patien t's stack splint with instructions not to remove. We will see her back in 1 week for reevaluation. Next Appt Details Follow Up: 1 Week, Reason: Progress Notes * LUKE OJEDA KDOB:1994 (29 yo F)Acc No.[id number]:01/01/2025 Patient: Ellis SAAVEDRA LUKE Sandoval Provider: ABY Farrar :1995 A ge:29 Y S ex:Female Date:01/01/2025 Address:[facility] [address], [place], [place] Subjective: * Chief Complaints: * L EFT 5TH PROX PHALANX FX * HPI: G eneral Follow Up Information: Patient returns to the office today 5 weeks since her last appointment for recheck of her left fifth proximal phalanx fracture with extension lag. She has been in a stack splint but states that today she was changing the tape around the splint and the splint ended up going down the sink. She denies any pain. * Medical History: * Surgical History: * Medications: Objective: * Vitals: * Examination: G eneral examination: O n exam patient is in no distress, age-appropriate, alert and oriented x 3. On inspection of the left fifth digit there is no swelling, ecchymosis, erythema, or warmth to touch. There is extension lag at the DIP joint. Brisk capillary refill and sensation intact to the tip of the fifth finger. Assessment: * Assessment: 1. C losed nondisplaced fracture of distal phalanx of right little finger, initial encounter - S62.666A (Primary) Plan: * Treatment: * Procedure Codes: 9 9213 Office Visit, Est Pt., Level 3 UD, Modifiers: UD * Follow Up: 1 Week Forms: * Images: * Sign off status: Completed true * Provider: ABY Farrar Date: 0 01/01/2025 Generated for Delroy garcia/Sourav/Edwin on: 0 04/03/2025 02:21 PM EDT History and Physical Notes * HPI (History of Present Illness) Category Sub-Category Detail Notes Category Not es General Follow Up Information Patient returns to t he office today 5 weeks since her last appointment for recheck of her left fifth proximal phalanx fracture with extension lag. She has been in a stack splint but states that today she was changing the tape around the splint and the splint ended up going down the sink. She denies any pain. Examination Category Sub-Category Detail Notes Category Not es General examination On exam patient is in no distress, age-appropriate, alert and oriented x 3. On inspection of the left fifth digit there is no swelling, ecchymosis, erythema, or warmth to touch. There is extension lag at the DIP joint. Brisk capillary refill and sensation intact to the tip of the fifth finger.
--- OUTSIDE RECORDS SUMMARY | 2025-01-18 05:00 | XMS_ITS ---
Author Organization [facility] es Address [address] [place] [address] Care Team Providers Care Patternmaker Grader Name Role Phone Dr. Carlos Abrams Primary Care Provider [phone] Maria A Degroot Unavailable [phone] REASON FOR VISIT FILLING Encounters Encounter Location Date Provider Diagnosis [facility] [place] [address] [place] [address] 01/18/2025 Maria A Molina Plan Of Treatment Next Appt Details Provider Name:Maritza Pate, 04/24/2025 08:30:00 AM, [address] [place], [address], Provider Name:Maria A lyle, 05/11/2025 09:30:00 AM, [address] [facility] [place], [address], Progress Notes * LUKE OJEDA KDOB:1994 (29 yo F)Acc No.[id number]:01/18/2025 Patient: Ellis SÁNCHEZLUKE ZAYAS Provider: Unique Molina DDS :1995 A ge:29 Y S ex:Female Date:01/18/2025 Address:[address] [id number] Pcp:Dr. Carlos Abrams Subjective: * Chief Complaints: * 1 . FILLING. * Medical History: Objective: * Vitals: Assessment: Plan: * Treatment: * Images: * Electronic signature of Joshua Molina DDS on 04/03/2025 at 02:21 PM EDT Sign off status: Pending * Provider: Unique Molina DDS Date: 01/18/2025 Generated for Delroy garcia/Sourav/Edwin on: 0 04/03/2025 02:21 PM EDT
--- OUTSIDE RECORDS SUMMARY | 2025-04-03 19:34 | XMS_ITS | Patient Health Record ---
Author Organization [facility] [employer] Address [address] [place] [address] Care Team Providers Care Screedman Name Role Phone Dr. Carlos Abrams Primary Care Provider [phone] Maria A Degroot Unavailable [phone] Karlene Duran Unavailable [phone] Reason For Referral No Information Encounters Encounter Location Date Provider Diagnosis [address] [address] 06/14/2024 Karlene Duran Dental caries on pit and fissure surface penetrating into dentin K02.52 ; Encounter for dental examination and cleaning with abnormal findings Z01.21 and Acute gingivitis, plaque induced K05.[address] [address] 10/02/2024 Maria A Molina Dental caries on pit and fissure surface penetrating into dentin K02.52 Assessments Encounter Date Diagnosis (ICD Code) Assessment Notes Treatment Notes Treatment Clinical Notes Section Notes 06/14/2024 Dental caries on pit and fissure surface penetrating into dentin (ICD-10 - K02.52) 10/02/2024 Dental caries on pit and fissure surface penetrating into dentin (ICD-10 - K02.52) 06/14/2024 Encounter for dental examination and cleaning with abnormal findings (ICD-10 - Z01.21) 06/14/2024 Acute gingivitis, plaque induced (ICD-10 - K05.00) Plan Of Treatment Next Appt Details Provider Name:Maritza Pate, 04/24/2025 08:30:00 AM, [address] [place], [address], Provider Name:Maria A lyle, 05/11/2025 09:30:00 AM, [address] [facility], [address], Insurance Providers Payer Name Payer Address Payer Phone Subscriber Number Group Number Insured Name Patient Relationship to Insured Coverage Start Date Coverage End Date zPARAMOU NT ADVANTAG E-termed [address] [place] [address] [id number] RUSTY LUKE Self - patient is the insured 2 3 zMEDICAI D CFC after [employer]OUN T-termed [address] [place] [id number] RUSTY LUKE Self - patient is the insured 2 3 zDENTAL DQ [employer] T-termed [address] [place] [address] [id number] RUSTY LUKE Self - patient is the insured 2 3 zDental MEDICAID CFC after [employer]AMOUN T-termed [address] [place] [id number] RUSTY LUKE Self - patient is the insured 2 3 Dental Wrap [facility] [place] [employer] [address] [place] [phone] [id number] RUSTY LUKE Self - patient is the insured 3 ANTHEM Primary [address] [place] [address] [id number] RUSTY LUKE Self - patient is the insured 4 4 DENTAL DELTA [facility] [address] [place] [address] [id number] LUKE OJEDA Self - patient is the insured 4 4 Dental [place] DQ [address] [place] [address] [id number] LUKE OJEDA Self - patient is the insured 4
--- OUTSIDE RECORDS SUMMARY | 2025-04-03 19:34 | XMS_ITS | Patient Health Record ---
Author Organization [facility] Address [address] [place] [address] Care Team Providers Care Windows Server Architect Name Role Phone Jay Gomez Unavailable [phone] Pamela Avila Unavailable [phone] Reason For Referral No Information Encounters Encounter Location Date Provider Diagnosis [facility] [address] [facility] [place] [address] 11/27/2024 Pamela Avila Closed nondisplaced fracture of distal phalanx of right little finger, initial encounter S62.666A [facility] [address] [place] [address] [place] [address] 01/01/2025 Pamela Avila Closed nondisplaced fracture of distal phalanx of right little finger, initial encounter S62.666A [facility] [address] [facility] [place] [address] 01/08/2025 Jay Gomez Closed nondisplaced fracture of distal phalanx of right little finger, initial encounter S62.666A Assessments Encounter Date Diagnosis (ICD Code) Assessment Notes Treatment Notes Treatment Clinical Notes Section Notes 11/27/2024 Closed nondisplaced fracture of distal phalanx of right little finger, initial encounter (ICD-10 - S62.666A) 01/01/2025 Closed nondisplaced fracture of distal phalanx of right little finger, initial encounter (ICD-10 - S62.666A) 01/08/2025 Closed nondisplaced fracture of distal phalanx of right little finger, initial encounter (ICD-10 - S62.666A) 11/27/2024 Other Given the patie nt has extension lag on exam we have discussed splinting for [address] her in a stack splint with instructions not to remove. We will see her back in 6 weeks. 01/01/2025 Other Today replace patient's stack splint with instructions not to remove. We will see her back in 1 week for reevaluation. 01/08/2025 Other Patient is doing well. She [...] has concerns. Import medication Plan Of Treatment No Information Insurance Providers Payer Name Payer Address Payer Phone Subscriber Number Group Number Insured Name Patient Relationship to Insured Coverage Start Date Coverage End Date Medicaid Anthem [place] [address] [place] [address] [id number] LUKE OJEDA Self - patient is the insured 4
--- OUTSIDE RECORDS SUMMARY | 2025-04-03 19:34 | XMS_ITS | CCD ---
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 Name Role Phone PAY ., DR BROOKS [...] Unavailable Michael Anderson MD Primary Care Provider [phone] MARIKASHYANNE MORAESY R Referring Unavailable MARIKA, MADIHA R Referring Unavailable SUGEY MADRID Attending Unavailable MARIKA, MADIHA Attending Unavailable MARIKA, MADIHA Attending Unavailable MARIKA, MADIHA Attending Unavailable SUGEY MADRID Attending Unavailable MARIKA, MADIHA Attending Unavailable MARIKA, MADIHA Attending Unavailable MARIKASHYANNE MORAESY Attending Unavailable Allergies Allergy Classification Reported Allergen(s) Allergy Type Date of Onset Reaction(s) Facility (1 source) No Known Medication Allergies; Translations: [No Known Medication Allergies] Propensity to adverse reactions (disorder) [facility] Repository Medications Current Medications Medication Drug Class(es) Dates Sig (Normalized) Sig (Original) amoxicillin 500 mg oral tablet (2 sources) Penicillin-class Antibacterial Start: 03-19-2025 End: 03-26-2025 take 1 tablet by mouth in the morning, then take 1 tablet by mouth in the evening, then take 1 tablet by mouth at bedtime amoxicillin (Amoxil) 500 MG tablet Indications: Oral lesion Take 1 tablet (500 mg) by mouth in the morning and 1 tablet (500 mg) in the evening and 1 tablet (500 mg) before bedtime. Do all this for 7 days. 21 tablet 03/19/2025 03/26/2025 Active azithromycin 250 mg oral tablet (17 sources) Macrolide Antimicrobial Start: 12-07-2024 azithromycin (Zithromax Z-Twin) 250 MG tablet Indications: Fever, unspecified fever cause , Cough, unspecified type As directed 6 tablet 12/07/2024 Active Blood Glucose Monitoring Suppl (D-Care Glucometer) w/Device kit (10 sources) Start: 02-05-2025 End: 02-05-2026 Blood Glucose Monitoring Suppl (D-Care Glucometer) w/Device kit Indications: Elevated glucose tolerance test 1 kit Daily Use four times daily to check FSBS. In the morning prior to breakfast & 1 hour after each meal for a total of 4times daily. 1 kit 02/05/2025 02/05/2026 Active Ethinyl Estradiol / Ferrous fumarate / Norethindrone (1 source) Estrogen End: 09-07-2024 take 1 tablet by mouth in the morning Blisovi FE 12/04 1-20 MG-MCG tablet Take 1 tablet by mouth in the morning. 09/07/2024 Discontinued isopropyl alcohol 0.7 ml/ml medicated pad (10 sources) Start: 02-05-2025 Alcohol Swabs (Alcohol Prep Pad) 70 % pads Indications: Elevated glucose tolerance test Apply 1 Pad topically Daily Use four times daily to check FSBS. 150 each 3 02/05/2025 Active ondansetron 4 mg disintegrating oral tablet (5 [...] Vit-Fe Fumarate-FA ( Vitamins) 28-0.8 MG tablet (20 sources) Start: 09-28-2024 End: 09-28-2025 take 1 [...] Classification Problem Date Documented Da te Episodic/Chronic Diseases of mouth; excluding dental (2 sources) Oral lesion; Translations: [Unspecified lesions of oral mucosa] 03-19-2025 Episodic Fever of unknown origin (2 sources) Fever; [...] Translations: [Cough, unspecified type] 12-07-2024 Episodic Other screening for suspected conditions (not mental disorders or infectious disease) (10 sources) Encounter for screening for malignant neoplasm [...] of ] 10-10-2024 Episodic Residual codes; unclassified (2 sources) Gestation period, 19 weeks; Translations: [19 weeks gestation of ] 12-07-2024 Episodic Residual codes; unclassified (2 sources) Gestation period, 23 weeks; Translations: [23 weeks gestation of ] 01-04-2025 Episodic Residual codes; unclassified (2 sources) Gestation period, 29 weeks; Translations: [29 weeks gestation of ] 02-19-2025 Episodic Residual codes; unclassified (2 sources) Gestation period, 31 weeks; Translations: [31 weeks gestation of ] 03-05-2025 Episodic Residual codes; unclassified (2 sources) Gestation period, 33 weeks; Translations: [33 weeks gestation of ] 03-19-2025 Episodic Screening and history of mental health [...] Classification Problem Date Documented Da te Episodic/Chronic Other and delivery including normal (20 sources) ; Translations: [Encounter for supervision of normal , unspecified, unspecified trimester] Onset: 11-09-2024 09-07-2024 Episodic Residual codes; unclassified (20 sources) Gestation period, 15 weeks; Translations: [15 weeks gestation of ] Onset: 11-09-2024 11-09-2024 Episodic Unclassified (1 source) COUGH, UNSPECIFIED; Translations: [COUGH, UNSPECIFIED] Onset: 03-10-2023 Results Test Name Value Interpretation Reference Range Facility Urinalysis macro (dipstick) panel (U)on 03-19-2025 Bilirubin, UA Negative Negative - 4(70) +++ mg/dL [facility] Blood, UA Negative Negative - 50 [facility] Clarity, UA Clear [facility] Color, UA Yellow [facility] Glucose, UA Negative Negative - 1999(110) ++++ mg/dL [facility] Interpretation and review of laboratory results Abnormal [facility] Ketones, UA Negative Negative - 160(16) ++++ mg/dL [facility] Leukocytes, UA Trace Negative - 500+++ Chanel/mcL [facility] Nitrite, UA Negative Negative - Positive [facility] pH, UA 6 5 - 9 [facility] Protein, UA Negative Negative - 1999(20) ++++ mg/dL [facility] Spec Grav, UA 1.03 1 - 1.03 [facility] Urobilinogen, UA 0.2 0.2 - 12 mg/dL [facility] Urinalysis macro (dipstick) panel (U)on 03-05-2025 Bilirubin, UA Negative Negative - 4(70) +++ mg/dL [facility] Blood, UA Positive Negative - 50 Neil/mcL [facility] Healthcare Comment on above: trace Clarity, UA Clear [facility] Color, UA Yellow [facility] Glucose, UA Negative Negative - 1999(110) ++++ mg/dL [facility] Interpretation and review of laboratory results Abnormal [facility] Ketones, UA Negative Negative - 160(16) ++++ mg/dL [facility] Leukocytes, UA Negative Negative - 500+++ Chanel/mcL [facility] Nitrite, UA Negative Negative - Positive [facility] pH, UA 7 5 - 9 [facility] Protein, UA Positive Negative - 1999(20) ++++ mg/dL [facility] Comment on above: 30 Spec Grav, UA 1.02 1 - 1.03 [facility] Urobilinogen, UA 1.0 0.2 - 12 mg/dL [facility] Urinalysis macro (dipstick) panel (U)on 02-19-2025 Bilirubin, UA Negative Negative - 4(70) +++ mg/dL [facility] Blood, UA Negative Negative - 50 Neil/mcL [facility] Clarity, UA Clear [facility] Color, UA Yellow [facility] Glucose, UA Negative Negative - 1999(110) ++++ mg/dL [facility] Interpretation and review of laboratory results Normal [facility] Ketones, UA Negative Negative - 160(16) ++++ mg/dL [facility] Leukocytes, UA Negative Negative - 500+++ Chanel/mcL [facility] Nitrite, UA Negative Negative - Positive [facility] pH, UA 6 5 - 9 [facility] Protein, UA Negative Negative - 1999(20) ++++ mg/dL [facility] Spec Grav, UA 1.02 1 - 1.03 [facility] Urobilinogen, UA 0.2 0.2 - 12 mg/dL [facility] Urinalysis macro (dipstick) panel (U)on 01-04-2025 Bilirubin, UA Negative Negative - 4(70) +++ mg/dL [facility] Blood, UA Negative Negative - 50 Neil/mcL [facility] Clarity, UA Clear [facility] Color, UA Yellow [facility] Glucose, UA Negative Negative - 1999(110) ++++ mg/dL [facility] Interpretation and review of laboratory results Normal [facility] Ketones, UA Negative Negative - 160(16) ++++ mg/dL [facility] Leukocytes, UA Negative Negative - 500+++ Chanel/mcL [facility] Nitrite, UA Negative Negative - Positive [facility] pH, UA 6.5 5 - 9 [facility] Protein, UA Negative Negative - 1999(20) ++++ mg/dL [facility] Spec Grav, UA 1.03 1 - 1.03 [facility] Urobilinogen, UA 0.2 0.2 - 12 mg/dL [facility] US OB 14+ WEEKS ANATOMY SCAN on [...] report is generated using voice recognition reporting (Agolo). On occasion [employer] erroneously drops words from the report or [...] UA Negative Negative - 4(70) +++ mg/dL [facility] Blood, UA Negative Negative - 50 Neil/mcL [facility] Clarity, UA Clear [facility] Color, UA Yellow [facility] Glucose, UA Negative Negative - 2000(110) ++++ mg/dL [facility] Interpretation and review of laboratory results Normal [facility] Ketones, UA Negative Negative - 160(16) ++++ mg/dL [facility] Leukocytes, UA Negative Negative - 500+++ Chanel/mcL [facility] Nitrite, UA Negative Negative - Positive [facility] pH, UA 6 5 - 9 [facility] Protein, UA Negative Negative - 2000(20) ++++ mg/dL [facility] Spec Grav, UA 1.01 1 - 1.03 [facility] Urobilinogen, UA 0.2 0.2 - 12 mg/dL [facility] AFP, SERUM, OPEN SPINA BIFID Aon 11-11-2024 AFP MOM 1.33 . [facility] AFP VALUE 32.0 ng/mL . [facility] COMMENT: Comment . [facility] Comment on above: Carla Briones , Ph.D., [facility] Director References: Available Upon Request. Multiples Of Median Cutoffs For AFP Elevations Adams 2.5 Black 2.8 IDD 2.0 Twins 4.5 Abbreviation Definitions IDD - Insulin Dep Diabetes OSBR - Open Spina Bifida Risk For further inquiries contact [facility] at [phone]. This test was developed and its performance characteristics determined by [employer]. It has not been cleared or approved by the Food and Drug Administration. Performed at: [facility] [place] [place], [place] [id number] Soil Specialist: Quincy Montze [facility], Phone: [phone] GEST. AGE ON COLLECTION DATE 15.3 . weeks [facility] GESTAT. AGE BASED ON Ultrasound . [facility] Comment on above: 15.3 on 11/09/2024 Recalculations are not recommended when gestational dating by LMP and ultrasound are within 10 days. INSULIN DEP DIABETES No . [facility] INTERPRETATION Comment . [facility] Comment on above: Interpretation: Scre en Negative [...] Customer Services to discuss available options. The [employer] recommends amniocentesis be offered to women age 35 and older. [age] [facility] MULTIPLE GESTATION No . [facility] OSBR RISK 1 IN 4398 . [facility] RACE . [facility] RESULTS Report . [facility] TEST RESULTS: Negative . [facility] WEIGHT 216 . lbs [facility] N [id number] N ULTRASOUND [id number] 2 15 N 1 Y 216 N N N N N White/ [facility] RECURRENT VAGINITIS (HTRX)on 11-10-2024 ATOPOBIUM VAGINAE 0 [facility] ATOPOBIUM VAGINAE Not detected [facility] BVAB 2,3 (BACTERIAL VAGINOSIS ASSOCIATED BACTERIA 2, 3); MOBILUNCUS SPP 0 [facility] BVAB 2,3 (BACTERIAL VAGINOSIS ASSOCIATED BACTERIA 2, 3); MOBILUNCUS SPP Not detected [facility] MARIO ALBICANS, PARAPSILOSIS, TROPICALIS 0 [facility] MARIO ALBICANS, PARAPSILOSIS, TROPICALIS Not detected [facility] MARIO GLABRATA 0 [facility] MARIO GLABRATA Not detected [facility] MARIO KRUSEI 0 [facility] MARIO KRUSEI Not detected [facility] CHLAMYDIA TRACHOMATIS 0 [facility] CHLAMYDIA TRACHOMATIS Not detected N [facility] GARDNERELLA VAGINALIS 0 [facility] GARDNERELLA VAGINALIS Not detected N [facility] MEGASPHAERA (TYPES 1, 2) 0 [facility] MEGASPHAERA (TYPES 1, 2) Not detected [facility] MYCOPLASMA GENITALIUM 0 [facility] MYCOPLASMA GENITALIUM Not detected N [facility] NEISSERIA GONORRHOEAE 0 [facility] NEISSERIA GONORRHOEAE Not detected N [facility] TRICHOMONAS VAGINALIS 0 [facility] TRICHOMONAS VAGINALIS Not detected N [facility] Urinalysis macro (dipstick) panel (U)on 11-09-2024 Bilirubin, UA Negative Negative - 4(70) +++ mg/dL [facility] Blood, UA Negative Negative - 50 Neil/mcL [facility] Clarity, UA Clear [facility] Color, UA Yellow [facility] Glucose, UA Negative Negative - 1999(110) ++++ mg/dL [facility] Interpretation and review of laboratory results Normal [facility] Ketones, UA Negative Negative - 160(16) ++++ mg/dL [facility] Leukocytes, UA Negative Negative - 500+++ Chanel/mcL [facility] Nitrite, UA Negative Negative - Positive [facility] pH, UA 7.5 5 - 9 [facility] Protein, UA Negative Negative - 1999(20) ++++ mg/dL [facility] Spec Grav, UA 1.02 1 - 1.03 [facility] Urobilinogen, UA 0.2 0.2 - 12 mg/dL [facility] ALL CBC WITH AUTO DIFFon BASOPHILS ABSOLUTE AUTO 0 [facility] Basophils/100 WBC (Bld) 0.2 % 0.2 - 2.0 % [facility] Eosinophils/100 WBC (Bld) 1 % 0.9 - 7.0 % [facility] Erythrocyte distribution width (RBC) [Ratio] 11.9 % 11.0 - 15.0 % [facility] Hematocrit (Bld) [Volume fraction] 38 % 36.0 - 48.0 % [facility] Hemoglobin (Bld) [Mass/Vol] 13.1 g/dL 12.0 - 16.0 g/dL [facility] IMMATURE GRANULOCYTES ABS AUTO 0.04 High [facility] Immature granulocytes/100 WBC (Bld) 0.3 % 0.0 - 0.5 % [facility] Interpretation and review of laboratory results Abnormal [facility] LYMPHOCYTES ABSOLUTE AUTO 2.1 [facility] Lymphocytes/100 WBC (Bld) 16.5 % Low 20.5 - 60.0 % [facility] MCH (RBC) [Entitic mass] 30.5 pg 26.7 - 34.0 pg [facility] MCHC (RBC) [Mass/Vol] 34.5 g/dL 29.9 - 35.2 g/dL [facility] MCV (RBC) [Entitic vol] 88.4 fL 81.0 - 99.0 fL [facility] MONOCYTES ABSOLUTE AUTO 0.8 [facility] Monocytes/100 WBC (Bld) 6.1 % 1.7 - 12.0 % [facility] NEUTROPHILS ABSOLUTE AUTO 9.4 High [facility] Neutrophils/100 WBC (Bld) 75.9 % High 43.0 - 75.0 % [facility] Platelet mean volume (Bld) [Entitic vol] 9.5 fL 9.5 - 13.5 fL [facility] EO # 0.1 [facility] PLT 335 [facility] RBC 4.3 [facility] WBC 12.4 High [facility] BOX TESTon 10-10-2024 BOX TEST SENT OUT Y [facility] BOX1 [facility] BOX2 10/10/24 [facility] S[facility]ID (URINE )on 10-10-2024 AMPHETAMINE SCREEN URINE Negative NEGATIVE [facility] BARBITURATES SCREEN URINE Negative NEGATIVE [facility] BENZODIAZEPINES SCREEN URINE Negative NEGATIVE [facility] BUPRENORPHINE SCREEN URINE Negative NEGATIVE [facility] Comment on above: DRUG CLASS TEST SYST [...] ng/mL CANNABINOID SCREEN URINE Positive Abnormal NEGATIVE [facility] COCAINE SCREEN URINE Negative NEGATIVE [facility] Interpretation and review of laboratory results Abnormal [facility] METHADONE SCREEN URINE Negative NEGATIVE [facility] METHAMPHETAMINES SCREEN URINE Negative NEGATIVE [facility] OPIATE SCREEN URINE Negative NEGATIVE [facility] OXYCODONE SCREEN URINE Negative NEGATIVE [facility] PHENCYCLIDINE SCREEN URINE Negative NEGATIVE [facility] TRICYCLIC ANTIDEPRESSANT URINE Negative NEGATIVE [facility] Urinalysis macro (dipstick) panel (U)on 10-10-2024 Bilirubin, UA Negative Negative - 4(70) +++ mg/dL [facility] Blood, UA Negative Negative - 50 Neil/mcL [facility] Clarity, UA Clear [facility] Color, UA Yellow [facility] Glucose, UA Negative Negative - 1999(110) ++++ mg/dL [facility] Interpretation and review of laboratory results Normal [facility] Ketones, UA Negative Negative - 160(16) ++++ mg/dL [facility] Leukocytes, UA Negative Negative - 500+++ Chanel/mcL [facility] Nitrite, UA Negative Negative - Positive [facility] pH, UA 7 5 - 9 [facility] Protein, UA Negative Negative - 1999(20) ++++ mg/dL [facility] Spec Grav, UA 1.02 1 - 1.03 [facility] Urobilinogen, UA 0.2 0.2 - 12 mg/dL [facility] HCG ( test) Ql (U)o n 09-07-2024 Interpretation and review of laboratory results Abnormal [facility] Preg Test, Ur Positive [facility] Urinalysis macro (dipstick) panel (U)on 09-07-2024 Bilirubin, UA Negative Negative - 4(70) +++ mg/dL [facility] Blood, UA Negative Negative - 50 Neil/mcL [facility] Clarity, UA Clear [facility] Color, UA Yellow [facility] Glucose, UA Negative Negative - 2000(110) ++++ mg/dL [facility] Interpretation and review of laboratory results Normal [facility] Ketones, UA Negative Negative - 160(16) ++++ mg/dL [facility] Leukocytes, UA Negative Negative - 500+++ Chanel/mcL [facility] Nitrite, UA Negative Negative - Positive [facility] pH, UA 6 5 - 9 [facility] Protein, UA Negative Negative - 2000(20) ++++ mg/dL [facility] Spec Grav, UA 1.02 1 - 1.03 [facility] Urobilinogen, UA 1.0 0.2 - 12 mg/dL [facility] Ambulatory Visit Summaryon 0 06-22-2024 Ambulatory Visit [...] are taki (more content not included)... Normal [facility] Family Medicine Office/Clini c Noteon 06-22-2024 Family Medicine Office/Clinic Note Family Medicine Office/Clinic Note [facility] Staff Jose is a 29 year old [...] 08/06/2001 Recorded varicella virus vaccine 07/15/1999 Recorded [facility] Comment on above: Result Comment: Elec tronically Signed By: IGNACIA CRAWFORD CNP\.br\Date and Time Signed: 06/22/24 14:51 EDT Provider Letteron 06-16-2024 Provider Letter Provider Letter June 16, 2024 JESICA DOSHI [address] [place] [address] : 1995 To Whom It May Concern, Please excuse above patient from work due to Covid diagnosis. Date of Illness: From: 06/15/2024 To: 06/22/2024 May Return to Work On: 06/23/2024 Comments: May return to work sooner if symptom free. Sincerely, Family Medicine [address] [address] [facility] Ambulatory Visit Summaryon 0 06-15-2024 Ambulatory [...] Follow-Up Appointments 2023 8:30 AM EDT With: Justin PEREIRA, Michael Quinones Where: [address] [address]- Allergies No Known Medication Allergies Problems Ongoing [...] for choosing us for your care. Normal [facility] Family Medicine Office/Clini c Noteon 06-15-2024 [...] Daily, # 3 tab(s), Refills(s) 0, Pharmacy: [facility] #[id number], 166, cm, 06/15/24 8:34:00 EDT, Height/Length Dosing, 95.6, kg, 06/15/24 8:34:00 EDT, Weight Dosing benzonatate, 200 mg = 1 cap(s), Oral, TID, X 7 day(s), # 21 cap(s), Refills(s) 0, Pharmacy: [facility] #[id number], 166, cm, 06/15/24 8:34:00 EDT, Height/Length Dosing, 95.6, kg, 06/15/24 8:34:00 EDT, Weight Dosing methylPREDNISolone, = 1 packet(s), Oral, As Directed, as directed on package labeling, X 6 day(s), # 21 tab(s), Refills(s) 0, Pharmacy: [facility] #[id number], 166, cm, 06/15/24 8:34:00 EDT, Height/Length Dosing, 95.6, kg, 06/15/24 8:34:00 EDT, Weight Dosing 2. BMI 34.0-34.9,adult (Z68.34: Body mass index [BMI] 34.0-34.9, adult) - BMI education added Ordered: azithromycin, 500 mg = 1 tab(s), Oral, Daily, # 3 tab(s), Refills(s) 0, Pharmacy: [facility] #[id number], 166, cm, 06/15/24 8:34:00 EDT, Height/Length Dosing, 95.6, kg, 06/15/24 8:34:00 EDT, Weight Dosing benzonatate, 200 mg = 1 cap(s), Oral, TID, X 7 day(s), # 21 cap(s), Refills(s) 0, Pharmacy: [facility] #[id number], 166, cm, 06/15/24 8:34:00 EDT, Height/Length Dosing, 95.6, kg, 06/15/24 8:34:00 EDT, Weight Dosing methylPREDNISolone, = 1 packet(s), Oral, As Directed, as directed on package labeling, X 6 day(s), # 21 tab(s), Refills(s) 0, Pharmacy: [facility] #[id number], 166, cm, 06/15/24 8:34:00 EDT, Height/Length Dosing, 95.6, kg, 06/15/24 8:34:00 EDT, Weight Dosing Rapid COVID POC 82970 Rapid Strep POC 23132 3. Class 1 obesity due to excess calories in adult (E66.09: Other obesity due to excess calories) - Diet and exercise advised Ordered: azithromycin, 500 mg = 1 tab(s), Oral, Daily, # 3 tab(s), Refills(s) 0, Pharmacy: [facility] #[id number], 166, cm, 06/15/24 8:34:00 EDT, Height/Length Dosing, 95.6, kg, 06/15/24 8:34:00 EDT, Weight Dosing benzonatate, 200 mg = 1 cap(s), Oral, TID, X 7 day(s), # 21 cap(s), Refills(s) 0, Pharmacy: [facility] #[id number], 166, cm, 06/15/24 8:34:00 EDT, Height/Length Dosing, 95.6, kg, 06/15/24 8:34:00 EDT, Weight Dosing methylPREDNISolone, = 1 packet(s), Oral, As Directed, as directed on package labeling, X 6 day(s), # 21 tab(s), Refills(s) 0, Pharmacy: [facility] #[id number], 166, cm, 06/15/24 8:34:00 EDT, Height/Length Dosing, 95.6, kg, 06/15/24 8:34:00 EDT, Weight Dosing Rapid COVID POC 94740 Rapid Strep POC 48850 4. Former smoker (Z87.891: Personal history of nicotine dependence) - Please continue to not smoke. Ordered: azithromycin, 500 mg = 1 tab(s), Oral, Daily, # 3 tab(s), Refills(s) 0, Pharmacy: [facility] #[id number], 166, cm, 06/15/24 8:34:00 EDT, Height/Length Dosing, 95.6, kg, 06/15/24 8:34:00 EDT, Weight Dosing benzonatate, 200 mg = 1 cap(s), Oral, TID, X 7 day(s), # 21 cap(s), Refills(s) 0, Pharmacy: [facility] #[id number], 166, cm, 06/15/24 8:34:00 EDT, Height/Length Dosing, 95.6, kg, 06/15/24 8:34:00 EDT, Weight Dosing methylPREDNISolone, = 1 packet(s), Oral, As Directed, as directed on package labeling, X 6 day(s), # 21 tab(s), Refills(s) 0, Pharmacy: [facility] #[id number], 166, cm, 06/15/24 8:34:00 EDT, Height/Length Dosing, 95.6, kg, 06/15/24 8:34:00 EDT, Weight Dosing Rapid COVID POC 12443 Rapid Strep POC 00122 Follow-up No qualifying data available Problem List/Past Medical History Ongoing Acute URI Cough COVID Elevated BP without diagnosis of hypertension Smoker 17-MAY-2014 12:37:00<$> Historical No qualifying data Procedure/Surgical History section. Medications Azithromycin 3 Day Dose Pack 500 mg oral tabl (more content not included)... Normal [facility] Comment on above: Result Comment: Elec tronically Signed By: Justin PEREIRA, Michael Dewitt.br\Date and Time Signed: 06/15/24 09:10 EDT Provider Letteron 06-15-2024 Provider Letter Provider Letter June 15, 2024 JESICA DOSHI [address] [place] [address] : 1995 To Whom It May Concern, Please excuse above patient from work due to illness. Date of Illness: From: _06-15-24 To: 06-22-24 May Return to Work On:06-23-24 Restrictions: _ Comments: _ Sincerely, Family Medicine [place] [address] [place] [address] [facility] Ambulatory Visit Summaryon 0 11-23-2023 [...] PM EST With: Michael Anderson MD Where: [facility] Family Medicine Office/Clini c Noteon [...] Acute upper respiratory infection, unspecified) - Medrol, Tesakin conner - If no improvement in a few days Azithromycin Ordered: benzonatate, 200 mg = 1 cap(s), Oral, TID, X 7 day(s), # 21 cap(s), Refills(s) 0, Pharmacy: [facility] #[id number], 166, cm, 11/23/23 13:05:00 EST, Height/Length Dosing, 91.6, kg, 11/23/23 13:05:00 EST, Weight Dosing methylPREDNISolone, = 1 packet(s), Oral, As Directed, as directed on package labeling, X 6 day(s), # 21 tab(s), Refills(s) 0, Pharmacy: [facility] #[id number], 166, cm, 11/23/23 13:05:00 EST, Height/Length Dosing, 91.6, kg, 11/23/23 13:05:00 EST, Weight Dosing 2. Cough (R05.9: Cough, unspecified) - As above - Pending covid test. Ordered: benzonatate, 200 mg = 1 cap(s), Oral, TID, X 7 day(s), # 21 cap(s), Refills(s) 0, Pharmacy: [facility] #[id number], 166, cm, 11/23/23 13:05:00 EST, Height/Length Dosing, 91.6, kg, 11/23/23 13:05:00 EST, Weight Dosing methylPREDNISolone, = 1 packet(s), Oral, As Directed, as directed on package labeling, X 6 day(s), # 21 tab(s), Refills(s) 0, Pharmacy: [facility] #[id number], 166, cm, 11/23/23 13:05:00 EST, Height/Length Dosing, 91.6, kg, 11/23/23 13:05:00 EST, Weight Dosing 3. BMI 36.0-36.9,adult (Z68.36: Body mass index [BMI] 36.0-36.9, adult) - BMI education given Ordered: benzonatate, 200 mg = 1 cap(s), Oral, TID, X 7 day(s), # 21 cap(s), Refills(s) 0, Pharmacy: [facility] #[id number], 166, cm, 11/23/23 13:05:00 EST, Height/Length Dosing, 91.6, kg, 11/23/23 13:05:00 EST, Weight Dosing methylPREDNISolone, = 1 packet(s), Oral, As Directed, as directed on package labeling, X 6 day(s), # 21 tab(s), Refills(s) 0, Pharmacy: [facility] #[id number], 166, cm, 11/23/23 13:05:00 EST, Height/Length Dosing, 91.6, kg, 11/23/23 13:05:00 EST, Weight Dosing 4. Non-smoker (Z78.9: Other specified health status) - Please continue to not smoke Ordered: benzonatate, 200 mg = 1 cap(s), Oral, TID, X 7 day(s), # 21 cap(s), Refills(s) 0, Pharmacy: [facility] #[id number], 166, cm, 11/23/23 13:05:00 EST, Height/Length Dosing, 91.6, kg, 11/23/23 13:05:00 EST, Weight Dosing methylPREDNISolone, = 1 packet(s), Oral, As Directed, as directed on package labeling, X 6 day(s), # 21 tab(s), Refills(s) 0, Pharmacy: [id number], 166, cm, 11/23/23 13:05:00 EST, Height/Length Dosing, [...] numbers. This can be done either in [place]ic ([place] or metric measurements. Note that charts and online BMI calculators are available to help you find your BMI quickly and easily without having to do these calculations yourself. To calculate your BMI in [place]ic ([place] measurements: 1. Measure your weight in [...] for Disease Control and Prevention: www.cdc.gov ? Chinese Heart Association: www.heart.org ? National Heart, Lung, and Blood [place]: www.nhlbi.nih.gov Summary ? Body mass index (BMI) is a number that is calculated from a person's weight and height. ? BMI may help estimate how much of a person's weight is composed of fat. BMI can help identify those who may be at higher risk for certain medical problems. ? BMI can be measured using Icelandic measurements or metric measurements. ? BMI charts are used to identify whether you are underweight, normal weight, overweight, or obese. This information is not intended to replace advice given to you by your health care provider. Make sure you discuss any questions you have with your health care provider. Document Revised: 07/24/2020 Document Reviewed: 05/31/2020 [employer] Patient Education ? 2022 [employer] Normal [facility] [place] [facility] GROUP A STREP CULTUREon 02-14 S. pyogenes Ag Ql (Unsp spec) Culture Observations: NEGATIVE FOR GROUP A STREPTOCOCCUS. Normal [facility] Comment on above: Performed By: #### G RASTCX, SSCRN #### [facility] [address] [address] [address] Aniceto Ashby MONOon 03-13-2023 Monocytes (Bld) [#/Vol] Negative Normal NEGATIVE [facility] Comment on above: Performed By: #### M ERVIN #### [facility] [address] [address] [address] Aniceto Ashby STREPT SCREENon 03-13-2023 STREP SCREEN A Negative Normal NEGATIVE [facility] Comment on above: Performed By: #### G RASTCX, SSCRN #### [facility] [address] [address] [address] Aniceto Ashby GROUP A STREP CULTUREon 02-14 S. pyogenes Ag Ql (Unsp spec) Culture Observations: NEGATIVE FOR GROUP A STREPTOCOCCUS. Normal [facility] Comment on above: Performed By: #### G RASTCX, SSCRN #### [facility] [address] [place] [address] Dr. Aniceto Ashby STREPT SCREENon 03-10-2023 STREP SCREEN A Negative Normal NEGATIVE [facility] Comment on above: Performed By: #### G RASTCX, SSCRN #### [facility] [address] [place] [address] Dr. Aniceto Ashby PAP ACOG PANEL 2: 21 to 29on 02-19-2023 . . Normal [facility] Comment on above: Performed By: #### 4 [id number] #### [facility] [address] [place] [address] Dr. Aniceto Ashby Age Gdln ACOG Testing - [facility] Comment on above: Performed By: #### [id number] #### [facility] [address] [place] [address] Dr. Aniceto Ashby DIAGNOSIS: Comment [facility] Comment on above: Result Comment: NEGA TIVE FOR INTRAEPITHELIAL LESION OR MALIGNANCY. SHIFT IN DENNY SUGGESTIVE OF BACTERIAL VAGINOSIS. 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 Performed By: #### [id number] #### [facility] [address] [place] [address] Dr. Aniceto Ashby Methodology: Comment [facility] Comment on above: Result Comment: This liquid based ThinPrep(R) pap test was screened with the use of an image guided system. Performed By: #### [id number] #### [facility] [address] [place] [address] Dr. Aniceto Ashby Note: Comment [facility] Comment on above: Result Comment: The Pap smear is a screening test designed to aid in the detection of premalignant and malignant conditions of the uterine cervix. It is not a diagnostic procedure and should not be used as the sole means of detecting cervical cancer. Both false-positive and false-negative reports do occur. . Performed By: #### [id number] #### [facility] [address] [place] [address] Dr. Aniceto Ashby Performed by: Comment Normal The [facility] Comment on above: Result Comment: Cleo Dubon, On Site Manager (ASCP) Performed By: #### [id number] #### [facility] [address] [place] [address] Dr. Aniceto Ashby QC reviewed by: Comment Normal [facility] Comment on above: Result Comment: Cleo Dasilva, On Site Manager (ASCP) Performed By: #### 4 [id number] #### [facility] [address] [place] [address] Dr. Aniceto Ashby Reflex Criteria: Comment Normal [facility] Comment on above: Result Comment: The HPV DNA reflex criteria were not met with this specimen result therefore, no HPV testing was performed. . Performed By: #### [id number] #### [facility] [address] [place] [address] Dr. Aniceto Ashby Specimen adequacy: Comment Normal The [facility] Comment on above: Result Comment: Sati sfactory for evaluation. Endocervical and/or squamous metaplastic cells (endocervical component) are present. Performed By: #### 4 [id number] #### [facility] [address] [place] [address] Dr. Aniceto Ashby Covid-19 PCR ([facility])on SARS-CoV-2 (COVID-19) RNA HUSEYIN+probe Ql (Unsp spec) Not detected Normal NOT DETECTED [facility] Comment on above: Result Comment: When diagnostic [...] for this test is supported by the Parent Trainer of Health and Human Service's declaration that [...] longer be used). Performed By: #### [facility] #### [facility] [address] [place] [address] Dr. Aniceto Ashby Vital Signs Date Time Vital Sign Value Performing Clinician Faci lity 03-19-2025 14:17-0400 Body mass index (BMI) [Ratio] 37.2 kg/m2 Madiha Marika DO Work Phone: [facility] 03-19-2025 14:17-0400 Body weight 107.73 kg Madiha Marika DO Work Phone: [facility] 03-19-2025 14:17-0400 Diastolic blood pressure 76 mm[Hg] Madiha Marika DO Work Phone: [facility] 03-19-2025 14:17-0400 Systolic blood pressure 122 mm[Hg] Madiha Marika DO Work Phone: [facility] 03-05-2025 15:48-0400 Body mass index (BMI) [Ratio] 36.65 kg/m2 Sugey Madrid PA Work Phone: [facility] 03-05-2025 15:48-0400 Body weight 106.14 kg Sugey Madrid PA Work Phone: [facility] 03-05-2025 15:48-0400 Diastolic blood pressure 74 mm[Hg] Sugey Madrid PA Work Phone: [facility] 03-05-2025 15:48-0400 Systolic blood pressure 124 mm[Hg] Sugey Madrid PA Work Phone: [facility] 02-19-2025 15:47-0400 Body mass index (BMI) [Ratio] 36.88 kg/m2 Madiha Marika DO Work Phone: [facility] 02-19-2025 15:47-0400 Body weight 106.82 kg Madiha Marika DO Work Phone: [facility] 02-19-2025 15:47-0400 Diastolic blood pressure 70 mm[Hg] Madiha Marika DO Work Phone: [facility] 02-19-2025 15:47-0400 Systolic blood pressure 130 mm[Hg] Madiha Marika DO Work Phone: [facility] 01-04-2025 09:11-0500 Body mass index (BMI) [Ratio] 35.55 kg/m2 Madiha Marika DO Work Phone: [facility] 01-04-2025 09:11-0500 Body weight 102.97 kg Madiha Marika DO Work Phone: [facility] 01-04-2025 09:11-0500 Diastolic blood pressure 78 mm[Hg] Madiha Marika DO Work Phone: [facility] 01-04-2025 09:11-0500 Systolic blood pressure 122 mm[Hg] Madiha Marika DO Work Phone: [facility] 12-07-2024 15:35-0500 Body mass index (BMI) [Ratio] 34.36 kg/m2 Sugey Madrid PA Work Phone: [facility] 12-07-2024 15:35-0500 Body weight 99.52 kg Sugey Liv PA Work Phone: [facility] 12-07-2024 15:35-0500 Diastolic blood pressure 70 mm[Hg] Sugey Liv PA Work Phone: [facility] 12-07-2024 15:35-0500 Systolic blood pressure 122 mm[Hg] Sugey Ashfield PA Work Phone: [facility] 11-09-2024 10:53-0500 Body mass index (BMI) [Ratio] 33.67 kg/m2 Madiha Marika DO Work Phone: [facility] 11-09-2024 10:53-0500 Body weight 97.52 kg Madiha Marika DO Work Phone: [facility] 11-09-2024 10:53-0500 Diastolic blood pressure 82 mm[Hg] Madiha Marika DO Work Phone: [facility] 11-09-2024 10:53-0500 Systolic blood pressure 122 mm[Hg] Madiha Marika DO Work Phone: [facility] 10-10-2024 13:35-0500 Body mass index (BMI) [Ratio] 33.17 kg/m2 Madiha Marika DO Work Phone: [facility] 10-10-2024 13:35-0500 Body weight 96.07 kg Madiha Marika DO Work Phone: [facility] 10-10-2024 13:35-0500 Diastolic blood pressure 80 mm[Hg] Madiha Marika DO Work Phone: [facility] 10-10-2024 13:35-0500 Systolic blood pressure 120 mm[Hg] Madiha Marika DO Work Phone: [facility] 09-07-2024 13:52-0400 Body mass index (BMI) [Ratio] 34.16 kg/m2 Noms Nurse [facility] 09-07-2024 13:52-0400 Body weight 98.94 kg Noms Nurse [facility] 09-07-2024 13:52-0400 Diastolic blood pressure 70 mm[Hg] Noms Nurse [facility] 09-07-2024 13:52-0400 Systolic blood pressure 120 mm[Hg] Noms Nurse [facility] Encounters Encounter Date Encounter Type Care Provider Facility Start: 04-03-2025 End: 04-03-2025 Bamboo flowsheet Madiha Marika DO Work Phone: [facility] Start: 04-03-2025 End: 04-03-2025 Bamboo flowsheet Madiha Marika DO Work Phone: [facility] Start: 03-19-2025 End: 03-19-2025 Office outpatient visit 15 minutes Madiha Marika DO Work Phone: [facility] Comment on above: Third trimester preg john; 33 weeks gestation of ; Oral lesion Start: 03-19-2025 End: 03-19-2025 Bamboo flowsheet Madiha Marika DO Work Phone: [facility] Start: 03-19-2025 End: 03-19-2025 Bamboo flowsheet Madiha Marika DO Work Phone: [facility] Start: 03-19-2025 End: 03-19-2025 ambulatory MADIHA MARIKA Not Available Start: 03-08-2025 End: 03-08-2025 ambulatory MADIHA [facility] Start: 03-05-2025 End: 03-05-2025 Office outpatient visit 15 minutes Sugey BADILLO Work Phone: [facility] Comment on above: Third trimester preg john; 31 weeks gestation of Start: 03-05-2025 End: 03-05-2025 ambulatory SUGEY MADRID Not Available Start: 03-05-2025 End: 03-05-2025 Bamboo flowsheet Sugey BADILLO Work Phone: [facility] Start: 03-05-2025 End: 03-05-2025 Bamboo flowsheet Sugey BADILLO Work Phone: [facility] Start: 02-19-2025 End: 02-19-2025 Office outpatient visit 15 minutes Madiha Marika DO Work Phone: [facility] Comment on above: Third trimester preg john; 29 weeks gestation of Start: 02-19-2025 End: 02-19-2025 ambulatory MADIHA MARIKA Not Available Start: 02-19-2025 End: 02-19-2025 Bamboo flowsheet Madiha Marika DO Work Phone: [facility] Start: 02-19-2025 End: 02-19-2025 Bamboo flowsheet Madiha Marika DO Work Phone: [facility] Start: 02-08-2025 End: 02-08-2025 ambulatory MADIHA R [facility] Start: 02-05-2025 End: 02-05-2025 ambulatory MADIHA MARIKA Not Available Start: 02-05-2025 End: 02-05-2025 Bamboo flowsheet Madiha Marika DO Work Phone: [facility] Start: 02-05-2025 End: 02-05-2025 Bamboo flowsheet Madiha Marika DO Work Phone: [facility] Start: 01-04-2025 End: 01-04-2025 Bamboo flowsheet Madiha Marika DO Work Phone: [facility] Start: 01-04-2025 End: 01-04-2025 Bamboo flowsheet Madiha Marika DO Work Phone: [facility] Start: 01-04-2025 End: 01-04-2025 ambulatory MADIHA MARIAK Not Available Start: 01-04-2025 End: 01-04-2025 Office outpatient visit 15 minutes Madiha Marika DO Work Phone: [facility] Comment on above: Second trimester pre gnancy; 23 weeks gestation of ; Diabetes mellitus screening Start: 12-18-2024 End: 12-18-2024 ambulatory SUGEY MADRID Not Available Start: 12-11-2024 End: 12-11-2024 Telephone encounter Rohini Eric LPN [facility] Start: 12-07-2024 End: 12-07-2024 Office outpatient visit 15 minutes Sugey BADILLO Work Phone: [facility] Comment on above: Second trimester pre gnancy; 19 weeks gestation of ; Fever, unspecified fever cause; Cough, unspecified type Start: 12-07-2024 End: 12-07-2024 ambulatory SUGEY MADRID Not Available Start: 12-07-2024 End: 12-07-2024 Bamboo flowsheet Sugey BADILLO Work Phone: [facility] Start: 12-07-2024 End: 12-07-2024 Bamboo flowsheet Sugey BADILLO Work Phone: [facility] Start: 11-09-2024 End: 11-09-2024 Bamboo flowsheet Madiha Marika DO Work Phone: [facility] Start: 11-09-2024 End: 11-11-2024 Bamboo flowsheet Madiha Marika DO Work Phone: [facility] Start: 11-09-2024 End: 11-11-2024 Clinisync Result Encounter Madiha Marika DO Work Phone: [facility] Unsolicited Start: 11-09-2024 End: 11-10-2024 External Result Encounter Madiha Marika DO Work Phone: [facility] Unsolicited Start: 11-09-2024 End: 11-09-2024 [...] End: 06-22-2024 ambulatory IGNACIA CRAWFORD Facility[facility] Start: 06-15-2024 End: 06-15-2024 ambulatory Michael Anderson Facility:[facility] Start: 12-28-2023 ambulatory Michael Anderson Facility :[facility] Start: 11-23-2023 ambulatory Michael Anderson Facility :[facility] Start: 11-23-2023 ambulatory Michael Anderson Facility: [facility] Start: 03-13-2023 End: 03-13-[address] SANGEETA FUNK Facility:[facility] Start: 03-10-2023 End: 03-10-[address] TODD Yeboah Facility:[facility] Start: 02-11-2023 End: 02-11-2023 ambulatory JEMAL BEGUM Facility:[facility] Start: 07-23-2022 End: 07-23-[address] KORY MCLEAN Facility:[facility] Procedures Date Procedure Procedure Detail Performing Clinician Start: 03-19-2025 Urnls dip stick/tabl et rgnt non-auto w/o micrscp Madiha Marika DO Work Phone: Start: 03-05-2025 Urnls dip stick/tabl et rgnt non-auto w/o micrscp Madiha Marika DO Work Phone: Start: 02-19-2025 Urnls dip stick/tabl et rgnt non-auto w/o micrscp Madiha Marika DO Work Phone: Start: 01-04-2025 Urnls dip stick/tabl et rgnt [...] Treatment Date Care Activity Detail Author Start: 04-03-2025 End: 04-03-2025 Patient encounter procedure [facility] Comment on above: Arrived Start: 03-19-2025 End: 03-19-2025 Patient encounter procedure [facility] Comment on above: Arrived Start: 03-05-2025 End: 03-05-2025 Patient encounter procedure [facility] Comment on above: Arrived Start: 02-19-2025 End: 02-19-2025 Patient encounter procedure 02/19/2025 3:30 PM EDT Routine [facility] [address] [place] [address] Madiha Hairston, DO [address] [place] [address] Arrived [facility] Comment on above: Arrived Start: 02-05-2025 End: 02-05-2025 Patient encounter procedure [facility] Comment on above: Arrived Start: 01-04-2025 End: 01-04-2026 CBC panel - Blood by Automated count CBC Lab Routine Diabetes mellitus screening Expected: 01/04/2025 (Approximate), Expires: 01/04/2026 [facility] Work Phone: Comment on above: Expected: 01/04/2025 (Approximate), Expires: 01/04/2026 Start: 01-04-2025 End: 01-04-2026 Measurement of glucose 1 hour after glucose challenge for glucose tolerance test Glucose tolerance, 1 hour Lab Routine Diabetes mellitus screening Expected: 01/04/2025 (Approximate), Expires: 01/04/2026 [facility] Comment on above: Expected: 01/04/2025 (Approximate), Expires: 01/04/2026 Start: 01-04-2025 End: 01-04-2025 Patient encounter procedure 01/04/2025 8:50 AM EST [facility] [address] [facility] [place] [id number] Madiha Hairston DO [address] [facility] [place] [address] [facility] Start: 12-18-2024 End: 12-18-2024 Professional / ancillary services management 12/18/2024 2:00 PM EST Ancillary Procedure [facility] [address] [place] [id number] [facility] Start: 12-07-2024 End: 12-07-2024 Patient encounter procedure 12/07/2024 3:30 PM EST Routine [facility] [address] [place] [phone] Sugey Madrid PA [address] [place], [place] [id number] Arrived [facility] Comment on above: Arrived Start: 12-07-2024 End: 12-07-2024 Patient encounter procedure 12/07/2024 11:30 AM EST Routine [facility] [address] [place] [phone] Sugey Madrid PA [address] [facility] [address] [facility] Start: 11-09-2024 End: 01-10-2025 [...] PM EST Routine [facility] [address] [facility] [address] [place] [phone] Madiha Hairston DO [address] [facility] [place] [address] [facility] Start: 09-07-2024 End: 09-07-2025 ABO/Rh ABO/Rh Lab Routine Missed menses , unspecified gestational age Expected: 09/07/2024 (Approximate), Expires: 09/07/2025 [facility] Comment on above: Expected: 09/07/2024 (Approximate), Expires: 09/07/2025 Start: 09-07-2024 End: 09-07-2025 Blood type and Indirect antibody screen panel - Blood Type and screen Lab Routine Missed menses , unspecified gestational age Expected: 09/07/2024 (Approximate), Expires: 09/07/2025 [facility] Work Phone: Comment on above: Expected: 09/07/2024 (Approximate), Expires: 09/07/2025 Start: 09-07-2024 End: 09-07-2025 Drugs of abuse panel - Urine by Screen method Rapid drug screen, urine Lab Routine , unspecified gestational age Encounter for supervision of normal first in first trimester Expected: 09/07/2024 (Approximate), Expires: 09/07/2025 [facility] Comment on above: Expected: 09/07/2024 (Approximate), Expires: 09/07/2025 Start: 09-07-2024 End: 09-07-2025 US Pelvis transvaginal US OB transvaginal Imaging Routine Missed menses Expected: 09/07/2024 (Approximate), Expires: 09/07/2025 [facility] Comment on above: Expected: 09/07/2024 (Approximate), Expires: 09/07/2025 Bacteria identified in Urine by Culture Urine culture Microbiology Routine Missed menses Ordered: 09/07/2024 [facility] Comment on above: Ordered: 09/07/2024 CBC W Auto Different ial panel - Blood CBC and differential Lab Routine Missed menses , unspecified gestational age Ordered: 09/07/2024 [facility] Comment on above: Ordered: 09/07/2024 CHLAMYDIA TRACHOMATI S (GENITO/STI) CHLAMYDIA TRACHOMATIS (GENITO/STI) Lab Routine 15 weeks gestation of Second trimester Ordered: 11/09/2024 [facility] Comment on above: Ordered: 11/09/2024 Cytology Cervical or vaginal smear or scraping study Pap Smear Pathology and Cytology Routine 15 weeks gestation of Second trimester Ordered: 11/09/2024 [facility] Work Phone: Comment on above: Ordered: 11/09/2024 Hemoglobin A1c/Hemoglobin.total in Blood Hemoglobin A1c Lab Routine Missed menses , unspecified gestational age Ordered: 09/07/2024 [facility] Comment on above: Ordered: 09/07/2024 Hepatitis B virus surface Ag [Presence] in Serum or Plasma by Immunoassay Hepatitis B surface antigen Lab Routine Missed menses , unspecified gestational age Ordered: 09/07/2024 [facility] Comment on above: Ordered: 09/07/2024 Hepatitis C virus Ab [Presence] in Serum or Plasma by Immunoassay Hepatitis C antibody Lab Routine Missed menses , unspecified gestational age Ordered: 09/07/2024 [facility] Comment on above: Ordered: 09/07/2024 HIV-1/HIV-2 antigen/antibody combination immunoassay HIV-1 and HIV-2 antibodies Lab Routine Missed menses , unspecified gestational age Ordered: 09/07/2024 [facility] Comment on above: Ordered: 09/07/2024 Neisseria gonorrhoea e DNA [Presence] in Unspecified specimen by HUSEYIN with probe detection Neisseria gonorrhea DNA probe, direct Lab Routine 15 weeks gestation of Second trimester Ordered: 11/09/2024 [facility] Comment on above: Ordered: 11/09/2024 Reagin Ab [Presence] in Serum by RPR RPR Lab Routine Missed menses , unspecified gestational age Ordered: 09/07/2024 [facility] Comment on above: Ordered: 09/07/2024 Rubella antibody, IgG Rubella an tibody, IgG Lab Routine Missed menses , unspecified gestational age Ordered: 09/07/2024 [facility] Comment on above: Ordered: 09/07/2024 SURESWAB(R) ADVANCED VAGINITIS PLUS, TMA SURESWAB(R) ADVANCED VAGINITIS PLUS, TMA Pathology and Cytology Routine 15 weeks gestation of Second trimester Ordered: 11/09/2024 [facility] Comment on above: Ordered: 11/09/2024 Payers Date Payer Category Payer Medicaid [employer] BCBS [employer] [place] [id number] 2023 Blue Cross Blue Shield BCBS [id number] 2023 Unknown [id number] 2022 Medicaid [id number] 1996 Unknown [id number] 2.16.840.1.574311.3.579.2. 593 1996 Unknown [id number] 2.16.840.1.326872.3.579.2. 593 1996 Unknown [id number] 2.16.840.1.596157.3.579.2. 593 1996 Unknown [id number] 2.16.840.1.952292.3.579.2. 593 1996 Unknown [id number] 2.16.840.1.656033.3.579.2. 727 1996 Unknown [id number] 2.16.840.1.134650.3.579.2. 727 1996 Unknown [id number] 2.16.840.1.869814.3.579.2. 727 1996 Unknown [id number] 2.16.840.1.481477.3.579.2. 727 1996 Unknown [id number] 2.16.840.1.217638.3.579.2. 1286 1996 Unknown [id number] 2.16.840.1.601653.3.579.2. 1286 1996 Unknown [id number] 2.16.840.1.473496.3.579.2. 9 1996 Unknown [id number] 2.16.840.1.430923.3.579.2. 1258 1996 Unknown [id number] 2.16.840.1.105574.3.579.2. 1258 1996 Unknown [id number] 2.16.840.1.323100.3.579.2. 1258 1996 Unknown [id number] 2.16.840.1.103967.3.579.2. 1258 1996 Unknown [id number] 2.16.840.1.929558.3.579.2. 1258 1996 Unknown [id number] 2.16.840.1.527113.3.579.2. 1258 1996 Unknown [id number] 2.16840.1.034975.3.579.2. 1258 1996 Unknown [id number] 2.16.840.1.328855.3.579.2. 1258 1996 Unknown [id number] 2.16.840.1.556456.3.579.2. 9 1959 Unknown [id number] Social History Date Type Detail Facility Start: 11-01-2023 Tobacco smoking status MDIS Ex-smoke r [facility] Start: 01-13-2013 End: 10-19-2022 History of tobacco use Current smoker [facility] Start: 01-13-2013 End: 10-19-2022 History of tobacco use Cigarette Smoker [facility] Start: 11-01-2023 End: 09-07-2024 History of Social function [facility] Start: 11-01-2023 End: 09-07-2024 Tobacco use panel [facility] Start: 08-08-2024 [facility] Start: 1995 Sex assigned at Not on file [facility] Medical Equipment Procedure Code Equipment Code Equipment Origin al Text Equipment Identifier Dates 1 strip by In Vi tro route Daily Use in the morning prior to breakfast, 1 hour after each meal for a total of 4times daily. [id number] Start: 02-05-2025 End: 03-07-2025 1 each by In Vit ro route Daily Use to check FSBS four times daily [id number] Start: 02-05-2025 End: 03-07-2025 Clinical Notes 06-22-2024 to 03-19-2025 Rohini Eric, ERICKSON - 03/19/2025 2:10 PM EDSabrina Bee MA - 03/05/2025 3:30 PM Shannan Phillip NP - 02/19/2025 3:30 PM Michael Eric, ERICKSON - 01/04/2025 8:50 AM EST Note Date & Type Note Facility 03-19-2025 History of Presen t illness Narrative Reason for Appointment: Patient ID: Jesica Doshi is a 29 y.o. female who presents for Routine Visit Patient presents today for Return OB appointment. MEDICATIONS Current Outpatient Medications Medication Instructions Alcohol Swabs (Alcohol Prep Pad) 70 % pads 1 Pad, Topical, Daily, Use four times daily to check FSBS. azithromycin (Zithromax Z-Twin) 250 MG tablet As directed Blood Glucose Monitoring Suppl (D-Care Glucometer) w/Device kit 1 kit, Does not apply, Daily, Use four times daily to check FSBS. In the morning prior to breakfast & 1 hour after each meal for a total of 4times daily. Vit-Fe Fumarate-FA ( Vitamins) 28-0.8 MG tablet [...] date: 01/13/2013 Quit date: 10/19/2022 Years since quittin.4 Smokeless tobacco: Not on file Substance Use [...] nursing note reviewed. Exam conducted with a nuclear power reactor operator present. Vitals: Estimated body mass index is 37.2 kg/m as calculated from the following: Height as of 08/11/23: 5' 7 . Weight as of this encounter: 237 lb 8 oz. BP: 122/76 Patient's last menstrual period was 07/02/2024. ASSESSMENT & PLAN ICD-10-CM 1. Third trimester Z34.93 2. 33 weeks gestation of Z3A.33 Patient presents today for a routine obstetrics appointment. Patient is currently 33w6d with a Estimated Date of Delivery: 05/01/25. Patient to return to clinic in 2 weeks for routine OB appointment. Documented by Rohini Eric LPN... on behalf of: Madiha Hairston DO documented in this encounter [facility] 03-05-2025 History of Presen t illness Narrative Reason for Appointment: Patient ID: Jesica Doshi is a 29 y.o. female who presents for Routine Visit Patient presents today for Return OB appointment. MEDICATIONS Current Outpatient Medications Medication Instructions Alcohol Swabs (Alcohol Prep Pad) 70 % pads 1 Pad, Topical, Daily, Use four times daily to check FSBS. azithromycin (Zithromax Z-Twin) 250 MG tablet As directed Blood Glucose Monitoring Suppl ([employer] Glucometer) w/Device kit 1 kit, Does not apply, Daily, Use four times daily to check FSBS. In the morning prior to breakfast & 1 hour after each meal for a total of 4times daily. Glucose Blood (Blood Glucose Test) strip 1 strip, In Vitro, Daily, Use in the morning prior to breakfast, 1 hour after each meal for a total of 4times daily. Lancets Ultra Thin misc 1 each, In Vitro, Daily, Use to check FSBS four times daily Vit-Fe Fumarate-FA ( Vitamins) 28-0.8 MG [...] date: 01/13/2013 Quit date: 10/19/2022 Years since quittin.3 Smokeless tobacco: Not on file Substance Use [...] nursing note reviewed. Exam conducted with a nuclear power reactor operator present. Vitals: Estimated body mass index is 36.65 kg/m as calculated from the following: Height as of 08/11/23: 5' 7 . Weight as of this encounter: 234 lb. BP: 124/74 Patient's last menstrual period was 07/02/2024. ASSESSMENT & PLAN ICD-10-CM 1. Third trimester Z34.93 POCT urinalysis dipstick manually resulted 2. 31 weeks gestation of Z3A.31 Return OB: Patient presents today for a routine obstetrics appointment. Patient is currently 31w6d . Patient states she is doing well but has complaints of being tired due to current and constipation. Patient has tried different juices and stool softeners and still no bowel movement. Pt is having abdominal cramping due to constipation. Pt was advised to try Miralax and continue the stool softeners to help move the bowels. Patient has verbalizes frequent movement. labor precautions was discussed/given and patient was instructed to perform kick counts three times a day. Orders Placed This Encounter Procedures POCT urinalysis dipstick manually resulted -*- Reviewed patients FSBS with her and she no longer needs to check her sugars as they have been well controlled for the past weeks. Patient is going to continue with diet modifications to help decrease sugar levels as her 1 hour gtt was slightly elevated at 133. Patient to return to clinic in 2 weeks. Follow Up: Patient is to return to office in 2 week for routine OB appointment. Documented by Rohini Eric LPN on behalf of: Dr. Madiha Hairston DO documented in this encounter [facility] 02-19-2025 History of Presen t illness Narrative Reason for Appointment: Patient ID: Jesica Doshi is a 29 y.o. female who presents for Routine Visit Patient presents today for Return OB appointment. MEDICATIONS Current Outpatient Medications Medication Instructions Alcohol Swabs (Alcohol Prep Pad) 70 % pads 1 Pad, Topical, Daily, Use four times daily to check FSBS. azithromycin (Zithromax Z-Twin) 250 MG tablet As directed Blood Glucose Monitoring Suppl ([employer] Glucometer) w/Device kit 1 kit, Does not apply, Daily, Use four times daily to check FSBS. In the morning prior to breakfast & 1 hour after each meal for a total of 4times daily. Glucose Blood (Blood Glucose Test) strip 1 strip, In Vitro, Daily, Use in the morning prior to breakfast, 1 hour after each meal for a total of 4times daily. Lancets Ultra Thin misc 1 each, In Vitro, Daily, Use to check FSBS four times daily Vit-Fe Fumarate-FA ( Vitamins) 28-0.8 MG [...] date: 01/13/2013 Quit date: 10/19/2022 Years since quittin.3 Smokeless tobacco: Not on file Substance Use [...] nursing note reviewed. Exam conducted with a nuclear power reactor operator present. Vitals: Estimated body mass index is 36.88 kg/m as calculated from the following: Height as of 08/11/23: 5' 7 . Weight as of this encounter: 235 lb 8 oz. BP: 130/70 Patient's last menstrual period was 07/02/2024. ASSESSMENT & PLAN ICD-10-CM 1. Third trimester Z34.93 POCT urinalysis dipstick manually resulted 2. 29 weeks gestation of Z3A.29 Return OB: Patient presents today for a routine obstetrics appointment. Patient is currently 29w6d . Patient states she is doing well but has complaints of being tired due to current . Patient has verbalizes frequent movement. labor precautions was discussed/given and patient was instructed to perform kick counts three times a day. Orders Placed This Encounter Procedures POCT urinalysis dipstick manually resulted Follow Up: Patient is to return to office in 2 week for routine OB appointment. Continue to monitor glucose and diet control. Reviewed glucose log today and managing well. If continued glucose remain stable will begin NST and BPP at 36 weeks. Documented by Kadie Phillip NP on behalf of: Madiha Hairston DO documented in this encounter [facility] 01-04-2025 History of Presen t illness Narrative [...] nursing note reviewed. Exam conducted with a nuclear power reactor operator present. Vitals: Estimated body mass index is [...] Madiha Hairston DO documented in this encounter [facility] 12-11-2024 Telephone encounter Note Work note written and faxed to employer. [facility] 12-11-2024 Miscellaneous Notes Work note written and [...] her employer. Patient request a call back. 12/11/24 0943 Called patient and informed her that nursing spoke with Sugey HUNTER and she is able to obtain a work note excusing her for today. Hillary, Could you please fax a work note Attn: Do @ [phone]? Thank you, Rohini Ritter LPN documented in this encounter [facility] 12-11-2024 Telephone encounter Note 12/11/24 @ 0906 [...] her employer. Patient request a call back. 12/11/24 0943 Called patient and informed her that nursing spoke with Sugey HUNTER and she is able to obtain a work note excusing her for today. Hillary, Could you please fax a work note Attn: Do @ [phone]? Thank you, Rohini Ritter LPN [facility] 12-07-2024 History of Presen t illness Narrative [...] of: ABY Erickson documented in this encounter [facility] 11-09-2024 History of Presen t illness Narrative [...] nursing note reviewed. Exam conducted with a nuclear power reactor operator present. Vitals: Estimated body mass index is [...] Madiha Hairston DO documented in this encounter [facility] 10-10-2024 History of Presen t illness Narrative [...] nursing note reviewed. Exam conducted with a nuclear power reactor operator present. Vitals: Estimated body mass index is [...] or undercooked meat, and stay away from [facility]. Patient has been consulted regarding any further [...] Madiha Hairston DO documented in this encounter [facility] 09-07-2024 History of Presen t illness Narrative [...] or undercooked meat, and stay away from [facility]. Patient has also been advised to not change litter boxes and eat 6 small meals a day. Patient has been consulted regarding the do's and don'ts of . Patient was given labs and all questions and concerns were answered. Script was sent for Zofran, and Foster labs given to patient. Follow Up: Patient is to return in 4 weeks for routine OB appointment. Follow Up: Patient is to have labs drawn at directed and return to office for initial OB appointment with provider. Patient may call office as needed with any concerns or questions. Nurse Visit Completed by: Milvia Chirinos LPN documented in this encounter [facility] 06-22-2024 Note Patient Education Obstetrics and Gynecology [...] ? Know how (more content not included)... [facility] Evaluation note Diagnosis 6 weeks [...] diabetes mellitus [facility] Diagnosis Third trimester state, incidental 29 weeks gestation of [facility]* Diagnosis Third trimester state, incidental 31 weeks gestation of [facility] Diagnosis Third trimester state, incidental 33 weeks gestation of Oral lesion Other and unspecified diseases of the oral soft tissues documented in this encounter [facility] Summary Purpose Family History No Family History Records FoundNo Family History Records FoundNo Family History Records FoundNo Family History Records Found Advance Directives No Advanced Directives Records FoundNo Advanced Directives Records FoundNo Advanced Directives Records FoundNo Advanced Directives Records Found Additional Source Comments INFORMATION SOURCE (unrecogn ized section and content) DATE CREATED AUTHOR 03/15/2023 [facility] DATE CREATED AUTHOR AUTHOR'S ORGANIZ ATION 06/24/2024 Domenic Anguiano [facility] DATE CREATED AUTHOR AUTHOR'S ORGANIZ ATION 03/09/2025 [facility] DATE CREATED AUTHOR AUTHOR'S ORGANIZ ATION 03/22/2025 [facility] Special[facility] EPIC Reason for Visit (unrecogniz ed section and content) Reason Comments Amenorrhea Reason Comments Well Women Visit Reason Comments Routine Visit Care Teams (unrecognized sec tion and content) Bag Grader Relationship Specialty Start Date End Date Michael Anderson MD [address] [place] [address] PCP - General Family Medicine 09/07/24 Bag Grader Relationship Specialty Start Date End Date Michael Anderson MD [address] [place], [place] [id number] PCP - General Family Medicine 09/07/24 Bag Grader Relationship Specialty Start Date End Date Michael Anderson MD [address] [place], [place] [id number] PCP - General Family Medicine 09/07/24 Bag Grader Relationship Specialty Start Date End Date Michael Anderson MD [address] [id number] PCP - General Family Medicine 09/07/24 Bag Grader Relationship Specialty Start Date End Date Michael Anderson MD [address] [id number] PCP - General Family Medicine 09/07/24 Bag Grader Relationship Specialty Start Date End Date Michael Anderson MD [address] [place] [address] [place] [address] PCP - General Family Medicine 09/07/24 Bag Grader Relationship Specialty Start Date End Date Michael Anderson MD [address] [place] [address] PCP - General Family Medicine 09/07/24 Bag Grader Relationship Specialty Start Date End Date Michael Anderson MD [address] [facility] [place] [address] PCP - General Family Medicine 09/07/24 Bag Grader Relationship Specialty Start Date End Date Michael Anderson MD [address] [facility] [place] [address] PCP - General Family Medicine 09/07/24 Bag Grader Relationship Specialty Start Date End Date Michael Anderson MD [address] [facility] [place] [address] PCP - General Family Medicine 09/07/24 Bag Grader Relationship Specialty Start Date End Date Michael Anderson MD [address] [facility] [place] [address] PCP - General Family Medicine 09/07/24 Bag Grader Relationship Specialty Start Date End Date Michael Anderson MD [address] [facility] [place] [address] PCP - General Family Medicine 09/07/24 FOR [...] BE BASED ON THE PRIMARY CLINICAL RECORDS. [facility]. provides no warranty or guarantee of the accuracy or completeness of information in this document.
== END 2025-04-03 19:31 | disposition home or self-care (01) ==
LOC: LAB 19:30
PROVIDERS: PCP Family Medicine; Visit Provider Obstetrics & Gynecology
DX: Z34.93 Encounter for supervision of normal pregnancy, unspecified, third trimester (principal); Z3A.36 36 weeks gestation of pregnancy
CPT/HCPCS: 87081

== ENCOUNTER 2025-04-18 15:57 | Observation (INO) | payer MEDICAID, SELFPAY ==
--- OUTSIDE RECORDS SUMMARY | 2018-12-30 12:14 | XMS_ITS | Continuity of Care Document ---
Author Organization [facility] Address [address] [place] [address] Phone Care Team Providers Care Electronic Gaming Device Supervisor Name Role Phone Naif Perdomo Unavailable Unavailable [...] Diagnoses Date Provider Providers Copied on Encounter [facility], [address] [place], [place], [id number], [place] tel:[phone] [facility] No Information Chary Castellano. [address] [place] [address], [id number], [place]. tel:[phone] [facility], [address] [place] [address], [id number], [place] tel:[phone] [facility] Encounter for screening for respiratory tuberculosis Chary Castellano. [address] [place], [place], [id number], [place]. tel:[phone] [facility], [address] [place], [place], [id number], [place] tel:[phone] Dental Clinic No Information [place] DMD Dannielle. [address] [place], [place], [id number], [place]. tel:[phone] [facility], [address] [place] [address], [id number], [place] tel:[phone] Dental Clinic Dental examination [place] DMD Dannielle. [address] [place], [place], [id number], [place]. tel:[phone] [facility], [address] [place] [address], [id number], [place] tel:[phone] [facility] Dental examination [place] DMD Dannielle. [address] [place], [place], [id number], [place]. tel:[phone] [facility], [address] [place] [address], [id number], [place] tel:[phone] Dental Clinic Dental examination [place] DMD Dannielle. [address] [place], [place], [id number], [place]. tel:[phone] Family History Family Member Type Diagnosis Age At Onset No Information Payers Payer name Insurance type Covered democrat ID Authoriza tion(s) [place] Adv [facility] 190 [id number] Social History Type Description Quantity Date Captured [...]
--- OUTSIDE RECORDS SUMMARY | 2024-11-27 07:30 | XMS_ITS ---
Author Organization [facility] Address [address] [place] [address] Care Team Providers Care Electrical Drafter Name Role Phone Pamela Avila Unavailable [phone] REASON FOR VISIT [facility] ER LEFT FINGER FX Encounters Encounter Location Date Provider Diagnosis [facility] Office [address] [place] [address] [place] [address] 11/27/2024 Pamela Avila Closed nondisplaced fracture of [...] * LUKE OJEDA KDOB:1994 (29 yo F)Acc No.[id number]:11/27/2024 Patient: Ellis SAAVEDRA LUKE Sandoval Provider: ABY Farrar :1995 A ge:29 Y S ex:Female Date:11/27/2024 Address:[address], [place], [place] Subjective: * Chief Complaints: * T ER LEFT FINGER FX * HPI: G eneral Follow Up Information: Patient is a 29-year-old female that presents to the office with complaints of left fifth finger pain after she hit it with a frying talavera approximately 3 weeks ago. She had presented to the [facility] ER last week where x-rays were positive [...] digit were reviewed from the [facility] from 11/21/2024 with a fracture of the base of the fifth distal phalanx noted. No dislocation. Assessment: * Assessment: 1. C losed nondisplaced fracture of distal phalanx of right little finger, initial encounter - S62.481X (Primary) Plan: * Treatment: * Procedure Codes: * Follow Up: 6 Weeks Forms: * Images: * Sign off status: Completed true * Provider: ABY Farrar Date: 0 11/27/2024 Generated for Delroy garcia/Sourav/Edwin on: 0 04/18/2025 02:18 PM EDT History and Physical Notes * HPI (History of Present Illness) Category Sub-Category Detail Notes Category Not es General Follow Up Information Patient is a 29-year -old female that presents to the office with complaints of left fifth finger pain after she hit it with a frying talavera approximately 3 weeks ago. She had presented to the [facility] ER last week where x-rays were positive [...] digit were reviewed from the [facility] from 11/21/2024 with a fracture of the base of the fifth distal phalanx noted. No dislocation.
--- OUTSIDE RECORDS SUMMARY | 2024-12-18 10:45 | XMS_ITS ---
Author Organization [facility] es Address [address] [place] [address] Care Team Providers Care Clutch Operator Name Role Phone Dr. Carlos Abrams Primary Care Provider [phone] Deng Maria A Molina Unavailable [phone] Karlene Duran Unavailable [phone] REASON FOR VISIT 6 MONTH PROPHY +BW Encounters Encounter Location Date Provider Diagnosis [facility] [address] [place] [address] 12/18/2024 Karlene Duran Plan Of Treatment Next Appt Details Provider Name:Maria A lyle, 05/11/2025 09:30:00 AM, [address] [place], [address], Progress Notes * LUKE OJEDA KDOB:1994 (29 yo F)Acc No.[id number]:12/18/2024 Patient: Ellis SAAVEDRA LUKE Sandoval Provider: Luiza Luque :1995 A ge:29 Y S ex:Female Date:12/18/2024 Address:[address] [id number] Pcp:Dr. Carlos Abrams Subjective: * Chief Complaints: * 1 . 6 MONTH PROPHY +BW. * Medical History: Objective: * Vitals: Assessment: Plan: * Treatment: * Images: * Electronic signature of Deana Duran on 04/18/2025 at 02:18 PM EDT Sign off status: Pending * Provider: Luiza Luque Date: 0 12/18/2024 Generated for Delroy Bonilla/Edwin on: 0 04/18/2025 02:18 PM EDT
--- OUTSIDE RECORDS SUMMARY | 2025-01-08 05:50 | XMS_ITS ---
Author Organization [facility] Address [address] [place] [address] Care Team Providers Care Replacer Name Role Phone Jay Gomez Unavailable [phone] REASON FOR VISIT LEFT 5TH PROX PHALANX FX Encounters Encounter Location Date Provider Diagnosis [facility] Office [address] [facility] [address] [place] [address] 01/08/2025 Jay Gomez Closed nondisplaced fracture of distal phalanx of right little finger, initial encounter S62.666A Assessments Encounter Date Diagnosis (ICD Code) Assessment Notes Treatment Notes Treatment Clinical Notes Section Notes 01/08/2025 Closed nondisplaced fracture of distal phalanx of right little finger, initial encounter (ICD-10 - S62.666A) 01/08/2025 Other Patient is doing well. She understands that it the fracture at this point likely is not healed completely. We have discussed obtaining an x-ray versus treating this as typically would be the case with removing the splint during the day and wearing it just for nighttime for the next 2 weeks and then discontinuing the splint altogether. She prefers not to obtain an x-ray. She will follow-up here if she has concerns. Import medication Plan Of Treatment Treatment Notes Assessment Notes Other Patient is doing well. She understands that it the fracture at this point likely is not healed completely. We have discussed obtaining an x-ray versus treating this as typically would be the case with removing the splint during the day and wearing it just for nighttime for the next 2 weeks and then discontinuing the splint altogether. She prefers not to obtain an x-ray. She will follow-up here if she has concerns. Import medication Next Appt Details Follow Up: prn, Reason: Progress Notes * LUKE OJEDA KDOB:1994 (29 yo F)Acc No.[id number]:01/08/2025 Patient: LUKE GLYNN Provider: Ellis Gomez MD :1995 A ge:29 Y S ex:Female Date:01/08/2025 Address:[address] [place], [place] [address], [place] [address] Subjective: * Chief Complaints: * L EFT 5TH PROX PHALANX FX * HPI: G eneral Follow Up Information: Patient presents today for follow-up of her small finger distal phalanx fracture doing well. * Medical History: * Surgical History: N o Surgical History documented. * Family History: N o Family History documented.. * Medications: N one * Allergies: n o[Allergies Verified] Objective: * Vitals: * Examination: G eneral examination: S plint today was removed. Finger is held in a fully extended position. She has full flexion. Very minimal swelling. X -ray Imaging Studies: S he has elected not to have x-rays due to her . Assessment: * Assessment: 1. C losed nondisplaced fracture of distal phalanx of right little finger, initial encounter - S62.666A (Primary) Plan: * Treatment: * Procedure Codes: * Follow Up: p rn Forms: * Images: * Sign off status: Completed true * Provider: Ellis Gomez MD Date: 01/08/2025 Generated for Delroy garcia/Sourav/Meleitting on: 04/18/2025 04:00 PM EDT History and Physical Notes * HPI (History of Present Illness) Category Sub-Category Detail Notes Category Not es General Follow Up Information Patient presents tod ay for follow-up of her small finger distal phalanx fracture doing well. Examination Category Sub-Category Detail Notes Category Not es General examination Splint t liz was removed. Finger is held in a fully extended position. She has full flexion. Very minimal swelling. X-ray Imaging Studies She barrientos s elected not to have x-rays due to her
--- OUTSIDE RECORDS SUMMARY | 2025-01-18 05:00 | XMS_ITS ---
Author Organization [facility] Address [address] [place] [address] Care Team Providers Care Studio Producer Name Role Phone Dr. Carlos Abrams Primary Care Provider [phone] Maria A Degroot Unavailable [phone] REASON FOR VISIT FILLING Encounters Encounter Location Date Provider Diagnosis [facility] [address] [place] [address] 01/18/2025 Maria A Molina Plan Of Treatment Next Appt Details Provider Name:Maria A lyle, 05/11/2025 09:30:00 AM, [address] [facility] [place], [address], Progress Notes * LUKE OJEDA KDOB:1994 (29 yo F)Acc No.[id number]:01/18/2025 Patient: Ellis LUKE SAAVEDRA Provider: Unique Molina DDS :1995 A ge:29 Y S ex:Female Date:01/18/2025 [address] [id number] Pcp:Dr. Carlos Abrams Subjective: * Chief Complaints: * 1 . FILLING. * Medical History: Objective: * Vitals: Assessment: Plan: * Treatment: * Images: * Electronic signature of Joshua Molina DDS on 04/18/2025 at 02:18 PM EDT Sign off status: Pending * Provider: Unique Molina DDS Date: 0 01/18/2025 Generated for Delroy Abraham on: 0 04/18/2025 02:18 PM EDT
--- OUTSIDE RECORDS SUMMARY | 2025-04-10 14:30 | XMS_ITS | Encounter Summary ---
Author Organization [facility] Address [address] [place] [address] Care Team Providers Care Lav Crewman Name Role Phone Michael Anderson MD Primary Care Provider [phone] Reason for Visit * Reason Comments Routine Visit Encounter Details Date Type Department Care Team (Late st Contact Info) Description 04/10/2025 2:30 PM EDT Routine [facility] [address] [facility] [place] [address] Mak Hairston, DO [address] [facility] [address] [place] [place], [place] [id number] Third trimester ; 37 weeks gestation of [...] tablet As directed Blood Glucose Monitoring Suppl (D-[employer] Glucometer) w/Device kit 1 kit, Does not [...] nursing note reviewed. Exam conducted with a gas dispatcher present. Vitals: Estimated body mass index is [...] of documented in this encounter Care Teams Lav Crewman Relationship Specialty Start Date End Date Michael Anderson MD [address] [place] [address] PCP - General Family Medicine 09/07/24 documented as of this encounter
[2025-04-18] VITALS (11 sets, daily range): BP systolic 123–149; BP diastolic 74–89; PULSE 78–87
--- OUTSIDE RECORDS SUMMARY | 2025-04-18 14:20 | XMS_ITS | Encounter Summary ---
Author Organization [facility] Address [address] [place] [address] Care Team Providers Care Airplane Tube Builder Name Role Phone Michael Anderson MD Primary Care Provider [phone] Reason for Visit * Reason Comments Routine Visit Encounter Details Date Type Department Care Team (Late st Contact Info) Description 04/18/2025 2:20 PM EDT Routine [facility] [address] [facility] [place] [address] Mak Hairston, DO [address] [facility] [place] [address] Third trimester ; 38 weeks gestation of ; induced hypertension, antepartum; Elevated blood pressure affecting , antepartum Social History Tobacco Use Types Packs/Day Years [...] Sign Reading Time Taken Comments Blood Pressure 152/80 04/18/2025 2:35 PM EDT 140/72 second BP Pulse - - Temperature - - Respiratory Rate - - Oxygen Saturation - - Inhaled Oxygen Concentration - - Weight 116 kg (255 lb 4 oz) 04/18/2025 2:35 PM EDT Height - - Body Mass Index 39.98 08/11/2023 3:39 PM EDT documented in this encounter Progress Notes * Ramila Stone, FIRESETTER - 04/18/2025 2:20 PM EDT Reason for Appointment: Patient ID: Jesica Doshi is a 29 y.o. female who presents for Routine Visit Patient presents today for Return OB appointment. MEDICATIONS Current Outpatient Medications Medication Instructions Alcohol Swabs (Alcohol Prep Pad) 70 % pads 1 Pad, Topical, Daily, Use four times daily to check FSBS. azithromycin (Zithromax Z-Twin) 250 MG tablet As directed Blood Glucose Monitoring Suppl ([employer] Glucometer) w/Device kit 1 kit, Does not [...] nursing note reviewed. Exam conducted with a emerging solutions executive present. Vitals: Estimated body mass index is 39.98 kg/m?? as calculated from the following: Height as of 08/11/23: 5' 7 . Weight as of this encounter: 255 lb 4 oz. BP: 152/80 Patient's last menstrual period was 07/02/2024. ASSESSMENT & PLAN ICD-10-CM 1. Third trimester Z34.93 POCT urinalysis dipstick manually resulted 2. 38 weeks gestation of Z3A.38 Return OB: Patient presents today for a routine obstetrics appointment. Patient is currently 38w1d . Patient states she is doing well but has complaints of being tired due to current . Pt BP elevated in office- pt being sent to lab for PIH panel and will have NST/BPP tomorrow. Patient has verbalizes frequent movement. labor precautions was discussed/given and patient was instructed to perform kick counts three times a day. Orders Placed This Encounter Procedures US biophysical profile w non stress test Creatinine Protein, urine, 24 hour Pt and ptt CBC and differential Uric acid Lactate dehydrogenase ALT AST BUN Protein:Creatinine Ratio, Urine POCT urinalysis dipstick manually resulted Follow Up: Patient is to return to office in 1 week for routine OB appointment. Documented by Ramila Stone LPN on behalf of: Mak Hairston DO documented in this encounter Plan of Treatment Scheduled Orders Name Type Priority Associated Diagnoses Orde r Schedule Creatinine Lab Routine induced hypertension, antepartum Expected: 04/18/2025 (Approximate), Expires: 04/18/2026 Protein, urine, 24 hour Lab Routine induced hypertension, antepartum Expected: 04/18/2025 (Approximate), Expires: 04/18/2026 Pt and ptt Lab Routine induced hypertension, antepartum Expected: 04/18/2025, Expires: 04/18/2026 CBC and differential Lab Routine induced hypertension, antepartum Expected: 04/18/2025 (Approximate), Expires: 04/18/2026 Uric acid Lab Routine induced hypertension, antepartum Expected: 04/18/2025 (Approximate), Expires: 04/18/2026 Lactate dehydrogenase Lab Routine induced hypertension, antepartum Expected: 04/18/2025, Expires: 04/18/2026 ALT Lab Routine induced hypertension, antepartum Expected: 04/18/2025 (Approximate), Expires: 04/18/2026 AST Lab Routine induced hypertension, antepartum Expected: 04/18/2025 (Approximate), Expires: 04/18/2026 BUN Lab Routine induced hypertension, antepartum Expected: 04/18/2025, Expires: 04/18/2026 Protein:Creatinine Ratio, Urine Lab Routine induced hypertension, antepartum Elevated blood pressure affecting , antepartum Ordered: 04/18/2025 US biophysical profile w non stress test Imaging Routine induced hypertension, antepartum Elevated blood pressure affecting , antepartum Expected: 04/18/2025 (Approximate), Expires: 10/18/2025 documented as of this encounter Procedures Procedure Name Priority Date/Time Associated Diagnosis Comments POCT URINALYSIS DIPSTICK Routine 04/18/2025 2:40 PM EDT Third trimester documented in this encounter Results * (ABNORMAL) POCT urinalysis dipstick manually resulted (04/18/2025 2:40 PM EDT) Color, UA Yellow Clarity, UA Clear Glucose, UA Negative Negative - 2000(110) ++++ mg/dL Bilirubin, UA Negative Negative - 4(70) +++ mg/dL Ketones, UA Negative Negative - 160(16) ++++ mg/dL Spec Grav, UA 1.020 1 - 1.03 Blood, UA Negative Negative - 50 Neil/mcL pH, UA 7.0 5 - 9 Protein, UA Positive Negative - 2000(20) ++++ mg/dL Comment:30mg/dL Urobilinogen, UA 0.2 0.2 - 12 mg/dL Leukocytes, UA Trace Negative - 500+++ Chanel/mcL Nitrite, UA Negative Negative - Positive Urine 04/18/2025 2:40 PM EDT Mak Hairston DO POINT OF CARE TEST ENTER/EDIT OR DERABLES Final Result documented in this encounter Visit Diagnoses Diagnosis Third trimester state, incidental 38 weeks gestation of induced hypertension, antepartum Transient hypertension of , antepartum Elevated blood pressure affecting , antepartum documented in this encounter Care Teams Airplane Tube Builder Relationship Specialty Start Date End Date Michael Anderson MD [address] [place] [address] PCP - General Family Medicine 09/07/24 documented as of this encounter
--- OUTSIDE RECORDS SUMMARY | 2025-04-18 16:01 | XMS_ITS | Encounter Summary ---
Author Organization [facility] [employer] [facility] tem Address [id number] [address] [place] [address] Care Team Providers Care Wood Science Professor Name Role Phone Unavailable Primary Care Provider Unavailabl e Encounter Details Date Type Department Care Team (Late st Contact Info) Description 02/02/2025 Orders Only Maternal- Medicine at [facility] [address] [place] [id number] Ref Prov, [place] [address] Social History Tobacco Use Types Packs/Day Years Used Date Smoking Tobacco: Former Cigarettes Smokeless Tobacco: Never Childcare Answer Date Recorded Childcare Unknown 04/26/2019 Employment Answer Date Recorded Employment Unknown 04/26/2019 Estimated Date of Delivery Comme nts Yes 05/01/2025 Based on Ultraso und Sex and Gender Information Value Date Recorded Sex Assigned at Not on file Legal Sex Female 11:51 AM EDT Gender Identity Not on file Sexual Orientation Not on file documented as of this encounter Plan of Treatment Not on file documented as of this encounter Procedures Procedure Name Priority Date/Time Associated Diagnosis Comments UNLISTED GENETIC TEST Routine 02/02/2025 9:10 AM EDT US PREG LMTD 1 OR MORE FETUS Routine 02/02/2025 9:03 AM EDT US PREG LMTD 1 OR MORE FETUS Routine 02/02/2025 9:02 AM EDT US PREG LMTD 1 OR MORE FETUS Routine 02/02/2025 9:00 AM EDT documented in this encounter Results * Unlisted Genetic Test (02/02/2025 9:10 AM EDT) us Not In System Ref Prov LAB BLOOD ORDERABLES Tri l Result MANUALLY TRANSCRIBED RESULTS * Ultrasound limited 1 or more fetus (02/02/2025 9:03 AM EDT) Anatomical Region Laterality Modality OB-KEY FILER Ultrasound us Not In System Ref Prov IMG US ORDERABLES Final R esult * Ultrasound limited 1 or more fetus (02/02/2025 9:02 AM EDT) Anatomical Region Laterality Modality OB-KEY FILER Ultrasound us Not In System Ref Prov IMG US ORDERABLES Final R esult * Ultrasound limited 1 or more fetus (02/02/2025 9:00 AM EDT) Anatomical Region Laterality Modality OB-KEY FILER Ultrasound us Not In System Ref Prov IMG US ORDERABLES Final R esult documented in this encounter Visit Diagnoses Not on filedocumented in this encounter
--- OUTSIDE RECORDS SUMMARY | 2025-04-18 16:01 | XMS_ITS | Encounter Summary ---
Author Organization [facility] Address [address] [facility] [place] [address] Care Team Providers Care Director Equipment Name Role Phone Michael Anderson MD Primary Care Provider [phone] Encounter Details Date Type Department Care Team (Late st Contact Info) Description 11/22/2024 Orders Only [facility] [address] [place] [address] Katherine Dia LPN [address] [place] [address] Social History Tobacco Use Types Packs/Day Years [...] Procedure Name Priority Date/Time Associated Diagnosis Comments PAP SMEAR Routine 11/09/2024 12:00 AM EST documented in this encounter Results * Pap Smear (11/09/2024 12:00 AM EST) Swab Cervical swab / Unknown us Mak Marika DO LAB CYTOLOGY ORDERABLES Final Re sult EXTERNAL LAB documented in this encounter Visit Diagnoses Not on filedocumented in this encounter Care Teams Director Equipment Relationship Specialty Start Date End Date Michael Anderson MD [address] [place] [address] PCP - General Family Medicine 09/07/24 documented as of this encounter
--- OUTSIDE RECORDS SUMMARY | 2025-04-18 16:01 | XMS_ITS | Encounter Summary ---
Author Organization [facility] Address [address] [place] [address] Care Team Providers Care Deputy Clerk Of Court Name Role Phone Michael Anderson MD Primary Care Provider [phone] Encounter Details Date Type Department Care Team (Late st Contact Info) Description 09/07/2024 Abstract [facility] [address] [place] [address] Mak Hairston DO [address] Anand Smith, [facility]11 Social History Tobacco Use Types Packs/Day Years [...] on file documented as of this encounter Visit Diagnoses Not on filedocumented in this encounter Care Teams Deputy Clerk Of Court Relationship Specialty Start Date End Date Michael Anderson MD [address] [place] [address] PCP - General Family Medicine 09/07/24 documented as of this encounter
--- OUTSIDE RECORDS SUMMARY | 2025-04-18 16:01 | XMS_ITS | Clinical Summary ---
Author Organization [employer] [facility] tem Address [id number] [address] [place] [address] Care Team Providers Care Contact Lens Molder Name Role Phone Unavailable Primary Care Provider Unavailabl e Allergies No known active allergies Medications FQU141-xlecedp fumarate-FA 28-800 mg-mcg tablet Take 1 tablet by mouth in the morning. Active ondansetron ODT (ZOFRAN ODT) 4 mg disintegrating tablet Dissolve 1 tablet (4 mg total) on tongue every 8 (eight) hours as needed for nausea or vomiting. Active Encounters Date Type Department Care Team Description 03/08/2025 Travel 02/08/2025 Travel 02/02/2025 Orders Only Maternal- Medicine at [facility] [address] [place] [address] Ref Prov, Not In System 02/02/2025 Abstract Maternal- Medicine at [facility] [address] [place] [address] External, Scanning Provider from Last 3 Months Family History Medical History Relation Name Comments rh neg Mother Relation Name Status Comments Mother Social History Tobacco Use Types Packs/Day Years Used Date Smoking Tobacco: Former Cigarettes Smokeless Tobacco: Never Tobacco Cessation:Counseling Given: Not Answered Childcare Answer Date Recorded Childcare Unknown 04/26/2019 Employment Answer Date Recorded Employment Unknown 04/26/2019 Estimated Date of Delivery Comme nts Yes 05/01/2025 Based on Ultraso und Sex and Gender Information Value Date Recorded Sex Assigned at Not on file Legal Sex Female 11:51 AM EDT Gender Identity Not on file Sexual Orientation Not on file Plan of Treatment Health Maintenance Due Date Last Done Comments Depression Screening 2008 Tobacco Screening 2008 Adult BMI Screening 2014 DTaP,Tdap and Td Vaccines (2 - Tdap) 05/10/201507/17 Pap Smear 2017 Influenza Vaccine 07/16/2025 Medical Devices Not on file Procedures Procedure Name Priority Date/Time Associated Diagnosis Comments US MFM OB FOLLOW-UP, 1 FETUS Routine 03/08/2025 11:53 AM EDT Encounter for follow-up ultrasound of anatomy US MFM COMPREHENSIVE ANATOMIC SURVEY Routine 02/08/2025 11:33 AM EDT Screening, , for anatomic survey UNLISTED GENETIC TEST Routine 02/02/2025 9:10 AM EDT US PREG LMTD 1 OR MORE FETUS Routine 02/02/2025 9:03 AM EDT US PREG LMTD 1 OR MORE FETUS Routine 02/02/2025 9:02 AM EDT US PREG LMTD 1 OR MORE FETUS Routine 02/02/2025 9:00 AM EDT from Last 3 Months Results * US MFM OB FOLLOW-UP, 1 FETUS (03/08/2025 11:53 AM EDT) Only the most recent of2 resultswithin the time period is included. Anatomical Region Laterality Modality OB-JIGGER MACHINE OPERATOR Ultrasound 03/08/2025 11:0 5 AM EDT Narrative 03/08/2025 2:02 PM EDT NAME: RUSTY BUTLER : 1995 SEX: F Accession Number: [id number] ORDERING PHYSICIAN: YOBANY REYES REFERRING PHYSICIAN: MADIHA BURRELL Coding ----- --------- Procedures 57773: Follow-up Ultrasound, per fetus Indication ----- --------- Screening for follow-up survey , Obesity in History ----- --------- OB History 2. Para 1 Children born living ?37w 1 T1L1 Maternal Assessment ----- --------- Physical Exam Height 170 cm, 5 ft 7 in. Weight 105 kg, 232 lb. BMI 36.34 kg/m Method ----- --------- Transabdominal ultrasound examination. View: Suboptimal view: limited by late gestational age ----- --------- Adams . Number of fetuses: 1 Dating ----- --------- Previous Ultrasound on: 09/07/2024 Type of prior assessment: GA GA at prior assessment date 6 w + 2 d GA by previous U/S 32 w + 2 d LAN by previous Ultrasound: 05/01/2025 Ultrasound examination on: 03/08/2025 GA by U/S based upon: AC, BPD, Femur, HC GA by U/S 34 w + 3 d LAN by U/S: 04/16/2025 Assigned: based on ultrasound (GA), selected on 02/08/2025 Assigned GA 32 w + 2 d Assigned LAN: 05/01/2025 General Evaluation ----- --------- Cardiac activity Present. FHR 123 bpm. Presentation: cephalic Placenta: Placental site: posterior, away from cervical os Umbilical cord: Cord vessels: 3 vessel cord Amniotic fluid: Amount of AF: normal amount. MVP 3.9 cm Biometry ----- --------- Standard BPD 87.4 mm 35w 2d 98% Hadlock OFD 110.5 mm 36w 5d >99% Toni HC 315.2 mm 35w 3d 89% Hadlock AC 309.2 mm 34w 6d 98% Hadlock Femur 61.4 mm 31w 6d 26% Hadlock Humerus 53.4 mm 31w 1d 22% Toni HC / AC 1.02 EFW 2,359 g 90% Hadlock EFW (lb) 5 lb EFW (oz) 3 oz EFW by: Hadlock ([id number]) Extended Tibia 52.6 mm 31w 1d 28% Toni Press Tender 2.9 mm Head / Face / Neck Cephalic index 0.79 42% Nicolaides Nasal bone: present Extremities / Bony Struc FL / BPD 0.70 FL / HC 0.19 FL / AC 0.20 Other Structures FHR 123 bpm Anatomy ----- --------- The following structures appear normal: Head/Neck: Cranium. Lateral ventricles. Cavum septi pellucidi. Parenchyma. Face: Nasal bone. Heart/Thorax: 4-chamber view. Situs. Cardiac position. Cardiac axis. Cardiac size. Cardiac rhythm. Diaphragm. Abdomen: Stomach. Kidneys. Bladder. Small bowel. Large bowel. Extremities/Skeleton: Right hand. Left foot. Skeleton The following structures could not be examined: Head / Neck Choroid plexus. Neck. Abdomen Abdom. wall. Cord insertion. The following structures were documented previously: Head / Neck Midline falx. Cerebellum. Cisterna magna. Vermis. Face Lips. Profile. Nose. Maxilla. Mandible. Orbits. Heart / Thorax RVOT view. LVOT view. 3-vessel view. 6-ngkrpy-qvstaon view. Aortic arch view. Bicaval view. Ductal arch view. Interventricular septum. Great vessels. Right lung. Left lung. Abdomen Right renal artery. Left renal artery. Genitals. Spine: Cervical spine. Thoracic spine. Lumbar spine. Sacral spine. Extremities / Right upper arm. Right forearm. Left upper arm. Left forearm. Left hand. Right upper leg. Right lower leg. Right foot. Left upper leg. Left lower leg. Maternal Structures ----- --------- Uterus Visualized Cervix Visualized Approach - Transabdominal Right Ovary Not visualized Left Ovary Not visualized Cul de Sac Visualized Impression ----- --------- Single viable intrauterine with macrosomic growth pattern. EFW measures at the 90%. AC measures at the 98%. Amniotic fluid MVP measures 3.9 cm. Recommendations ----- --------- Macrosomic growth pattern on ultrasound today, please correlate with clinical findings and diabetes screen. Subsequent follow up or other follow up as clinically determined by primary OB provider unless otherwise specified by M. Results forwarded to ordering provider so they can follow up with the patient as necessary. Procedure Note Emilee Nelson MD - 03/08/2025 NAME: RUSTY BUTLER : 1995 SEX: F Accession Number: [id number] ORDERING PHYSICIAN: YOBANY REYES REFERRING PHYSICIAN: MADIHA BURRELL Coding ----- --------- Procedures 48133: Follow-up Ultrasound, per fetus Indication ----- --------- Screening for follow-up survey , Obesity in History ----- --------- OB History 2. Para 1 Children born living ?37w 1 T1L1 Maternal Assessment ----- --------- Physical Exam Height 170 cm, 5 ft 7 in. Weight 105 kg, 232 lb. BMI 36.34kg/m Method ----- --------- Transabdominal ultrasound examination. View: Suboptimal view: limited bylate gestational age ----- --------- Adams . Number of fetuses: 1 Dating ----- --------- Previous Ultrasound on: 09/07/2024 Type of prior assessment: GA GA at prior assessment date 6 w + 2 d GA by previous U/S 32 w + 2 d LAN by previous Ultrasound: 05/01/2025 Ultrasound examination on: 03/08/2025 GA by U/S based upon: AC, BPD, Femur, HC GA by U/S 34 w + 3 d LAN by U/S: 04/16/2025 Assigned: based on ultrasound (GA), selected on 02/08/2025 Assigned GA 32 w + 2 d Assigned LAN: 05/01/2025 General Evaluation ----- --------- Cardiac activity Present. FHR 123 bpm. Presentation: cephalic Placenta: Placental site: posterior, away from cervical os Umbilical cord: Cord vessels: 3 vessel cord Amniotic fluid: Amount of AF: normal amount. MVP 3.9 cm Biometry ----- --------- Standard BPD 87.4 mm 35w 2d 98% Hadlock OFD 110.5 mm 36w 5d >99% Toni HC 315.2 mm 35w 3d 89% Hadlock AC 309.2 mm 34w 6d 98% Hadlock Femur 61.4 mm 31w 6d 26% Hadlock Humerus 53.4 mm 31w 1d 22% Toni HC / AC 1.02 EFW 2,359 g 90% Hadlock EFW (lb) 5 lb EFW (oz) 3 oz EFW by: Hadlock ([id number]) Extended Tibia 52.6 mm 31w 1d 28% Toni Press Tender 2.9 mm Head / Face / Neck Cephalic index 0.79 42% Nicolaides Nasal bone: present Extremities / Bony Struc FL / BPD 0.70 FL / HC 0.19 FL / AC 0.20 Other Structures FHR 123 bpm Anatomy ----- --------- The following structures appear normal: Head/Neck: Cranium. Lateral ventricles. Cavum septi pellucidi.Parenchyma. Face: Nasal bone. Heart/Thorax: 4-chamber view. Situs. Cardiac position. Cardiac axis.Cardiac size. Cardiac rhythm. Diaphragm. Abdomen: Stomach. Kidneys. Bladder. Small bowel. Large bowel. Extremities/Skeleton: Right hand. Left foot. Skeleton The following structures could not be examined: Head / Neck Choroid plexus. Neck. Abdomen Abdom. wall. Cord insertion. The following structures were documented previously: Head / Neck Midline falx. Cerebellum. Cisterna magna. Vermis. Face Lips. Profile. Nose. Maxilla. Mandible. Orbits. Heart / Thorax RVOT view. LVOT view. 3-vessel view. 1-kbmacv-fpfwezh view.Aortic arch view. Bicaval view. Ductal arch view. Interventricular septum. Great vessels. Right lung. Left lung. Abdomen Right renal artery. Left renal artery. Genitals. Spine: Cervical spine. Thoracic spine. Lumbar spine. Sacral spine. Extremities / Right upper arm. Right forearm. Left upper arm. Leftforearm. Left hand. Right upper leg. Right lower leg. Right foot. Left upper leg. Left lower leg. Maternal Structures ----- --------- Uterus Visualized Cervix Visualized Approach - Transabdominal Right Ovary Not visualized Left Ovary Not visualized Cul de Sac Visualized Impression ----- --------- Single viable intrauterine with macrosomic growth pattern. EFWmeasures at the 90%. AC measures at the 98%. Amniotic fluid MVP measures 3.9 cm. Recommendations ----- --------- Macrosomic growth pattern on ultrasound today, please correlate withclinical findings and diabetes screen. Subsequent follow up or other follow up as clinically determined byprimary OB provider unless otherwise specified by [facility]. Results forwarded to ordering provider so they can follow up with thepatient as necessary. us Yobany Reyes MD G US ORDERABLES Final Re sult * Unlisted Genetic Test (02/02/2025 9:10 AM EDT) us Not In System Ref Prov LAB BLOOD ORDERABLES Tri coleman Result MANUALLY TRANSCRIBED RESULTS * Ultrasound limited 1 or more fetus (02/02/2025 9:03 AM EDT) Only the most recent of3 resultswithin the time period is included. Anatomical Region Laterality Modality OB-JIGGER MACHINE OPERATOR Ultrasound us Not In System Ref Prov IMG US ORDERABLES Final R esult from Last 3 Months Insurance [employer]
--- OUTSIDE RECORDS SUMMARY | 2025-04-18 16:01 | XMS_ITS | Encounter Summary ---
Author Organization [facility] Address [address] [place] [address] Care Team Providers Care Car Pincher Name Role Phone Michael Anderson MD Primary Care Provider [phone] Encounter Details Date Type Department Care Team (Late st Contact Info) Description 09/07/2024 Abstract [facility] B[facility] OB [address] [place] [address] Mak Hairston DO [address] Anand Smith, [facility]11 Social History Tobacco Use Types Packs/Day [...] on filedocumented in this encounter Care Teams Car Pincher Relationship Specialty Start Date End Date Michael Anderson MD [address] [place] [address] PCP - General Family Medicine 09/07/24 documented as of this encounter
--- OUTSIDE RECORDS SUMMARY | 2025-04-18 16:01 | XMS_ITS | Encounter Summary ---
Author Organization [facility] Address [address] [place] [address] Care Team Providers Care Programmer Operator Numerical Control Name Role Phone Michael Anderson MD Primary Care Provider [phone] Encounter Details Date Type Department Care Team (Late st Contact Info) Description 02/08/2025 Abstract [facility] OB [address] [place] [place] [address] Mak Hairston DO [address] Anand Smith, [facility]11 Social History Tobacco Use Types Packs/Day [...] on filedocumented in this encounter Care Teams Programmer Operator Numerical Control Relationship Specialty Start Date End Date Michael Anderson MD [address] [place] [address] PCP - General Family Medicine 09/07/24 documented as of this encounter
--- OUTSIDE RECORDS SUMMARY | 2025-04-18 16:01 | XMS_ITS | Encounter Summary ---
Author Organization [facility] Address [address] [place] [address] Care Team Providers Care Office Workforce Planner Name Role Phone Michael Anderson MD Primary Care Provider [phone] Encounter Details Date Type Department Care Team (Late st Contact Info) Description 09/08/2024 Clinisync Result Encounter [facility] External Department Unsolicited Madiha Hairston, DO [address] [place] [address] Social History Tobacco Use Types [...] Name Priority Date/Time Associated Diagnosis Comments US OB TRANSVAGINAL 09/08/2024 6: 28 AM EDT documented in this encounter Results * US OB TRANSVAGINAL (09/08/2024 6:28 AM EDT) Anatomical Region Laterality Modality Other 09/08/2024 6:28 AM EDT Narrative 09/08/2024 6:31 AM EDT The [address] [address] Ultrasound Report Signed Patient: LUKE DOSHI MR#: [id number] : 1995 Acct:[id number] Age/Sex: 29 / F ADM Date: 09/07/24 Loc: [facility] Attending Dr: Madiha Hairston D.O. Ordering Physician: Madiha Hairston D.O. Date of Service: 09/07/24 Procedure(s): US OB transvaginal Accession Number(s): [id number] cc: SANGEETA FUNK ; Madiha Hairston D.O. The [place] [address] Patient Name: LUKE DOSHI MRN: [id number] date: 1995 Sex: F Assigned Patient Location: [facility] Current Patient Location: Accession/Order Number: [id number] Exam Date: 09/07/2024 12:56 Report Date: 09/08/2024 06:28 At the request of: MADIHA HAIRSTON Procedure: US OB transvaginal EXAMINATION: US OB transvaginal HISTORY: MISSED MENSES COMPARISON: No relevant comparison available. FINDINGS: GESTATIONAL SAC: Present and normal appearing. YOLK SAC: Present and normal appearing. POLE: Present and normal appearing. CARDIAC: Present. UTERUS: Normal size and appearance. OVARIES: Right: Corpus lutein cyst. Left: Not seen. CERVIX: 4.2 cm in length and closed. CUL-DE-SAC: Normal. OTHER: None. AGE BY LMP: 9 weeks 4 days LAN BY LMP: 04/08/2025 AGE BY US CRL: 6 weeks 2 days LAN BY US CRL: 05/01/2025 US/US OB transvaginal IMPRESSION: 1. Single live intrauterine . Electronically authenticated by: GHAZALA HERNANDEZ Date: 09/08/2024 06:28 Dictated By: Ghazala Hernandez M.D. Signed By: 09/08/24630 DD/ 7 TD/TT: Grinding And Spraying Supervisor: Procedure Note Radiology, Radiologist, MD - 09/08/2024 [place] [address] Ultrasound Report Signed Patient: LUKE DOSHI KMR#: [id number] : 1995Acct:[id number] Age/Sex: 29 / FADM Date: 09/07/24 Loc: [facility] Attending Dr: Madiha Hairston D.O. Ordering Physician: Madiha Hairston D.O. Date of Service: 09/07/24 Procedure(s): US OB transvaginal Accession Number(s): [id number] cc: SANGEETA FUNK ; Madiha Hairston D.O. [place] [address] Patient Name: LUKE DOSHI MRN: [id number] date: 1995 Sex: F Assigned Patient Location: [facility] Current Patient Location: Accession/Order Number: [id number] Exam Date: 09/07/2024 12:56 Report Date: 09/08/2024 06:28 At the request of: MADIHA HAIRSTON Procedure: US OB transvaginal EXAMINATION: US OB transvaginal HISTORY: MISSED MENSES COMPARISON: No relevant comparison available. FINDINGS: GESTATIONAL SAC: Present and normal appearing. YOLK SAC: Present and normal appearing. POLE: Present and normal appearing. CARDIAC: Present. UTERUS: Normal size and appearance. OVARIES: Right: Corpus lutein cyst. Left: Not seen. CERVIX: 4.2 cm in length and closed. CUL-DE-SAC: Normal. OTHER: None. AGE BY LMP: 9 weeks 4 days LAN BY LMP: 04/08/2025 AGE BY US CRL: 6 weeks 2 days LAN BY US CRL: 05/01/2025 US/US OB transvaginal IMPRESSION: 1. Single live intrauterine . Electronically authenticated by: GHAZALA HERNANDEZ Date: 09/08/2024 06:28 Dictated By: Ghazala Hernandez M.D. Signed By:09/08/24630 DD/ 7 TD/TT: Grinding And Spraying Supervisor: us Madiha Hairston DO [facility] Final Result documented in this encounter Visit Diagnoses Not on filedocumented in this encounter Care Teams Office Workforce Planner Relationship Specialty Start Date End Date Michael Anderson MD [address] [place] [id number] PCP - General Family Medicine 09/07/24 documented as of this encounter
--- OUTSIDE RECORDS SUMMARY | 2025-04-18 16:01 | XMS_ITS | Encounter Summary ---
Author Organization [facility] Address [address] [place] [address] Care Team Providers Care Horses Or Mules Teamster Name Role Phone Michael Anderson MD Primary Care Provider [phone] Encounter Details Date Type Department Care Team (Late st Contact Info) Description 04/18/2025 Bamboo flowsheet [facility] OB [address] [place] [address] Mak Hairston, DO [address] Anand Smith, [facility]11 Social History Tobacco Use Types Packs/Day [...] on filedocumented in this encounter Care Teams Horses Or Mules Teamster Relationship Specialty Start Date End Date Michael Anderson MD [address] [place] [address] PCP - General Family Medicine 09/07/24 documented as of this encounter
--- OUTSIDE RECORDS SUMMARY | 2025-04-18 16:01 | XMS_ITS | Encounter Summary ---
Author Organization [facility] Address [address] [place] [address] Care Team Providers Care Esthetician Permanent Makeup Artist Name Role Phone Michael Anderson MD Primary Care Provider [phone] Encounter Details Date Type Department Care Team (Late st Contact Info) Description 10/10/2024 Abstract [facility] BCP OB [address] [place] [address] Mak Hairston DO [address] Anand Smith, [facility]11 Social History Tobacco Use Types Packs/Day [...] on filedocumented in this encounter Care Teams Esthetician Permanent Makeup Artist Relationship Specialty Start Date End Date Michael Anderson MD [address] [place] [address] PCP - General Family Medicine 09/07/24 documented as of this encounter
--- OUTSIDE RECORDS SUMMARY | 2025-04-18 16:01 | XMS_ITS | Encounter Summary ---
Author Organization [facility] Address [address] [place] [address] Care Team Providers Care Manager Park Name Role Phone Mak Hairston DO Unavailable Michael Anderson MD Primary Care Provider [phone] Encounter Details Date Type Department Care Team (Late st Contact Info) Description 11/05/2023 Clinisync Result Encounter [facility] External Department Unsolicited Sugey Madrid PA [address] [place] [address] Dr [place] [id number] Social History Tobacco Use Types Packs/Day Years Used Date Smoking Tobacco: Former Cigarettes 0 01/13/2013 - 10/19/2022 Comments No Sex and Gender Information Value Date Recorded Sex Assigned at Not on file Legal Sex Female 6:42 PM EDT Gender Identity Not on file Sexual Orientation Not on file documented as of this encounter Plan of Treatment Not on file documented as of this encounter Procedures Procedure Name Priority Date/Time Associated Diagnosis Comments US PELVIS W/ TRANSVAGINAL 11/05/2023 1:33 PM EST documented in this encounter Results * US PELVIS W/ TRANSVAGINAL (11/05/2023 1:33 PM EST) Anatomical Region Laterality Modality Other 11/05/2023 1:33 PM EST Narrative 11/05/2023 1:36 PM EST The [address] [address] Ultrasound Report Signed Patient: LUKE DOSHI MR#: [id number] : 1995 Acct:[id number] Age/Sex: 28 / F ADM Date: 11/04/23 Loc: US Attending Dr: Sugey Madrid Ordering Physician: Sugey Madrid Date of Service: 11/04/23 Procedure(s): US pelvis w/ transvaginal Accession Number(s): [id number] cc: Sugey Madrid; SANGEETA FUNK [place] [id number] Patient Name: LUKE DOSHI MRN: [facility]:[id number] date: 1995 Sex: F Assigned Patient Location: US Current Patient Location: LAB Accession/Order Number: [id number] Exam Date: 11/04/2023 19:08 Report Date: 11/05/2023 13:33 At the request of: SUGEY MADRID Procedure: US pelvis w/ transvaginal EXAMINATION: US pelvis w/ transvaginal HISTORY: AMENORRHEA N91.2 COMPARISON: No relevant comparison available. TECHNIQUE: Transabdominal and/or transvaginal sonographic examination was performed as indicated by examination type. FINDINGS: UTERUS: Normal size and appearance. Uterus size: 7.6 x 2.8 x 3.0 cm ENDOMETRIUM: Normal homogeneous appearance. Endometrial thickness: 8 mm RIGHT OVARY: Normal size and appearance. Duplex Doppler demonstrates normal waveform and flow; resistive index 0.6. Ovary size: 2.7 x 2.0 x 2.2 cm LEFT OVARY: Normal size and appearance. Duplex Doppler demonstrates normal waveform and flow; resistive index 0.6. Ovary size: 2.2 x 1.5 x 1.8 cm CUL-DE-SAC: Unremarkable. No significant free fluid. BLADDER: Unremarkable. OTHER: None. US/US pelvis w/ transvaginal IMPRESSION: 1. Normal pelvic ultrasound. No suspicious findings to account for patient's symptoms. Electronically authenticated by: GHAZALA HERNANDEZ Date: 11/05/2023 13:33 Dictated By: Ghazala Hernandez M.D. Signed By: 11/05/23 4306 DD/ TD/TT: Project Geophysicist: Procedure Note Radiology, Radiologist, MD - 11/05/2023 The [place] [id number] Ultrasound Report Signed Patient: LUKE DOSHI KMR#: [id number] : 1995Acct:[id number] Age/Sex: 28 / FADM Date: 11/04/23 Loc: US Attending Dr: Sugey Madrid Ordering Physician: Sugey Madrid Date of Service: 11/04/23 Procedure(s): US pelvis w/ transvaginal Accession Number(s): [id number] cc: Sugey Madrid; SANGEETA FUNK [place] [id number] Patient Name: LUKE DOSHI MRN: [facility]:[id number] date: 1995 Sex: F Assigned Patient Location: US Current Patient Location: LAB Accession/Order Number: [id number] Exam Date: 11/04/2023 19:08 Report Date: 11/05/2023 13:33 At the request of: SUGEY MADRID Procedure: US pelvis w/ transvaginal EXAMINATION: US pelvis w/ transvaginal HISTORY: AMENORRHEA N91.2 COMPARISON: No relevant comparison available. TECHNIQUE: Transabdominal and/or transvaginal sonographic examination was performed as indicated by examination type. FINDINGS: UTERUS: Normal size and appearance. Uterus size: 7.6 x 2.8 x 3.0 cm ENDOMETRIUM: Normal homogeneous appearance. Endometrial thickness: 8 mm RIGHT OVARY: Normal size and appearance. Duplex Doppler demonstratesnormal waveform and flow; resistive index 0.6. Ovary size: 2.7 x 2.0 x 2.2 cm LEFT OVARY: Normal size and appearance. Duplex Doppler demonstrates normal waveform and flow; resistive index 0.6. Ovary size: 2.2 x 1.5 x 1.8 cm CUL-DE-SAC: Unremarkable. No significant free fluid. BLADDER: Unremarkable. OTHER: None. US/US pelvis w/ transvaginal IMPRESSION: 1. Normal pelvic ultrasound. No suspicious findings to account forpatient's symptoms. Electronically authenticated by: GHAZALA HERNANDEZ Date: 11/05/2023 13:33 Dictated By: Ghazala Hernandez M.D. Signed By:11/05/23 1336 DD/ 1333 TD/TT: Project Geophysicist: us Sugey BADILLO [facility] Final Result documented in this encounter Visit Diagnoses Not on filedocumented in this encounter Care Teams Manager Park Relationship Specialty Start Date End Date Mak Hairston DO [address] [facility] [place] [address] PCP - [place] [employer] 11/15/23 Michael Anderson MD [address] [place] [address] PCP - General Family Medicine 09/07/24 documented as of this encounter
--- OUTSIDE RECORDS SUMMARY | 2025-04-18 16:01 | XMS_ITS | Encounter Summary ---
Author Organization [facility] Address [address] [place] [address] Care Team Providers Care Paint Mixer Name Role Phone Michael Anderson MD Primary Care Provider [phone] Encounter Details Date Type Department Care Team (Late st Contact Info) Description 10/19/2024 Abstract [facility] B[facility] OB [address] [place] [address] Mak Hairston DO [address] Anand Smith, [facility]11 Social History Tobacco Use Types Packs/Day Years [...] on filedocumented in this encounter Care Teams Paint Mixer Relationship Specialty Start Date End Date Michael Anderson MD [address] [place] [address] PCP - General Family Medicine 09/07/24 documented as of this encounter
--- OUTSIDE RECORDS SUMMARY | 2025-04-18 16:01 | XMS_ITS | Patient Health Record ---
Author Organization [facility] Textic es Address [address] [place] [address] Care Team Providers Care Hooker Off Name Role Phone Dr. Carlos Abrams Primary Care Provider [phone] Maria A Degroot Unavailable [phone] Karlene Duran Unavailable [phone] Reason For Referral No Information Encounters Encounter Location Date Provider Diagnosis [address] [address] 06/14/2024 Karlene Duran Dental caries on pit and fissure surface penetrating into dentin K02.52 ; Encounter for dental examination and cleaning with abnormal findings Z01.21 and Acute gingivitis, plaque induced K05.[address] [address] 10/02/2024 Maria A Molina Dental caries on [...] Name:Maria A lyle, 05/11/2025 09:30:00 AM, [address] [place], [address], Insurance Providers Payer Name Payer Address Payer Phone Subscriber Number Group Number Insured Name Patient Relationship to Insured Coverage Start Date Coverage End Date zPARAMOU NT ADVANTAG E-termed [address] [place] [address] [id number] OJEDALUKE ZAYAS Self - patient is the insured 2 3 zMEDICAI D CFC after PARAMOUN T-termed [address] [place] [address] [phone] [id number] LUKE OJEDA Self - patient is the insured 2 3 zDENTAL DQ PARAMOUN T-termed 22 [address] [place] [address] [id number] LUKE OJEDA Self - patient is the insured 2 3 zDental MEDICAID CFC after PARAMOUN T-termed [address] [place] [phone] [id number] LUKE OJEDA Self - patient is the insured [address] [place] BCBS [address] [place] [phone] [id number] LUKE OJEDA Self - patient is the insured 3 ANTHEM Primary [address] [place] [address] [id number] GILBERT OJEDAI Self - patient is the insured 4 4 DENTAL [facility] [address] [place] [address] [id number] LUKE OJEDA Self - patient is the insured [address] [place] DQ [address] [place] [address] [id number] LUKE OJEDA Self - patient is the insured 4
--- OUTSIDE RECORDS SUMMARY | 2025-04-18 16:01 | XMS_ITS | Encounter Summary ---
Author Organization [facility] Address [address] [place] [address] Care Team Providers Care Healthcare Architect Name Role Phone Michael Anderson MD Primary Care Provider [phone] Encounter Details Date Type Department Care Team (Late st Contact Info) Description 03/06/2025 Abstract [facility] BCP OB [address] [place] [address] Mak Hairston DO [address] Anand Smith, [facility]11 Social History Tobacco Use Types [...] on filedocumented in this encounter Care Teams Healthcare Architect Relationship Specialty Start Date End Date Michael Anderson MD [address] [place] [address] PCP - General Family Medicine 09/07/24 documented as of this encounter
--- OUTSIDE RECORDS SUMMARY | 2025-04-18 16:01 | XMS_ITS | Patient Health Record ---
Author Organization [facility] Address [address] [place] [address] Care Team Providers Care Appraiser Boats And Marine Name Role Phone Jay Gomez Unavailable [phone] Pamela Avila Unavailable [phone] Reason For Referral No Information Encounters Encounter Location Date Provider Diagnosis [facility] [address] [address] 11/27/2024 Pamela Avila Closed nondisplaced fracture of distal phalanx of right little finger, initial encounter S62.666A [facility] Office [address] [place] [address] [place] [address] 01/01/2025 Pamela Avila Closed nondisplaced fracture of distal phalanx of right little finger, initial encounter S62.666A [facility] [address] [place] [address] 01/08/2025 Jay Gomez Closed nondisplaced fracture of [...] Date Medicaid [employer] [place] [address] [place] [address] [id number] LUKE OJEDA Self - patient is the insured 4
--- OUTSIDE RECORDS SUMMARY | 2025-04-18 16:01 | XMS_ITS | Clinical Summary ---
Author Organization [facility] Address [address] [place] [address] Care Team Providers Care Extension Professor Name Role Phone Koki Zapata MD Primary Care Provider [phone] Allergies No known active allergies Medications Vit-Fe Fumarate-FA ( Vitamins) 28-0.8 MG tabletIndication s:, unspecified gestational age Take 1 tablet by mouth Daily 30 tablet 11 4 09/28/20 25 Active azithromycin (Zithromax Z-Twin) 250 MG tabletIndication s:Fever, unspecified fever cause,Cough, unspecified type As directed 6 tablet 5 Active Alcohol Swabs (Alcohol Prep Pad) 70 % padsIndications: Elevated glucose tolerance test Apply 1 Pad topically Daily Use four times daily to check FSBS. 150 each 3 5 Active Blood Glucose Monitoring Suppl (D-Care Glucometer) w/Device kitIndications:E levated glucose tolerance test 1 kit Daily Use four times daily to check FSBS. In the morning prior to breakfast & 1 hour after each meal for a total of 4times daily. 1 kit 5 02/06/20 26 Active amoxicillin (Amoxil) 500 MG tabletIndication s:Oral lesion Take 1 tablet (500 mg) by mouth in the morning and 1 tablet (500 mg) in the evening and 1 tablet (500 mg) before bedtime. Do all this for 7 days. 21 tablet 5 03/26/20 25 terconazole (Terazol 7) 0.4 % vaginal creamIndications :Yeast infection Insert 1 applicator into the vagina at bedtime for 7 days 45 g 5 03/30/20 25 Active Problems Problem Noted Date Diagnosed Date 15 weeks gestation of 11/09/2024 Second trimester 11/09/2024 Estimated Date of Delivery Comme nts Yes 05/01/2025 Based on Ultraso und, FHR-110 Encounters Date Type Department Care Team Description 04/18/2025 2:20 PM EDT Routine [facility] OB [address] [facility] [place] [address] Madiha Hairston, Third trimester ; 38 weeks gestation of ; induced hypertension, antepartum; Elevated blood pressure affecting , antepartum 04/18/2025 Bamboo flowsheet [facility] B[facility] OB [address] [place] [address] Madiha Hairston, 04/17/2025 Abstract [facility] OB [address] [facility] [place] [address] Madiha Hairston, 04/10/2025 2:30 PM EDT Routine [facility] B[facility] OB [address] [facility] [place] [address] Madiha Hairston, Third trimester ; 37 weeks gestation of 04/10/2025 Bamboo flowsheet [facility]CP OB [address] [facility] [place] [address] Madiha Hairston, 04/03/2025 2:30 PM EDT Routine [facility] B[facility] OB [address] [place] [address] Madiha Hairston, Third trimester ; 36 weeks gestation of 04/03/2025 Bamboo flowsheet [facility] OB [address] [place] [address] Madiha Hairston, DO 03/23/2025 Telephone [facility] OB [address] [place] [address] Madiha Hairston, 03/19/2025 2:10 PM EDT Routine [facility] OB [address] [facility] [place] [address] Madiha Hairston, Third trimester ; 33 weeks gestation of ; Oral lesion 03/19/2025 Bamboo flowsheet [facility] OB [address] [facility] [place] [address] Madiha Hairston, DO 03/06/2025 Telephone [facility] OB [address] [facility] [place] [address] Ifeoma Katherine, DIRECTOR OF LAND 03/06/2025 Abstract [facility] OB [address] [facility] [place] [address] Madiha Hairston, DO 03/05/2025 3:30 PM EDT Routine [facility] OB [address] [facility] [place] [address] Sugey Peck PA Third trimester ; 31 weeks gestation of 03/05/2025 Bamboo flowsheet [facility] OB [address] [facility] [place] [address] Sugey Peck PA 03/01/2025 Telephone [facility] B[facility] OB [address] [facility] [place] [address] Madiha Hairston, DO 02/19/2025 3:30 PM EDT Routine [facility] BCP OB [address] [facility] [place] [address] Madiha Hairston, Third trimester ; 29 weeks gestation of 02/19/2025 Abstract [facility] OB [address] [facility] [place] [address] Madiha Hairston, DO 02/19/2025 Bamboo flowsheet [facility] BCP OB [address] [facility] [place] [address] Madiha Hairston, DO 02/08/2025 Abstract [facility] BCP OB [address] [facility] [place] [address] Madiha Hairston DO 02/05/2025 3:40 PM EDT Routine [facility] OB [address] [facility] [place] [address] Madiha Hairston DO Second trimester ; 27 weeks gestation of ; Gestational diabetes mellitus (GDM), antepartum, gestational diabetes method of control unspecified; Elevated glucose tolerance test 02/05/2025 Bamboo flowsheet N[facility] OB [address] [facility] [place] [address] Madiha Hairston DO 01/20/2025 Clinisync Result Encounter NOMS External Department Unsolicited Mdaiha Hairston DO from Last 3 Months Family History Medical History Relation Name Comments mhthr Mother rh negative Mother Melanoma Neg Hx Relation Name Status Comments Father Alive Mother Alive Sister 3 Social History Tobacco Use Types Packs/Day Years Used Date Smoking Tobacco: Former Cigarettes 0 01/13/2013 - 10/19/2022 Tobacco Cessation:Counseling Given: Not Answered Estimated Date of Delivery Comme nts Yes 05/01/2025 Based on Ultraso und, FHR-110 Sex and Gender Information Value Date Recorded Sex Assigned at Not on file Legal Sex Female 6:42 PM EDT Gender Identity Not on file Sexual Orientation Not on file Last Filed Vital Signs Vital Sign Reading Time Taken Comments Blood Pressure 152/80 04/18/2025 2:35 PM EDT 140/72 second BP Pulse - - Temperature - - Respiratory Rate - - Oxygen Saturation - - Inhaled Oxygen Concentration - - Weight 116 kg (255 lb 4 oz) 04/18/2025 2:35 PM EDT Height 170.2 cm (5' 7 ) 08/11/2023 3:39 PM EDT Body Mass Index 39.98 08/11/2023 3:39 PM EDT Plan of Treatment Not on file Procedures Procedure Name Priority Date/Time Associated Diagnosis Comments POCT URINALYSIS DIPSTICK Routine 04/18/2025 2:40 PM EDT Third trimester POCT URINALYSIS DIPSTICK Routine 04/10/2025 2:44 PM EDT Third trimester POCT URINALYSIS DIPSTICK Routine 03/19/2025 3:26 PM EDT Third trimester POCT URINALYSIS DIPSTICK Routine 03/05/2025 3:51 PM EDT Third trimester POCT URINALYSIS DIPSTICK Routine 02/19/2025 3:53 PM EDT Third trimester POCT URINALYSIS DIPSTICK Routine 02/05/2025 4:10 PM EDT Second trimester GLUCOSE 1 HOUR Routine 01/20/2025 10:27 AM EST ALL CBC WITH AUTO DIFF Routine 01/20/2025 10:27 AM EST US OB INCOMPLETE ANATOMY 01/20/2025 12:25 AM EST from Last 3 Months Results * (ABNORMAL) POCT urinalysis dipstick manually resulted (04/18/2025 2:40 PM EDT) Only the most recent of6 resultswithin the time period is included. Color, UA Yellow Clarity, UA Clear Glucose, [...] - Positive Urine 04/18/2025 2:40 PM EDT Madiha Hairston DO POINT OF CARE TEST ENTER/EDIT OR DERABLES Final Result * (ABNORMAL) GLUCOSE 1 HOUR (01/20/2025 10:27 AM EST) GLUCOSE 1 HOUR 133(H) <130 mg/dL TBH 01/20/2025 10:2 7 AM EST 01/20/2025 10:27 AM EST Narrative STEFAN - 01/20/2025 10:52 AM EST us Madiha Pedrazao DO LAB BLOOD ORDERABLES Final Resul t [facility] * (ABNORMAL) ALL CBC WITH AUTO DIFF (01/20/2025 10:27 AM EST) TBH WBC 11.8(H) 4.0 - 11.0 10 3/uL TBH TBH RBC 3.87(L) 4.20 - 5.40 10 6/uL TBH TBH HGB 11.9(L) 12.0 - 16.0 g/dL TBH TBH HCT 35.6(L) 36.0 - 48.0 % TBH TBH MCV 92.0 81.0 - 99.0 fL TBH TBH MCH 30.7 26.7 - 34.0 pg TBH TBH MCHC 33.4 29.9 - 35.2 g/dL TBH TBH RDW 13.4 11.0 - 15.0 % TBH TBH PLT 311 150 - 450 10 3/uL TBH TBH MPV 9.2(L) 9.5 - 13.5 fL TBH NEUTROPHILS PERCENT AUTO 78.0(H) 43.0 - 75.0 % TBH LYMPHOCYTES PERCENT AUTO 13.8(L) 20.5 - 60.0 % TBH MONOCYTES PERCENT AUTO 5.6 1.7 - 12.0 % TBH TBH EO % 1.4 0.9 - 7.0 % TBH BASOPHILS PERCENT AUTO 0.3 0.2 - 2.0 % TBH IMMATURE GRANULOCYTES PCT AUTO 0.9(H) 0.0 - 0.5 % TBH NEUTROPHILS ABSOLUTE AUTO 9.2(H) 1.4 - 6.5 10 3/uL TBH LYMPHOCYTES ABSOLUTE AUTO 1.6 1.2 - 3.8 10 3/uL TBH MONOCYTES ABSOLUTE AUTO 0.7 0.3 - 0.8 10 3/uL TBH TBH EO # 0.2 0.0 - 0.7 10 3/uL TBH BASOPHILS ABSOLUTE AUTO 0.0 0.0 - 0.1 10 3/uL TBH IMMATURE GRANULOCYTES ABS AUTO 0.11(H) 0.00 - 0.03 10 3/uL TBH 01/20/2025 10:2 7 AM EST 01/20/2025 10:27 AM EST Narrative [facility] - 01/20/2025 10:43 AM EST us Madiha Hairston DO [facility] Final Result [facility] * US OB INCOMPLETE ANATOMY (01/20/2025 12:25 AM EST) Anatomical Region Laterality Modality Other 01/20/2025 12:2 5 AM EST Narrative 01/20/2025 12:28 [place] [address] Ultrasound Report Signed Patient: JESICA DOSHI MR#: [id number] : 1995 Acct:[id number] Age/Sex: 29 / F ADM Date: 01/19/25 Loc: US Attending Dr: Madiha Hairston D.O. Ordering Physician: Madiha Hairston D.O. Date of Service: 01/19/25 Procedure(s): US OB incomplete anatomy Accession Number(s): [id number] cc: Madiha Hairston D.O.; KOKI ZAPATA [place] [id number] Patient Name: JESICA DOSHI MRN: [id number] date: 1995 Sex: F Assigned Patient Location: US Current Patient Location: Accession/Order Number: [id number] Exam Date: 01/20/2025 00:21 Report Date: 01/20/2025 00:25 At the request of: MADIHA HAIRSTON DO Procedure: US OB incomplete anatomy ULTRASOUND OB INCOMPLETE ANATOMY COMPARISON: 09/07/2024 CLINICAL DATA: Incomplete visualization of the heart and umbilical cord There is a live intrauterine gestation in cephalic presentation. measurements were not obtained however the reported gestational age is 25 weeks 3 days. There is cardiac activity with heart rate of 134 bpm. A four-chamber heart and the outflow tracts were imaged. A three-vessel cord in the cervical spine were still not well-visualized. US/US OB incomplete anatomy IMPRESSION: SINGLE LIVE INTRAUTERINE GESTATION. CONTINUED POOR VISUALIZATION OF THE UMBILICAL CORD AND CERVICAL SPINE. Impression dictated by: Ramila Hanks M.D.01/20/2025 12:25 AM Dictation Location: [place] [address] Electronically authenticated by: [id number] Y Date: 01/20/2025 00:25 Dictated By: Ramila Hanks M.D. Signed By: 01/20/2527 DD/ TD/TT: Respiratory Therapy Manager: Procedure Note Radiology, Radiologist, MD - 01/20/2025 [place] [address] Ultrasound Report Signed Patient: JESICA DOSHI KMR#: [id number] : 1995Acct:[id number] Age/Sex: 29 FADM Date: 01/19/25 Loc: US Attending Dr: Madiha Hairston D.O. Ordering Physician: Madiha Hairston D.O. Date of Service: 01/19/25 Procedure(s): US OB incomplete anatomy Accession Number(s): [id number] cc: Madiha Hairston D.O.; KOKI ZAPATA [place] [address] Patient Name: JESICA DOSHI MRN: [id number] date: 1995 Sex: F Assigned Patient Location: US Current Patient Location: Accession/Order Number: [id number] Exam Date: 01/20/2025 00:21 Report Date: 01/20/2025 00:25 At the request of: MADIHA HIARSTON DO Procedure: US OB incomplete anatomy ULTRASOUND OB INCOMPLETE ANATOMY COMPARISON: 09/07/2024 CLINICAL DATA: Incomplete visualization of the heart and umbilical cord There is a live intrauterine gestation in cephalic presentation. measurements were not obtained however the reported gestational age is 25 weeks 3 days. There is cardiac activity with heart rate of 134 bpm.A four-chamber heart and the outflow tracts were imaged. A three-vesselcord in the cervical spine were still not well-visualized. US/US OB incomplete anatomy IMPRESSION: SINGLE LIVE INTRAUTERINE GESTATION. CONTINUED POOR VISUALIZATION OF THE UMBILICAL CORD AND CERVICAL SPINE. Impression dictated by: Ramila Hanks M.D.01/20/2025 12:25 AM Dictation Location: [place] [address] Electronically authenticated by: [id number] Y Date: 500:25 Dictated By: Ramila Hanks M.D. Signed By:01/20/258 DD/ TD/TT: Respiratory Therapy Manager: [facility] DO [facility] Final Result from Last 3 Months Insurance [employer] BCBS MEDICAID [place] Care Teams Extension Professor Relationship Specialty Start Date End Date Koki Zapata MD [address] [place] [address] PCP - General Family Medicine 09/07/24
--- OUTSIDE RECORDS SUMMARY | 2025-04-18 16:01 | XMS_ITS | Encounter Summary ---
Author Organization [facility] Address [address] [place] [address] Care Team Providers Care Odd Job Laborer Name Role Phone Michael Anderson MD Primary Care Provider [phone] Encounter Details Date Type Department Care Team (Late st Contact Info) Description 04/10/2025 Bamboo flowsheet [facility] OB [address] [place] [address] Mak Hairston, DO [address] Anand Smith, [facility] Social History Tobacco Use Types Packs/Day [...] on filedocumented in this encounter Care Teams Odd Job Laborer Relationship Specialty Start Date End Date Michael Anderson MD [address] [place] [address] PCP - General Family Medicine 09/07/24 documented as of this encounter
--- OUTSIDE RECORDS SUMMARY | 2025-04-18 16:01 | XMS_ITS | Encounter Summary ---
Author Organization [facility] Address [address] [place] [address] Care Team Providers Care Solar Sales Representative And Assessor Name Role Phone Michael Anderson MD Primary Care Provider [phone] Encounter Details Date Type Department Care Team (Late st Contact Info) Description 09/07/2024 Abstract [facility] BCP OB [address] [place] [address] Mak Hairston DO [address] Anand Smith, [facility]11 Social History Tobacco Use Types Packs/Day [...] on filedocumented in this encounter Care Teams Solar Sales Representative And Assessor Relationship Specialty Start Date End Date Michael Anderson MD [address] [place] [address] PCP - General Family Medicine 09/07/24 documented as of this encounter
--- OUTSIDE RECORDS SUMMARY | 2025-04-18 16:01 | XMS_ITS | Encounter Summary ---
Author Organization [facility] Address [address] [place] [address] Care Team Providers Care Emissions Testing And Repair Technician Name Role Phone Michael Anderson MD Primary Care Provider [phone] Encounter Details Date Type Department Care Team (Late st Contact Info) Description 04/17/2025 Abstract [facility] [address] [place] [address] Mak Hairston DO [address] Anand Smith, [facility]11 Social History Tobacco Use Types Packs/Day Years [...] on filedocumented in this encounter Care Teams Emissions Testing And Repair Technician Relationship Specialty Start Date End Date Michael Anderson MD [address] [place] [address] PCP - General Family Medicine 09/07/24 documented as of this encounter
--- OUTSIDE RECORDS SUMMARY | 2025-04-18 16:01 | XMS_ITS | Encounter Summary ---
Author Organization [facility] Address [address] [place] [address] Care Team Providers Care Station Gateman Name Role Phone Michael Anderson MD Primary Care Provider [phone] Encounter Details Date Type Department Care Team (Late st Contact Info) Description 02/19/2025 Abstract [facility] [address] [place] [address] Mak Hairston DO [address] Anand Smith, [facility]11 Social History Tobacco Use Types Packs/Day Years [...] on filedocumented in this encounter Care Teams Station Gateman Relationship Specialty Start Date End Date Michael Anderson MD [address] [place] [address] PCP - General Family Medicine 09/07/24 documented as of this encounter
[2025-04-18 16:17] LABS: Basophils Percent Auto 0.2 % (0.2-2.0); Eosinophils Absolute Auto 0.2 10^3/uL (0.0-0.7); Eosinophils Percent Auto 1.5 % (0.9-7.0); Hematocrit 36.8 % (36.0-48.0); Hemoglobin 12.7 g/dL (12.0-16.0); Immature Granulocytes Abs Auto 0.05 10^3/uL (0.00-0.03); Immature Granulocytes Pct Auto 0.4 % (0.0-0.5); Lymphocytes Percent Auto 18.1 % (20.5-60.0); Mean Corpuscular HGB Conc 34.5 g/dL (29.9-35.2); Mean Corpuscular Hemoglobin 30.5 pg (26.7-34.0); Mean Corpuscular Volume 88.2 fL (81.0-99.0); Mean Platelet Volume 10.3 fL (9.5-13.5); Monocytes Absolute Auto 0.9 10^3/uL (0.3-0.8); Neutrophils Absolute Auto 8.1 10^3/uL (1.4-6.5); Neutrophils Percent Auto 71.8 % (43.0-75.0); Platelet Count 281 10^3/uL (150-450); Red Blood Count 4.17 10^6/uL (4.20-5.40); Red Cell Distribution Width 13.3 % (11.0-15.0); White Blood Count 11.2 10^3/uL (4.0-11.0)
[2025-04-18 16:37] LABS: Aspartate Amino Transferase 16 U/L (15-37); Estimated GFR (African America >60 (>=60 mL/min/1.73m^2); Estimated GFR (Non-African Ame >60 (>=60 mL/min/1.73m^2); Lactate Dehydrogenase 95 U/L (81-234); Uric Acid 5.1 mg/dL (2.6-6.0)
[2025-04-18 16:41] LABS: Partial Thromboplastin Time 26.5 sec (22.3-36.2); Prothrombin Time 9.5 sec (9.0-11.6)
[2025-04-18 16:42] LABS: INR <0.93
--- NOTE | 2025-04-18 17:47 | US_ITS ---
[place] [address] Patient Name: LUKE OJEDA MRN: [id number] date: 1995 Sex: F Assigned Patient Location: [facility] Current Patient Location: [facility] Accession/Order Number: [id number] Exam Date: 04/18/2025 18:44 Report Date: 04/18/2025 18:46 At the request of: MADIHA BURRELL DO Procedure: US OB BPP w non-stress Ultrasound biophysical profile HISTORY: Elevated blood pressure Adequate breathing movement, gross body movement, tone and amniotic fluid volume for total score of 8 out of 8. The amniotic fluid index is 11.2cm within normal limits. The heart rate 124 bpm. US/US OB BPP w non-stress IMPRESSION: Adequate ultrasound biophysical profile Impression dictated by: Jimi Rand M.D. 04/18/2025 6:46 PM Dictation Location: [place] [address] Electronically authenticated by: [id number] Date: 04/18/2025 18:46
[2025-04-18 19:22] LABS: Creatinine Urine Random 90.88 mg/dL (20.00-300.00); Protein Creatinine Ratio Urine 0.31; Total Protein Urine Random 28.4 mg/dL (<=11.9)
== END 2025-04-18 20:40 | disposition home or self-care (01) ==
LOC: FBC 15:59
PROVIDERS: Admitting Provider Obstetrics & Gynecology; PCP Family Medicine; Visit Provider Obstetrics & Gynecology
DX: O26.893 Other specified pregnancy related conditions, third trimester (principal); R03.0 Elevated blood-pressure reading, without diagnosis of hypertension; Z3A.38 38 weeks gestation of pregnancy
CPT/HCPCS: 36415; 76818; 82565; 82570; 83615; 84156; 84450; 84520; 84550; 85025; 85610; 85730; G0378; G0379

== ENCOUNTER 2025-04-20 05:29 | Inpatient (IN) | payer MEDICAID, SELFPAY ==
--- OUTSIDE RECORDS SUMMARY | 2018-12-30 12:14 | XMS_ITS | Continuity of Care Document ---
Author Organization [facility] Address [address] [place] [address] Phone Care Team Providers Care Casino Floor Runner Name Role Phone Naif Perdomo Unavailable Unavailable Allergies, Adverse Reactions, Alerts Substance Reaction Status Criticality No Known Allergies Active No Inform ation Medications Medication Instructions Dosage Effective Dates (start - stop) Status Comments No Drug Therapy Prescribed Procedures Procedure Date TB INTRADERMAL TEST UDS Exempt No Charge Prophylaxis Adult Topical [place] Of [place] Varnish 015 Tobacco Counseling Oral Hygiene Instruction Intraoral-complete Series (bw) 15 Comp Oral Eval New/estab Patient 2014 Tobacco Counseling Panoramic Film Extract; Erupted Th/exposted Rt 015 Extract; Erupted Th/exposted Rt 015 Limited Oral Eval Advance Directives Directive Yes / No Effective Date File Name No Information Encounters Encounter Description Practice Location Reason(s) For Visit Diagnoses Date Provider Providers Copied on Encounter [facility], [address], [place], [id number], [place] tel:[phone] [facility] No Information Chary Castellano. [address] [place] [address], [id number], [place]. tel:[phone] [facility], [address] [place] [address], [id number], [place] tel:[phone] [facility] Encounter for screening for respiratory tuberculosis Chary Castellano. [address], [place], [id number], [place]. tel:[phone] [facility], [address], [place], [id number], [place] tel:[phone] [facility] No Information [place] DMD Dannielle. [address], [place], [id number], [place]. tel:[phone] [facility], [address] [place] [address], [id number], [place] tel:[phone] Dental Clinic Dental examination [place] DMD Dannielle. [address], [place], [id number], [place]. tel:[phone] [facility], [address] [place] [address], [id number], [place] tel:[phone] Dental Clinic Dental examination [place] DMD Dannielle. [address], [place], [id number], [place]. tel:[phone] [facility], [address] [place] [address], [id number], [place] tel:[phone] [facility] Dental examination [place] DMD Dannielle. [address], [place], [id number], [place]. tel:[phone] Family History Family Member Type Diagnosis Age At Onset No Information Payers Payer name Insurance type Covered green party ID Authoriza tion(s) [place] [facility] 190 [id number] Social History Type Description Quantity Date Captured Comments Sex Female Smoking Status No Information Sexual Orientation Straight or heterosexual Chief Complaint And Reason For Visit No Information Reason For Referral Reason For Referral No Information History Of Present Illness Encounter Date Complaint History Of Prese nt Illness No Information Functional Status Date Functional Assessmen t No Information Medications Administered Medication Instructions Dosage Effective Dates (start - stop) Status Comments No Drug Therapy Prescribed Instructions Date Instruction Additional Infor mation No Information Assessments Type Assessment Date No Information Patient Care Teams Name Effective Dates (start - stop) Status Members No Information
--- OUTSIDE RECORDS SUMMARY | 2024-11-27 07:30 | XMS_ITS ---
Author Organization [facility] Address [address] [place] [address] Care Team Providers Care Make Up Worker Name Role Phone Pamela Avila Unavailable [phone] REASON FOR VISIT [facility] ER LEFT FINGER FX Encounters Encounter Location Date Provider Diagnosis [facility] Office [address] [place] [address] [place] [address] 11/27/2024 Pamela Avila Closed nondisplaced fracture of distal phalanx of right little finger, initial encounter S62.666A Assessments Encounter Date Diagnosis (ICD Code) Assessment Notes Treatment Notes Treatment Clinical Notes Section Notes 11/27/2024 Closed nondisplaced fracture of distal phalanx of right little finger, initial encounter (ICD-10 - S62.666A) 11/27/2024 Other Given the patient has extension lag on exam we have discussed splinting for [address] her in a stack splint with instructions not to remove. We will see her back in 6 weeks. Plan Of Treatment Treatment Notes Assessment Notes Other Given the patient barrientos s extension lag on exam we have discussed splinting for [address] her in a stack splint with instructions not to remove. We will see her back in 6 weeks. Next Appt Details Follow Up: 6 Weeks, Reason: Progress Notes * LUKE OJEDA KDOB:1994 (29 yo F)Acc No.[id number]:11/27/2024 Patient: Ellis SAAVEDRA LUKE Sandoval Provider: ABY Farrar :1995 A ge:29 Y S ex:Female Date:11/27/2024 Address:[address], [place], [place] Subjective: * Chief Complaints: * T ER LEFT FINGER FX * HPI: G eneral Follow Up Information: Patient is a 29-year-old female that presents to the office with complaints of left fifth finger pain after she hit it with a frying talavera approximately 3 weeks ago. She had presented to the [facility] ER last week where x-rays were positive for a distal phalanx fracture. She is 18 weeks . * Medical History: * Surgical History: * Medications: Objective: * Vitals: * Examination: G eneral examination: O n exam patient is in no distress, age-appropriate, alert and oriented x 3. On inspection of the left fifth digit there is no swelling, ecchymosis, erythema, or warmth to touch. There is an extension lag at the DIP joint. There is mild tenderness with palpation of the distal phalanx. Brisk capillary refill and sensation intact to the tip of the fifth finger. . X -ray Imaging Studies: T hree-view x-rays of the left fifth digit were reviewed from the [facility] from 11/21/2024 with a fracture of the base of the fifth distal phalanx noted. No dislocation. Assessment: * Assessment: 1. C losed nondisplaced fracture of distal phalanx of right little finger, initial encounter - S62.131Q (Primary) Plan: * Treatment: * Procedure Codes: * Follow Up: 6 Weeks Forms: * Images: * Sign off status: Completed true * Provider: ABY Farrar Date: 0 11/27/2024 Generated for Delroy garcia/Sourav/Edwin on: 0 04/20/2025 05:39 AM EDT History and Physical Notes * HPI (History of Present Illness) Category Sub-Category Detail Notes Category Not es General Follow Up Information Patient is a 29-year -old female that presents to the office with complaints of left fifth finger pain after she hit it with a frying talavera approximately 3 weeks ago. She had presented to the [facility] ER last week where x-rays were positive for a distal phalanx fracture. She is 18 weeks . Examination Category Sub-Category Detail Notes Category Not es General examination On exam patient is in no distress, age-appropriate, alert and oriented x 3. On inspection of the left fifth digit there is no swelling, ecchymosis, erythema, or warmth to touch. There is an extension lag at the DIP joint. There is mild tenderness with palpation of the distal phalanx. Brisk capillary refill and sensation intact to the tip of the fifth finger. X-ray Imaging Studies Three- view x-rays of the left fifth digit were reviewed from the [facility] from 11/21/2024 with a fracture of the base of the fifth distal phalanx noted. No dislocation.
--- OUTSIDE RECORDS SUMMARY | 2024-12-18 10:45 | XMS_ITS ---
Author Organization [facility] es Address [address] [place] [address] Care Team Providers Care Powderman Name Role Phone Dr. Carlos Abrams Primary Care Provider [phone] Deng Maria A Molina Unavailable [phone] Karlene Duran Unavailable [phone] REASON FOR VISIT 6 MONTH PROPHY +BW Encounters Encounter Location Date Provider Diagnosis [facility] [address] [place] [address] 12/18/2024 Karlene Duran Plan Of Treatment Next Appt Details Provider Name:Maria A lyle, 05/11/2025 09:30:00 AM, [address] [place], [address], Progress Notes * LUKE OJEDA KDOB:1994 (29 yo F)Acc No.[id number]:12/18/2024 Patient: Ellis SAAVEDRA LUKE Sandoval Provider: Luiza Luque :1995 A ge:29 Y S ex:Female Date:12/18/2024 Address:[address] [id number] Pcp:Dr. Carlos Abrams Subjective: * Chief Complaints: * 1 . 6 MONTH PROPHY +BW. * Medical History: Objective: * Vitals: Assessment: Plan: * Treatment: * Images: * Electronic signature of Deana Duran on 04/20/2025 at 05:40 AM EDT Sign off status: Pending * Provider: Luiza Luque Date: 0 12/18/2024 Generated for Delroy garcia/Sourav/Edwin on: 0 04/20/2025 05:40 AM EDT
--- OUTSIDE RECORDS SUMMARY | 2025-01-08 05:50 | XMS_ITS ---
Author Organization [facility] Address [address] [place] [address] Care Team Providers Care Passenger Coach Driver Name Role Phone Jay Gomez Unavailable [phone] REASON FOR VISIT LEFT 5TH PROX PHALANX FX Encounters Encounter Location Date Provider Diagnosis [facility] Office [address] [facility] [place] [address] 01/08/2025 Jay Gomez Closed nondisplaced fracture of [...] * LUKE OJEDA KDOB:1994 (29 yo F)Acc No.[id number]:01/08/2025 Patient: LUKE GLYNN Provider: Ellis Gomez MD :1995 A ge:29 Y S ex:Female Date:01/08/2025 Address:[address] [place], [place] [address], [place] [address] Subjective: * Chief Complaints: * L EFT [...] Date: 01/08/2025 Generated for Delroy garcia/Sourav/Meleitting on: 0 04/20/2025 05:40 AM EDT History and Physical Notes * [...]
--- OUTSIDE RECORDS SUMMARY | 2025-01-18 05:00 | XMS_ITS ---
Author Organization [facility] es Address [address] [place] [address] Care Team Providers Care School Child Care Attendant Name Role Phone Dr. Carlos Abrams Primary Care Provider [phone] Maria A Degroot Unavailable [phone] REASON FOR VISIT FILLING Encounters Encounter Location Date Provider Diagnosis [facility] [address] [place] [address] 01/18/2025 Maria A Molina Plan Of Treatment Next Appt Details Provider Name:Maria A lyle, 05/11/2025 09:30:00 AM, [address] [place], [address], Progress Notes * LUKE OJEDA KDOB:1994 (29 yo F)Acc No.[id number]:01/18/2025 Patient: Ellis LUKE SAAVEDRA Provider: Unique Molina DDS :1995 A ge:29 Y S ex:Female Date:01/18/2025 [address] [id number] Pcp:Dr. Carlos Abrams Subjective: * Chief Complaints: * 1 . FILLING. * Medical History: Objective: * Vitals: Assessment: Plan: * Treatment: * Images: * Electronic signature of Joshua Molina DDS on 04/20/2025 at 05:40 AM EDT Sign off status: Pending * Provider: Unique Molina DDS Date: 0 01/18/2025 Generated for Delroy Abraham on: 0 04/20/2025 05:40 AM EDT
--- OUTSIDE RECORDS SUMMARY | 2025-04-10 14:30 | XMS_ITS | Encounter Summary ---
Author Organization [facility] Address [address] [place] [address] Care Team Providers Care Digital Publishing Specialist Name Role Phone Michael Anderson MD Primary Care Provider [phone] Reason for Visit * Reason Comments Routine Visit Encounter Details Date Type Department Care Team (Late st Contact Info) Description 04/10/2025 2:30 PM EDT Routine [facility] [address] [facility] [place] [address] Mak Hairston, DO [address] [facility] [place] [address] Third trimester ; 37 weeks gestation of Social History Tobacco Use Types Packs/Day Years Used Date Smoking Tobacco: Former Cigarettes 0 01/13/2013 - 10/19/2022 Estimated Date of Delivery Comme nts Yes 05/01/2025 Based on Ultraso und, [id number] Sex and Gender Information Value Date Recorded Sex Assigned at Not on file Legal Sex Female 6:42 PM EDT Gender Identity Not on file Sexual Orientation Not on file documented as of this encounter Last Filed Vital Signs Vital Sign Reading Time Taken Comments Blood Pressure 136/70 04/10/2025 2:33 PM EDT Pulse - - Temperature - - Respiratory Rate - - Oxygen Saturation - - Inhaled Oxygen Concentration - - Weight 113 kg (249 lb 12 oz) 04/10/2025 2:33 PM EDT Height - - Body Mass Index 39.12 08/11/2023 3:39 PM EDT documented in this encounter Progress Notes * Ramila Stone LPN - 04/10/2025 2:30 PM EDT Reason for Appointment: Patient ID: Jesica Doshi is a 29 y.o. female who presents for Routine Visit Patient presents today for Return OB appointment. MEDICATIONS Current Outpatient Medications Medication Instructions Alcohol Swabs (Alcohol Prep Pad) 70 % pads 1 Pad, Topical, Daily, Use four times daily to check FSBS. azithromycin (Zithromax Z-Twin) 250 MG tablet As directed Blood Glucose Monitoring Suppl ([email or web address] Glucometer) w/Device kit 1 kit, Does not [...] nursing note reviewed. Exam conducted with a tax commissioner present. Vitals: Estimated body mass index is 39.12 kg/m?? as calculated from the following: Height as of 08/11/23: 5' 7 . Weight as of this encounter: 249 lb 12 oz. BP: 136/70 Patient's last menstrual period was 07/02/2024. ASSESSMENT & PLAN ICD-10-CM 1. Third trimester Z34.93 POCT urinalysis dipstick manually resulted 2. 37 weeks gestation of Z3A.37 Return OB: Patient presents today for a routine obstetrics appointment. Patient is currently 37w0d . Patient states she is doing well but has complaints of being tired due to current . Patient has verbalizes frequent movement. labor precautions was discussed/given and patient was instructed to perform kick counts three times a day. Orders Placed This Encounter Procedures POCT urinalysis dipstick manually resulted Follow Up: Patient is to return to office in 1 week for routine OB appointment. Documented by Ramila Stone LPN on behalf of: Mak Hairston DO documented in this encounter Plan of Treatment Not on file documented as of this encounter Procedures Procedure Name Priority Date/Time Associated Diagnosis Comments POCT URINALYSIS DIPSTICK Routine 04/10/2025 2:44 PM EDT Third trimester documented in this encounter Results * POCT urinalysis dipstick manually resulted (04/10/2025 2:44 PM EDT) Color, UA Yellow Clarity, UA Clear Glucose, UA Negative Negative - 2000(110) ++++ mg/dL Bilirubin, UA Negative Negative - 4(70) +++ mg/dL Ketones, UA Negative Negative - 160(16) ++++ mg/dL Spec Grav, UA 1.020 1 - 1.03 Blood, UA Negative Negative - 50 Neil/mcL pH, UA 6.5 5 - 9 Protein, UA Negative Negative - 2000(20) ++++ mg/dL Urobilinogen, UA 0.2 0.2 - 12 mg/dL Leukocytes, UA Negative Negative - 500+++ Chanel/mcL Nitrite, UA Negative Negative - Positive Urine 04/10/2025 2:44 PM EDT Mak Hairston DO POINT OF CARE TEST ENTER/EDIT OR DERABLES Final Result documented in this encounter Visit Diagnoses Diagnosis Third trimester state, incidental 37 weeks gestation of documented in this encounter Care Teams Digital Publishing Specialist Relationship Specialty Start Date End Date Michael Anderson MD [address] [place] [address] PCP - General Family Medicine 09/07/24 documented as of this encounter
--- OUTSIDE RECORDS SUMMARY | 2025-04-18 14:20 | XMS_ITS | Encounter Summary ---
Author Organization [facility] Address [address] [place] [address] Care Team Providers Care Immigration Investigator Name Role Phone Michael Anderson MD Primary Care Provider [phone] Reason for Visit * Reason Comments Routine Visit Encounter Details Date Type Department Care Team (Late st Contact Info) Description 04/18/2025 2:20 PM EDT Routine [facility] [address] [facility] [place] [address] Mak Hairston, DO [address] [facility] [place] [address] Third trimester ; 38 weeks gestation of [...] this encounter Progress Notes * Ramila Stone, BI MANAGER - 04/18/2025 2:20 PM EDT Reason for [...] tablet As directed Blood Glucose Monitoring Suppl ([employer] Glucometer) w/Device kit 1 kit, Does not [...] nursing note reviewed. Exam conducted with a landing gear mechanic present. Vitals: Estimated body mass index [...] antepartum documented in this encounter Care Teams Immigration Investigator Relationship Specialty Start Date End Date Michael Anderson MD [address] [place] [address] PCP - General Family Medicine 09/07/24 documented as of this encounter
[2025-04-20] VITALS (36 sets, daily range): BP systolic 104–145; BP diastolic 59–99; PULSE 65–93; TEMP 36.2–36.5; O2SAT 96–99
--- OUTSIDE RECORDS SUMMARY | 2025-04-20 05:39 | XMS_ITS | CCD ---
Author Organization [facility] CliniSyme Care Team Providers Care Corporate Tax Manager Name Role Phone PAY ., DR BROOKS Admitting Unavailable PAY ., DR BROOKS Consulting Unavailable PAY ., DR BROOKS Attending Unavailable BRISTOL, DR RUTHERFORD Primary Care Unavailable JEMAL BEGUM Admitting Unavailable JEMAL BEGUM Consulting Unavailable JEMAL BEGUM Attending Unavailable BRISTOL, DR RUTHERFORD Primary Care Unavailable CARIDAD, DR KORY Mahan Admitting Unavailabl e REINECK, [...] Unavailable Michael Anderson MD Primary Care Provider MARIKA, MADIHA R Referring Unavailable MARIKA, MADIHA R Referring Unavailable JULIUSSUGEY Attending Unavailable MARIKA, MADIHA Attending Unavailable MARIKA, MADIHA Attending Unavailable MARIKA, MADIHA Attending Unavailable JULIUSSUGEY ROQUE Attending Unavailable MARIKA, MADIHA Attending Unavailable MARIKA, MADIHA Attending Unavailable MARIKA, MADIHA Attending Unavailable MARIKA, MADIHA Attending Unavailable MARIKA, MADIHA Attending Unavailable MARIKA, MADIHA Attending Unavailable Allergies Allergy Classification Reported Allergen(s) Allergy Type Date of Onset Reaction(s) Facility (1 source) No Known Medication Allergies; Translations: [No Known Medication Allergies] Propensity to adverse reactions (disorder) [facility] Repository Medications Current Medications Medication Drug Class(es) Dates Sig (Normalized) Sig (Original) amoxicillin 500 mg oral tablet (2 sources) Penicillin-class Antibacterial Start: 03-19-2025 End: 05-12-2025 take 1 tablet by mouth in the [...] 03/26/2025 Active azithromycin 250 mg oral tablet (20 sources) Macrolide Antimicrobial Start: 12-07-2024 azithromycin (Zithromax Z-Twin) 250 MG tablet Indications: Fever, unspecified fever cause , Cough, unspecified type As directed 6 tablet 12/07/2024 Active Blood Glucose Monitoring Suppl (D-Care Glucometer) w/Device kit (15 sources) Start: 02-05-2025 End: 02-05-2026 Blood Glucose [...] Discontinued isopropyl alcohol 0.7 ml/ml medicated pad (15 sources) Start: 02-05-2025 Alcohol Swabs (Alcohol Prep [...] [33 weeks gestation of ] 03-19-2025 Episodic Residual codes; unclassified (2 sources) Gestation period, 36 weeks; Translations: [36 weeks gestation of ] 04-03-2025 Episodic Residual codes; unclassified (2 sources) Gestation period, 37 weeks; Translations: [37 weeks gestation of ] 04-10-2025 Episodic Screening and history of mental health [...] Classification Problem Date Documented Da te Episodic/Chronic Residual codes; unclassified (20 sources) Gestation period, 15 weeks; Translations: [15 weeks gestation of ] Onset: 11-09-2024 11-09-2024 Episodic Unclassified (1 source) COUGH, UNSPECIFIED; Translations: [COUGH, UNSPECIFIED] Onset: 03-10-2023 Results Test Name Value Interpretation Reference Range Facility Urinalysis macro (dipstick) panel (U)on 04-10-2025 Bilirubin, UA Negative Negative - 4(70) +++ mg/dL [facility] Blood, UA Negative Negative - 50 Niel/mcL [facility] Clarity, UA Clear [facility] Color, UA Yellow [facility] Glucose, UA Negative Negative - 1999(110) ++++ mg/dL [facility] Interpretation and review of laboratory results Normal [facility] Ketones, UA Negative Negative - 160(16) ++++ mg/dL [facility] Leukocytes, UA Negative Negative - 500+++ Chanel/mcL [facility] Nitrite, UA Negative Negative - Positive [facility] pH, UA 6.5 5 - 9 [facility] Protein, UA Negative Negative - 1999(20) ++++ mg/dL [facility] Spec Grav, UA 1.02 1 - 1.03 [facility] Urobilinogen, UA 0.2 0.2 - 12 mg/dL [facility] Urinalysis macro (dipstick) panel (U)on 03-19-2025 Bilirubin, UA Negative Negative - 4(70) +++ mg/dL [facility] Blood, UA Negative Negative - 50 Neil/mcL [facility] Clarity, UA Clear [facility] Color, UA Yellow [facility] Glucose, UA Negative Negative - 1999(110) ++++ mg/dL [facility] Interpretation and review of laboratory results Abnormal [facility] Ketones, UA Negative Negative - 160(16) ++++ mg/dL [facility] Leukocytes, UA Trace Negative - 500+++ Chanel/mcL [facility] Nitrite, UA Negative Negative - Positive [facility] pH, UA 6 5 - 9 [facility] Protein, UA Negative Negative - 1999(20) ++++ mg/dL [facility] Spec Grav, UA 1.03 1 - 1.03 [facility] Urobilinogen, UA 0.2 0.2 - 12 mg/dL [facility] Urinalysis macro (dipstick) panel (U)on 03-05-2025 Bilirubin, UA Negative Negative - 4(70) +++ mg/dL [facility] Blood, UA Positive Negative - 50 Neil/mcL [facility] Comment on above: trace Clarity, UA Clear [facility] Color, UA Yellow [facility] Glucose, UA Negative Negative - 1999(110) ++++ mg/dL [facility] Interpretation and review of laboratory results Abnormal [facility] Ketones, UA Negative Negative - 160(16) ++++ mg/dL [facility] Leukocytes, UA Negative Negative - 500+++ Chanel/mcL [facility] Nitrite, UA Negative Negative - Positive [facility] pH, UA 7 5 - 9 [facility] Protein, UA Positive Negative - 1999(20) ++++ mg/dL [facility] Comment on above: 30 Spec Grav, UA 1.02 1 - 1.03 [facility] Urobilinogen, UA 1.0 0.2 - 12 mg/dL [facility] Urinalysis macro (dipstick) panel (U)on 02-19-2025 Bilirubin, UA Negative Negative - 4(70) +++ mg/dL [facility] Blood, UA Negative Negative - 50 Neil/mcL [facility] Clarity, UA Clear [facility] Color, UA Yellow [facility] Glucose, UA Negative Negative - 1999(110) ++++ mg/dL [facility] Interpretation and review of laboratory results Normal [facility] Ketones, UA Negative Negative - 160(16) ++++ mg/dL [facility] Leukocytes, UA Negative Negative - 500+++ Chanel/mcL [facility] Nitrite, UA Negative Negative - Positive [facility] pH, UA 6 5 - 9 [facility] Protein, UA Negative Negative - 1999(20) ++++ mg/dL [facility] Spec Grav, UA 1.02 1 - 1.03 [facility] Urobilinogen, UA 0.2 0.2 - 12 mg/dL [facility] Urinalysis macro (dipstick) panel (U)on 01-04-2025 Bilirubin, UA Negative Negative - 4(70) +++ mg/dL [facility] Blood, UA Negative Negative - 50 Neil/mcL [facility] Clarity, UA Clear [facility] Color, UA Yellow [facility] Glucose, UA Negative Negative - 1999(110) ++++ mg/dL [facility] Interpretation and review of laboratory results Normal [facility] Ketones, UA Negative Negative - 160(16) ++++ mg/dL [facility] Leukocytes, UA Negative Negative - 500+++ Chanel/mcL [facility] Nitrite, UA Negative Negative - Positive [facility] pH, UA 6.5 5 - 9 [facility] Protein, UA Negative Negative - 2000(20) ++++ mg/dL [facility] Spec Grav, UA 1.03 1 - 1.03 [facility] Urobilinogen, UA 0.2 0.2 - 12 mg/dL [facility] US OB 14+ WEEKS ANATOMY SCAN on [...] report is generated using voice recognition reporting ([employer]). On occasion [employer] erroneously drops words from the report or [...] UA Negative Negative - 4(70) +++ mg/dL [facility] Blood, UA Negative Negative - 50 Neil/mcL [facility] Clarity, UA Clear [facility] Color, UA Yellow [facility] Glucose, UA Negative Negative - 2000(110) ++++ mg/dL [facility] Interpretation and review of laboratory results Normal [facility] Ketones, UA Negative Negative - 160(16) ++++ mg/dL [facility] Leukocytes, UA Negative Negative - 500+++ Chanel/mcL [facility] Nitrite, UA Negative Negative - Positive [facility] pH, UA 6 5 - 9 [facility] Protein, UA Negative Negative - 2000(20) ++++ mg/dL [facility] Spec Grav, UA 1.01 1 - 1.03 [facility] Urobilinogen, UA 0.2 0.2 - 12 mg/dL [facility] AFP, SERUM, OPEN SPINA BIFID Aon 11-11-2024 AFP MOM 1.33 . [facility] AFP VALUE 32.0 ng/mL . [facility] COMMENT: Comment . [facility] Comment on above: Carla Briones , Ph.D., [facility] Director References: Available Upon Request. Multiples Of Median Cutoffs For AFP Elevations Adams 2.5 Black 2.8 IDD 2.0 Twins 4.5 Abbreviation Definitions IDD - Insulin Dep Diabetes OSBR - Open Spina Bifida Risk For further inquiries contact [employer] at [phone]. This test was developed and its performance characteristics determined by [employer]. It has not been cleared or approved by the Food and Drug Administration. Performed at: [facility] [address] [place], [place] [id number] Emt Paramedic: Quincy Montez Formerly [facility], Phone: [phone] GEST. AGE ON COLLECTION DATE 15.3 . weeks [facility] GESTAT. AGE BASED ON Ultrasound . [facility] Comment on above: 15.3 on 11/09/2024 Recalculations are not recommended when gestational dating by LMP and ultrasound are within 10 days. INSULIN DEP DIABETES No . [facility] INTERPRETATION Comment . [facility] Comment on above: Interpretation: Scre en [...] Customer Services to discuss available options. The [employer] recommends amniocentesis be offered to women age 35 and older. [age] [facility] MULTIPLE GESTATION No . [facility] OSBR RISK 1 [place] 4399 . [facility] RACE . [facility] RESULTS Report . [facility] TEST RESULTS: Negative . [facility] WEIGHT 216 . lbs [facility] N [id number] N ULTRASOUND [id number] 2 15 N 1 Y 216 N N N N N White/ [facility] RECURRENT VAGINITIS (HTRX)on 11-10-2024 ATOPOBIUM VAGINAE 0 [facility] ATOPOBIUM VAGINAE Not detected [facility] BVAB 2,3 (BACTERIAL VAGINOSIS ASSOCIATED BACTERIA 2, 3); MOBILUNCUS SPP 0 [facility] BVAB 2,3 (BACTERIAL VAGINOSIS ASSOCIATED BACTERIA 2, 3); MOBILUNCUS SPP Not detected [facility] MARIO ALBICANS, PARAPSILOSIS, TROPICALIS 0 [facility] MARIO ALBICANS, PARAPSILOSIS, TROPICALIS Not detected [facility] MARIO GLABRATA 0 [facility] MARIO GLABRATA Not detected [facility] MARIO KRUSEI 0 [facility] MARIO KRUSEI Not detected [facility] CHLAMYDIA TRACHOMATIS 0 [facility] CHLAMYDIA TRACHOMATIS Not detected N [facility] GARDNERELLA VAGINALIS 0 [facility] GARDNERELLA VAGINALIS Not detected N [facility] MEGASPHAERA (TYPES 1, 2) 0 [facility] MEGASPHAERA (TYPES 1, 2) Not detected [facility] MYCOPLASMA GENITALIUM 0 [facility] MYCOPLASMA GENITALIUM Not detected N [facility] NEISSERIA GONORRHOEAE 0 [facility] NEISSERIA GONORRHOEAE Not detected N [facility] TRICHOMONAS VAGINALIS 0 [facility] S [facility] TRICHOMONAS VAGINALIS Not detected N [facility] Urinalysis macro (dipstick) panel (U)on 11-09-2024 Bilirubin, UA Negative Negative - 4(70) +++ mg/dL [facility] Blood, UA Negative Negative - 50 Neil/mcL [facility] Clarity, UA Clear [facility] Color, UA Yellow [facility] Glucose, UA Negative Negative - 1999(110) ++++ mg/dL [facility] Interpretation and review of laboratory results Normal [facility] Ketones, UA Negative Negative - 160(16) ++++ mg/dL [facility] Leukocytes, UA Negative Negative - 500+++ Chanel/mcL [facility] Nitrite, UA Negative Negative - Positive [facility] pH, UA 7.5 5 - 9 [facility] Protein, UA Negative Negative - 1999(20) ++++ mg/dL [facility] Spec Grav, UA 1.02 1 - 1.03 [facility] Urobilinogen, UA 0.2 0.2 - 12 mg/dL [facility] ALL CBC WITH AUTO DIFFon BASOPHILS ABSOLUTE AUTO 0 [facility] Basophils/100 WBC (Bld) 0.2 % 0.2 - 2.0 % [facility] Eosinophils/100 WBC (Bld) 1 % 0.9 - 7.0 % [facility] Erythrocyte distribution width (RBC) [Ratio] 11.9 % 11.0 - 15.0 % [facility] Hematocrit (Bld) [Volume fraction] 38 % 36.0 - 48.0 % [facility] Hemoglobin (Bld) [Mass/Vol] 13.1 g/dL 12.0 - 16.0 g/dL [facility] IMMATURE GRANULOCYTES ABS AUTO 0.04 High [facility] Immature granulocytes/100 WBC (Bld) 0.3 % 0.0 - 0.5 % [facility] Interpretation and review of laboratory results Abnormal [facility] LYMPHOCYTES ABSOLUTE AUTO 2.1 [facility] Lymphocytes/100 WBC (Bld) 16.5 % Low 20.5 - 60.0 % [facility] MCH (RBC) [Entitic mass] 30.5 pg 26.7 - 34.0 pg [facility] MCHC (RBC) [Mass/Vol] 34.5 g/dL 29.9 - 35.2 g/dL [facility] MCV (RBC) [Entitic vol] 88.4 fL 81.0 - 99.0 fL [facility] MONOCYTES ABSOLUTE AUTO 0.8 [facility] Monocytes/100 WBC (Bld) 6.1 % 1.7 - 12.0 % [facility] NEUTROPHILS ABSOLUTE AUTO 9.4 High [facility] Neutrophils/100 WBC (Bld) 75.9 % High 43.0 - 75.0 % [facility] Platelet mean volume (Bld) [Entitic vol] 9.5 fL 9.5 - 13.5 fL [facility] EO # 0.1 [facility] PLT [address] [facility] RBC 4.3 [facility] WBC 12.4 High [facility] BOX TESTon 10-10-2024 BOX TEST SENT OUT Y [facility] BOX1 [facility] BOX2 10/10/24 [facility] S[facility]APID (URINE )on 10-10-2024 AMPHETAMINE SCREEN URINE Negative NEGATIVE [facility] BARBITURATES SCREEN URINE Negative NEGATIVE [facility] BENZODIAZEPINES SCREEN URINE Negative NEGATIVE [facility] BUPRENORPHINE SCREEN URINE Negative NEGATIVE [facility] Comment on above: DRUG CLASS TEST [...] ng/mL CANNABINOID SCREEN URINE Positive Abnormal NEGATIVE [facility] COCAINE SCREEN URINE Negative NEGATIVE [facility] Interpretation and review of laboratory results Abnormal [facility] METHADONE SCREEN URINE Negative NEGATIVE [facility] METHAMPHETAMINES SCREEN URINE Negative NEGATIVE [facility] OPIATE SCREEN URINE Negative NEGATIVE [facility] OXYCODONE SCREEN URINE Negative NEGATIVE [facility] PHENCYCLIDINE SCREEN URINE Negative NEGATIVE [facility] TRICYCLIC ANTIDEPRESSANT URINE Negative NEGATIVE [facility] Urinalysis macro (dipstick) panel (U)on 10-10-2024 Bilirubin, UA Negative Negative - 4(70) +++ mg/dL [facility] Blood, UA Negative Negative - 50 Neil/mcL [facility] Clarity, UA Clear [facility] Color, UA Yellow [facility] Glucose, UA Negative Negative - 1999(110) ++++ mg/dL [facility] Interpretation and review of laboratory results Normal [facility] Ketones, UA Negative Negative - 160(16) ++++ mg/dL [facility] Leukocytes, UA Negative Negative - 500+++ Chanel/mcL [facility] Nitrite, UA Negative Negative - Positive [facility] pH, UA 7 5 - 9 [facility] Protein, UA Negative Negative - 1999(20) ++++ mg/dL [facility] Spec Grav, UA 1.02 1 - 1.03 [facility] Urobilinogen, UA 0.2 0.2 - 12 mg/dL [facility] HCG ( test) Ql (U)o n 09-07-2024 Interpretation and review of laboratory results Abnormal [facility] Preg Test, Ur Positive [facility] Urinalysis macro (dipstick) panel (U)on 09-07-2024 Bilirubin, UA Negative Negative - 4(70) +++ mg/dL [facility] Blood, UA Negative Negative - 50 Neil/mcL [facility] Clarity, UA Clear [facility] Color, UA Yellow [facility] Glucose, UA Negative Negative - 1999(110) ++++ mg/dL [facility] Interpretation and review of laboratory results Normal [facility] Ketones, UA Negative Negative - 160(16) ++++ mg/dL [facility] Leukocytes, UA Negative Negative - 500+++ Chanel/mcL [facility] Nitrite, UA Negative Negative - Positive [facility] pH, UA 6 5 - 9 [facility] Protein, UA Negative Negative - 1999(20) ++++ mg/dL [facility] Spec Grav, UA 1.02 1 - 1.03 [facility] Urobilinogen, UA 1.0 0.2 - 12 mg/dL [facility] Ambulatory Visit Summaryon 0 06-22-2024 [...] taki (more content not included)... Normal [facility] Family Medicine Office/Clini c Noteon [...] Letter June 16, 2024 JESICA DOSHI [address] [place] [address] : 1995 To Whom It May Concern, Please excuse above patient from work due to Covid diagnosis. Date of Illness: From: 06/15/2024 To: 06/22/2024 May Return to Work On: 06/23/2024 Comments: May return to work sooner if symptom free. Sincerely, [address] [address] [facility] Ambulatory Visit Summaryon 0 06-15-2024 [...] AM EDT With: Michael Anderson MD Where: [address] [address]- Allergies No Known Medication Allergies Problems Ongoing [...] you for choosing us for your care. [facility] Family Medicine Office/Clini c Noteon 06-15-2024 [...] Daily, # 3 tab(s), Refills(s) 0, Pharmacy: [facility] #[id number], 166, cm, 06/15/24 8:34:00 EDT, Height/Length Dosing, 95.6, kg, 06/15/24 8:34:00 EDT, Weight Dosing benzonatate, 200 mg = 1 cap(s), Oral, TID, X 7 day(s), # 21 cap(s), Refills(s) 0, Pharmacy: [facility] #[id number], 166, cm, 06/15/24 8:34:00 EDT, Height/Length Dosing, 95.6, kg, 06/15/24 8:34:00 EDT, Weight Dosing methylPREDNISolone, = 1 packet(s), Oral, As Directed, as directed on package labeling, X 6 day(s), # 21 tab(s), Refills(s) 0, Pharmacy: [facility] #[id number], 166, cm, 06/15/24 8:34:00 EDT, Height/Length Dosing, 95.6, kg, 06/15/24 8:34:00 EDT, Weight Dosing 2. BMI 34.0-34.9,adult (Z68.34: Body mass index [BMI] 34.0-34.9, adult) - BMI education added Ordered: azithromycin, 500 mg = 1 tab(s), Oral, Daily, # 3 tab(s), Refills(s) 0, Pharmacy: [facility] #[id number], 166, cm, 06/15/24 8:34:00 EDT, Height/Length Dosing, 95.6, kg, 06/15/24 8:34:00 EDT, Weight Dosing benzonatate, 200 mg = 1 cap(s), Oral, TID, X 7 day(s), # 21 cap(s), Refills(s) 0, Pharmacy: [facility] #[id number], 166, cm, 06/15/24 8:34:00 EDT, Height/Length Dosing, 95.6, kg, 06/15/24 8:34:00 EDT, Weight Dosing methylPREDNISolone, = 1 packet(s), Oral, As Directed, as directed on package labeling, X 6 day(s), # 21 tab(s), Refills(s) 0, Pharmacy: [facility] #[id number], 166, cm, 06/15/24 8:34:00 EDT, Height/Length Dosing, 95.6, kg, 06/15/24 8:34:00 EDT, Weight Dosing Rapid COVID POC 09843 Rapid Strep POC 22250 3. Class 1 obesity due to excess calories in adult (E66.09: Other obesity due to excess calories) - Diet and exercise advised Ordered: azithromycin, 500 mg = 1 tab(s), Oral, Daily, # 3 tab(s), Refills(s) 0, Pharmacy: [facility] #[id number], 166, cm, 06/15/24 8:34:00 EDT, Height/Length Dosing, 95.6, kg, 06/15/24 8:34:00 EDT, Weight Dosing benzonatate, 200 mg = 1 cap(s), Oral, TID, X 7 day(s), # 21 cap(s), Refills(s) 0, Pharmacy: [facility] #[id number], 166, cm, 06/15/24 8:34:00 EDT, Height/Length Dosing, 95.6, kg, 06/15/24 8:34:00 EDT, Weight Dosing methylPREDNISolone, = 1 packet(s), Oral, As Directed, as directed on package labeling, X 6 day(s), # 21 tab(s), Refills(s) 0, Pharmacy: [facility] #[id number], 166, cm, 06/15/24 8:34:00 EDT, Height/Length Dosing, 95.6, kg, 06/15/24 8:34:00 EDT, Weight Dosing Rapid COVID POC 00887 Rapid Strep POC 42093 4. Former smoker (Z87.891: Personal history of nicotine dependence) - Please continue to not smoke. Ordered: azithromycin, 500 mg = 1 tab(s), Oral, Daily, # 3 tab(s), Refills(s) 0, Pharmacy: [facility] #[id number], 166, cm, 06/15/24 8:34:00 EDT, Height/Length Dosing, 95.6, kg, 06/15/24 8:34:00 EDT, Weight Dosing benzonatate, 200 mg = 1 cap(s), Oral, TID, X 7 day(s), # 21 cap(s), Refills(s) 0, Pharmacy: [facility] #[id number], 166, cm, 06/15/24 8:34:00 EDT, Height/Length Dosing, 95.6, kg, 06/15/24 8:34:00 EDT, Weight Dosing methylPREDNISolone, = 1 packet(s), Oral, As Directed, as directed on package labeling, X 6 day(s), # 21 tab(s), Refills(s) 0, Pharmacy: [facility] #[id number], 166, cm, 06/15/24 8:34:00 EDT, Height/Length Dosing, 95.6, kg, 06/15/24 8:34:00 EDT, Weight Dosing Rapid COVID POC 78022 Rapid Strep POC 57942 Follow-up No qualifying data available Problem List/Past Medical History Ongoing Acute URI Cough COVID Elevated BP without diagnosis of hypertension Smoker 17-MAY-2014 12:37:00<$> Historical No qualifying data Procedure/Surgical History section. Medications Azithromycin 3 Day Dose Pack 500 mg oral tabl (more content not included)... Normal [facility] Comment on above: Result Comment: Elec tronically Signed By: Michael Anderson MD\.br\Date and Time Signed: 06/15/24 09:10 EDT Provider Letteron 06-15-2024 Provider Letter Provider Letter June 15, 2024 JESICA DOSHI [address] [place] [address] : 1995 To Whom It May Concern, Please excuse above patient from work due to illness. Date of Illness: From: 06-15-24 To: 06-22-24 May Return to Work On:06-23-24 Restrictions: _ Comments: _ Sincerely, Family Medicine [address] [address] [facility] Ambulatory Visit Summaryon 0 11-23-2023 Ambulatory Visit Summary RUSTY JESICA GARLAND :1995 Visit Date:11/23/2023 Ambulatory Visit Instructions Your [...] EST With: Justin PEREIRA, Michael Quinones Where: [facility] Family Medicine [place] [facility] Medicine Office/Clini c Noteon 11-23-2023 Family [...] day(s), # 21 cap(s), Refills(s) 0, Pharmacy: [facility] #[id number], 166, cm, 11/23/23 13:05:00 EST, Height/Length Dosing, 91.6, kg, 11/23/23 13:05:00 EST, Weight Dosing methylPREDNISolone, = 1 packet(s), Oral, As Directed, as directed on package labeling, X 6 day(s), # 21 tab(s), Refills(s) 0, Pharmacy: [facility] #[id number], 166, cm, 11/23/23 13:05:00 EST, Height/Length Dosing, 91.6, kg, 11/23/23 13:05:00 EST, Weight Dosing 2. Cough (R05.9: Cough, unspecified) - As above - Pending covid test. Ordered: benzonatate, 200 mg = 1 cap(s), Oral, TID, X 7 day(s), # 21 cap(s), Refills(s) 0, Pharmacy: [facility] #[id number], 166, cm, 11/23/23 13:05:00 EST, Height/Length Dosing, 91.6, kg, 11/23/23 13:05:00 EST, Weight Dosing methylPREDNISolone, = 1 packet(s), Oral, As Directed, as directed on package labeling, X 6 day(s), # 21 tab(s), Refills(s) 0, [facility]acy: [facility] #[id number], 166, cm, 11/23/23 13:05:00 EST, Height/Length Dosing, 91.6, kg, 11/23/23 13:05:00 EST, Weight Dosing 3. BMI 36.0-36.9,adult (Z68.36: Body mass index [BMI] 36.0-36.9, adult) - BMI education given Ordered: benzonatate, 200 mg = 1 cap(s), Oral, TID, X 7 day(s), # 21 cap(s), Refills(s) 0, Pharmacy: [facility] #[id number], 166, cm, 11/23/23 13:05:00 EST, Height/Length Dosing, 91.6, kg, 11/23/23 13:05:00 EST, Weight Dosing methylPREDNISolone, = 1 packet(s), Oral, As Directed, as directed on package labeling, X 6 day(s), # 21 tab(s), Refills(s) 0, [facility]acy: [facility] #[id number], 166, cm, 11/23/23 13:05:00 EST, Height/Length Dosing, 91.6, kg, 11/23/23 13:05:00 EST, Weight Dosing 4. Non-smoker (Z78.9: Other specified health status) - Please continue to not smoke Ordered: benzonatate, 200 mg = 1 cap(s), Oral, TID, X 7 day(s), # 21 cap(s), Refills(s) 0, [facility]: [id number], 166, cm, 11/23/23 13:05:00 EST, Height/Length Dosing, 91.6, kg, 11/23/23 13:05:00 EST, Weight Dosing methylPREDNISolone, = 1 packet(s), Oral, As Directed, as directed on package labeling, X 6 day(s), # 21 tab(s), Refills(s) 0, [facility]acy: [facility] #[id number], 166, cm, 11/23/23 13:05:00 EST, Height/Length Dosing, [...] Institute Comment on above: Result Comment: Elec sabasally Signed By: Justin PEREIRA, Michael Dewitt.br\Date and [...] numbers. This can be done either in [place] ([place] or metric measurements. Note that charts and online BMI calculators are available to help you find your BMI quickly and easily without having to do these calculations yourself. To calculate your BMI in [place] ([place] measurements: 1. Measure your weight in [...] for Disease Control and Prevention: www.cdc.gov ? [place] [employer]: www.heart.org ? National Heart, Lung, and Blood [place]: www.nhlbi.nih.gov Summary ? Body mass index (BMI) is a number that is calculated from a person's weight and height. ? BMI may help estimate how much of a person's weight is composed of fat. BMI can help identify those who may be at higher risk for certain medical problems. ? BMI can be measured using Afghan measurements or metric measurements. ? BMI charts are used to identify whether you are underweight, normal weight, overweight, or obese. This information is not intended to replace advice given to you by your health care provider. Make sure you discuss any questions you have with your health care provider. Document Revised: 07/24/2020 Document Reviewed: 05/31/2020 Elsevier Patient Education ? [address] [employer] Normal [facility] GROUP A STREP CULTUREon 02-14 S. pyogenes Ag Ql (Unsp spec) Culture Observations: NEGATIVE FOR GROUP A STREPTOCOCCUS. Normal [facility] Comment on above: Performed By: #### G RASTCX, SSCRN #### [facility] [address] [place] [address] Dr. Aniceto Ashby MONOon 03-13-2023 Monocytes (Bld) [#/Vol] Negative Normal NEGATIVE [facility] Comment on above: Performed By: #### M ERVIN #### [facility] [address] [place] [address] Dr. Aniceto Ashby STREPT SCREENon 03-13-2023 STREP SCREEN A Negative Normal NEGATIVE [facility] Comment on above: Performed By: #### G RASTCX, SSCRN #### [facility] [address] [place] [address] Dr. Aniceto Ashby GROUP A STREP CULTUREon 02-14 S. pyogenes Ag Ql (Unsp spec) Culture Observations: NEGATIVE FOR GROUP A STREPTOCOCCUS. [facility] Comment on above: Performed By: #### G RASTCX, SSCRN #### [facility] [address] [place] [address] Dr. Aniceto Ashby STREPT SCREENon 03-10-2023 STREP SCREEN A Negative Normal NEGATIVE [facility] Comment on above: Performed By: #### G RASTCX, SSCRN #### [facility] [address] [place] [address] Dr. Aniceto Ashby PAP ACOG PANEL 2: 21 to 29on 02-19-2023 . . [facility] Comment on above: Performed By: #### 4 [id number] #### [facility] [address] [place] [address] Dr. Aniceto Ashby Age Gdln ACOG Testing - [facility] Comment on above: Performed By: #### 4 [id number] #### [facility] [address] [place] [address] Dr. Aniceto Ashby DIAGNOSIS: Comment Normal [facility] Comment on above: Result Comment: NEGA TIVE FOR INTRAEPITHELIAL LESION OR MALIGNANCY. SHIFT IN DENNY SUGGESTIVE OF BACTERIAL VAGINOSIS. THIS SPECIMEN WAS RESCREENED PART OF OUR SKIN TANNER PROGRAM. Performed By: #### 4 [id number] #### [facility] [address] [place] [address] Dr. Aniceto Ashby Methodology: Comment Normal [facility] Comment on above: Result Comment: This liquid based ThinPrep(R) pap test was screened with the use of an image guided system. Performed By: #### 4 [id number] #### [facility] [address] [place] [address] Dr. Aniceto Ashby Note: Comment Normal [facility] [...] do occur. . Performed By: #### 4 [id number] #### [facility] [address] [place] [address] Dr. Aniceto Ashby Performed by: Comment Normal [facility] Comment on above: Result Comment: Cleo Dubon, Traffic Reporter (ASCP) Performed By: #### 4 [id number] #### [facility] [address] [place] [address] Dr. Aniceto Ashby QC reviewed by: Comment Normal [facility] Comment on above: Result Comment: Cleo Dasilva Traffic Reporter (ASCP) Performed By: #### 4 [id number] #### [facility] [address] [place] [address] Dr. Aniceto Ashby Reflex Criteria: Comment [facility] Comment on above: Result Comment: The HPV DNA reflex criteria were not met with this specimen result therefore, no HPV testing was performed. . Performed By: #### 4 [id number] #### [facility] [address] [place] [address] Dr. Aniceto Ashby Specimen adequacy: Comment Normal [facility] Comment on above: Result Comment: Sati sfactory for evaluation. Endocervical and/or squamous metaplastic cells (endocervical component) are present. Performed By: #### 4 [id number] #### [facility] [address] [address] [address] Aniceto Ashby Covid-19 PCR (CVDTB)on SARS-CoV-2 (COVID-19) RNA HUSEYIN+probe Ql (Unsp spec) Not detected Normal NOT DETECTED [facility] Comment on above: Result Comment: When [...] for this test is supported by the Typesetting Machine Tender of Health and Human Service's declaration [...] used). Performed By: #### C VDTBH #### [facility] [address] [address] [address] Aniceto Ashby Vital Signs Date Time Vital Sign Value Performing Clinician Faci lity 04-10-2025 14:33-0400 Body mass index (BMI) [Ratio] 39.12 kg/m2 [facility] Work Phone: [facility] 04-10-2025 14:33-040 Body weight 113.29 kg [facility] Work Phone: [facility] 04-10-2025 14:33-0400 Diastolic blood pressure 70 mm[Hg] [facility] Work Phone: [facility] 04-10-2025 14:33-0400 Systolic blood pressure 136 mm[Hg] Madiha Marika DO Work Phone: [facility] 04-03-2025 14:53-0400 Body mass index (BMI) [Ratio] 38.9 kg/m2 Madiha Marika DO Work Phone: [facility] 04-03-2025 14:53-0400 Body weight 112.67 kg Madiha Marika DO Work Phone: [facility] 04-03-2025 14:53-0400 Diastolic blood pressure 76 mm[Hg] Madiha Marika DO Work Phone: [facility] 04-03-2025 14:53-0400 Systolic blood pressure 124 mm[Hg] Madiha Marika DO Work Phone: [facility] 03-19-2025 14:17-0400 Body mass index (BMI) [Ratio] 37.2 kg/m2 Madiha Marika DO Work Phone: [facility] 03-19-2025 14:17-0400 Body weight 107.73 kg Madiha Marika DO Work Phone: [facility] 03-19-2025 14:17-0400 Diastolic blood pressure 76 mm[Hg] Madiha Marika DO Work Phone: [facility] 03-19-2025 14:17-0400 Systolic blood pressure 122 mm[Hg] Madiha Marika DO Work Phone: [facility] 03-05-2025 15:48-0400 Body mass index (BMI) [Ratio] 36.65 kg/m2 Sugey BADILLO Work Phone: [facility] 03-05-2025 15:48-0400 Body weight 106.14 kg Sugey BADILLO Work Phone: [facility] 03-05-2025 15:48-0400 Diastolic blood pressure 74 mm[Hg] Sugey BADILLO Work Phone: [facility] 03-05-2025 15:48-0400 Systolic blood pressure 124 mm[Hg] Sugey BADILLO Work Phone: [facility] 02-19-2025 15:47-0400 Body mass index (BMI) [Ratio] 36.88 kg/m2 Madiha Marika DO Work Phone: [facility] 02-19-2025 15:47-0400 Body weight 106.82 kg Madiha Marika DO Work Phone: [facility] 02-19-2025 15:47-0400 Diastolic blood pressure 70 mm[Hg] Madiha Marika DO Work Phone: [facility] 02-19-2025 15:47-0400 Systolic blood pressure 130 mm[Hg] Madiha Marika DO Work Phone: [facility] 01-04-2025 09:11-0500 Body mass index (BMI) [Ratio] 35.55 kg/m2 Madiha Marika DO Work Phone: [facility] 01-04-2025 09:11-0500 Body weight 102.97 kg Madiha Marika DO Work Phone: [facility] 01-04-2025 09:11-0500 Diastolic blood pressure 78 mm[Hg] Madiha Marika DO Work Phone: [facility] 01-04-2025 09:11-0500 Systolic blood pressure 122 mm[Hg] Madiha Marika DO Work Phone: [facility] 12-07-2024 15:35-0500 Body mass index (BMI) [Ratio] 34.36 kg/m2 Sugey BADILLO Work Phone: [facility] 12-07-2024 15:35-0500 Body weight 99.52 kg Sugey BADILLO Work Phone: [facility] 12-07-2024 15:35-0500 Diastolic blood pressure 70 mm[Hg] Suegy BADILLO Work Phone: [facility] 12-07-2024 15:35-0500 Systolic blood pressure 122 mm[Hg] Sugey BADILLO Work Phone: [facility] 11-09-2024 10:53-0500 Body mass index (BMI) [Ratio] 33.67 kg/m2 Madiha Marika DO Work Phone: [facility] 11-09-2024 10:53-0500 Body weight 97.52 kg Madiha Marika DO Work Phone: [facility] 11-09-2024 10:53-0500 Diastolic blood pressure 82 mm[Hg] Madiha Marika DO Work Phone: [facility] 11-09-2024 10:53-0500 Systolic blood pressure 122 mm[Hg] Madiha Marika DO Work Phone: [facility] 10-10-2024 13:35-0500 Body mass index (BMI) [Ratio] 33.17 kg/m2 Madiha Marika DO Work Phone: [facility] 10-10-2024 13:35-0500 Body weight 96.07 kg Madiha Marika DO Work Phone: [facility] 10-10-2024 13:35-0500 Diastolic blood pressure 80 mm[Hg] Madiha Marika DO Work Phone: [facility] 10-10-2024 13:35-0500 Systolic blood pressure 120 mm[Hg] Madiha Marika DO Work Phone: [facility] 09-07-2024 13:52-0400 Body mass index (BMI) [Ratio] 34.16 kg/m2 [facility] 09-07-2024 13:52-0400 Body weight 98.94 kg [facility] 09-07-2024 13:52-0400 Diastolic blood pressure 70 mm[Hg] [facility] 09-07-2024 13:52-0400 Systolic blood pressure 120 mm[Hg] [facility] Healthcare Encounters Encounter Date Encounter Type Care Provider Facility Start: 04-18-2025 End: 04-18-2025 ambulatory MADIHA MARIKA Not Available Start: 04-10-2025 End: 04-10-2025 Office outpatient visit 15 minutes Madiha Marika DO Work Phone: [facility] Comment on above: Third trimester preg john; 37 weeks gestation of Start: 04-10-2025 End: 04-10-2025 ambulatory MADIHA MARIKA Not Available Start: 04-10-2025 End: 04-10-2025 Bamboo flowsheet Madiha Marika DO Work Phone: [facility] Start: 04-10-2025 End: 04-10-2025 Bamboo flowsheet Madiha Marika DO Work Phone: [facility] Start: 04-03-2025 End: 04-03-2025 Office outpatient visit 15 minutes Madiha Marika DO Work Phone: [facility] Comment on above: Third trimester preg john; 36 weeks gestation of Start: 04-03-2025 End: 04-03-2025 ambulatory MADIHA MARIKA Not Available Start: 04-03-2025 End: 04-03-2025 Bamboo flowsheet Madiha [...] Not Available Start: 03-08-2025 End: 03-08-2025 ambulatory MAIDHA R [facility] Start: 03-05-2025 End: 03-05-2025 Office [...] Start: 02-08-2025 End: 02-08-2025 ambulatory MADIHA R [facility] Start: 02-05-2025 End: [...] Available Start: 12-11-2024 End: 12-11-2024 Telephone encounter Rohinimona Tineogalen ALMENDAREZ [facility] Start: 12-07-2024 End: 12-07-2024 Office outpatient visit 15 minutes Sugey BADILLO Work Phone: [facility] Comment on above: Second trimester pre gnancy; 19 weeks gestation of ; Fever, unspecified fever cause; Cough, unspecified type Start: 12-07-2024 End: 12-07-2024 ambulatory SUGEY MADRID Not Available Start: 12-07-2024 End: 12-07-2024 Bamboo flowsheet Sugey BADILLO Work Phone: [facility] Start: 12-07-2024 End: 12-07-2024 Bamboo flowsheet Sugey BADILLO Work Phone: [facility] Start: 11-09-2024 End: 11-09-2024 Bamboo flowsheet Madiha Marika DO Work Phone: [facility] Start: 11-09-2024 End: 11-11-2024 Bamboo flowsheet Madiha Marika DO Work Phone: [facility] Start: 11-09-2024 End: 11-11-2024 Clinisync Result Encounter Madiha Marika DO Work Phone: [facility] External Department Unsolicited Start: 11-09-2024 [...] Start: 06-22-2024 End: 06-22-2024 ambulatory IGNACIA CRAWFORD Facility:[facility] [place] vue Start: 06-15-2024 End: 06-15-2024 ambulatory Michael Anderson Facility:[facility] [place] rafaela Start: 12-28-2023 ambulatory Michael Anderson Facility :[facility] Luis Start: 11-23-2023 ambulatory Michael Anderson Facility :[facility] Start: 11-23-2023 ambulatory Michael Anderson Facility:[facility] [place] Start: 03-13-2023 End: 03-13-[address] SANGEETA FUNK Facility:[facility] Start: 03-10-2023 End: 03-10-[address] TODD Yeboah Facility:[facility] Start: 02-11-2023 End: 02-11-2023 ambulatory JEMAL BEGUM Facility:[facility] Start: 07-23-2022 End: 07-23-[address] KORY MCLEAN Facility:[facility] Procedures Date Procedure Procedure Detail Performing Clinician Start: 04-10-2025 Urnls dip stick/tabl et rgnt non-auto w/o micrscp Madiha Marika DO Work Phone: Start: 03-19-2025 Urnls dip stick/tabl et rgnt [...] stick/tabl et rgnt non-auto w/o micrscp Sugey BADILLO Work Phone: Start: 11-09-2024 RECURRENT VAGINITIS (HTRX) [...] Treatment Date Care Activity Detail Author Start: 04-18-2025 End: 04-18-2025 Patient encounter procedure 04/18/2025 2:30 PM EDT Routine [facility] [address] [place] [address] Marika, Madiha, DO [address] [place] [address] [facility] Start: 04-10-2025 End: 04-10-2025 Patient encounter procedure [facility] Comment on above: Arrived Start: 04-03-2025 End: 04-03-2025 Patient encounter procedure [facility] Comment on above: Arrived Start: 04-03-2025 End: 04-03-2026 CULTURE, GROUP B STREP WITH SUSCEPTIBLITY CULTURE, GROUP B STREP WITH SUSCEPTIBLITY Lab Routine Third trimester Expected: 04/03/2025, Expires: 04/03/2026 [facility] Work Phone: Comment on above: Expected: 04/03/2025 , Expires: 04/03/2026 Start: 03-19-2025 End: 03-19-2025 Patient encounter procedure [facility] Comment on above: Arrived Start: 03-05-2025 End: 03-05-2025 Patient encounter procedure [facility] Comment on above: Arrived Start: 02-19-2025 End: 02-19-2025 Patient encounter procedure 02/19/2025 3:30 PM EDT Routine [facility] [address] [place] [id number] Madiha Hairston, DO [address] [place] [address] Arrived [facility] Comment on above: Arrived Start: 02-05-2025 End: 02-05-2025 Patient encounter procedure [facility] Comment on above: Arrived Start: 01-04-2025 End: 01-04-2026 CBC panel - Blood by Automated count CBC Lab Routine Diabetes mellitus screening Expected: 01/04/2025 (Approximate), Expires: 01/04/2026 [facility] Work Phone: Comment on above: Expected: 01/04/2025 (Approximate), Expires: 01/04/2026 Start: 01-04-2025 End: 01-04-2026 Measurement of glucose 1 hour after glucose challenge for glucose tolerance test Glucose tolerance, 1 hour Lab Routine Diabetes mellitus screening Expected: 01/04/2025 (Approximate), Expires: 01/04/2026 [facility] Healthcare Comment on above: Expected: 01/04/2025 (Approximate), Expires: 01/04/2026 Start: 01-04-2025 End: 01-04-2025 Patient encounter procedure 01/04/2025 8:50 AM EST Routine [facility] [address] [place] [id number] Madiha Hairston, DO [address] [place] [address] [facility] Start: 12-18-2024 End: 12-18-2024 Professional / ancillary services management 12/18/2024 2:00 PM EST Ancillary Procedure [facility] [address] [place] [phone] [facility] Start: 12-07-2024 End: 12-07-2024 Patient encounter procedure 12/07/2024 3:30 PM EST Routine [facility] [address] [place] [phone] Sugey Mdarid PA [address] [place] [address] Arrived [facility] Comment on above: Arrived Start: 12-07-2024 End: 12-07-2024 Patient encounter procedure 12/07/2024 11:30 AM EST Routine [facility] [address] [place] [id number] Sugey Madrid PA [address] [place] [address] [facility] Start: 11-09-2024 End: 01-10-2025 [...] PM EST Routine [facility] [address] [place] [id number] Madiha Hairston DO [address] [place] [address] [facility] Start: 09-07-2024 End: 09-07-2025 ABO/Rh ABO/Rh Lab Routine Missed menses , unspecified gestational age Expected: 09/07/2024 (Approximate), Expires: 09/07/2025 [facility] Healthcare Comment on above: Expected: 09/07/2024 (Approximate), Expires: 09/07/2025 Start: 09-07-2024 End: 09-07-2025 Blood type and Indirect antibody screen panel - Blood Type and screen Lab Routine Missed menses , unspecified gestational age Expected: 09/07/2024 (Approximate), Expires: 09/07/2025 [facility] Work Phone: Comment on above: Expected: 09/07/2024 (Approximate), Expires: 09/07/2025 Start: 09-07-2024 End: 09-07-2025 Drugs of abuse panel - Urine by Screen method Rapid drug screen, urine Lab Routine , unspecified gestational age Encounter for supervision of normal first in first trimester Expected: 09/07/2024 (Approximate), Expires: 09/07/2025 [facility] Comment on above: Expected: 09/07/2024 (Approximate), Expires: 09/07/2025 Start: 09-07-2024 End: 09-07-2025 US Pelvis transvaginal US OB transvaginal Imaging Routine Missed menses Expected: 09/07/2024 (Approximate), Expires: 09/07/2025 [facility] Healthcare Comment on above: Expected: 09/07/2024 (Approximate), Expires: 09/07/2025 Bacteria identified in Urine by Culture Urine culture Microbiology Routine Missed menses Ordered: 09/07/2024 [facility] Healthcare Comment on above: Ordered: 09/07/2024 CBC W Auto Different ial panel - Blood CBC and differential Lab Routine Missed menses , unspecified gestational age Ordered: 09/07/2024 [facility] Healthcare Comment on above: Ordered: 09/07/2024 CHLAMYDIA TRACHOMATI S (GENITO/STI) CHLAMYDIA TRACHOMATIS (GENITO/STI) Lab Routine 15 weeks gestation of Second trimester Ordered: 11/09/2024 [facility] Comment on above: Ordered: 11/09/2024 Cytology Cervical or vaginal smear or scraping study Pap Smear Pathology and Cytology Routine 15 weeks gestation of Second trimester Ordered: 11/09/2024 [facility] Work Phone: Comment on above: Ordered: 11/09/2024 Hemoglobin A1c/Hemoglobin.total in Blood Hemoglobin A1c Lab Routine Missed menses , unspecified gestational age Ordered: 09/07/2024 [facility] Comment on above: Ordered: 09/07/2024 Hepatitis B virus surface Ag [Presence] in Serum or Plasma by Immunoassay Hepatitis B surface antigen Lab Routine Missed menses , unspecified gestational age Ordered: 09/07/2024 [facility] Comment on above: Ordered: 09/07/2024 Hepatitis C virus Ab [Presence] in Serum or Plasma by Immunoassay Hepatitis C antibody Lab Routine Missed menses , unspecified gestational age Ordered: 09/07/2024 [facility] Comment on above: Ordered: 09/07/2024 HIV-1/HIV-2 antigen/antibody combination immunoassay HIV-1 and HIV-2 antibodies Lab Routine Missed menses , unspecified gestational age Ordered: 09/07/2024 [facility] Comment on above: Ordered: 09/07/2024 Neisseria gonorrhoea e DNA [Presence] in Unspecified specimen by HUSEYIN with probe detection Neisseria gonorrhea DNA probe, direct Lab Routine 15 weeks gestation of Second trimester Ordered: 11/09/2024 [facility] Comment on above: Ordered: 11/09/2024 Reagin Ab [Presence] in Serum by RPR RPR Lab Routine Missed menses , unspecified gestational age Ordered: 09/07/2024 [facility] Comment on above: Ordered: 09/07/2024 Rubella antibody, IgG Rubella an tibody, IgG Lab Routine Missed menses , unspecified gestational age Ordered: 09/07/2024 [facility] Comment on above: Ordered: 09/07/2024 SURESWAB(R) ADVANCED VAGINITIS PLUS, TMA SURESWAB(R) ADVANCED VAGINITIS PLUS, TMA Pathology and Cytology Routine 15 weeks gestation of Second trimester Ordered: 11/09/2024 [facility] Comment on above: Ordered: 11/09/2024 Payers Date Payer Category Payer Medicaid [employer]BS [facility] [id number] [address] Blue Cross Blue [employer] BCBS [facility] [id number] 2023 Unknown [id number] 2022 Medicaid [id number] 1996 Unknown [id number] 2.16.840.1.863555.3.579.2. 593 1996 Unknown [id number] 2.16840.1.351121.3.579.2. 593 1996 Unknown [id number] 2.16.840.1.281265.3.579.2. 593 1996 Unknown [id number] 2.16.840.1.727562.3.579.2. 593 1996 Unknown [id number] 2.16.840.1.331167.3.579.2. 727 1996 Unknown [id number] 2.16840.1.984273.3.579.2. 727 1996 Unknown [id number] 2.16840.1.887900.3.579.2. 727 1996 Unknown [id number] 2.16.840.1.459097.3.579.2. 727 1996 Unknown [id number] 2.16840.1.414717.3.579.2. 1285 1996 Unknown [id number] 2.16840.1.050517.3.579.2. 128 1996 Unknown [id number] 2.840.1.945571.3.579.2. 1258 1996 Unknown [id number] 2.840.1.156594.3.579.2. 1258 1996 Unknown [id number] 2.0.1.876462.3.579.2. 1258 1996 Unknown [id number] 2.840.1.906873.3.579.2. 1258 1996 Unknown [id number] 2.840.1.213293.3.579.2. 1258 1996 Unknown [id number] 2.840.1.046104.3.579.2. 1258 1996 Unknown [id number] 2.0.1.945772.3.579.2. 1258 1996 Unknown [id number] 2.840.1.859337.3.579.2. 1258 1996 Unknown [id number] 2.16840.1.739213.3.579.2. 1258 1996 Unknown [id number] 2.16840.1.612303.3.579.2. 1258 1996 Unknown [id number] 2.16840.1.556092.3.579.2. 1258 1996 Unknown [id number] 2.16840.1.200161.3.579.2. 1259 1996 Unknown [id number] 2.16.840.1.534147.3.579.2. 1259 1959 Unknown [id number] Social History Date Type Detail Facility Start: 11-01-2023 Tobacco smoking status NHIS Ex-smoke r [facility] Start: 01-13-2013 End: 10-19-2022 History of tobacco use Current smoker [facility] Start: 01-13-2013 End: 10-19-2022 History of tobacco use Cigarette Smoker [facility] Start: 11-01-2023 End: 09-07-2024 History of Social function [facility] Start: 11-01-2023 End: 09-07-2024 Tobacco use panel [facility] Start: 08-08-2024 [facility] Start: 1995 Sex assigned at Not on file [facility] Medical Equipment Procedure Code Equipment Code Equipment Origin al Text Equipment Identifier Dates 1 strip by In Vi tro route Daily Use in the morning prior to breakfast, 1 hour after each meal for a total of 4times daily. [id number] Start: 02-05-2025 End: 03-07-2025 1 each by In Vit ro route Daily Use to check FSBS four times daily [id number] Start: 02-05-2025 End: 03-07-2025 Clinical Notes 06-22-2024 to 04-10-2025 Ramila Stone LPN - 04/10/2025 2:30 PM Deb Stone LPN - 04/03/2025 2:30 PM Michael Eric LPN - 03/19/2025 2:10 PM EDSabrina Bee MA - 03/05/2025 3:30 PM EDT Note Date & Type Note Facility 04-10-2025 History of Presen t illness Narrative Reason for Appointment: Patient ID: Jesicaes Doshi is a 29 y.o. female who presents for Routine Visit Patient presents today for Return OB appointment. MEDICATIONS Current Outpatient Medications Medication Instructions Alcohol Swabs (Alcohol Prep Pad) 70 % pads 1 Pad, Topical, Daily, Use four times daily to check FSBS. azithromycin (Zithromax Z-Twin) 250 MG tablet As directed Blood Glucose Monitoring Suppl (Whitetruffle Glucometer) w/Device kit 1 kit, Does not [...] nursing note reviewed. Exam conducted with a winding department supervisor present. Vitals: Estimated body mass index is 39.12 kg/m as calculated from the following: Height [...] Madiha Hairston DO documented in this encounter [facility] 04-03-2025 History of Presen t illness Narrative Reason [...] appearance. She is well-developed. Genitourinary: Vulva normal. Cardiovascular: Rate and Rhythm: Normal rate and [...] nursing note reviewed. Exam conducted with a winding department supervisor present. Vitals: Estimated body mass index is 38.9 kg/m as calculated from the following: Height as of 08/11/23: 5' 7 . Weight as of this encounter: 248 lb 6.4 oz. BP: 124/76 Patient's last menstrual period was 07/02/2024. ASSESSMENT & PLAN ICD-10-CM 1. Third trimester Z34.93 CULTURE, GROUP B STREP WITH SUSCEPTIBLITY CULTURE, GROUP B STREP WITH SUSCEPTIBLITY 2. 36 weeks gestation of Z3A.36 Patient is doing well but has complaints of being tired and having maternal discomfort due to . Patient verbalized frequent movement and was instructed to perform kick counts three times per day. labor precautions were given, LARC consent was signed/declined, and GBS was obtained. Orders Placed This Encounter Procedures CULTURE, GROUP B STREP WITH SUSCEPTIBLITY Follow Up: Patient is to return to office in 1 week for routine OB appointment Documented by Ramila Stone LPN on behalf of: Madiha Hairston DO documented in this encounter [facility] 03-19-2025 History of Presen t illness Narrative [...] nursing note reviewed. Exam conducted with a winding department supervisor present. Vitals: Estimated body mass index [...] Madiha Hairston DO documented in this encounter [facility] 03-05-2025 History of Presen t illness Narrative [...] tablet As directed Blood Glucose Monitoring Suppl (Whitetruffle Glucometer) w/Device kit 1 kit, Does not [...] nursing note reviewed. Exam conducted with a winding department supervisor present. Vitals: Estimated body mass index [...] Madiha Hairston DO documented in this encounter [facility] 02-19-2025 History of Presen t illness Narrative [...] tablet As directed Blood Glucose Monitoring Suppl (Whitetruffle Glucometer) w/Device kit 1 kit, Does not [...] nursing note reviewed. Exam conducted with a winding department supervisor present. Vitals: Estimated body mass index [...] Madiha Hairston DO documented in this encounter [facility] 01-04-2025 History of Presen t illness Narrative [...] nursing note reviewed. Exam conducted with a winding department supervisor present. Vitals: Estimated body mass index [...] Madiha Hairston DO documented in this encounter [facility] 12-11-2024 Telephone encounter Note Work note written and faxed to employer. [facility] 12-11-2024 Miscellaneous Notes Work note written [...] fax a work note Attn: Do @ [phone]? Thank you, Rohini Ritter LPN documented in this encounter [facility] 12-11-2024 Telephone encounter Note 12/11/24 @ [...] fax a work note Attn: Do @ [phone]? Thank you, Rohini Ritter LPN [facility] 12-07-2024 History of Presen t [...] of: ABY Erickson documented in this encounter [facility] 11-09-2024 History of Presen t illness [...] nursing note reviewed. Exam conducted with a winding department supervisor present. Vitals: Estimated body mass index [...] Madiha Hairston DO documented in this encounter [facility] 10-10-2024 History of Presen t illness [...] nursing note reviewed. Exam conducted with a winding department supervisor present. Vitals: Estimated body mass index [...] or undercooked meat, and stay away from [facility]. Patient has been consulted regarding any further [...] Madiha Hairston DO documented in this encounter [facility] 09-07-2024 History of Presen t illness Narrative Reason for Appointment: Patient ID: eJsica Doshi is a 29 y.o. female who [...] or undercooked meat, and stay away from [facility]. Patient has also been advised to not change litter boxes and eat 6 small meals a day. Patient has been consulted regarding the do's and don'ts of . Patient was given labs and all questions and concerns were answered. Script was sent for Zofran, and [place] labs given to patient. Follow Up: Patient is to return in 4 weeks for routine OB appointment. Follow Up: Patient is to have labs drawn at directed and return to office for initial OB appointment with provider. Patient may call office as needed with any concerns or questions. Nurse Visit Completed by: Milvia Chirinos LPN documented in this encounter [facility] 06-22-2024 Note Patient Education Obstetrics and [...] Know how (more content not included)... [facility] Evaluation note Diagnosis 6 weeks gestation of [...] soft tissues [facility] Diagnosis Third trimester state, incidental 36 weeks gestation of [facility] Diagnosis Third trimester state, incidental 37 weeks gestation of documented in this encounter [facility] Summary [...] DATE CREATED AUTHOR AUTHOR'S ORGANIZ ATION 06/24/2024 [facility] DATE CREATED AUTHOR AUTHOR'S ORGANIZ ATION 03/09/2025 [facility] DATE CREATED AUTHOR AUTHOR'S ORGANIZ ATION 04/19/2025 [facility] EPIC Reason for Visit (unrecogniz ed section and content) Reason Comments Amenorrhea Reason Comments Well Women Visit Reason Comments Routine Visit Care Teams (unrecognized sec tion and content) Corporate Tax Manager Relationship Specialty Start Date End Date Michael Anderson MD [address] [place] [id number] PCP - General Family Medicine 09/07/24 Corporate Tax Manager Relationship Specialty Start Date End Date Michael Anderson MD [address] [place] [address] [id number] PCP - General Family Medicine 09/07/24 Corporate Tax Manager Relationship Specialty Start Date End Date Michael Anderson MD [address] [place] [address] [id number] PCP - General Family Medicine 09/07/24 Corporate Tax Manager Relationship Specialty Start Date End Date Michael Anderson MD [address] [place] [address] [phone] PCP - General Family Medicine 09/07/24 Corporate Tax Manager Relationship Specialty Start Date End Date Michael Anderson MD [address] [place] [address] [id number] PCP - General Family Medicine 09/07/24 Corporate Tax Manager Relationship Specialty Start Date End Date Michael Anderson MD [address] [place] [address] PCP - General Family Medicine 09/07/24 Corporate Tax Manager Relationship Specialty Start Date End Date Michael Anderson MD [address] [place] [address] PCP - General Family Medicine 09/07/24 Corporate Tax Manager Relationship Specialty Start Date End Date Michael Anderson MD [address] [place] [address] PCP - General Family Medicine 09/07/24 Corporate Tax Manager Relationship Specialty Start Date End Date Michael Anderson MD [address] [place] [address] PCP - General Family Medicine 09/07/24 Corporate Tax Manager Relationship Specialty Start Date End Date Michael Anderson MD [address] [place] [address] PCP - General Family Medicine 09/07/24 Corporate Tax Manager Relationship Specialty Start Date End Date Michael Anderson MD [address] [place] [address] PCP - General Family Medicine 09/07/24 Corporate Tax Manager Relationship Specialty Start Date End Date Michael Anderson MD [address] [place] [address] PCP - General Family Medicine 09/07/24 Corporate Tax Manager Relationship Specialty Start Date End Date Michael Anderson MD [address] [place] [address] PCP - General Family Medicine 09/07/24 Corporate Tax Manager Relationship Specialty Start Date End Date Michael Anderson MD [address] [place] [address] PCP - General Family Medicine 09/07/24 FOR [...] BE BASED ON THE PRIMARY CLINICAL RECORDS. [facility] [facility]. provides no warranty or guarantee of the accuracy or completeness of information in this document.
--- OUTSIDE RECORDS SUMMARY | 2025-04-20 05:40 | XMS_ITS | Encounter Summary ---
Author Organization [facility] Address [address] [place] [address] Care Team Providers Care Cement Crusher Operator Name Role Phone Michael Anderson MD Primary Care Provider [phone] Encounter Details Date Type Department Care Team (Late st Contact Info) Description 04/18/2025 Clinisync Result Encounter [facility] External Department Unsolicited Mak Hairston, DO [address] [place] [address] Social History Tobacco Use Types [...] Procedure Name Priority Date/Time Associated Diagnosis Comments TBH CREATININE Routine 04/18/2025 4:11 PM EDT [facility] PROTHROMBIN TIME INR W/O COUM Routine 04/18/2025 4:11 PM EDT [facility] AST Routine 04/18/2025 4:11 PM EDT [facility] APTT Routine 04/18/2025 4:11 PM EDT ALL URIC ACID Routine 04/18/2025 4:11 PM EDT ALL LDH Routine 04/18/2025 4:11 PM EDT ALL CBC WITH AUTO DIFF Routine 04/18/2025 4:11 PM EDT ALL BUN Routine 04/18/2025 4:11 PM EDT documented in this encounter Results * [facility] APTT (04/18/2025 4:11 PM EDT) PARTIAL THROMBOPLASTIN TIME 26.5 22.3 - 36.2 sec TBH 04/18/2025 4:11 PM EDT 04/18/2025 4:13 PM EDT Narrative CLINIS[facility] - 04/18/2025 4:43 PM EDT Mak Marika DO CLINISYNC Final Result Performing Organization Address City/[facility]/ZIP Co de Phone Number [facility] * [facility] PROTHROMBIN TIME INR W/O COUM (04/18/2025 4:11 PM EDT) PROTHROMBIN TIME 9.5 9.0 - 11.6 sec TBH TBH INR <0.93 TBH Comment: DESIRED INR: 2.0-3.0 CONDITIONS NOT LISTED BELOW 2.5-3.5 FOR PROSTHETIC HEART VALVE REPLACEMENT 2.5-3.5 RECURRENT THROMBOSIS 04/18/2025 4:11 PM EDT 04/18/2025 4:13 PM EDT Narrative CLINISYNC - 04/18/2025 4:43 PM EDT Mak Marika DO CLINISYNC Final Result [facility] * ALL LDH (04/18/2025 4:11 PM EDT) LACTATE DEHYDROGENASE 95 81 - 234 U/L TB 04/18/2025 4:11 PM EDT 04/18/2025 4:13 PM EDT Narrative CLINISYNC - 04/18/2025 4:42 PM EDT Mak Marika DO CLINISYNC Final Result [facility]NC TB * [facility] AST (04/18/2025 4:11 PM EDT) ASPARTATE AMINO TRANSFERASE 16 15 - 37 U/L TBH 04/18/2025 4:11 PM EDT 04/18/2025 4:13 PM EDT Narrative CLINISYNC - 04/18/2025 4:42 PM EDT [facility] Marika DO CLINISYNC Final Result Performing Organization Address City/[facility]/ZIP Co de Phone Number CLINISYNC TB * ALL URIC ACID (04/18/2025 4:11 PM EDT) URIC ACID 5.1 2.6 - 6.0 mg/dL TB 04/18/2025 4:11 PM EDT 04/18/2025 4:13 PM EDT Narrative CLINISYNC - 04/18/2025 4:42 PM EDT [facility] Marika DO CLINISYNC Final Result [facility] TB * TBH CREATININE (04/18/2025 4:11 PM EDT) CREATININE 0.64 0.55 - 1.02 mg/dL TBH TBH EGFR-AF GERMAN >60 >=60 mL/min/1.7 3m 2 TBH TBH EGFR-NON AF GERMAN >60 >=60 mL/min/1.7 3m 2 TBH 04/18/2025 4:11 PM EDT 04/18/2025 4:13 PM EDT Narrative CLINISYNC - 04/18/2025 4:42 PM EDT us Mak Marika DO CLINISYNC Final Result [facility]NC TB * ALL BUN (04/18/2025 4:11 PM EDT) Pathologist [facility] BLOOD UREA NITROGEN 12.0 7.0 - 18.0 mg/dL TB 04/18/2025 4:11 PM EDT 04/18/2025 4:13 PM EDT Narrative CLINISYNC - 04/18/2025 4:42 PM EDT [facility] Marika DO CLINISYNC Final Result [facility] TB * (ABNORMAL) ALL CBC WITH AUTO DIFF (04/18/2025 4:11 PM EDT) Pathologist [facility] TB WBC 11.2(H) 4.0 - 11.0 10 3/uL TBH TB RBC 4.17(L) 4.20 - 5.40 10 6/uL TBH TBH HGB 12.7 12.0 - 16.0 g/dL TB TB HCT 36.8 36.0 - 48.0 % TBH TBH MCV 88.2 81.0 - 99.0 fL TBH TBH MCH 30.5 26.7 - 34.0 pg TBH TB MCHC 34.5 29.9 - 35.2 g/dL TB TB RDW 13.3 11.0 - 15.0 % TBH TBH PLT 281 150 - 450 10 3/uL TBH TBH MPV 10.3 9.5 - 13.5 fL TBH NEUTROPHILS PERCENT AUTO 71.8 43.0 - 75.0 % TBH LYMPHOCYTES PERCENT AUTO 18.1(L) 20.5 - 60.0 % TBH MONOCYTES PERCENT AUTO 8.0 1.7 - 12.0 % TBH TBH EO % 1.5 0.9 - 7.0 % TBH BASOPHILS PERCENT AUTO 0.2 0.2 - 2.0 % TBH IMMATURE GRANULOCYTES PCT AUTO 0.4 0.0 - 0.5 % TBH NEUTROPHILS ABSOLUTE AUTO 8.1(H) 1.4 - 6.5 10 3/uL TBH LYMPHOCYTES ABSOLUTE AUTO 2.0 1.2 - 3.8 10 3/uL TBH MONOCYTES ABSOLUTE AUTO 0.9(H) 0.3 - 0.8 10 3/uL TBH TBH EO # 0.2 0.0 - 0.7 10 3/uL TBH BASOPHILS ABSOLUTE AUTO 0.0 0.0 - 0.1 10 3/uL TBH IMMATURE GRANULOCYTES ABS AUTO 0.05(H) 0.00 - 0.03 10 3/uL TBH 04/18/2025 4:11 PM EDT 04/18/2025 4:13 PM EDT Narrative CLINISYNC - 04/18/2025 4:18 PM EDT us Mak Marika DO CLINIS[facility]NC Final [facility] documented in this encounter Visit Diagnoses Not on filedocumented in this encounter Care Teams Cement Crusher Operator Relationship Specialty Start Date End Date Michael Anderson MD [address] [place] [address] PCP - General Family Medicine 09/07/24 documented as of this encounter
--- OUTSIDE RECORDS SUMMARY | 2025-04-20 05:40 | XMS_ITS | Encounter Summary ---
Author Organization [facility] Address [address] [place] [address] Care Team Providers Care Clinical Phlebotomist Name Role Phone Michael Anderson MD Primary Care Provider [phone] Encounter Details Date Type Department Care Team (Late st Contact Info) Description 04/18/2025 Bamboo flowsheet [facility] [address] [place] [address] Mak Hairston, DO [address] Anand Smith, [facility]11 Social History Tobacco Use Types Packs/Day [...] on filedocumented in this encounter Care Teams Clinical Phlebotomist Relationship Specialty Start Date End Date Michael Anderson MD [address] [place] [address] PCP - General Family Medicine 09/07/24 documented as of this encounter
--- OUTSIDE RECORDS SUMMARY | 2025-04-20 05:40 | XMS_ITS | Encounter Summary ---
Author Organization [facility] Address [address] [place] [address] Care Team Providers Care [place] Boatman Name Role Phone Michael Anderson MD Primary Care Provider [phone] Encounter Details Date Type Department Care Team (Late st Contact Info) Description 10/10/2024 Abstract [facility] [address] [place] [id number] Mak Hairston DO [address] Anand Smith, [facility]11 Social History Tobacco Use Types Packs/Day [...] on filedocumented in this encounter Care Teams [place] Boatman Relationship Specialty Start Date End Date Michael Anderson MD [address] [place] [address] PCP - General Family Medicine 09/07/24 documented as of this encounter
--- OUTSIDE RECORDS SUMMARY | 2025-04-20 05:40 | XMS_ITS | Encounter Summary ---
Author Organization [facility] Address [address] [place] [address] Care Team Providers Care Vegetable Trimmer Name Role Phone Michael Anderson MD Primary Care Provider [phone] Encounter Details Date Type Department Care Team (Late st Contact Info) Description 09/07/2024 Abstract [facility] [address] [place] [id number] Mak Hairston DO [address] Anand Smith, [facility]11 Social History Tobacco Use Types Packs/Day [...] on filedocumented in this encounter Care Teams Vegetable Trimmer Relationship Specialty Start Date End Date Michael Anderson MD [address] [place] [address] PCP - General Family Medicine 09/07/24 documented as of this encounter
--- OUTSIDE RECORDS SUMMARY | 2025-04-20 05:40 | XMS_ITS | Clinical Summary ---
Author Organization [facility] Address [address] [place] [address] Care Team Providers Care Veneer Stacker Name Role Phone Koki Zapata MD Primary Care Provider [phone] Allergies No known active allergies Medications Vit-Fe [...] PM EDT Routine [facility] B[facility] OB [address] [place] [address] Madiha Hairston, Third trimester ; 38 weeks gestation of ; induced hypertension, antepartum; Elevated blood pressure affecting , antepartum 04/18/2025 Clinisync Result Encounter NOMS External Department Unsolicited Madiha Hairston, DO 04/18/2025 Clinisync Result Encounter NOMS External Department Unsolicited Madiha Hairston, DO 04/18/2025 Bamboo flowsheet [facility] OB [address] [place] [address] Madiha Hairston, DO 04/17/2025 Abstract [facility] B[facility] OB [address] [place] [address] Madiha Hairston, DO 04/10/2025 2:30 PM EDT Routine [facility] B[facility] OB [address] [place] [address] Madiha Hairston, Third trimester ; 37 weeks gestation of 04/10/2025 Bamboo flowsheet [facility] B[facility] OB [address] [place] [address] [phone] Madiha Hairston, DO 04/03/2025 2:30 PM EDT Routine [facility] B[facility] OB [address] [place] [address] Madiha Hairston, DO Third trimester ; 36 weeks gestation of 04/03/2025 Bamboo flowsheet [facility] BCP OB [address] [place] [address] Madiha Hairston, DO 03/23/2025 Telephone [facility] BCP OB [address] [facility] [address] Madiha Hairston, DO 03/19/2025 2:10 PM EDT Routine [facility] B[facility] OB [address] [facility] [address] Madiha Hairston, DO Third trimester ; 33 weeks gestation of ; Oral lesion 03/19/2025 Bamboo flowsheet [facility] BCP OB [address] [facility] [address] Madiha Hairston, DO 03/06/2025 Telephone [facility] B[facility] OB [address] [facility] [address] Katherine Dia, JUNIOR UNDERWRITER 03/06/2025 Abstract [facility] BCP OB [address] [facility] [address] Madiha Hairston, DO 03/05/2025 3:30 PM EDT Routine [facility] OB [address] [facility] [address] Sugey Peck PA Third trimester ; 31 weeks gestation of 03/05/2025 Bamboo flowsheet [facility] OB [address] [facility] [address] Sugey Peck PA 03/01/2025 Telephone [facility] OB [address] [facility] [address] Madiha Hairston, DO 02/19/2025 3:30 PM EDT Routine [facility] OB [address] [facility] [address] Madiha Hairston, Third trimester ; 29 weeks gestation of 02/19/2025 Abstract [facility]CP OB [address] [facility] [address] Madiha Hairston, DO 02/19/2025 Bamboo flowsheet [facility] BCP OB [address] [facility] [address] Madiha Hairston, 02/08/2025 Abstract [facility] OB [address] [place] [address] [place] [address] Madiha Hairston DO 02/05/2025 3:40 PM EDT Routine [facility] OB [address] [place] [address] [place] [address] Madiha Hairston, Second trimester ; 27 weeks gestation of ; Gestational diabetes mellitus (GDM), antepartum, gestational diabetes method of control unspecified; Elevated glucose tolerance test 02/05/2025 Bamboo flowsheet [facility] OB [address] [place] [address] [place] [address] Madiha Hairston DO 01/20/2025 Clinisync Result Encounter NOMS External Department Unsolicited Madiha Hairston, from Last 3 Months Family History Medical [...] Priority Date/Time Associated Diagnosis Comments US OB BPP W NON-STRESS 04/18/2025 6:46 PM EDT TBH URINE T PROTEIN CREAT RATIO Routine 04/18/2025 6:20 PM EDT CCF APTT Routine 04/18/2025 4:11 PM EDT SRMCOH PROTHROMBIN TIME INR W/O COUM Routine 04/18/2025 4:11 PM EDT ALL LDH Routine 04/18/2025 4:11 PM EDT CCF AST Routine 04/18/2025 4:11 PM EDT ALL URIC ACID Routine 04/18/2025 4:11 PM EDT TBH CREATININE Routine 04/18/2025 4:11 PM EDT ALL BUN Routine 04/18/2025 4:11 PM EDT ALL CBC WITH AUTO DIFF Routine 04/18/2025 4:11 PM EDT POCT URINALYSIS DIPSTICK Routine 04/18/2025 2:40 PM [...] EST from Last 3 Months Results * US OB BPP W NON-STRESS (04/18/2025 6:46 PM EDT) Anatomical Region Laterality Modality Other 04/18/2025 6:46 PM EDT Narrative 04/18/2025 6:49 [place] [address] Ultrasound Report Signed Patient: JESICA DOSHI MR#: [id number] : 1995 Acct:[id number] Age/Sex: 29 / F ADM Date: Loc: [facility] 250-[address]: Madiha Hairston D.O. Ordering Physician: Madiha Hairston D.O. Date of Service: 04/18/25 Procedure(s): US OB BPP w non-stress Accession Number(s): [id number] cc: Madiha Hairston D.O.; KOKI ZAPATA The [place] [id number] Patient Name: JESICA DOSHI MRN: [id number] date: 1995 Sex: F Assigned Patient Location: [facility] Current Patient Location: [facility] Accession/Order Number: [id number] Exam Date: 04/18/2025 18:44 Report Date: 04/18/2025 18:46 At the request of: MADIHA HAIRSTON DO Procedure: US OB BPP w non-stress Ultrasound biophysical profile HISTORY: Elevated blood pressure Adequate breathing movement, gross body movement, tone and amniotic fluid volume for total score of 8 out of 8. The amniotic fluid index is 11.2cm within normal limits. The heart rate 124 bpm. US/US OB BPP w non-stress IMPRESSION: Adequate ultrasound biophysical profile Impression dictated by: Jimi Rand M.D. 04/18/2025 6:46 PM Dictation Location: [employer] Electronically authenticated by: [id number] Y Date: 04/18/2025 18:46 Dictated By: Jimi Rand D.O. Signed By: 04/18/251848 DD/ 45 TD/TT: Professor In Family Studies: Procedure Note Radiology, Radiologist, MD - 04/19/2025 [place] [address] Ultrasound Report Signed Patient: JESICA DOSHI KMR#: [id number] : 1995Acct:[id number] Age/Sex: 29 FADM Date: Loc: [facility] 250-[address]: Madiha Hairston D.O. Ordering Physician: Madiha Hairston D.O. Date of Service: 04/18/25 Procedure(s): US OB BPP w non-stress Accession Number(s): [id number] cc: Madiha Hairston D.O.; KOKI ZAPATA The [place] [address] Patient Name: JESICA DOSHI MRN: [id number] date: 1995 Sex: F Assigned Patient Location: [facility] Current Patient Location: [facility] Accession/Order Number: [id number] Exam Date: 04/18/2025 18:44 Report Date: 04/18/2025 18:46 At the request of: MADIHA HAIRSTON DO Procedure: US OB BPP w non-stress Ultrasound biophysical profile HISTORY: Elevated blood pressure Adequate breathing movement, gross body movement, tone and amniotic fluid volume for total score of 8 out of 8. The amniotic fluidindex is 11.2cm within normal limits. The heart rate 124 bpm. US/US OB BPP w non-stress IMPRESSION: Adequate ultrasound biophysical profile Impression dictated by: Jimi Rand M.D. 04/18/2025 6:46 PM Dictation Location: [employer] Electronically authenticated by: [id number] Y Date: 8:46 Dictated By: Jimi Rand D.O. Signed By:04/18/251848 DD/ 45 TD/TT: Professor In Family Studies: [facility] IMAGING Final Result * (ABNORMAL) TBH URINE T PROTEIN CREAT RATIO (04/18/2025 6:20 PM EDT) TOTAL PROTEIN URINE RANDOM 28.4(H) <=11.9 mg/dL TBH CREATININE URINE RANDOM 90.88 20.00 - 300.00 mg/dL TBH PROTEIN CREATININE RATIO URINE 0.31 TBH 04/18/2025 6:20 PM EDT 04/18/2025 6:59 PM EDT Narrative CLINISYNC - 04/18/2025 7:31 PM EDT [facility] Final Result Performing Organization Address City/[facility] [address]/[facility] Co de Phone Number [facility] * TBH CREATININE (04/18/2025 4:11 PM EDT) CREATININE 0.64 0.55 - 1.02 mg/dL TBH TBH EGFR-AF VINCENTIAN >60 >=60 mL/min/1.7 3m 2 TBH TBH EGFR-NON AF VINCENTIAN >60 >=60 mL/min/1.7 3m 2 TBH 04/18/2025 4:11 PM EDT 04/18/2025 4:13 PM EDT Narrative CLINISYNC - 04/18/2025 4:42 PM EDT [facility] Final Result Performing Organization Address City/State/[facility] Co de Phone Number [facility] * SRMCOH PROTHROMBIN TIME INR W/O COUM (04/18/2025 4:11 PM EDT) PROTHROMBIN TIME 9.5 9.0 - 11.6 sec TBH TBH INR <0.93 TBH Comment: DESIRED INR: 2.0-3.0 CONDITIONS NOT LISTED BELOW 2.5-3.5 FOR PROSTHETIC HEART VALVE REPLACEMENT 2.5-3.5 RECURRENT THROMBOSIS 04/18/2025 4:11 PM EDT 04/18/2025 4:13 PM EDT Narrative CLINISYNC - 04/18/2025 4:43 PM EDT Madiha Marika DO CLINISYNC Final Result Performing Organization Address [facility] [address]/[facility] Co de Phone Number CLINISYNC [facility] * CCF AST (04/18/2025 4:11 PM EDT) ASPARTATE AMINO TRANSFERASE 16 15 - 37 U/L [facility] 04/18/2025 4:11 PM EDT 04/18/2025 4:13 PM EDT Narrative CLINISYNC - 04/18/2025 4:42 PM EDT Madiha Marika DO CLINISYNC Final Result Performing Organization Address [facility] [address]/[facility] de Phone Number [facility] * CCF APTT (04/18/2025 4:11 PM EDT) PARTIAL THROMBOPLASTIN TIME 26.5 22.3 - 36.2 sec [facility] 04/18/2025 4:11 PM EDT 04/18/2025 4:13 PM EDT Narrative CLINISYNC - 04/18/2025 4:43 PM EDT [facility]NC Final Result Performing Organization Address [facility] [address]/[facility] de Phone Number [facility] * ALL URIC ACID (04/18/2025 4:11 PM EDT) URIC ACID 5.1 2.6 - 6.0 mg/dL [facility] 04/18/2025 4:11 PM EDT 04/18/2025 4:13 PM EDT Narrative CLINISYNC - 04/18/2025 4:42 PM EDT Madiha Marika DO CLINISYNC Final Result CLINISYNC TBH * ALL LDH (04/18/2025 4:11 PM EDT) Pathologist [facility] LACTATE DEHYDROGENASE 95 81 - 234 U/L [facility]H 04/18/2025 4:11 PM EDT 04/18/2025 4:13 PM EDT Narrative CLINISYNC - 04/18/2025 4:42 PM EDT Madiha Marika DO CLINISYNC Final Result CLINISYNC TB * (ABNORMAL) ALL CBC WITH AUTO DIFF (04/18/2025 4:11 PM EDT) Only the most recent of2 resultswithin the time period is included. Pathologist [facility] TBH WBC 11.2(H) 4.0 - 11.0 10 3/uL TBH TBH RBC 4.17(L) 4.20 - 5.40 10 6/uL TBH TBH HGB 12.7 12.0 - 16.0 g/dL TBH TBH HCT 36.8 36.0 - 48.0 % TBH TBH MCV 88.2 81.0 - 99.0 fL TBH TBH MCH 30.5 26.7 - 34.0 pg TBH TBH MCHC 34.5 29.9 - 35.2 g/dL TBH TBH RDW 13.3 11.0 - 15.0 % TBH [...] Narrative CLINISYNC - 04/18/2025 4:18 PM EDT Madiha Marika DO CLINISYNC Final Result [facility] * ALL BUN (04/18/2025 4:11 PM EDT) BLOOD UREA NITROGEN 12.0 7.0 - 18.0 mg/dL TB 04/18/2025 4:11 PM EDT 04/18/2025 4:13 PM EDT Narrative CLINISYNC - 04/18/2025 4:42 PM EDT Madiha Marika DO CLINISYNC Final Result [facility] * (ABNORMAL) POCT urinalysis dipstick manually resulted [...] - 9 Protein, UA Positive Negative - 1999(20) ++++ mg/dL Comment:30mg/dL Urobilinogen, UA 0.2 0.2 - 12 mg/dL Leukocytes, UA Trace Negative - 500+++ Chanel/mcL Nitrite, UA Negative Negative - Positive Urine 04/18/2025 2:40 PM EDT Madiha Hairston DO POINT OF CARE TEST ENTER/EDIT OR DERABLES Final Result * (ABNORMAL) GLUCOSE 1 HOUR (01/20/2025 10:27 AM EST) GLUCOSE 1 HOUR 133(H) <130 mg/dL [facility] 01/20/2025 10:2 7 AM EST 01/20/2025 10:27 AM EST Narrative CLINISYNC - 01/20/2025 10:52 AM EST Madiha Hairston DO LAB BLOOD ORDERABLES Final Resul t [facility] * US OB INCOMPLETE ANATOMY (01/20/2025 12:25 AM EST) Anatomical Region Laterality Modality Other 01/20/2025 12:2 5 AM EST Narrative 01/20/2025 12:28 AM EST [address] [address] Ultrasound Report Signed Patient: JESICA DOSHI MR#: [id number] : 1995 Acct:[id number] Age/Sex: 29 / F ADM Date: 01/19/25 Loc: US Attending Dr: Madiha Hairston D.O. Ordering Physician: Madiha Hairston D.O. Date of Service: 01/19/25 Procedure(s): US OB incomplete anatomy Accession Number(s): [id number] cc: Madiha Hairston D.O.; KOKI ZAPATA [address] [address] Patient Name: JESICA DOSHI MRN: [id number] date: 1995 Sex: F Assigned Patient Location: US Current Patient Location: Accession/Order Number: [id number] Exam Date: 01/20/2025 00:21 Report Date: 01/20/2025 [...] Ramila Hanks M.D.01/20/2025 12:25 AM Dictation Location: [place] [address] Electronically authenticated by: [id number] Y Date: 01/20/2025 00:25 Dictated By: Ramila Hanks M.D. Signed By: 01/20/2527 DD/ TD/TT: Professor In Family Studies: Procedure Note Radiology, Radiologist, MD - 01/20/2025 [place] [address] Ultrasound Report Signed Patient: JESICA DOSHI KMR#: [id number] : 1995Acct:[id number] Age/Sex: 29 / FADM Date: 01/19/25 Loc: US Attending Dr: Madiha Hairston D.O. Ordering Physician: Madiha Hairston D.O. Date of Service: 01/19/25 Procedure(s): US OB incomplete anatomy Accession Number(s): [id number] cc: Madiha Hairston D.O.; KOKI ZAPATA The [address] [address] Patient Name: JESICA DOSHI MRN: [id number] date: 1995 Sex: F Assigned Patient Location: US Current Patient Location: Accession/Order Number: [id number] Exam Date: 01/20/2025 00:21 Report Date: 01/20/2025 [...] Ramila Hanks M.D.01/20/2025 12:25 AM Dictation Location: [place] [address] Electronically authenticated by: [id number] Y Date: 500:25 Dictated By: Ramila Hanks M.D. Signed By:01/20/25 0028 DD/ 0025 TD/TT: Professor In Family Studies: Madiha Hairston DO [facility] IMAGING Final Result from Last 3 Months Insurance [employer] [place] Care Teams Veneer Stacker Relationship Specialty Start Date End Date Koki Zapata MD [address] [place] [id number] PCP - General Family Medicine 09/07/24
--- OUTSIDE RECORDS SUMMARY | 2025-04-20 05:40 | XMS_ITS | Clinical Summary ---
Author Organization [employer] [facility] tem Address [id number] [address] [place] [address] Care Team Providers Care Civil Lawyer Name Role Phone Unavailable Primary Care Provider Unavailabl e Allergies No known active allergies Medications SOC715-akkcdep fumarate-FA 28-800 mg-mcg tablet Take 1 tablet by mouth in the morning. Active ondansetron ODT (ZOFRAN ODT) 4 mg disintegrating tablet Dissolve 1 tablet (4 mg total) on tongue every 8 (eight) hours as needed for nausea or vomiting. Active Encounters Date Type Department Care Team Description 03/08/2025 Travel 02/08/2025 Travel 02/02/2025 Orders Only Maternal- Medicine at [facility] [address] [place] [address] Ref Prov, Not In System 02/02/2025 Abstract Maternal- Medicine at [facility] [address] [place] [address] External, Scanning Provider from Last 3 Months [...] period is included. Anatomical Region Laterality Modality OB-CAPSULE FILLER Ultrasound 03/08/2025 11:0 5 AM EDT Narrative 03/08/2025 2:02 PM EDT NAME: RUSTY BUTLER : 1995 SEX: F Accession Number: [id number] ORDERING PHYSICIAN: YOBANY REYES REFERRING PHYSICIAN: MADIHA BURRELL Coding ----- --------- Procedures 70793: Follow-up Ultrasound, per fetus Indication ----- --------- [...] EFW (oz) 3 oz EFW by: Hadlock ([id number]) Extended Tibia 52.6 mm 31w 1d 28% Toni Maternity Nurse 2.9 mm Head / Face / Neck [...] Thorax RVOT view. LVOT view. 3-vessel view. 3-zxjuiv-drgwtfh view. Aortic arch view. Bicaval view. Ductal [...] BUTLER : 1995 SEX: F Accession Number: [id number] ORDERING PHYSICIAN: YOBANY REYES REFERRING PHYSICIAN: MADIHA BURRELL Coding ----- --------- Procedures 60095: Follow-up Ultrasound, per fetus Indication ----- --------- [...] EFW (oz) 3 oz EFW by: Hadlock ([id number]) Extended Tibia 52.6 mm 31w 1d 28% Toni Maternity Nurse 2.9 mm Head / Face / Neck [...] Thorax RVOT view. LVOT view. 3-vessel view. 0-ypgqvf-kvwyvur view.Aortic arch view. Bicaval view. Ductal arch [...] byprimary OB provider unless otherwise specified by [facility]. Results forwarded to ordering provider so [...] period is included. Anatomical Region Laterality Modality OB-CAPSULE FILLER Ultrasound us Not In System Ref Prov IMG US ORDERABLES Final R esult from Last 3 Months Insurance AN[employer]M MEDICAID
--- OUTSIDE RECORDS SUMMARY | 2025-04-20 05:40 | XMS_ITS | Encounter Summary ---
Author Organization [facility] Address [address] [facility] [place] [address] Care Team Providers Care Arbor End Mainspring Former Name Role Phone Michael Anderson MD Primary Care Provider [phone] Encounter Details Date Type Department Care Team (Late st Contact Info) Description 11/22/2024 Orders Only [facility] BCP OB [address] [place] [address] Katherine Dia LPN [address] [employer] [place] [address] Social History Tobacco Use Types [...] on filedocumented in this encounter Care Teams Arbor End Mainspring Former Relationship Specialty Start Date End Date Michael Anderson MD [address] [place] [address] PCP - General Family Medicine 09/07/24 documented as of this encounter
--- OUTSIDE RECORDS SUMMARY | 2025-04-20 05:40 | XMS_ITS | Encounter Summary ---
Author Organization [facility] Address [address] [place] [address] Care Team Providers Care Dance Instructor Name Role Phone Mak Hairston DO Unavailable Michael Anderson MD Primary Care Provider [phone] Encounter Details Date Type Department Care Team (Late st Contact Info) Description 11/05/2023 Clinisync Result Encounter NOMS External Department Unsolicited Sugey Madrid PA [address] [place] [address] Dr [address] [place] [id number] Social History Tobacco Use Types Packs/Day Years [...] EST Narrative 11/05/2023 1:36 PM EST The [address] [address] Ultrasound Report Signed Patient: LUKE DOSHI MR#: [id number] : 1995 Acct:[id number] Age/Sex: 28 / F ADM Date: 11/04/23 Loc: US Attending Dr: Sugey Madrid Ordering Physician: Sugey Madrid Date of Service: 11/04/23 Procedure(s): US pelvis w/ transvaginal Accession Number(s): [id number] cc: Sugey Madrid; SANGEETA FUNK [place] [id number] Patient Name: LUKE DOSHI MRN: [id number] date: 1995 Sex: F Assigned Patient Location: US Current Patient Location: LAB Accession/Order Number: [id number] Exam Date: 11/04/2023 19:08 Report Date: 11/05/2023 [...] By: Ghazala Hernandez M.D. Signed By: 11/05/23 7355 DD/ TD/TT: Photocopy Operator: Procedure Note Radiology, Radiologist, MD - 11/05/2023 The [place] [id number] Ultrasound Report Signed Patient: LUKE DOSHI KMR#: [id number] : 1995Acct:[id number] Age/Sex: 28 / FADM Date: 11/04/23 Loc: US Attending Dr: Sugey Madrid Ordering Physician: Sugey Madrid Date of Service: 11/04/23 Procedure(s): US pelvis w/ transvaginal Accession Number(s): [id number] cc: Sugey Madrid; SANGEETA FUNK [place] [id number] Patient Name: LUKE DOSHI MRN: [facility]:[id number] date: 1995 Sex: F Assigned Patient Location: US Current Patient Location: LAB Accession/Order Number: [id number] Exam Date: 11/04/2023 19:08 Report Date: 11/05/2023 [...] M.D. Signed By:11/05/23 1336 DD/ 1333 TD/TT: Photocopy Operator: us Sugey BADILLO [facility] IMAG[facility] Final Result documented in this encounter Visit Diagnoses Not on filedocumented in this encounter Care Teams Dance Instructor Relationship Specialty Start Date End Date Mak Hairston DO [address] [facility] [place] [address] PCP - [employer] 11/15/23 Michael Anderson MD [address] [place] [address] PCP - General Family Medicine 09/07/24 documented as of this encounter
--- OUTSIDE RECORDS SUMMARY | 2025-04-20 05:40 | XMS_ITS | Encounter Summary ---
Author Organization [facility] Address [address] [place] [address] Care Team Providers Care Interactive Multimedia Designer Name Role Phone Michael Anderson MD Primary Care Provider [phone] Encounter Details Date Type Department Care Team (Late st Contact Info) Description 04/10/2025 Bamboo flowsheet [facility] OB [address] [place] [address] Mak Hairston, DO [address] Anand Smith, [facility]11 Social History Tobacco Use Types Packs/Day Years [...] on filedocumented in this encounter Care Teams Interactive Multimedia Designer Relationship Specialty Start Date End Date Michael Anderson MD [address] [place] [address] PCP - General Family Medicine 09/07/24 documented as of this encounter
--- OUTSIDE RECORDS SUMMARY | 2025-04-20 05:40 | XMS_ITS | Encounter Summary ---
Author Organization [facility] Address [address] [place] [address] Care Team Providers Care Giving Officer Name Role Phone Michael Anderson MD Primary Care Provider [phone] Encounter Details Date Type Department Care Team (Late st Contact Info) Description 02/08/2025 Abstract [facility] BCP OB [address] [place] [address] Mak Hairston DO [address] Anand Smith, [facility]11 Social History Tobacco Use Types Packs/Day [...] on filedocumented in this encounter Care Teams Giving Officer Relationship Specialty Start Date End Date Michael Anderson MD [address] [place] [address] PCP - General Family Medicine 09/07/24 documented as of this encounter
--- OUTSIDE RECORDS SUMMARY | 2025-04-20 05:40 | XMS_ITS | Encounter Summary ---
Author Organization [facility] Address [address] [place] [address] Care Team Providers Care Horse Identifier Name Role Phone Michael Anderson MD Primary Care Provider [phone] Encounter Details Date Type Department Care Team (Late st Contact Info) Description 09/07/2024 Abstract [facility] BCP OB [address] [place] [phone] Mak Hairston DO [address] Anand Smith, [facility]11 Social History Tobacco Use Types Packs/Day Years [...] on filedocumented in this encounter Care Teams Horse Identifier Relationship Specialty Start Date End Date Michael Anderson MD [address] [place] [address] PCP - General Family Medicine 09/07/24 documented as of this encounter
--- OUTSIDE RECORDS SUMMARY | 2025-04-20 05:40 | XMS_ITS | Encounter Summary ---
Author Organization [facility] Address [address] [place] [address] Care Team Providers Care Transferrer Name Role Phone Michael Anderson MD Primary Care Provider [phone] Encounter Details Date Type Department Care Team (Late st Contact Info) Description 04/17/2025 Abstract [facility] BCP OB [address] [place] [address] Mak Hairston DO [address] Anand Smith, [facility]11 Social History Tobacco Use Types Packs/Day Years [...] on filedocumented in this encounter Care Teams Transferrer Relationship Specialty Start Date End Date Michael Anderson MD [address] [place] [address] PCP - General Family Medicine 09/07/24 documented as of this encounter
--- OUTSIDE RECORDS SUMMARY | 2025-04-20 05:40 | XMS_ITS | Encounter Summary ---
Author Organization [facility] Address [address] [place] [address] Care Team Providers Care Joy Loading Machine Operator Name Role Phone Michael Anderson MD Primary Care Provider [phone] Encounter Details Date Type Department Care Team (Late st Contact Info) Description 09/08/2024 Clinisync Result Encounter [facility] External Department Unsolicited Madiha Hairston, DO [address] [facility] [place] [address] Social History Tobacco Use Types [...] EDT Narrative 09/08/2024 6:31 AM EDT The [address] [address] Ultrasound Report Signed Patient: LUKE DOSHI MR#: [id number] : 1995 Acct:[id number] Age/Sex: 29 / F ADM Date: 09/07/24 Loc: [facility] Attending Dr: Madiha Hairston D.O. Ordering Physician: Madiha Hairston D.O. Date of Service: 09/07/24 Procedure(s): US OB transvaginal Accession Number(s): [id number] cc: SANGEETA FUNK ; Madiha Hairston D.O. The [place] [address] Patient Name: LUKE DOSHI MRN: [id number] date: 1995 Sex: F Assigned Patient Location: [facility] Current Patient Location: Accession/Order Number: [id number] Exam Date: 09/07/2024 12:56 Report Date: 09/08/2024 [...] M.D. Signed By: 09/08/24630 DD/ 7 TD/TT: Importer Exporter: Procedure Note Radiology, Radiologist, MD - 09/08/2024 [place] [address] Ultrasound Report Signed Patient: LUKE DOSHI KMR#: [id number] : 1995Acct:[id number] Age/Sex: 29 / FADM Date: 09/07/24 Loc: [facility] Attending Dr: Madiha Hairston D.O. Ordering Physician: Madiha Hairston D.O. Date of Service: 09/07/24 Procedure(s): US OB transvaginal Accession Number(s): [id number] cc: SANGEETA FUNK ; Madiha Hairston D.O. [place] [address] Patient Name: LUKE DOSHI MRN: [id number] date: 1995 Sex: F Assigned Patient Location: [facility] Current Patient Location: Accession/Order Number: [id number] Exam Date: 09/07/2024 12:56 Report Date: 09/08/2024 [...] Hernandez M.D. Signed By:09/08/24630 DD/ 7 TD/TT: Importer Exporter: us Madiha Hairston DO [facility] Final Result documented in this encounter Visit Diagnoses Not on filedocumented in this encounter Care Teams Joy Loading Machine Operator Relationship Specialty Start Date End Date Michael Anderson MD [address] [place] [id number] PCP - General Family Medicine 09/07/24 documented as of this encounter
--- OUTSIDE RECORDS SUMMARY | 2025-04-20 05:40 | XMS_ITS | Encounter Summary ---
Author Organization [facility] Address [address] [place] [address] Care Team Providers Care Senior Trainer Name Role Phone Michael Anderson MD Primary Care Provider [phone] Encounter Details Date Type Department Care Team (Late st Contact Info) Description 02/19/2025 Abstract [facility] BCP OB [address] [place] [address] Mak Hairston DO [address] Anand Smith, [facility]11 Social History [...] on filedocumented in this encounter Care Teams Senior Trainer Relationship Specialty Start Date End Date Michael Anderson MD [address] [place] [address] PCP - General Family Medicine 09/07/24 documented as of this encounter
--- OUTSIDE RECORDS SUMMARY | 2025-04-20 05:40 | XMS_ITS | Encounter Summary ---
Author Organization [facility] Address [address] [place] [address] Care Team Providers Care Knowledge Engineer Name Role Phone Michael Anderson MD Primary Care Provider [phone] Encounter Details Date Type Department Care Team (Late st Contact Info) Description 09/07/2024 Abstract [facility] BCP OB [address] [place] [address] Mak Hairston DO [address] Anand Smith, [facility]11 Social History Tobacco Use Types Packs/Day Years [...] on filedocumented in this encounter Care Teams Knowledge Engineer Relationship Specialty Start Date End Date Michael Anderson MD [address] [place] [address] PCP - General Family Medicine 09/07/24 documented as of this encounter
--- OUTSIDE RECORDS SUMMARY | 2025-04-20 05:40 | XMS_ITS | Encounter Summary ---
Author Organization [facility] Address [address] [place] [address] Care Team Providers Care Lei Seller Name Role Phone Michael Anderson MD Primary Care Provider Encounter Details Date Type Department Care Team (Late st Contact Info) Description 10/19/2024 Abstract [facility] BCP OB [address] [place] [address] Mak Hairston DO [address] Anand Smith, [facility]11 Social History Tobacco Use Types Packs/Day [...] on filedocumented in this encounter Care Teams Lei Seller Relationship Specialty Start Date End Date Michael Anderson MD [address] [place] [address] PCP - General Family Medicine 09/07/24 documented as of this encounter
--- OUTSIDE RECORDS SUMMARY | 2025-04-20 05:40 | XMS_ITS | Encounter Summary ---
Author Organization [facility] Address [address] [place] [address] Care Team Providers Care Curve Saw Operator Name Role Phone Koki Zapata MD Primary Care Provider [phone] Encounter Details Date Type Department Care Team (Late st Contact Info) Description 04/18/2025 Clinisync Result Encounter [facility] External Department Unsolicited Madiha Hairston, DO [address] [facility] [address] [place] [place], [place] [address] Social History Tobacco Use Types Packs/Day Years [...] CREAT RATIO Routine 04/18/2025 6:20 PM EDT documented in this encounter Results * US OB BPP W NON-STRESS (04/18/2025 6:46 PM EDT) Anatomical Region Laterality Modality Other 04/18/2025 6:46 PM EDT Narrative 04/18/2025 6:49 [place] [address] Ultrasound Report Signed Patient: LUKE DOSHI MR#: [id number] : 1995 Acct:[id number] Age/Sex: 29 / F ADM Date: Loc: [place] [address]: Madiha Hairston D.O. Ordering Physician: Madiha Hairston D.O. Date of Service: 04/18/25 Procedure(s): US OB BPP w non-stress Accession Number(s): [id number] cc: Madiha Hairston D.O.; KOKI ZAPATA The [place] [address] Patient Name: LUKE DOSHI MRN: [id number] date: 1995 Sex: F Assigned Patient Location: [facility] Current Patient Location: [facility] Accession/Order Number: [id number] Exam Date: 04/18/2025 18:44 Report Date: 04/18/2025 [...] Rand M.D. 04/18/2025 6:46 PM Dictation Location: [place] [address] Electronically authenticated by: [id number] Y Date: 04/18/2025 18:46 Dictated By: Jimi Rand D.O. Signed By: 04/18/251848 DD/ 45 TD/TT: Classifying Machine Operator: Procedure Note Radiology, Radiologist, - 04/19/2025 [place] [address] Ultrasound Report Signed Patient: LUKE DOSHI KMR#: [id number] : 1995Acct:[id number] Age/Sex: 29 / FADM Date: Loc: [facility] 250-[address]: Madiha Hairston D.O. Ordering Physician: Madiha Hairston D.O. Date of Service: 04/18/25 Procedure(s): US OB BPP w non-stress Accession Number(s): [id number] cc: Madiha Hairston D.O.; KOKI ZAPATA [place] [address] Patient Name: LUKE DOSHI MRN: [id number] date: 1995 Sex: F Assigned Patient Location: [facility] Current Patient Location: [facility] Accession/Order Number: [id number] Exam Date: 04/18/2025 18:44 Report Date: 04/18/2025 [...] Rand M.D. 04/18/2025 6:46 PM Dictation Location: [place] [address] Electronically authenticated by: [id number] Y Date: 8:46 Dictated By: Jimi Rand D.O. Signed By:04/18/251848 DD/ 45 TD/TT: Classifying Machine Operator: us Madiah Hairston DO [facility] Final Result * (ABNORMAL) TBH URINE T PROTEIN CREAT RATIO (04/18/2025 6:20 PM EDT) TOTAL PROTEIN URINE RANDOM 28.4(H) <=11.9 mg/dL TBH CREATININE URINE RANDOM 90.88 20.00 - 300.00 mg/dL TBH PROTEIN CREATININE RATIO URINE 0.31 TBH 04/18/2025 6:20 PM EDT 04/18/2025 6:59 PM EDT Narrative [facility] - 04/18/2025 7:31 PM EDT us Madiha Marika DO [facility] Final Result [facility] documented in this encounter Visit Diagnoses Not on filedocumented in this encounter Care Teams Curve Saw Operator Relationship Specialty Start Date End Date Koki Zapata MD [address] [place] [address] PCP - General Family Medicine 09/07/24 documented as of this encounter
--- OUTSIDE RECORDS SUMMARY | 2025-04-20 05:40 | XMS_ITS | Encounter Summary ---
Author Organization [facility] Address [id number] [address] [place] [address] Care Team Providers Care Industrial Gas Servicer Supervisor Name Role Phone Unavailable Primary Care Provider Unavailabl e Encounter Details Date Type Department Care Team (Late st Contact Info) Description 02/02/2025 Orders Only Maternal- Medicine at [facility] [address] [place] [address] Ref Prov, [place] [address] Social History Tobacco Use Types Packs/Day Years [...] 9:03 AM EDT) Anatomical Region Laterality Modality OB-[facility] Ultrasound us Not In System Ref Prov IMG US ORDERABLES Final R esult * Ultrasound limited 1 or more fetus (02/02/2025 9:02 AM EDT) Anatomical Region Laterality Modality OB-[facility] Ultrasound us Not In System Ref Prov IMG US ORDERABLES Final R esult * Ultrasound limited 1 or more fetus (02/02/2025 9:00 AM EDT) Anatomical Region Laterality Modality OB-[facility] Ultrasound us Not In System Ref Prov IMG US ORDERABLES Final R esult documented in this encounter Visit Diagnoses Not on filedocumented in this encounter
--- OUTSIDE RECORDS SUMMARY | 2025-04-20 05:40 | XMS_ITS | Patient Health Record ---
Author Organization [facility] [employer] [facility] Address [address] [place] [address] Care Team Providers Care Straightener And Aligner Name Role Phone Dr. Carlos Abrams Primary Care Provider [phone] Maria A Degroot Unavailable [phone] Karlene Duran Unavailable [phone] Reason For Referral No Information Encounters Encounter Location Date Provider Diagnosis [address] [address] 06/14/2024 Karlene Duran Dental caries on pit and fissure surface penetrating into dentin K02.52 ; Encounter for dental examination and cleaning with abnormal findings Z01.21 and Acute gingivitis, plaque induced K05.[address] [address] 10/02/2024 Maria A Molina Dental caries on [...] Name:Maria A lyle, 05/11/2025 09:30:00 AM, [address] [place], [address], Insurance Providers Payer Name Payer Address Payer Phone Subscriber Number Group Number Insured Name Patient Relationship to Insured Coverage Start Date Coverage End Date zPARAMOU NT ADVANTAG E-termed [address] [place] [address] [id number] OJEDALUKE ZAYAS Self - patient is the insured 2 3 zMEDICAI D CFC after PARAMOUN T-termed [address] [place] [address] [id number] LUKE OJEDA Self - patient is the insured 2 3 zDENTAL DQ [employer] T-termed 22 [address] [place] [address] [id number] LUKE OJEDA Self - patient is the insured 2 3 zDental MEDICAID CFC after PARAMOUN T-termed 22 [address] [place] [phone] [id number] LUKE OJEDA Self - patient is the insured 2 3 Dental Wrap CFC [employer] [address] [place] [phone] [id number] LUKE OJEDA Self - patient is the insured 3 ANTHEM Primary [address] [place] [address] [id number] GILBERT OJEDAI Self - patient is the insured 4 4 DENTAL [facility] [address] [place] [address] [id number] LUKE OJEDA Self - patient is the insured 4 4 Dental [place] DQ [address] [place] [address] [id number] LUKE OJEDA Self - patient is the insured 4
--- OUTSIDE RECORDS SUMMARY | 2025-04-20 05:41 | XMS_ITS | Patient Health Record ---
Author Organization [facility] Address [address] [place] [address] Care Team Providers Care Wild Animal Caretaker Name Role Phone Jay Gomez Unavailable [phone] Pamela Avila Unavailable [phone] Reason For Referral No Information Encounters Encounter Location Date Provider Diagnosis [facility] [address] [facility] [place] [address] 11/27/2024 Pamela Avila Closed nondisplaced fracture of distal phalanx of right little finger, initial encounter S62.666A [facility] Office [address] [place] [address] [place] [address] 01/01/2025 Pamela Avila Closed nondisplaced fracture of distal phalanx of right little finger, initial encounter S62.666A [facility] [address] [facility] [place] [address] 01/08/2025 Jay Gomez Closed nondisplaced fracture of [...] Date Medicaid [employer] [place] [address] [place] [address] [id number] LUKE OJEDA Self - patient is the insured 4
--- OUTSIDE RECORDS SUMMARY | 2025-04-20 05:41 | XMS_ITS | Encounter Summary ---
Author Organization [facility] Address [address] [place] [address] Care Team Providers Care Electric Screw Driver Operator Name Role Phone Michael Anderson MD Primary Care Provider [phone] Encounter Details Date Type Department Care Team (Late st Contact Info) Description 03/06/2025 Abstract [facility] BCP OB [address] [place] [address] Mak Hairston DO [address] Anand Smith, [facility]11 Social History [...] on filedocumented in this encounter Care Teams Electric Screw Driver Operator Relationship Specialty Start Date End Date Michael Anderson MD [address] [place] [address] PCP - General Family Medicine 09/07/24 documented as of this encounter
[2025-04-20] MEDS: 0.9 % SODIUM CHLORIDE 1,000 ML 1000 ML IV ×2 (06:00→06:43)
[2025-04-20 06:43] LABS: Basophils Percent Auto 0.3 % (0.2-2.0); Eosinophils Absolute Auto 0.2 10^3/uL (0.0-0.7); Eosinophils Percent Auto 1.6 % (0.9-7.0); Hematocrit 35.5 % (36.0-48.0); Hemoglobin 12.2 g/dL (12.0-16.0); Immature Granulocytes Abs Auto 0.04 10^3/uL (0.00-0.03); Immature Granulocytes Pct Auto 0.4 % (0.0-0.5); Lymphocytes Absolute Auto 2.3 10^3/uL (1.2-3.8); Lymphocytes Percent Auto 20.8 % (20.5-60.0); Mean Corpuscular HGB Conc 34.4 g/dL (29.9-35.2); Mean Corpuscular Hemoglobin 30.2 pg (26.7-34.0); Mean Corpuscular Volume 87.9 fL (81.0-99.0); Mean Platelet Volume 10.7 fL (9.5-13.5); Monocytes Percent Auto 9.1 % (1.7-12.0); Neutrophils Absolute Auto 7.7 10^3/uL (1.4-6.5); Neutrophils Percent Auto 67.8 % (43.0-75.0); Platelet Count 276 10^3/uL (150-450); Red Blood Count 4.04 10^6/uL (4.20-5.40); Red Cell Distribution Width 13.4 % (11.0-15.0); White Blood Count 11.3 10^3/uL (4.0-11.0)
[2025-04-20] MEDS: CITRIC ACID/SODIUM CITRATE 30 ML SOLUTION ORACIT SHOHL'S SOLN PO (06:45)
[2025-04-20] MEDS: FAMOTIDINE/PF 20 MG/2 ML VIAL IV (06:47)
[2025-04-20] MEDS: METOCLOPRAMIDE HCL 10 MG/2 ML VIAL IVP (06:48)
[2025-04-20 07:04] LABS: Bilirubin Urine NEGATIVE (NEGATIVE); Blood Urine NEGATIVE (NEGATIVE); Color Urine LT. YELLOW (YELLOW); Glucose Urine UA NEGATIVE (NEGATIVE); Ketones Urine NEGATIVE (NEGATIVE); Leukocyte Esterase Urine NEGATIVE (NEGATIVE); Nitrite Urine NEGATIVE (NEGATIVE); Protein Urine 30 mg/dL (NEG/TRACE); Specific Gravity Urine 1.025 (1.005-1.025); Urobilinogen Urine 0.2 EU/dL (0.2-1.0)
[2025-04-20 07:23] LABS: Clarity Urine CLOUDY (CLEAR)
[2025-04-20] MEDS: CEFAZOLIN SODIUM/DEXTROSE,ISO 2 GM/50 ML PIGGYBACK IV ×2 (07:23→13:37)
[2025-04-20 07:26] LABS: Cast Seen? NONE SEEN #/LPF (NONE SEEN); Crystals Seen? None Seen #/HPF (None Seen); Mucus Urine NONE SEEN (NONE SEEN); RBC Urine NONE SEEN #/HPF (0-2); Squamous Epithelial Cell Urine MANY #/LPF (NONE/RARE); Urine Culture Indicated YES-LC
[2025-04-20 07:27] LABS: Bacteria Urine LARGE #/HPF (NONE SEEN)
--- NOTE | 2025-04-20 07:29 | W.PC.ACHO ---
Registration Status: ADM IN Primary Language: [place] Preferred Language: [place] Report given to Ninfa GARCIA. Care relinquished at this time. Active Medications Generic Name Dose Route Start Last Admin Trade Name Freq PRN Reason Stop Dose Admin Sodium Chloride 1,000 mls @ 1,000 mls/hr 04/20/25 06:00 04/20/25 06:43 Sodium Chloride 0.9% 1,000 Ml IV 04/20/25 07:59 1,000 mls/hr .Q1H HADLEY Administration Oxytocin/Sodium Chloride 20 units in 1,000 mls @ 125 mls/hr 04/20/25 05:39 Pitocin 20 Unit/1,000 Ml-Ns IV Q8H PRN POST DELIVERY Consults Category Date Time Status Consult to Anesthesiology Routine Cons 04/20/25 Ordered IV Insertion/Site Date of IV Line Insertion [ 04/20/25 Short PIV (<1.75 in) 20g left Wrist] IV Insertion Time [Short PIV ( 05:55 <1.75 in) 20g left Wrist] Neurology Patient orientation (short person,place,time,situation list)
[2025-04-20 07:41] LABS: Amphetamine Screen Urine NEGATIVE (NEGATIVE); Barbiturates Screen Urine NEGATIVE (NEGATIVE); Benzodiazepines Screen Urine NEGATIVE (NEGATIVE); Buprenorphine Screen Urine NEGATIVE (NEGATIVE); Cannabinoid Screen Urine NEGATIVE (NEGATIVE); Cocaine Screen Urine NEGATIVE (NEGATIVE); Methadone Screen Urine NEGATIVE (NEGATIVE); Methamphetamines Screen Urine NEGATIVE (NEGATIVE); Opiate Screen Urine NEGATIVE (NEGATIVE); Oxycodone Screen Urine NEGATIVE (NEGATIVE); Phencyclidine Screen Urine NEGATIVE (NEGATIVE); Tricyclic Antidepressant Urine NEGATIVE (NEGATIVE)
[2025-04-20] MEDS: LACTATED RINGER'S SOLUTION 1,000 ML 50 ML IV ×2 (08:03→08:08)
--- NOTE | 2025-04-20 10:13 | PM.OBPRCCS ---
Procedure Pre-op/Post-op diagnoses: Pre-Op/Post-Op Diagnoses Operation Date: 04/20/25 07:30 <No data on this case meets the specified criteria> Procedure: Procedures Operation Date: 04/20/25 07:30 Actual Procedure Side Surgeon p Repeat Not Applicable Mak Hairston DO Vice Squad Police Officer: Kelly Kovacs Estimated blood loss (mL): 575 Disposition: floor Anesthesia type: Spinal
--- NOTE | 2025-04-20 10:13 | PM.ONB ---
Brief Operative Note Date of procedure: 04/20/25 Pre-op diagnosis general: iup at 38 3/7wks, preeclampsia, previous c/s Post-op diagnosis: same as pre-op Procedure: NAME OF PROCEDURE: [ section ] PROCEDURE: Patient was taken back to the Operating Room where she was given a spinal anesthesia with Duramorph without difficulty. She was prepped and draped in the normal sterile fashion. A Pfannenstiel skin incision was then made 2 cm above the symphysis pubis and carried down to underlying rectus fascia using a Bovie. The fascia was incised in the midline and extended laterally using Mcclain scissors. Two Mounika clamps were placed on the superior aspect of the fascia and dissected off the underlying rectus muscles. The same was performed on the inferior aspect as well. The muscles were then in the midline. Peritoneum was identified and entered bluntly. The peritoneum was then extended superiorly and inferiorly with good visualization of the bladder. The bladder blade was inserted. A low transverse incision was made on the patient's uterus and extended laterally digitally. The was then delivered atraumatically after the bladder blade was removed in the cephalic position. The cord was clamped and cut. Cord blood was obtained. The infant was handed off to awaiting team. The patient's placenta was spontaneously delivered. The uterus was then exteriorized. The uterus was cleared of all clots and debris. The bladder blade was reinserted. The patient's uterine incision was closed using #0 Vicryl in a running lock fashion. Excellent hemostasis was assured. The uterus was then returned to the patient's abdomen. The patient's abdomen was copiously irrigated using warm saline. Peritoneal gutters were cleared of all clots and debris. Again excellent hemostasis was assured. The patient's peritoneum was closed using 3-0 Vicryl in a running fashion. The patient's fascia was closed using #0 Vicryl in a running fashion. The patient's skin was closed using 4-0 Vicryl subcuticularly. The patient tolerated the procedure well. Sponge, lap, and needle counts were correct x2. The patient was taken to the Recovery Room in stable condition. Anesthesia: spinal Surgeon: Mak Hairston Asphalt Machine Operator: Kelly Kovacs Estimated blood loss (mL): 575 Pathology: none sent Condition: stable Disposition: PACU Urinary Catheter Management Urinary Catheter Management Urethral: Cath placed during this visit: no
[2025-04-20] MEDS: ONDANSETRON PF 4 MG/2 ML VIAL IV (12:48)
[2025-04-20] MEDS: KETOROLAC TROMETHAMINE 30 MG/ML VIAL IVP (13:45)
--- NOTE | 2025-04-20 14:39 | PC.NURSE ---
vomits moderate amount emesis, cleaned up, states feels better after vomiting, pep introduced to pt
[2025-04-20] MEDS: IBUPROFEN 400 MG TABLET 800 MG PO (20:03)
[2025-04-20] MEDS: ENOXAPARIN SODIUM 40 MG/0.4 ML SYRINGE SUBQ (20:04)
[2025-04-21 00:21] VITALS: BP 124/65; TEMP 36.7
[2025-04-21 06:22] LABS: Basophils Percent Auto 0.3 % (0.2-2.0); Eosinophils Absolute Auto 0.1 10^3/uL (0.0-0.7); Eosinophils Percent Auto 0.9 % (0.9-7.0); Hematocrit 30.3 % (36.0-48.0); Hemoglobin 10.2 g/dL (12.0-16.0); Immature Granulocytes Abs Auto 0.06 10^3/uL (0.00-0.03); Immature Granulocytes Pct Auto 0.5 % (0.0-0.5); Lymphocytes Absolute Auto 2.6 10^3/uL (1.2-3.8); Lymphocytes Percent Auto 22.7 % (20.5-60.0); Mean Corpuscular HGB Conc 33.7 g/dL (29.9-35.2); Mean Corpuscular Hemoglobin 30.2 pg (26.7-34.0); Mean Corpuscular Volume 89.6 fL (81.0-99.0); Mean Platelet Volume 10.2 fL (9.5-13.5); Monocytes Absolute Auto 0.9 10^3/uL (0.3-0.8); Monocytes Percent Auto 8.1 % (1.7-12.0); Neutrophils Absolute Auto 7.8 10^3/uL (1.4-6.5); Neutrophils Percent Auto 67.5 % (43.0-75.0); Platelet Count 221 10^3/uL (150-450); Red Blood Count 3.38 10^6/uL (4.20-5.40); Red Cell Distribution Width 13.7 % (11.0-15.0); White Blood Count 11.6 10^3/uL (4.0-11.0)
[2025-04-21] MEDS: ACETAMINOPHEN 500 MG TABLET 1000 MG PO (06:26)
[2025-04-21] MEDS: IBUPROFEN 400 MG TABLET 800 MG PO ×3 (06:27→23:14)
[2025-04-21 08:09] VITALS: BP 108/63; PULSE 88; TEMP 36.9; O2SAT 99
[2025-04-21] MEDS: DOCUSATE SODIUM 100 MG CAPSULE PO ×2 (08:10→20:55)
--- NOTE | 2025-04-21 09:48 | PM.OBPN ---
OB - PN: Subj Subjective Patient comments: no complaints and pain well controlled [place] status: doing well Exam Constitutional Vital Signs, click to edit/add: Last Vital Signs Temp 98.4 F 04/21/25 08:09 Pulse 88 04/21/25 08:09 Resp 18 04/21/25 08:09 BP 108/63 04/21/25 08:09 Pulse Ox 99 04/21/25 08:09 O2 Del Method Room Air 04/21/25 08:09 Documenting provider has reviewed patient's vital signs: yes Common normals: no apparent distress Respiratory Common normals: normal respiratory effort and clear to auscultation bilaterally Cardio Common normals: regular rate and regular rhythm GI Common normals: Normal to inspection, nondistended, normoactive bowel sounds present Extremity Common normals: no clubbing, cyanosis or edema and no calf tenderness Results Labs Labs: Short CBC 04/21/25 Range/Units 06:13 WBC 11.6 H (4.0-11.0) 10^3/uL Hgb 10.2 L (12.0-16.0) g/dL Hct 30.3 L (36.0-48.0) % Plt Count 221 (150-450) 10^3/uL Urinary Catheter Management Urinary Catheter Management Urethral: Cath placed during this visit: no OB - PN: A/P Plan - day: 1 Plan: routine postop care Time Spent with Patient Time: Total time spent is greater than 50% in coordination of care (as documented) at patient's floor/unit and/or counseling patient: Total time spent with greater than 50% in coordination of care (as documented) at patient's floor/unit and/or counseling patient: less than 15 minutes
[2025-04-21] MEDS: OXYCODONE HCL/ACETAMINOPHEN 5MG/325MG 2 TAB PO ×2 (12:40→19:10)
[2025-04-21 16:45] VITALS: BP 118/65; PULSE 96; O2SAT 100
[2025-04-21] MEDS: ENOXAPARIN SODIUM 40 MG/0.4 ML SYRINGE SUBQ (20:55)
[2025-04-21 23:17] VITALS: BP 129/65; PULSE 81; TEMP 36.9
[2025-04-22] MEDS: OXYCODONE HCL/ACETAMINOPHEN 5MG/325MG 2 TAB PO (05:48)
[2025-04-22] MEDS: IBUPROFEN 400 MG TABLET 800 MG PO (08:33)
[2025-04-22] MEDS: DOCUSATE SODIUM 100 MG CAPSULE PO (08:33)
[2025-04-22 08:36] VITALS: BP 132/75; PULSE 91; TEMP 36.7; O2SAT 98
--- NOTE | 2025-04-22 11:08 | P.OBPN_ITS ---
OB - PN: Subj Subjective Patient comments: no complaints [place] status: doing well feeding status: exclusively bottle feeding Exam Constitutional Vital Signs, click to edit/add: Last Vital Signs Temp 98.0 F 04/22/25 08:36 Pulse 91 H 04/22/25 08:36 Resp 18 04/22/25 08:36 BP 132/75 04/22/25 08:36 Pulse Ox 98 04/22/25 08:36 O2 Del Method Room Air 04/22/25 08:40 Documenting provider has reviewed patient's vital signs: yes Common normals: no apparent distress General appearance: cooperative, comfortable, well kempt and well developed Orientation/consciousness: Yes awake, Yes oriented to person, Yes oriented to place and Yes oriented to time HENMT Common normals: normocephalic Head and scalp: normal to inspection Face and sinus: normal facial exam Nose: external nose normal General ear: hearing grossly impaired External ear: external ears normal Eye Common normals: EOMs intact bilaterally General eye: normal appearance of both eyes Neck & C-Spine Common normals: no lymphadenopathy General: normal visual inspection Lymph Lymphatic: no lymphadenopathy noted Chest Common normals: inspection of chest normal Respiratory Common normals: normal respiratory effort, no retractions, no use of accessory muscles and clear to auscultation bilaterally Effort & inspection: able to speak in complete sentences Auscultation: clear to auscultation bilaterally Cardio Common normals: regular rate and regular rhythm Rate: regular rate Rhythm: regular rhythm GI Common normals: Normal to inspection, nondistended, normoactive bowel sounds present, soft to palpation and non-tender Inspection: normal to inspection Auscultation: normoactive bowel sounds Palpation: soft Common normals: no CVA tenderness Back & Pelvis Common normals: no CVA tenderness Thoracic spine/upper back: normal to inspection Extremity Common normals: normal to inspection General: normal exam except as noted Neuro Common normals: oriented x3 Sensorium/orientation: awake, alert, oriented to person, oriented to place and oriented to time Speech: speech normal Psych Common normals: mental status grossly normal, thought process normal, cooperative, affect normal, speech normal, activity/motor behavior normal, denies hallucinations, denies homicidal ideation and denies suicidal ideation Attitude: calm Activity/motor behavior: appropriate eye contact Speech: normal speech Thought process: normal thought process Thought content: normal thought content Urinary Catheter Management Urinary Catheter Management Urethral: Cath placed during this visit: no OB - PN: A/P Plan - day: 2 Plan: discharge home Time Spent with Patient Time: Total time spent is greater than 50% in coordination of care (as documented) at patient's floor/unit and/or counseling patient: Total time spent with greater than 50% in coordination of care (as documented) at patient's floor/unit and/or counseling patient: less than 15 minutes
[2025-04-22] MEDS: OXYCODONE HCL/ACETAMINOPHEN 5MG/325MG 1 TAB PO (13:00)
--- NOTE | 2025-04-22 14:29 | RESP.RT ---
done per nursing
== END 2025-04-22 16:20 | disposition home or self-care (01) | DRG 540 ==
PROVIDERS: Admitting Provider Obstetrics & Gynecology; PCP Family Medicine; Visit Provider Obstetrics & Gynecology
PROC: 10D00Z1 Extraction of Products of Conception, Low, Open Approach (ICD-10-PCS; CPT 59514; principal; 2025-04-20 07:30)
DX: O34.211 Maternal care for low transverse scar from previous cesarean delivery (principal); O14.94 Unspecified pre-eclampsia, complicating childbirth; Z37.0 Single live birth; Z3A.38 38 weeks gestation of pregnancy; O99.824 Streptococcus B carrier state complicating childbirth; Z87.891 Personal history of nicotine dependence; O99.214 Obesity complicating childbirth; E66.01 Morbid (severe) obesity due to excess calories
CPT/HCPCS: 36415; 59050; 76818; 80307; 81001; 82565; 82570; 83615; 84156; 84450; 84520; 84550; 85025; 85610; 85730; 86850; 86900; 86901; 87086; 94667; 94668; G0378; G0379; J0690; J1650; J1885; J2274; J2371; J2405; J2590; J2765; J3490

== ENCOUNTER 2025-05-15 07:48 | Outpatient (OUT) | payer MEDICAID, SELFPAY | END 2025-05-15 16:32 | disposition home or self-care (01) | LOC: FBCO 07:49 | PROVIDERS: PCP Family Medicine; Visit Provider Obstetrics & Gynecology | DX: Z39.1 Encounter for care and examination of lactating mother (principal) ==

== ENCOUNTER 2025-06-01 08:25 | Outpatient (OUT) | payer MEDICAID, SELFPAY ==
--- OUTSIDE RECORDS SUMMARY | 2018-12-30 12:14 | XMS_ITS | Continuity of Care Document ---
Author Organization [facility] Address [address] [place] [address] Phone Care Team Providers Care Eligibility Supervisor Name Role Phone Naif Perdomo Unavailable [...] Diagnoses Date Provider Providers Copied on Encounter [facility], [address] [place], [place], [id number], [place] tel:[phone] [facility] No Information Chary Castellano. [address] [place] [address], [id number], [place]. tel:[phone] [facility], [address] [place] [address], [id number], [place] tel:[phone] [facility] Encounter for screening for respiratory tuberculosis Chary Castellano. [address] [place], [place], [id number], [place]. tel:[phone] [facility], [address] [place], [place], [id number], [place] tel:[phone] Dental Clinic No Information [place] DMD Dannielle. [address] [place], [place], [id number], [place]. tel:[phone] [facility], [address] [place] [address], [id number], [place] tel:[phone] Dental Clinic Dental examination [place] DMD Dannielle. [address] [place], [place], [id number], [place]. tel:[phone] [facility], [address] [place] [address], [id number], [place] tel:[phone] Dental Clinic Dental examination [place] DMD Dannielle. [address] [place], [place], [id number], [place]. tel:[phone] [facility], [address] [place] [address], [id number], [place] tel:[phone] [facility] Dental examination [place] DMD Dannielle. [address], [place], [id number], [place]. tel:[phone] Family History Family Member Type Diagnosis Age At Onset No Information Payers Payer name Insurance type Covered democrat ID Authoriza tion(s) [place] [facility] 190 [id number] Social History Type Description Quantity Date Captured [...]
--- OUTSIDE RECORDS SUMMARY | 2025-01-18 05:00 | XMS_ITS ---
Author Organization [facility] Address [address] [place] [address] Care Team Providers Care Community Fundraiser Name Role Phone Dr. Carlos Abrams Primary Care Provider [phone] Maria A Degroot Unavailable [phone] REASON FOR VISIT FILLING Encounters Encounter Location Date Provider Diagnosis [address] [place] [address] 01/18/2025 Maria A Molina Plan Of Treatment No Information Progress Notes * RUSTY LUKE KDOB:1994 (30 yo F)Acc No.[id number]:01/18/2025 Patient: Ellis SAAVEDRA LUKE Jaime Provider: nUique Molina DDS :1995 A ge:29 Y S ex:Female Date:01/18/2025 [address] [facility] [address] [id number] Pcp:Dr. Carlos Abrams Subjective: * Chief Complaints: * 1 . FILLING. * Medical History: Objective: * Vitals: Assessment: Plan: * Treatment: * Images: * Electronic signature of Joshua Molina DDS on 06/01/2025 at 08:29 AM EDT Sign off status: Pending * Provider: Unique Molina DDS Date: 0 01/18/2025 Generated for Delroy garcia/Sourav/eTransmitting on: 0 06/01/2025 08:29 AM EDT
--- OUTSIDE RECORDS SUMMARY | 2025-04-24 04:30 | XMS_ITS ---
[facility] Address [address] [place] [address] Care Team Providers Care Sample Shoe Inspector And Reworker Name Role Phone Dr. Carlos Abrams Primary Care Provider [phone] Maria A Molina Unavailable [phone] Maritza Tellez Unavailable [phone] REASON FOR VISIT 6 month prophy Encounters Encounter Location Date Provider Diagnosis [facility] [address] [place] [address] 04/24/2025 Maritza Tellez Plan Of Treatment No Information Progress Notes * RUSTY LUKE KDOB:1994 (30 yo F)Acc No.[id number]:04/24/2025 Patient: Ellis SAAVEDRA LUKE Sandoval Provider: Isaiah Pate :1995 A ge:29 Y S ex:Female Date:04/24/2025 Address:[address] [phone] Pcp:Dr. Carlos Abrams Subjective: * Chief Complaints: * 1 . 6 month prophy. * Medical History: Objective: * Vitals: Assessment: Plan: * Treatment: * Images: * Electronic signature of Kaur Tellez on 06/01/2025 at 08:30 AM EDT Sign off status: Pending * Provider: Isaiah Pate Date: 0 04/24/2025 Generated for Delroy garcia/Sourav/eTransmitting on: 0 06/01/2025 08:30 AM EDT
--- OUTSIDE RECORDS SUMMARY | 2025-05-11 05:30 | XMS_ITS ---
[facility] Address [address] [place] [address] Care Team Providers Care Office Machine Inspector Name Role Phone Dr. Carlos Abrams Primary Care Provider [phone] Maria A Degroot Unavailable [phone] REASON FOR VISIT FILLING Encounters Encounter Location Date Provider Diagnosis [address] [place] [address] 05/11/2025 Maria A Molina Plan Of Treatment No Information Progress Notes * RUSTY LUKE KDOB:1994 (30 yo F)Acc No.[id number]:05/11/2025 Patient: Ellis SAAVEDRA LUKE Jaime Provider: Unique Molina DDS :1995 A ge:30 Y S ex:Female Date:05/11/2025 Address:[address] [facility] Pcp:Dr. Carlos Abrams Subjective: * Chief Complaints: * 1 . FILLING. * Medical History: Objective: * Vitals: Assessment: Plan: * Treatment: * Images: * Electronic signature of Joshua Molina DDS on 06/01/2025 at 08:29 AM EDT Sign off status: Pending * Provider: Unique Molina DDS Date: 0 05/11/2025 Generated for Delroy garcia/Sourav/eTransmitting on: 0 06/01/2025 08:29 AM EDT
--- OUTSIDE RECORDS SUMMARY | 2025-05-31 13:50 | XMS_ITS | Encounter Summary ---
Author Organization [facility] Address [address] [address] Care Team Providers Care Retail Shift Supervisor Name Role Phone Michael Anderson MD Primary Care Provider [phone] Reason for Visit * Reason Comments Care Encounter Details Date Type Department Care Team (Late st Contact Info) Description 05/31/2025 1:50 PM EDT Visit [facility] [address] [facility] [place] [address] Sugey Peck PA [address] [facility] [place] [address] 6 weeks follow-up ([facility]); control counseling Social History Tobacco Use Types Packs/Day Years [...] Sign Reading Time Taken Comments Blood Pressure 114/74 05/31/2025 2:13 PM EDT Pulse - - Temperature - - Respiratory Rate - - Oxygen Saturation - - Inhaled Oxygen Concentration - - Weight 108 kg (237 lb 12.8 oz) 05/31/2025 2:13 P M EDT Height - - Body Mass Index 37.24 08/11/2023 3:39 PM EDT documented in this encounter Progress Notes * ABY Erickson - 05/31/2025 1:50 PM EDT Reason for Appointment: Patient ID: Jesica Doshi is a 30 y.o. female who presents for Care Patient presents today for Post Follow Up appointment. MEDICATIONS Current Outpatient Medications Medication Instructions [...] meal for a total of 4times daily. norethindrone-ethinyl estradiol-ferrous fumarate (Blisovi 24 Fe) 1-20 MG-MCG(24) tablet 1 tablet, Oral, Daily Vit-Fe Fumarate-FA ( Vitamins) 28-0.8 MG tablet 1 tablet, Oral, Daily ALLERGIES No Known Allergies PROBLEMS Active Ambulatory Problems Diagnosis Date Noted 15 weeks gestation of ([facility]) 11/09/2024 Second trimester ([facility]) 11/09/2024 Resolved Ambulatory Problems Diagnosis Date Noted No Resolved Ambulatory Problems Past Medical History: Diagnosis Date Pap smear for cervical cancer screening 02/11/2023 HISTORY PAST MEDICAL HISTORY SOCIAL HISTORY Past Medical History: Diagnosis Date Pap smear for cervical cancer screening 02/11/2023 neg Social History Tobacco Use Smoking status: Former Current packs/day: 0.00 Types: Cigarettes Start date: 01/13/2013 Quit date: 10/19/2022 Years since quittin.6 Smokeless tobacco: Not on file Substance Use [...] reviewed. Vitals: Estimated body mass index is 37.24 kg/m?? as calculated from the following: Height as of 08/11/23: 5' 7 . Weight as of this encounter: 237 lb 12.8 oz. BP: 114/74 No LMP recorded. ASSESSMENT & PLAN ICD-10-CM 1. 6 weeks follow-up ([facility]) Z39.2 2. control counseling Z30.09 norethindrone-ethinyl estradiol-ferrous fumarate (Blisovi 24 Fe)1-20 MG-MCG(24) tablet Post Follow Up: Patient is doing well. Patient presents today for 6 week visit. Patient is s/p Vaginal delivery. Patient states depression but denies suicidal and homicidal ideations. All options were discussed with the patient regarding control and patient desires oral contraception . Follow Up: Patient is to return for annual unless needed otherwise. Documented by ABY Erickson on behalf of: ABY Erickson documented in this encounter Plan of Treatment Upcoming Encounters Date Type Department Care Team ([facility] Contact Info) Description 12/05/2025 4:00 PM EST Procedure Visit [facility] B[facility] OB [address] [facility] [place] [address] Mak Hairston, [address] [place] [address] documented as of this encounter Visit Diagnoses Diagnosis 6 weeks follow-up ([facility]) control counseling documented in this encounter Care Teams Retail Shift Supervisor Relationship Specialty Start Date End Date Michael Anderson MD [address] [place] [address] PCP - General Family Medicine 09/07/24 documented as of this encounter
--- OUTSIDE RECORDS SUMMARY | 2025-06-01 08:30 | XMS_ITS | Patient Health Record ---
Author Organization [facility] Address [address] [place] [address] Care Team Providers Care Inventory Audit Clerk Name Role Phone Jay Gomez Unavailable [phone] Pamela Bowman Unavailable [phone] Reason For Referral No Information Encounters Encounter Location Date Provider Diagnosis [facility] [address] [place] [address] [place] [address] 11/27/2024 Pamela Bowman Closed nondisplaced fracture of distal phalanx of right little finger, initial encounter S62.666A [facility] [address] [place] [address] [place] [address] 01/01/2025 Pamela Bowman Closed nondisplaced fracture of distal phalanx of right little finger, initial encounter S62.666A [facility] [address] [place] [address] [place] [address] 01/08/2025 Jay Gomez Closed nondisplaced fracture of [...] Date Medicaid [employer] [place] [address] [place] [address] [id number] LUKE OJEDA Self - patient is the insured 4
--- OUTSIDE RECORDS SUMMARY | 2025-06-01 08:30 | XMS_ITS | Clinical Summary ---
Author Organization [facility] Address [id number] [address] [place] [address] Care Team Providers Care Associate Loan Officer Name Role Phone Unavailable Primary Care Provider Unavailabl e Allergies No known active allergies Medications NPP207-jncmoot fumarate-FA 28-800 mg-mcg tablet Take 1 tablet by mouth in the morning. Active ondansetron ODT (ZOFRAN ODT) 4 mg disintegrating tablet Dissolve 1 tablet (4 mg total) on tongue every 8 (eight) hours as needed for nausea or vomiting. Active Encounters Date Type Department Care Team Description 03/08/2025 Travel from Last 3 Months Family History Medical [...] Procedure Name Priority Date/Time Associated Diagnosis Comments [facility] OB FOLLOW-UP, 1 FETUS Routine 03/08/2025 11:53 AM EDT Encounter for follow-up ultrasound of anatomy from Last 3 Months Results * US MFM OB FOLLOW-UP, 1 FETUS (03/08/2025 11:53 AM EDT) Anatomical Region Laterality Modality OB-BULK SEALER OPERATOR Ultrasound 03/08/2025 11:0 5 AM EDT Narrative 03/08/2025 2:02 PM EDT NAME: RUSTY BUTLER : 1995 SEX: F Accession Number: [id number] ORDERING PHYSICIAN: YOBANY REYES REFERRING PHYSICIAN: MADIHA BURRELL Coding ----- --------- Procedures 06045: Follow-up Ultrasound, per fetus Indication ----- --------- [...] EFW (oz) 3 oz EFW by: Hadlock (HNO-CR-IV-FL) Extended Tibia 52.6 mm 31w 1d 28% Toni Boatbuilder Apprentice Wood 2.9 mm Head / Face / Neck [...] Thorax RVOT view. LVOT view. 3-vessel view. 0-vvhbvx-zbgpnrd view. Aortic arch view. Bicaval view. Ductal [...] BUTLER : 1995 SEX: F Accession Number: [id number] ORDERING PHYSICIAN: YOBANY REYES REFERRING PHYSICIAN: MADIHA BURRELL Coding ----- --------- Procedures 80411: Follow-up Ultrasound, per fetus Indication ----- --------- [...] EFW (oz) 3 oz EFW by: Hadlock (QZE-OI-SQ-FL) Extended Tibia 52.6 mm 31w 1d 28% Toni Boatbuilder Apprentice Wood 2.9 mm Head / Face / Neck [...] Thorax RVOT view. LVOT view. 3-vessel view. 5-jyunxr-fnlnsod view.Aortic arch view. Bicaval view. Ductal arch [...] byprimary OB provider unless otherwise specified by MFM. Results forwarded to ordering provider so they can follow up with thepatient as necessary. Yobany Reyes MD IMG US ORDERABLES Final Re sult from Last 3 Months Insurance [employer]
--- OUTSIDE RECORDS SUMMARY | 2025-06-01 08:30 | XMS_ITS | Encounter Summary ---
Author Organization [facility] Address [address] [place] [address] Care Team Providers Care Packing And Shipping Clerk Name Role Phone Mak Hairston DO Unavailable Michael Anderson MD Primary Care Provider [phone] Encounter Details Date Type Department Care Team (Late st Contact Info) Description 11/05/2023 Clinisync Result Encounter [facility] External Department Unsolicited Sugey Madrid PA [address] [facility] [address] [place], [facility] Social History Tobacco Use Types Packs/Day Years Used Date Smoking Tobacco: Former Cigarettes 0 01/13/2013 - 10/19/2022 Comments No Sex and Gender Information Value Date Recorded Sex Assigned at Not on file Legal Sex Female 6:42 PM EDT Gender Identity Not on file Sexual Orientation Not on file documented as of this encounter Plan of Treatment Upcoming Encounters Date Type Department Care Team (Late st Contact Info) Description 12/05/2025 4:00 PM EST Procedure Visit [facility] BCP OB [address] [facility] [place] [address] Mak Hairston DO [address] [facility] [place] [address] documented as of this encounter Procedures Procedure Name Priority Date/Time Associated Diagnosis Comments US PELVIS W/ TRANSVAGINAL 11/05/2023 1:33 PM EST documented in this encounter Results * US PELVIS W/ TRANSVAGINAL (11/05/2023 1:33 PM EST) Anatomical Region Laterality Modality Other 11/05/2023 1:33 PM EST Narrative 11/05/2023 1:36 PM EST [address] [address] Ultrasound Report Signed Patient: LUKE DOSHI MR#: [id number] : 1995 Acct:[id number] Age/Sex: 28 / F ADM Date: 11/04/23 Loc: US Attending Dr: Sugey Madrid Ordering Physician: Sugey Madrid Date of Service: 11/04/23 Procedure(s): US pelvis w/ transvaginal Accession Number(s): [id number] cc: Sugey Madrid; SANGEETA FUNK [place] [id number] Patient Name: LUKE DOSHI MRN: [id number] date: 1995 Sex: F Assigned Patient Location: US Current Patient Location: LAB Accession/Order Number: [id number] Exam Date: 11/04/2023 19:08 Report Date: 11/05/2023 [...] Dictated By: Ghazala Hernandez M.D. Signed By: 11/05/231335 DD/ 32 TD/TT: Oil Changer: Procedure Note Radiology, Radiologist, MD - 11/05/2023 [place] [address] Ultrasound Report Signed Patient: LUKE DOSHI KMR#: [id number] : 1995Acct:[id number] Age/Sex: FADM Date: 11/04/23 Loc: US Attending Dr: Sugey Madrid Ordering Physician: Sugey Madrid Date of Service: 11/04/23 Procedure(s): US pelvis w/ transvaginal Accession Number(s): [id number] cc: Sugey Madrid; SANGEETA FUNK [place] [id number] Patient Name: LUKE DOSHI MRN: [id number] date: 1995 Sex: F Assigned Patient Location: US Current Patient Location: LAB Accession/Order Number: [id number] Exam Date: 11/04/2023 19:08 Report Date: 11/05/2023 [...] Ghazala Hernandez M.D. Signed By:11/05/23 1336 DD/ 32 TD/TT: Oil Changer: us Sugey [facility] Final Result documented in this encounter Visit Diagnoses Not on filedocumented in this encounter Care Teams Packing And Shipping Clerk Relationship Specialty Start Date End Date Mak Hairston DO [address] [place] [address] PCP - Georgiana Commercial 11/15/23 Michael Anderson MD [address] [place] [address] PCP - General Family Medicine 09/07/24 documented as of this encounter
--- OUTSIDE RECORDS SUMMARY | 2025-06-01 08:30 | XMS_ITS | Encounter Summary ---
Author Organization [facility] Address [address] [place] [address] Care Team Providers Care Nail Maker Name Role Phone Michael Anderson MD Primary Care Provider [phone] Encounter Details Date Type Department Care Team (Late Contact Info) Description 02/08/2025 Abstract [facility] OB [address] [facility] [place] [address] Mak Hairston DO [address] [place] [address] [place] [address] Social History Tobacco Use Types Packs/Day Years Used Date Smoking Tobacco: Former Cigarettes 0 01/13/2013 - 10/19/2022 Comments Yes Sex and Gender Information Value Date Recorded Sex Assigned at Not on file Legal Sex Female 6:42 PM EDT Gender Identity Not on file Sexual Orientation Not on file documented as of this encounter Plan of Treatment Upcoming Encounters Date Type Department Care Team (Late Contact Info) Description 12/05/2025 4:00 PM EST Procedure Visit [facility] OB [address] [place] [address] Mak Hairston DO [facility] [address] [place] [id number] documented as of this encounter Visit Diagnoses Not on filedocumented in this encounter Care Teams Nail Maker Relationship Specialty Start Date End Date Michael Anderson MD [address] [facility] [id number] PCP - General Family Medicine 09/07/24 documented as of this encounter
--- OUTSIDE RECORDS SUMMARY | 2025-06-01 08:30 | XMS_ITS | Encounter Summary ---
Author Organization [facility] Address [address] [place] [address] Care Team Providers Care Industrial Arts Public [employer] Teacher Name Role Phone Michael Anderson MD Primary Care Provider [phone] Encounter Details Date Type Department Care Team (Late Contact Info) Description 09/07/2024 Abstract [facility] OB [address] [facility] [place] [address] aMk Hairston DO [address] [place] [address] [place] [address] Social History Tobacco Use Types Packs/Day Years [...] 12/05/2025 4:00 PM EST Procedure Visit [facility] OB [address] [facility] [place] [address] Mak Hairston DO [facility] [address] [place] [id number] documented as of this encounter Visit Diagnoses Not on filedocumented in this encounter Care Teams [employer] Teacher Relationship Specialty Start Date End Date Michael Anderson MD [address] [facility] [id number] PCP - General Family Medicine 09/07/24 documented as of this encounter
--- OUTSIDE RECORDS SUMMARY | 2025-06-01 08:30 | XMS_ITS | Encounter Summary ---
Author Organization [facility] Address [id number] [address] [place] [address] Care Team Providers Care Sharepoint Application Developer Name Role Phone Unavailable Primary Care Provider Unavailabl e Encounter Details Date Type Department Care Team (Late st Contact Info) Description 02/02/2025 Orders Only [facility] [address] [place] [address] Ref Prov, [place] [address] Social History Tobacco Use Types Packs/Day Years [...] 9:03 AM EDT) Anatomical Region Laterality Modality OB-PILOT FUEL ENGINEER Ultrasound us Not In System Ref Prov IMG US ORDERABLES Final R esult * Ultrasound limited 1 or more fetus (02/02/2025 9:02 AM EDT) Anatomical Region Laterality Modality OB-PILOT FUEL ENGINEER Ultrasound us Not In System Ref Prov IMG US ORDERABLES Final R esult * Ultrasound limited 1 or more fetus (02/02/2025 9:00 AM EDT) Anatomical Region Laterality Modality OB-PILOT FUEL ENGINEER Ultrasound us Not In System Ref Prov IMG US ORDERABLES Final R esult documented in this encounter Visit Diagnoses Not on filedocumented in this encounter
--- OUTSIDE RECORDS SUMMARY | 2025-06-01 08:30 | XMS_ITS | Encounter Summary ---
Author Organization [facility] Address [address] [place] [address] Care Team Providers Care Cascara Bark Cutter Name Role Phone Michael Anderson MD Primary Care Provider [phone] Encounter Details Date Type Department Care Team (Late Contact Info) Description 04/17/2025 Abstract [facility] OB [address] [facility] [place] [address] Mak Hairston DO [address] [place] [address] [place] [address] Social History Tobacco Use Types Packs/Day Years [...] 12/05/2025 4:00 PM EST Procedure Visit [facility] OB [address] [address] Mak Hairston DO [facility] [address] [place] [id number] documented as of this encounter Visit Diagnoses Not on filedocumented in this encounter Care Teams Cascara Bark Cutter Relationship Specialty Start Date End Date Michael Anderson MD [address] [facility] [place] [id number] PCP - General Family Medicine 09/07/24 documented as of this encounter
--- OUTSIDE RECORDS SUMMARY | 2025-06-01 08:30 | XMS_ITS | Encounter Summary ---
Author Organization [facility] Address [address] [place] [address] Care Team Providers Care Steam Shovelman Name Role Phone Michael Anderson MD Primary Care Provider [phone] Encounter Details Date Type Department Care Team (Late st Contact Info) Description 05/24/2025 Abstract [facility] OB [address] [facility] [place] [address] Isabel Geronimo MA Social History Tobacco Use Types Packs/Day Years [...] 12/05/2025 4:00 PM EST Procedure Visit [facility] [address] [facility] [place] [address] Mak Hairston [address] [place], [place] [phone] documented as of this encounter Visit Diagnoses Not on filedocumented in this encounter Care Teams Steam Shovelman Relationship Specialty Start Date End Date Michael Anderson MD [address] [place], [place] [address] PCP - General Family Medicine 09/07/24 documented as of this encounter
--- OUTSIDE RECORDS SUMMARY | 2025-06-01 08:30 | XMS_ITS | Clinical Summary ---
Author Organization [facility] Address [address] [place] [address] Care Team Providers Care Clinical Training Specialist Name Role Phone Koki Zapata MD Primary Care Provider [phone] Allergies No known active allergies Medications Vit-Fe Fumarate-FA ( Vitamins) 28-0.8 MG tabletIndication s:, unspecified gestational age ([facility]) Take 1 tablet by mouth Daily 30 [...] daily. 1 kit 5 02/06/20 26 Active norethindrone-et hinyl estradiol-ferrou s fumarate (Blisovi 24 Fe) 1-20 MG-MCG(24) tabletIndication s: control counseling Take 1 tablet by mouth Daily 28 tablet 12 5 05/31/20 26 Active cephalexin (Keflex) 500 MG capsuleIndicatio ns:UTI symptoms Take 1 capsule (500 mg) by mouth in the morning and 1 capsule (500 mg) in the evening and 1 capsule (500 mg) before bedtime. Do all this for 7 days. 21 capsule 05/03/20 25 Active Problems Problem Noted Date Diagnosed Date 15 weeks gestation of ([facility]) 2023 Second trimester ([facility]) 11/09/2024 Encounters Date Type Department Care Team Description 05/31/2025 1:50 PM EDT Visit [facility] [address] [place] [address] Sugey Peck PA 6 weeks follow-up ([facility]); control counseling 05/24/2025 Abstract [facility] [address] [place] [address] Isabel Geronimo MA 04/26/2025 10:50 AM EDT Office Visit [facility] [address] [place] [address] [place] [address] Sugey Peck PA Postop check; S/P section; Encounter for visit ([facility]); UTI symptoms 04/26/2025 Bamboo flowsheet [facility] [address] [place] [address] Sugey Peck PA 04/21/2025 Clinisync Result Encounter [facility] External Department Unsolicited Madiha Hairston, DO 04/20/2025 Clinisync Result Encounter [facility] External Department Unsolicited Madiha Hairston, DO 04/18/2025 2:20 PM EDT Routine [facility] [address] [place] [address] Madiha Hairston, DO Third trimester ([facility]); 38 weeks gestation of ([facility]); induced hypertension, antepartum ([facility]); Elevated blood pressure affecting , antepartum ([facility]) 04/18/2025 Clinisync Result Encounter [facility] External Department Unsolicited Madiha Hairston, 04/18/2025 Clinisync Result Encounter [facility] External Department Unsolicited Madiha Hairston, DO 04/18/2025 Bamboo flowsheet [facility] [address] [place] [address] [place] [address] Madiha Hairston, DO 04/17/2025 Abstract [facility] [address] [place] [address] [place] [address] Madiha Hairston, DO 04/10/2025 2:30 PM EDT Routine [facility] [address] [place] [address] [place] [address] Madiha Hairston, DO Third trimester ([facility]); 37 weeks gestation of ([facility]) 04/10/2025 Bamboo flowsheet [facility] [address] [place] [address] Madiha Hairston, DO 04/03/2025 2:30 PM EDT Routine [facility] [address] [place] [address] [place] [address] Madiha Hairston, DO Third trimester ([facility]); 36 weeks gestation of ([facility]) 04/03/2025 Bamboo flowsheet [facility] [address] [place] [address] Madiha Hairston, DO 03/23/2025 Telephone [facility] [address] [place] [address] [place] [address] Madiha Hairston, DO 03/19/2025 2:10 PM EDT Routine [facility] [address] [place] [address] [place] [address] Madiha Hairston, Third trimester ([facility]); 33 weeks gestation of ([facility]); Oral lesion 03/19/2025 Bamboo flowsheet [facility] [address] [place] [address] aMdiha Hairston, DO 03/06/2025 Telephone [facility] [address] [place] [address] [place] [phone] Katherine Dia LPN 03/06/2025 Abstract [facility] [address] [place] [address] [place] [address] Madiha Hairston DO 03/05/2025 3:30 PM EDT Routine [facility] [address] [place] [phone] Sugey Peck PA Third trimester ([facility]); 31 weeks gestation of ([facility]) 03/05/2025 Bamboo flowsheet [facility] [address] [place] [address] Sugey Peck PA from Last 3 Months Family History Medical History Relation Name Comments mhthr Mother rh negative Mother Melanoma Neg Hx Relation Name Status Comments Father Alive Mother Alive Sister 3 Social History Tobacco Use Types Packs/Day Years Used Date Smoking Tobacco: Former Cigarettes 0 01/13/2013 - 10/19/2022 Tobacco Cessation:Counseling Given: Not Answered Comments No Sex and Gender Information Value [...] oz) 05/31/2025 2:13 P M EDT Height 170.2 cm (5' 7 ) 08/11/2023 3:39 PM EDT Body Mass Index 37.24 08/11/2023 3:39 PM EDT Plan of Treatment Upcoming Encounters Date Type Department Care Team (Late st Contact Info) Description 12/05/2025 4:00 PM EST Procedure Visit [facility] [address] [place] [phone] Madiha Hairston, [address] [place], [place] [phone] Procedures Procedure Name Priority Date/Time Associated Diagnosis Comments URINARY TRACT INFECTION (HTRX) Routine 04/26/2025 4:00 PM EDT ALL CBC WITH AUTO DIFF Routine 04/21/2025 6:13 AM EDT ALL CBC WITH AUTO DIFF Routine 04/20/2025 5:55 AM EDT TBH DRUG SCREEN RAPID (URINE) Routine 04/20/2025 5:40 AM EDT [facility] URINALYSIS, WITH MICROSCOPIC Routine 04/20/2025 5:40 AM EDT US OB BPP W NON-STRESS 04/18/2025 6:46 [...] Routine 04/18/2025 2:40 PM EDT Third trimester ([facility]) POCT URINALYSIS DIPSTICK Routine 04/10/2025 2:44 PM EDT Third trimester ([facility]) POCT URINALYSIS DIPSTICK Routine 03/19/2025 3:26 PM EDT Third trimester ([facility]) POCT URINALYSIS DIPSTICK Routine 03/05/2025 3:51 PM EDT Third trimester ([facility]) from Last 3 Months Results * URINARY TRACT INFECTION (HTRX) (04/26/2025 4:00 PM EDT) [facility] ACINETOBACTER BAUMANII 0.000 19.961 - 24.689 ppm 04/28/2025 9:02 AM EDT [facility] ACINETOBACTER BAUMANII Not Detected 19.961 - 24.689 ppm 04/28/2025 9:02 AM EDT [facility] CITROBACTER FREUNDII 0.000 23.000 - 31.881 ppm 04/28/2025 9:02 AM EDT [facility] CITROBACTER FREUNDII Not Detected 23.000 - 31.881 ppm 04/28/2025 9:02 AM EDT [facility] ENTEROBACTER AEROGENES, CLOACAE 0.000 23.000 - 31.535 ppm 04/28/2025 9:02 AM EDT [facility] ENTEROBACTER AEROGENES, CLOACAE Not Detected 23.000 - 31.535 ppm 04/28/2025 9:02 AM EDT [facility] ENTEROCOCCUS FAECALIS, FAECIUM 0.000 26.000 - 31.575 ppm 04/28/2025 9:02 AM EDT [facility] ENTEROCOCCUS FAECALIS, FAECIUM Not Detected 26.000 - 31.575 ppm 04/28/2025 9:02 AM EDT [facility] ESCHERICHIA COLI 0.000 23.000 - 28.500 ppm 04/28/2025 9:02 AM EDT [facility] ESCHERICHIA COLI Not Detected 23.000 - 28.500 ppm 04/28/2025 9:02 AM EDT [facility] [place] KLEBSIELLA PNEUMONIAE, OXYTOCA 0.000 23.000 - 30.500 ppm 04/28/2025 9:02 AM EDT [facility] [place] KLEBSIELLA PNEUMONIAE, OXYTOCA Not Detected 23.000 - 30.500 ppm 04/28/2025 9:02 AM EDT [facility] [place] MORGANELLA MORGANII 0.000 19.961 - 24.689 ppm 04/28/2025 9:02 AM EDT [facility] [place] MORGANELLA MORGANII Not Detected 19.961 - 24.689 ppm 04/28/2025 9:02 AM EDT [facility] [place] PROTEUS MIRABILIS, VULGARIS 0.000 23.000 - 28.500 ppm 04/28/2025 9:02 AM EDT [facility] [place] PROTEUS MIRABILIS, VULGARIS Not Detected 23.000 - 28.500 ppm 04/28/2025 9:02 AM EDT [facility] [place] PSEUDOMONAS AERUGINOSA 0.000 23.000 - 28.500 ppm 04/28/2025 9:02 AM EDT [facility] [place] PSEUDOMONAS AERUGINOSA Not Detected 23.000 - 28.500 ppm 04/28/2025 9:02 AM EDT [facility] [place] STAPHYLOCOCCUS AUREUS 0.000 26.000 - 30.902 ppm 04/28/2025 9:02 AM EDT [facility] [place] STAPHYLOCOCCUS AUREUS Not Detected 26.000 - 30.902 ppm 04/28/2025 9:02 AM EDT [facility] [place] STREPTOCOCCUS AGALACTIAE (GROUP B STREP) 0.000 26.000 - 32.222 ppm 04/28/2025 9:02 AM EDT [facility] [place] STREPTOCOCCUS AGALACTIAE (GROUP B STREP) Not Detected 26.000 - 32.222 ppm 04/28/2025 9:02 AM EDT [facility] [place] MARIO ALBICANS, PARAPSILOSIS, TROPICALIS 0.000 19.961 - 30.770 ppm 04/28/2025 9:02 AM EDT [facility] MARIO ALBICANS, PARAPSILOSIS, TROPICALIS Not Detected 19.961 - 30.770 ppm 04/28/2025 9:02 AM EDT [facility] [place] MARIO GLABRATA 0.000 23.000 - 32.138 ppm 04/28/2025 9:02 AM EDT [facility] [place] MARIO GLABRATA Not Detected 23.000 - 32.138 ppm 04/28/2025 9:02 AM EDT [facility] [place] MARIO KRUSEI 0.000 23.000 - 32.271 ppm 04/28/2025 9:02 AM EDT [facility] [place] MARIO KRUSEI Not Detected 23.000 - 32.271 ppm 04/28/2025 9:02 AM EDT [facility] [place] SERRATIA MARCESCENS 0.000 23.000 - 31.204 ppm 04/28/2025 9:02 AM EDT [facility] [place] SERRATIA MARCESCENS Not Detected 23.000 - 31.204 ppm 04/28/2025 9:02 AM EDT [facility] [place] STREPTOCOCCUS PYOGENES (GROUP A STREP) 0.000 19.961 - 24.689 ppm 04/28/2025 9:02 AM EDT [facility] STREPTOCOCCUS PYOGENES (GROUP A STREP) Not Detected 19.961 - 24.689 ppm 04/28/2025 9:02 AM EDT [facility] [place] STAPHYLOCOCCUS EPIDERMIDIS, HAEMOLYTICUS, LUGDUNENSIS, SAPROPHYTICUS (URINA 0.000 19.961 - 24.689 ppm 04/28/2025 9:02 AM EDT [facility] [place] STAPHYLOCOCCUS EPIDERMIDIS, HAEMOLYTICUS, LUGDUNENSIS, SAPROPHYTICUS (URINA Not Detected 19.961 - 24.689 ppm 04/28/2025 9:02 AM EDT [facility] [place] STAPHYLOCOCCUS EPIDERMIDIS, HAEMOLYTICUS, LUGDUNENSIS, SAPROPHYTICUS (URINA 0.000 19.961 - 24.689 ppm 04/28/2025 9:02 AM EDT [facility] STAPHYLOCOCCUS EPIDERMIDIS, HAEMOLYTICUS, LUGDUNENSIS, SAPROPHYTICUS (URINA Not Detected 19.961 - 24.689 ppm 04/28/2025 9:02 AM EDT [facility] Urine 04/26/2025 4:00 PM EDT 04/28/2025 3:19 AM EDT us Sugey BADILLO LAB BLOOD ORDERABLES Final Resul t [facility] [address] [place] [address] * (ABNORMAL) ALL CBC WITH AUTO DIFF (04/21/2025 6:13 AM EDT) Only the most recent of3 resultswithin the time period is included. TBH WBC 11.6(H) 4.0 - 11.0 10 3/uL TBH TBH RBC 3.38(L) 4.20 - 5.40 10 6/uL TBH TBH HGB 10.2(L) 12.0 - 16.0 g/dL TBH TBH HCT 30.3(L) 36.0 - 48.0 % TBH TBH MCV 89.6 81.0 - 99.0 fL TBH TBH MCH 30.2 26.7 - 34.0 pg TBH TBH MCHC 33.7 29.9 - 35.2 g/dL TBH TBH RDW 13.7 11.0 - 15.0 % TBH TBH PLT 221 150 - 450 10 3/uL TBH TBH MPV 10.2 9.5 - 13.5 fL TBH NEUTROPHILS PERCENT AUTO 67.5 43.0 - 75.0 % TBH LYMPHOCYTES PERCENT AUTO 22.7 20.5 - 60.0 % TBH MONOCYTES PERCENT AUTO 8.1 1.7 - 12.0 % TBH TBH EO % 0.9 0.9 - 7.0 % TBH BASOPHILS PERCENT AUTO 0.3 0.2 - 2.0 % TBH IMMATURE GRANULOCYTES PCT AUTO 0.5 0.0 - 0.5 % TBH NEUTROPHILS ABSOLUTE AUTO 7.8(H) 1.4 - 6.5 10 3/uL TBH LYMPHOCYTES ABSOLUTE AUTO 2.6 1.2 - 3.8 10 3/uL TBH MONOCYTES ABSOLUTE AUTO 0.9(H) 0.3 - 0.8 10 3/uL TBH TBH EO # 0.1 0.0 - 0.7 10 3/uL TBH BASOPHILS ABSOLUTE AUTO 0.0 0.0 - 0.1 10 3/uL TBH IMMATURE GRANULOCYTES ABS AUTO 0.06(H) 0.00 - 0.03 10 3/uL TBH 04/21/2025 6:13 AM EDT 04/21/2025 6:19 AM EDT Narrative CLINISYNC - 04/21/2025 6:23 AM EDT Madiha Hairston DO CLINISYNC Final Result [facility] * TB DRUG SCREEN RAPID (URINE) (04/20/2025 5:40 AM EDT) CANNABINOID SCREEN URINE NEGATIVE NEGATIVE TBH PHENCYCLIDINE SCREEN URINE NEGATIVE NEGATIVE TBH COCAINE SCREEN URINE NEGATIVE NEGATIVE TBH METHAMPHETAMINES SCREEN URINE NEGATIVE NEGATIVE TBH OPIATE SCREEN URINE NEGATIVE NEGATIVE TBH AMPHETAMINE SCREEN URINE NEGATIVE NEGATIVE TBH BENZODIAZEPINES SCREEN URINE NEGATIVE NEGATIVE TBH TRICYCLIC ANTIDEPRESSANT URINE NEGATIVE NEGATIVE TBH METHADONE SCREEN URINE NEGATIVE NEGATIVE TBH BARBITURATES SCREEN URINE NEGATIVE NEGATIVE TBH OXYCODONE SCREEN URINE NEGATIVE NEGATIVE TBH BUPRENORPHINE SCREEN URINE NEGATIVE NEGATIVE TBH Comment: DRUG CLASS TEST SYSTEM CUT-OFF CONCENTRATIONS ARE FOLLOWS: AMP (Amphetamine): 500 ng/mL BAR (Barbiturates): 200 ng/mL BZO (Benzodiazepines): 150 ng/mL BUP (Buprenorphine): 10 ng/mL CHIARA (Cocaine): 150 ng/mL mAMP (Methamphetamine): 500 ng/mL MTD (Methadone): 200 ng/mL OPI (Opiates): 100 ng/mL OXY (Oxycodone): 100 ng/mL PCP (Phencyclidine): 25 ng/mL THC (Cannabinoids): 50 ng/mL TCA (Trycyclic Antidepressants): 300 ng/mL 04/20/2025 5:40 AM EDT 04/20/2025 6:36 AM EDT Narrative CLINISYNC - 04/20/2025 7:44 AM EDT us Madiha Marika DO CLINISYNC Final Result Performing Organization Address City/[facility]/ZIP Co de Phone Number CLINISYNC TBH * (ABNORMAL) [facility] URINALYSIS, WITH MICROSCOPIC (04/20/2025 5:40 AM EDT) COLOR URINE LT. YELLOW YELLOW TBH CLARITY URINE CLOUDY(A) CLEAR TBH SPECIFIC GRAVITY URINE 1.025 1.005 - 1.025 TBH PH URINE 6.0 5.0 - 9.0 TBH PROTEIN URINE 30(A) NEG/TRACE mg/dL TBH GLUCOSE URINE UA NEGATIVE NEGATIVE mg/dL TBH BILIRUBIN URINE NEGATIVE NEGATIVE TBH KETONES URINE NEGATIVE NEGATIVE mg/dL TBH BLOOD URINE NEGATIVE NEGATIVE TBH NITRITE URINE NEGATIVE NEGATIVE TBH UROBILINOGEN URINE 0.2 0.2 - 1.0 EU/dL TBH LEUKOCYTE ESTERASE URINE NEGATIVE NEGATIVE TBH TBH WBC 10-20(A) NONE SEEN #/HPF TBH TBH RBC NONE SEEN 0 - 2 #/HPF TBH BACTERIA URINE LARGE(A) NONE SEEN #/HPF TBH MUCUS URINE NONE SEEN NONE SEEN TBH SQUAMOUS EPITHELIAL CELL URINE MANY(A) NONE/RARE #/LPF TBH CRYSTALS SEEN? None Seen None Seen #/HPF TBH CAST SEEN? NONE SEEN NONE SEEN #/LPF TBH URINE CULTURE INDICATED YES-LC TBH 04/20/2025 5:40 AM EDT 04/20/2025 6:36 AM EDT Narrative CLINISYNC - 04/20/2025 7:27 AM EDT us Madiha Marika DO CLINISYNC Final Result CLINISYNC TBH * US OB BPP W NON-STRESS (04/18/2025 6:46 PM EDT) Anatomical Region Laterality Modality Other 04/18/2025 6:46 PM EDT Narrative 04/18/2025 6:49 [place] [address] Ultrasound Report Signed Patient: TICOJESICA Sandoval MR#: [id number] : 1995 Acct:[id number] Age/Sex: 29 / F ADM Date: Loc: [facility] [address]: Madiha Hairston D.O. Ordering Physician: Madiha Hairston D.O. Date of Service: 04/18/25 Procedure(s): US OB BPP w non-stress Accession Number(s): [id number] cc: Madiha Hairston D.O.; KOKI ZAPATA [place] [id number] Patient Name: JESICA DOSHI MRN: TBH:[id number] date: 1995 Sex: F Assigned Patient Location: [facility] Current Patient Location: [facility] Accession/Order Number: [id number] Exam Date: 04/18/2025 18:44 Report Date: 04/18/2025 [...] Rand M.D. 04/18/2025 6:46 PM Dictation Location: [place] [address] Electronically authenticated by: [id number] Y Date: 04/18/2025 18:46 Dictated By: Jimi Rand D.O. Signed By: 04/18/251848 DD/ 45 TD/TT: Financial Reporting Director: Procedure Note Radiology, Radiologist, MD - 04/19/2025 [place] [address] Ultrasound Report Signed Patient: JESICA DOSHI KMR#: [id number] : 1995Acct:[id number] Age/Sex: 29 / FADM Date: Loc: [facility] [address]: Madiha Hairston D.O. Ordering Physician: Madiha Hairston D.O. Date of Service: 04/18/25 Procedure(s): US OB BPP w non-stress Accession Number(s): [id number] cc: Madiha Hairston D.O.; KOKI ZAPATA [place] [address] Patient Name: JESICA DOSHI MRN: [facility]:[id number] date: 1995 Sex: F Assigned Patient Location: [facility] Current Patient Location: [facility] Accession/Order Number: [id number] Exam Date: 04/18/2025 18:44 Report Date: 04/18/2025 [...] Rand M.D. 04/18/2025 6:46 PM Dictation Location: [place] [address] Electronically authenticated by: [id number] Y Date: 8:46 Dictated By: Jimi Rand D.O. Signed By:04/18/259 DD/ 45 TD/TT: Financial Reporting Director: Madiha Hairston DO CLINISYNC IMAGING Final Result * (ABNORMAL) TBH URINE T PROTEIN CREAT RATIO (04/18/2025 6:20 PM EDT) TOTAL PROTEIN URINE RANDOM 28.4(H) <=11.9 mg/dL TBH CREATININE URINE RANDOM 90.88 20.00 - 300.00 mg/dL TBH PROTEIN CREATININE RATIO URINE 0.31 TBH 04/18/2025 6:20 PM EDT 04/18/2025 6:59 PM EDT Narrative CLINISYNC - 04/18/2025 7:31 PM EDT Madiha Marika DO CLINISYNC Final Result [facility] * TBH CREATININE (04/18/2025 4:11 PM EDT) CREATININE 0.64 0.55 - 1.02 mg/dL TBH TBH EGFR-AF SOUTH AFRICAN >60 >=60 mL/min/1.7 3m 2 TBH TBH EGFR-NON AF [place] >60 >=60 mL/min/1.7 3m 2 TBH 04/18/2025 4:11 PM EDT 04/18/2025 4:13 PM EDT Narrative CLINISYNC - 04/18/2025 4:42 PM EDT Madiha Pedrazao DO CLINISYNC Final Result Performing Organization Address [facility] Co de Phone Number [facility] * SRM[facility]H PROTHROMBIN TIME INR W/O COUM (04/18/2025 4:11 PM EDT) PROTHROMBIN TIME 9.5 9.0 - 11.6 sec TBH TBH INR <0.93 TBH Comment: DESIRED INR: 2.0-3.0 CONDITIONS NOT LISTED BELOW 2.5-3.5 FOR PROSTHETIC HEART VALVE REPLACEMENT 2.5-3.5 RECURRENT THROMBOSIS 04/18/2025 4:11 PM EDT 04/18/2025 4:13 PM EDT Narrative CLINISYNC - 04/18/2025 4:43 PM EDT [facility] DO [facility] Final Result [facility] * [facility] AST (04/18/2025 4:11 PM EDT) ASPARTATE AMINO TRANSFERASE 16 15 - 37 U/L TB 04/18/2025 4:11 PM EDT 04/18/2025 4:13 PM EDT Narrative CLINISYNC - 04/18/2025 4:42 PM EDT Madiha Marika DO CLINISYNC Final Result CLINISYNC TB * CCF APTT (04/18/2025 4:11 PM EDT) PARTIAL THROMBOPLASTIN TIME 26.5 22.3 - 36.2 sec TB 04/18/2025 4:11 PM EDT 04/18/2025 4:13 PM EDT Narrative CLINISYNC - 04/18/2025 4:43 PM EDT Madiha Marika DO CLINISYNC Final Result Performing Organization Address [facility] Co de Phone Number CLINISYNC TB * ALL URIC ACID (04/18/2025 4:11 PM EDT) URIC ACID 5.1 2.6 - 6.0 mg/dL TB 04/18/2025 4:11 PM EDT 04/18/2025 4:13 PM EDT Narrative CLINISYNC - 04/18/2025 4:42 PM EDT Madiha Marika DO CLINISYNC Final Result Performing Organization Address City/[facility]/ZIP Co de Phone Number CLINISYNC TB * ALL LDH (04/18/2025 4:11 PM EDT) LACTATE DEHYDROGENASE 95 81 - 234 U/L TB 04/18/2025 4:11 PM EDT 04/18/2025 4:13 PM EDT Narrative CLINISYNC - 04/18/2025 4:42 PM EDT Madiha Marika DO CLINISYNC Final Result CLINISYNC TB * ALL BUN (04/18/2025 4:11 PM EDT) BLOOD UREA NITROGEN 12.0 7.0 - 18.0 mg/dL [facility] 04/18/2025 4:11 PM EDT 04/18/2025 4:13 PM EDT Narrative CLINISYNC - 04/18/2025 4:42 PM EDT us Madiha Marika DO CLINISYNC Final Result [facility] * (ABNORMAL) POCT urinalysis dipstick manually resulted (04/18/2025 2:40 PM EDT) Only the most recent of4 resultswithin the time period is included. Color, [...] Positive Urine 04/18/2025 2:40 PM EDT Madiha Marika DO POINT OF CARE TEST ENTER/EDIT OR DERABLES Final Result from Last 3 Months Insurance [employer] [place]ICA[place] Care Teams Clinical Training Specialist Relationship Specialty Start Date End Date Koki Zapata MD [address] [place] [id number] PCP - General Family Medicine 09/07/24
--- OUTSIDE RECORDS SUMMARY | 2025-06-01 08:30 | XMS_ITS | Encounter Summary ---
Author Organization [facility] Address [address] [facility] [place] [address] Care Team Providers Care Motor Expert Name Role Phone Michael Anderson MD Primary Care Provider [phone] Encounter Details Date Type Department Care Team (Late st Contact Info) Description 09/08/2024 Clinisync Result Encounter [facility] External Department Unsolicited Madiha Hairston, DO [address] [place], [place] [id number] Social History Tobacco Use Types Packs/Day Years [...] EST Procedure Visit [facility] BCP OB [address] [place] [phone] Madiha Hairston, DO [address] [place] [address] documented as of this encounter Procedures Procedure Name Priority Date/Time Associated Diagnosis Comments US OB TRANSVAGINAL 09/08/2024 6: 28 AM EDT documented in this encounter Results * US OB TRANSVAGINAL (09/08/2024 6:28 AM EDT) Anatomical Region Laterality Modality Other 09/08/2024 6:28 AM EDT Narrative 09/08/2024 6:31 [place] [address] Ultrasound Report Signed Patient: LUKE DOSHI MR#: [id number] : 1995 Acct:[id number] Age/Sex: 29 / F ADM Date: 09/07/24 Loc: [facility] Attending Dr: Madiha Hairston D.O. Ordering Physician: Madiha Hairston D.O. Date of Service: 09/07/24 Procedure(s): US OB transvaginal Accession Number(s): [id number] cc: SANGEETA FUNK ; Madiha Hairston D.O. [place] [id number] Patient Name: LUKE DOSHI MRN: [facility]:[id number] date: 1995 Sex: F Assigned Patient Location: [facility] Current Patient Location: Accession/Order Number: [id number] Exam Date: 09/07/2024 12:56 Report Date: 09/08/2024 [...] Single live intrauterine . Electronically authenticated by: JAY HERNANDEZ Date: 09/08/2024 06:28 Dictated By: Jay Hernandez M.D. Signed By: 09/08/24630 DD/ 7 TD/TT: Industrial Hygienist: Procedure Note Radiology, Radiologist, MD - 09/08/2024 [place] [address] Ultrasound Report Signed Patient: LUKE DOSHI KMR#: [id number] : 1995Acct:[id number] Age/Sex: 29 / FADM Date: 09/07/24 Loc: [facility] Attending Dr: Madiha Hairston D.O. Ordering Physician: Madiha Hairston D.O. Date of Service: 09/07/24 Procedure(s): US OB transvaginal Accession Number(s): [id number] cc: SANGEETA FUNK ; Madiha Hairston D.O. [place] [address] Patient Name: LUKE DOSHI MRN: [facility]:[id number] date: 1995 Sex: F Assigned Patient Location: [facility] Current Patient Location: Accession/Order Number: [id number] Exam Date: 09/07/2024 12:56 Report Date: 09/08/2024 [...] Single live intrauterine . Electronically authenticated by: JAY HERNANDEZ Date: 09/08/2024 06:28 Dictated By: Jay Hernandez M.D. Signed By:09/08/24630 DD/ 7 TD/TT: Industrial Hygienist: us Madiha Hairston DO [facility] Final Result documented in this encounter Visit Diagnoses Not on filedocumented in this encounter Care Teams Motor Expert Relationship Specialty Start Date End Date Michael Anderson MD [address] [place] [address] PCP - General Family Medicine 09/07/24 documented as of this encounter
--- OUTSIDE RECORDS SUMMARY | 2025-06-01 08:30 | XMS_ITS | Patient Health Record ---
Author Organization [facility] Linkua es Address [address] [place] [address] Care Team Providers Care Car Servicer Name Role Phone Dr. Carlos Abrams Primary Care Provider [phone] Maria A Molina Unavailable [phone] Maritza Tellez Unavailable [phone] Karlene Duran Unavailable [phone] Reason For Referral No Information Encounters Encounter Location Date Provider Diagnosis [address] [address] 06/14/2024 Karlene Duran Dental caries on pit and fissure surface penetrating into dentin K02.52 ; Encounter for dental examination and cleaning with abnormal findings Z01.21 and Acute gingivitis, plaque induced K05.00 [facility] [address] [place] [address] 10/02/2024 Maria A Molina Dental caries on [...] induced (ICD-10 - K05.00) Plan Of Treatment No Information Insurance Providers Payer Name Payer Address Payer Phone Subscriber Number Group Number Insured Name Patient Relationship to Insured Coverage Start Date Coverage End Date zPARAMOU NT ADVANTAG E-termed 22 [address] [place] [address] [id number] LUKE OJEDA Self - patient is the insured 2 3 zMEDICAI D CFC after PARAMOUN T-termed 22 [address] [place] [address] [phone] [id number] LUKE OJEDA Self - patient is the insured 2 3 zDENTAL DQ [employer] T-termed 22 [address] [place] [address] [id number] LUKE OJEDA Self - patient is the insured 2 3 zDental MEDICAID CFC after PARAMOUN T-termed 22 [address] [place] [address] [id number] LUKE OJEDA Self - patient is the insured 2 3 Dental Wrap CFC [place] [employer] [address] [place] [address] [id number] LUKE OJEDA Self - patient is the insured 3 ANTHEM Primary [address] [place] [address] [id number] LUKE OJEDA Self - patient is the insured 4 4 DENTAL [place] [facility] [address] [place] [address] [id number] LUKE OJEDA Self - patient is the insured 4 4 Dental [place] DQ Terminat ed 24 [address] [place] [address] [id number] LUKE OJEDA Self - patient is the insured 4
--- OUTSIDE RECORDS SUMMARY | 2025-06-01 08:30 | XMS_ITS | Encounter Summary ---
Author Organization [facility] Address [address] [place] [address] Care Team Providers Care Buckle Sorter Name Role Phone Michael Anderson MD Primary Care Provider [phone] Encounter Details Date Type Department Care Team (Late Contact Info) Description 09/07/2024 Abstract [facility] [address] [place] [address] Mak Hairston DO [address] [place] [address] [place] [address] Social History Tobacco Use Types Packs/Day Years [...] 12/05/2025 4:00 PM EST Procedure Visit [facility] [address] [place] [address] Mak Hairston DO [facility] Leslie [place] [id number] documented as of this encounter Visit Diagnoses Not on filedocumented in this encounter Care Teams Buckle Sorter Relationship Specialty Start Date End Date Michael Anderson MD [address] [facility] [id number] PCP - General Family Medicine 09/07/24 documented as of this encounter
--- OUTSIDE RECORDS SUMMARY | 2025-06-01 08:30 | XMS_ITS | Encounter Summary ---
Author Organization [facility] Address [address] [place] [address] Care Team Providers Care Dump Truck Driver Name Role Phone Michael Anderson MD Primary Care Provider [phone] Encounter Details Date Type Department Care Team (Late st Contact Info) Description 11/22/2024 Orders Only [facility] OB [address] [place] [address] Katherine Dia LPN [address] [place] [address] Social History Tobacco Use Types Packs/Day Years [...] 12/05/2025 4:00 PM EST Procedure Visit [facility] OB [address] [place] [id number] Mak Hairston DO [address] [place] [id number] documented as of this encounter Procedures Procedure Name Priority Date/Time Associated Diagnosis Comments PAP SMEAR Routine 11/09/2024 12:00 AM EST documented in this encounter Results * Pap Smear (11/09/2024 12:00 AM EST) Swab Cervical swab / Unknown us Mak Hairston DO LAB CYTOLOGY ORDERABLES Final Re sult EXTERNAL LAB documented in this encounter Visit Diagnoses Not on filedocumented in this encounter Care Teams Dump Truck Driver Relationship Specialty Start Date End Date Michael Anderson MD [address] [place] [address] PCP - General Family Medicine 09/07/24 documented as of this encounter
--- OUTSIDE RECORDS SUMMARY | 2025-06-01 08:30 | XMS_ITS | Encounter Summary ---
Author Organization [facility] Address [address] [place] [address] Care Team Providers Care Youth Director Name Role Phone Michael Anderson MD Primary Care Provider [phone] Encounter Details Date Type Department Care Team (Late Contact Info) Description 10/19/2024 Abstract [facility] [address] [place] [address] Mak Hairston DO [address] [place] [address] [place] [address] Social History Tobacco Use Types Packs/Day Years [...] 12/05/2025 4:00 PM EST Procedure Visit [facility] OB [address] [place] [address] Mak Hairston DO [facility] Leslie [place] [id number] documented as of this encounter Visit Diagnoses Not on filedocumented in this encounter Care Teams Youth Director Relationship Specialty Start Date End Date Michael Anderson MD [address] [facility] [id number] PCP - General Family Medicine 09/07/24 documented as of this encounter
--- OUTSIDE RECORDS SUMMARY | 2025-06-01 08:30 | XMS_ITS | Encounter Summary ---
Author Organization [facility] Address [address] [place] [address] Care Team Providers Care Clinical Staff Anesthesiologist Name Role Phone Michael Anderson MD Primary Care Provider [phone] Encounter Details Date Type Department Care Team (Late Contact Info) Description 03/06/2025 Abstract [facility] OB [address] [place] [address] Mak Hairston DO [address] [place] [address] [place] [address] Social History Tobacco Use Types Packs/Day Years [...] Visit [facility] OB [address] [place] [address] Mak Hairston DO [facility] Leslie [place] [id number] documented as of this encounter Visit Diagnoses Not on filedocumented in this encounter Care Teams Clinical Staff Anesthesiologist Relationship Specialty Start Date End Date Michael Anderson MD [address] [facility] [id number] PCP - General Family Medicine 09/07/24 documented as of this encounter
--- OUTSIDE RECORDS SUMMARY | 2025-06-01 08:30 | XMS_ITS | Encounter Summary ---
Author Organization [facility] Address [address] [place] [address] Care Team Providers Care Structural Analyst Name Role Phone Michael Anderson MD Primary Care Provider [phone] Encounter Details Date Type Department Care Team (Late Contact Info) Description 09/07/2024 Abstract [facility] OB [address] [facility] [place] [address] Mak Hairston DO [address] [place] [address] [place] [address] Social History Tobacco Use Types Packs/Day Years [...] 12/05/2025 4:00 PM EST Procedure Visit [facility] [address] [facility] [place] [address] Mak Hairston DO [facility] Leslie [place] [id number] documented as of this encounter Visit Diagnoses Not on filedocumented in this encounter Care Teams Structural Analyst Relationship Specialty Start Date End Date Michael Anderson MD [address] [facility] [id number] PCP - General Family Medicine 09/07/24 documented as of this encounter
--- OUTSIDE RECORDS SUMMARY | 2025-06-01 08:30 | XMS_ITS | Encounter Summary ---
Author Organization [facility] Address [address] [place] [address] Care Team Providers Care Cooker Sulfate Name Role Phone Michael Anderson MD Primary Care Provider [phone] Encounter Details Date Type Department Care Team (Late Contact Info) Description 02/19/2025 Abstract [facility] OB [address] [place] [address] Mak Hairston DO [address] [place] [address] [place] [address] Social History Tobacco Use Types Packs/Day Years [...] 4:00 PM EST Procedure Visit [facility] OB [address] [place] [address] aMk Hairston DO [facility] Leslie [place] [id number] documented as of this encounter Visit Diagnoses Not on filedocumented in this encounter Care Teams Cooker Sulfate Relationship Specialty Start Date End Date Michael Anderson MD [address] [facility] [id number] PCP - General Family Medicine 09/07/24 documented as of this encounter
--- OUTSIDE RECORDS SUMMARY | 2025-06-01 08:51 | XMS_ITS | CCD ---
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 Name Role Phone PAY ., DR BROOKS [...] KATIE Consulting Unavailable KATIE GEORGE Attending Unavailable Koki Zapata Attending Unavailable IGNACIA CRAWFORD Attending Unavailable Koki Zapata Attending Unavailable Koki Zapata Attending Unavailable Koki Zapata MD Primary Care Provider MARIKA, MADIHA R Referring Unavailable MARIKA, MADIHA R Referring Unavailable JULIUSSUGEY Attending Unavailable MARIKA, MADIHA Attending Unavailable MARIKA, MADIHA Attending Unavailable MARIKA, MADIHA Attending Unavailable JULIUSSUGEY ROQUE Attending Unavailable MARIKA, MADIHA Attending Unavailable MARIKA, MADIHA Attending Unavailable MARIKA, MADIHA Attending Unavailable MARIKA, MADIHA Attending Unavailable JULIUS SUGEY Attending Unavailable MARIKA, MADIHA Attending Unavailable MARIKA, MADIHA Attending Unavailable Allergies Allergy Classification Reported Allergen(s) Allergy Type Date of Onset Reaction(s) Facility (1 source) No Known Medication Allergies; Translations: [No Known Medication Allergies] Propensity to adverse reactions (disorder) [facility] Repository Medications Current Medications Medication Drug [...] Glucose Monitoring Suppl (D-Care Glucometer) w/Device kit (20 sources) Start: 02-05-2025 End: 02-05-2026 Blood Glucose Monitoring Suppl (D-Care Glucometer) w/Device kit Indications: Elevated glucose tolerance test 1 kit Daily Use four times daily to check FSBS. In the morning prior to breakfast & 1 hour after each meal for a total of 4times daily. 1 kit 02/05/2025 02/05/2026 Active cephalexin 500 mg oral capsule (2 sources) Cephalosporin Antibacterial Start: 04-26-2025 End: 05-03-2025 take 1 capsule by mouth in the morning, then take 1 capsule by mouth in the evening, then take 1 capsule by mouth at bedtime cephalexin (Keflex) 500 MG capsule Indications: UTI symptoms Take 1 capsule (500 mg) by mouth in the morning and 1 capsule (500 mg) in the evening and 1 capsule (500 mg) before bedtime. Do all this for 7 days. 21 capsule 04/26/2025 05/03/2025 Active Ethinyl Estradiol / Ferrous fumarate / Norethindrone (3 sources) Estrogen Start: 05-31-2025 End: 05-31-2026 take 1 tablet by mouth once daily norethindrone-ethi nyl estradiol-ferrous fumarate (Blisovi 24 Fe) 1-20 MG-MCG(24) tablet Indications: control counseling Take 1 tablet by mouth Daily 28 tablet 12 05/31/2025 05/31/2026 Active End: 09-07-2024 take 1 tablet by mouth in the morning Blisovi FE 12/04 1-20 MG-MCG tablet Take 1 tablet by mouth in the morning. 09/07/2024 Discontinued isopropyl alcohol 0.7 ml/ml medicated pad (20 sources) Start: 02-05-2025 Alcohol Swabs (Alcohol Prep [...] vomiting 30 tablet 3 09/28/2024 10/28/2024 Active phenazopyridine hydrochloride 100 mg oral tablet (2 sources) Start: 04-26-2025 End: 04-28-2025 take 1 tablet by mouth three times daily as needed for muscle spasms phenazopyridine (Pyridium) 100 MG tablet Indications: UTI symptoms Take 1 tablet (100 mg) by mouth 3 (three) times a day as needed for bladder spasms for up to 2 days 6 tablet 04/26/2025 04/28/2025 Active Vit-Fe Fumarate-FA ( Vitamins) 28-0.8 MG tablet (20 sources) Start: 09-28-2024 End: 09-28-2025 take 1 tablet by mouth once daily Vit-Fe Fumarate-FA ( Vitamins) 28-0.8 MG tablet Indications: , unspecified gestational age ([facility]) Take 1 tablet by mouth Daily 30 tablet 11 09/28/2024 09/28/2025 Active Start: 09-28-2024 End: 09-28-2025 take 1 tablet by mouth once daily Vit-Fe Fumarate-FA ( Vitamins) 28-0.8 MG tablet Indications: , unspecified gestational age Take 1 tablet by mouth Daily 30 tablet 11 09/28/2024 09/28/2025 Active Start: 09-07-2024 End: 10-24-2025 take 1 tablet by mouth once daily Vit-Fe Fumarate-FA ( Vitamins) 28-0.8 MG tablet Indications: 6 weeks gestation of , , unspecified gestational age Take 1 tablet by mouth Daily 30 tablet 3 09/07/2024 09/07/2025 Active Problems Active Problems Problem Classification Problem Date Documented Date Episodic/Chronic Contraceptive and procreative management (2 sources) Patient encounter status; Translations: [Encounter for other general counseling and advice on contraception] 05-31-2025 Episodic Diseases of mouth; excluding dental (2 sources) Oral lesion; Translations: [Unspecified lesions of oral mucosa] 03-19-2025 Episodic Fever of unknown origin (2 sources) Fever; Translations: [Fever, unspecified] 12-07-2024 Episodic Genitourinary symptoms and ill-defined conditions (2 sources) Urinary symptoms ; Translations: [Unspecified symptoms and signs involving the genitourinary system] 04-26-2025 Episodic Headache; including migraine (1 source) Headache; including migraine; Translations: [HEADACHE UNSPECIFIED] Onset: 03-15-2023 Hypertension complicating ; childbirth and the puerperium (2 sources) Hypertension complicating ; Translations: [Unspecified maternal hypertension, unspecified trimester] 04-18-2025 Chronic Hypertension complicating ; childbirth and the puerperium (2 sources) -induced hypertension; Translations: [Gestational [-induced] hypertension without significant proteinuria, unspecified trimester] 04-18-2025 Episodic Lymphadenitis (1 source) Generalized enlarged lymph nodes; Translations: [GENERALIZED ENLARGED LYMPH NODES] Onset: 03-11-2023 Episodic Menstrual disorders (1 source) Missed period; Translations: [Irregular menstruation, unspecified] 09-07-2024 Chronic Other aftercare (2 sources) Surgical follow-up; Translations: [Encounter for follow-up examination after completed treatment for conditions other than malignant neoplasm] 04-26-2025 Episodic Other lower respiratory disease (2 sources) Cough; [...] [37 weeks gestation of ] 04-10-2025 Episodic Residual codes; unclassified (2 sources) Gestation period, 38 weeks; Translations: [38 weeks gestation of ] 04-18-2025 Episodic Screening and history of mental health [...] WITH AUTO DIFFon BASOPHILS ABSOLUTE AUTO 0 [facility] Basophils/100 WBC (Bld) 0.3 % 0.2 - 2.0 % [facility] Eosinophils/100 WBC (Bld) 0.9 % 0.9 - 7.0 % [facility] Erythrocyte distribution width (RBC) [Ratio] 13.7 % 11.0 - 15.0 % [facility] Hematocrit (Bld) [Volume fraction] 30.3 % Low 36.0 - 48.0 % [facility] Hemoglobin (Bld) [Mass/Vol] 10.2 g/dL Low 12.0 - 16.0 g/dL [facility] IMMATURE GRANULOCYTES ABS AUTO 0.06 High [facility] Immature granulocytes/100 WBC (Bld) 0.5 % 0.0 - 0.5 % [facility] Interpretation and review of laboratory results Abnormal [facility] LYMPHOCYTES ABSOLUTE AUTO 2.6 [facility] Lymphocytes/100 WBC (Bld) 22.7 % 20.5 - 60.0 % [facility] MCH (RBC) [Entitic mass] 30.2 pg 26.7 - 34.0 pg [facility] MCHC (RBC) [Mass/Vol] 33.7 g/dL 29.9 - 35.2 g/dL [facility] MCV (RBC) [Entitic vol] 89.6 fL 81.0 - 99.0 fL [facility] MONOCYTES ABSOLUTE AUTO 0.9 High [facility] Monocytes/100 WBC (Bld) 8.1 % 1.7 - 12.0 % [facility] NEUTROPHILS ABSOLUTE AUTO 7.8 High [facility] Neutrophils/100 WBC (Bld) 67.5 % 43.0 - 75.0 % [facility] Platelet mean volume (Bld) [Entitic vol] 10.2 fL 9.5 - 13.5 fL [facility] EO # 0.1 [facility] RBC 3.38 Low [facility] WBC 11.6 High [facility] ALL CBC WITH AUTO DIFFon BASOPHILS ABSOLUTE AUTO 0 [facility] Basophils/100 WBC (Bld) 0.3 % 0.2 - 2.0 % [facility] Eosinophils/100 WBC (Bld) 1.6 % 0.9 - 7.0 % [facility] Erythrocyte distribution width (RBC) [Ratio] 13.4 % 11.0 - 15.0 % [facility] Hematocrit (Bld) [Volume fraction] 35.5 % Low 36.0 - 48.0 % [facility] Hemoglobin (Bld) [Mass/Vol] 12.2 g/dL 12.0 - 16.0 g/dL [facility] IMMATURE GRANULOCYTES ABS AUTO 0.04 High [facility] Immature granulocytes/100 WBC (Bld) 0.4 % 0.0 - 0.5 % [facility] Interpretation and review of laboratory results Abnormal [facility] LYMPHOCYTES ABSOLUTE AUTO 2.3 [facility] Lymphocytes/100 WBC (Bld) 20.8 % 20.5 - 60.0 % [facility] MCH (RBC) [Entitic mass] 30.2 pg 26.7 - 34.0 pg [facility] MCHC (RBC) [Mass/Vol] 34.4 g/dL 29.9 - 35.2 g/dL [facility] MCV (RBC) [Entitic vol] 87.9 fL 81.0 - 99.0 fL [facility] MONOCYTES ABSOLUTE AUTO 1 High [facility] Monocytes/100 WBC (Bld) 9.1 % 1.7 - 12.0 % [facility] NEUTROPHILS ABSOLUTE AUTO 7.7 High [facility] Neutrophils/100 WBC (Bld) 67.8 % 43.0 - 75.0 % [facility] Platelet mean volume (Bld) [Entitic vol] 10.7 fL 9.5 - 13.5 fL [facility] EO # 0.2 [facility] PLT 276 [facility] RBC 4.04 Low [facility] TBH WBC 11.3 High [facility] ALL BUNon 04-18-2025 Urea nitrogen [Mass/Vol] 12 mg/dL 7.0 - 18.0 mg/dL [facility] ALL CBC WITH AUTO DIFFon BASOPHILS ABSOLUTE AUTO 0 [facility] Basophils/100 WBC (Bld) 0.2 % 0.2 - 2.0 % [facility] Eosinophils/100 WBC (Bld) 1.5 % 0.9 - 7.0 % [facility] Erythrocyte distribution width (RBC) [Ratio] 13.3 % 11.0 - 15.0 % [facility] Hematocrit (Bld) [Volume fraction] 36.8 % 36.0 - 48.0 % [facility] Hemoglobin (Bld) [Mass/Vol] 12.7 g/dL 12.0 - 16.0 g/dL [facility] IMMATURE GRANULOCYTES ABS AUTO 0.05 High [facility] Immature granulocytes/100 WBC (Bld) 0.4 % 0.0 - 0.5 % [facility] Interpretation and review of laboratory results Abnormal [facility] LYMPHOCYTES ABSOLUTE AUTO 2 [facility] Lymphocytes/100 WBC (Bld) 18.1 % Low 20.5 - 60.0 % [facility] MCH (RBC) [Entitic mass] 30.5 pg 26.7 - 34.0 pg [facility] MCHC (RBC) [Mass/Vol] 34.5 g/dL 29.9 - 35.2 g/dL [facility] MCV (RBC) [Entitic vol] 88.2 fL 81.0 - 99.0 fL [facility] MONOCYTES ABSOLUTE AUTO 0.9 High [facility] Monocytes/100 WBC (Bld) 8 % 1.7 - 12.0 % [facility] NEUTROPHILS ABSOLUTE AUTO 8.1 High [facility] Neutrophils/100 WBC (Bld) 71.8 % 43.0 - 75.0 % [facility] Platelet mean volume (Bld) [Entitic vol] 10.3 fL 9.5 - 13.5 fL [facility] TBH EO # 0.2 [facility] TB PLT 281 [facility] RBC 4.17 Low [facility] TB WBC 11.2 High [facility] ALL LDHon 06-04-2025 LDH [Catalytic activity/Vol] 95 U/L 81 - 234 U/L [facility] ALL URIC ACIDon 04-18-2025 Urate [Mass/Vol] 5.1 mg/dL 2.6 - 6.0 mg/dL [facility] APTTon 04-18-2025 aPTT Coag (Bld) [Time] 26.5 s [facility] [place] 04-18-2025 AST [Catalytic activity/Vol] 16 U/L 15 - 37 U/L [facility] No Panel Informationon 04-18 [facility] SRMCOH PROTHROMBIN TIME INR W/O COUMon 04-18-2025 PT Coag (PPP) [Time] 9.5 s [facility] INR <0.93 [facility] Comment on above: DESIRED INR: 2.0-3.0 CONDITIONS NOT LISTED BELOW 2.5-3.5 FOR PROSTHETIC HEART VALVE REPLACEMENT 2.5-3.5 RECURRENT THROMBOSIS [facility] CREATININEon 04-18-2025 Creatinine [Mass/Vol] 0.64 mg/dL 0.55 - 1.02 mg/dL [facility] GFR/1.73 sq M.predicted CKD-EPI (S/P/Bld) [Vol rate/Area] >60 >=60 mL/min/1.73m 2 [facility] EGFR-NON AF SERBIAN >60 >=60 mL/min/1.73m 2 [facility] URINE T PROTEIN CREAT RA TIOon 04-18-2025 CREATININE URINE RANDOM 90.88 mg/dL 20.00 - 300.00 mg/dL [facility] Interpretation and review of laboratory results Abnormal [facility] Protein (U) [Mass/Vol] 28.4 mg/dL High NINF - 11.9 mg/dL [facility] PROTEIN CREATININE RATIO URINE 0.31 [facility] US OB BPP W NON-STRESS on 04-18-[address] [address] Ultrasound Report Signed Patient: JESICA OJEDA MR#: [id number] : 1995 Acct:[id number] Age/Sex: 29 / F ADM Date: Loc: [facility] Attending Dr: Madiha Hairston D.O. Ordering Physician: Madiha Hairston D.O. Date of Service: 04/18/25 Procedure(s): US OB BPP w non-stress Accession Number(s): [id number] cc: Madiha Hairston D.O.; KOKI ZAPATA The [place] [id number] Patient Name: JESICA OJEDA MRN: [facility]:[id number] date: 1995 Sex: F Assigned Patient Location: [facility] Current Patient Location: [facility] Accession/Order Number: [id number] Exam Date: 04/18/2025 18:44 Report Date: 04/18/2025 [...] Adequate ultrasound biophysical profile Impression dictated by: Todd Rand M.D. 04/18/2025 6:46 PM Dictation Location: [place] [address] Electronically authenticated by: [id number] Y Date: 04/18/2025 18:46 Dictated By: Todd Rand D.O. Signed By: 04/18/251848 DD/ 45 TD/TT: Marine Structural Designer: [facility] Radiology, Radiologist, MD - 04/19/2025 [place] [address] Ultrasound Report Signed Patient: JESICA OJEDA MR#: [id number] : 1995 Acct:[id number] Age/Sex: 29 / F ADM Date: Loc: [facility] 250-[address]: Madiha Hairston D.O. Ordering Physician: Madiha Hairston D.O. Date of Service: 04/18/25 Procedure(s): US OB BPP w non-stress Accession Number(s): [id number] cc: Madiha Hairston D.O.; KOKI ZAPATA [place] [id number] Patient Name: JESICA OJEDA MRN: [id number] date: 1995 Sex: F Assigned Patient Location: [facility] Current Patient Location: [facility] Accession/Order Number: [id number] Exam Date: 04/18/2025 18:44 Report Date: 04/18/2025 [...] Adequate ultrasound biophysical profile Impression dictated by: Todd Rand M.D. 04/18/2025 6:46 PM Dictation Location: [place] [address] Electronically authenticated by: [id number] Y Date: 04/18/2025 18:46 Dictated By: Todd Rand D.O. Signed By: 04/18/251848 DD/ 45 TD/TT: Marine Structural Designer: [facility] Radiology Study observation (narrative) [facility] US OB BPP W NON-STRESS Ordered By: Radiologist Radiology on 04-18-2025 [facility] Work Phone: Urinalysis macro (dipstick) panel (U)on 04-18-2025 Bilirubin, UA Negative Negative - 4(70) +++ mg/dL [facility] Blood, UA Negative Negative - 50 Neil/mcL [facility] Clarity, UA Clear [facility] Color, UA Yellow [facility] Glucose, UA Negative Negative - 2000(110) ++++ mg/dL [facility] Interpretation and review of laboratory results Abnormal [facility] Ketones, UA Negative Negative - 160(16) ++++ mg/dL [facility] Leukocytes, UA Trace Negative - 500+++ Chanel/mcL [facility] Nitrite, UA Negative Negative - Positive [facility] pH, UA 7 5 - 9 [facility] Protein, UA Positive Negative - 1999(20) ++++ mg/dL [facility] Comment on above: 30mg/dL Spec Grav, UA 1.02 1 - 1.03 [facility] Urobilinogen, UA 0.2 0.2 - 12 mg/dL [facility] Urinalysis macro (dipstick) panel (U)on 04-10-2025 Bilirubin, UA Negative Negative - 4(70) +++ mg/dL [facility] Blood, UA Negative Negative - 50 Neil/mcL [facility] Clarity, UA Clear [facility] Color, UA Yellow [facility] Glucose, UA Negative Negative - 1999(110) ++++ mg/dL [facility] Interpretation and review of laboratory results Normal [facility] Ketones, UA Negative Negative - 160(16) ++++ mg/dL [facility] Leukocytes, UA Negative Negative - 500+++ Chanel/mcL [facility] Nitrite, UA Negative Negative - Positive [facility] pH, UA 6.5 5 - 9 [facility] Protein, UA Negative Negative - 1999(20) ++++ mg/dL [facility] Spec Grav, UA 1.02 1 - 1.03 [facility] Urobilinogen, UA 0.2 0.2 - 12 mg/dL [facility] Urinalysis macro (dipstick) panel (U)on 03-19-2025 Bilirubin, UA Negative Negative - 4(70) +++ mg/dL [facility] Blood, UA Negative Negative - 50 Neil/mcL [facility] Clarity, UA Clear [facility] Color, UA Yellow [facility] Glucose, UA Negative Negative - 1999(110) ++++ mg/dL [facility] Interpretation and review of laboratory results Abnormal [facility] Ketones, UA Negative Negative - 160(16) ++++ mg/dL [facility] Leukocytes, UA Trace Negative - 500+++ Chanel/mcL [facility] Nitrite, UA Negative Negative - Positive [facility] pH, UA 6 5 - 9 [facility] Protein, UA Negative Negative - 1999(20) ++++ mg/dL [facility] Spec Grav, UA 1.03 1 - 1.03 [facility] Urobilinogen, UA 0.2 0.2 - 12 mg/dL [facility] Urinalysis macro (dipstick) panel (U)on 03-05-2025 Bilirubin, UA Negative Negative - 4(70) +++ mg/dL [facility] Blood, UA Positive Negative - 50 Neil/mcL [facility] Comment on above: trace Clarity, UA Clear [facility] Color, UA Yellow [facility] Glucose, UA Negative Negative - 1999(110) ++++ mg/dL [facility] Interpretation and review of laboratory results Abnormal [facility] Ketones, UA Negative Negative - 160(16) ++++ mg/dL [facility] Leukocytes, UA Negative Negative - 500+++ Chanel/mcL [facility] Nitrite, UA Negative Negative - Positive [facility] pH, UA 7 5 - 9 [facility] Protein, UA Positive Negative - 1999(20) ++++ mg/dL [facility] Comment on above: 30 Spec Grav, UA 1.02 1 - 1.03 [facility] Urobilinogen, UA 1.0 0.2 - 12 mg/dL [facility] Urinalysis macro (dipstick) panel (U)on 02-19-2025 Bilirubin, UA Negative Negative - 4(70) +++ mg/dL [facility] Blood, UA Negative Negative - 50 Neil/mcL [facility] Clarity, UA Clear [facility] Color, UA Yellow [facility] Glucose, UA Negative Negative - 1999(110) ++++ mg/dL [facility] Interpretation and review of laboratory results Normal [facility] Ketones, UA Negative Negative - 160(16) ++++ mg/dL [facility] Leukocytes, UA Negative Negative - 500+++ Chanel/mcL [facility] Nitrite, UA Negative Negative - Positive [facility] pH, UA 6 5 - 9 [facility] Protein, UA Negative Negative - 1999(20) ++++ mg/dL [facility] Spec Grav, UA 1.02 1 - 1.03 [facility] Urobilinogen, UA 0.2 0.2 - 12 mg/dL [facility] Urinalysis macro (dipstick) panel (U)on 01-04-2025 Bilirubin, UA Negative Negative - 4(70) +++ mg/dL [facility] Blood, UA Negative Negative - 50 Neil/mcL [facility] Clarity, UA Clear [facility] Color, UA Yellow [facility] Glucose, UA Negative Negative - 2000(110) ++++ mg/dL [facility] Interpretation and review of laboratory results Normal [facility] Ketones, UA Negative Negative - 160(16) ++++ mg/dL [facility] Leukocytes, UA Negative Negative - 500+++ Chanel/mcL [facility] Nitrite, UA Negative Negative - Positive [facility] pH, UA 6.5 5 - 9 [facility] Protein, UA Negative Negative - 2000(20) ++++ mg/dL [facility] Spec Grav, UA 1.03 1 - 1.03 [facility] Urobilinogen, UA 0.2 0.2 - 12 mg/dL [facility] US OB 14+ WEEKS ANATOMY SCAN on [...] report is generated using voice recognition reporting ([employer]). On occasion [employer] erroneously drops words from the report or [...] UA Negative Negative - 4(70) +++ mg/dL [facility] Blood, UA Negative Negative - 50 Neil/mcL [facility] Clarity, UA Clear [facility] Color, UA Yellow [facility] Glucose, UA Negative Negative - 2000(110) ++++ mg/dL [facility] Interpretation and review of laboratory results Normal [facility] Ketones, UA Negative Negative - 160(16) ++++ mg/dL [facility] Leukocytes, UA Negative Negative - 500+++ Chanel/mcL [facility] Nitrite, UA Negative Negative - Positive [facility] pH, UA 6 5 - 9 [facility] Protein, UA Negative Negative - 2000(20) ++++ mg/dL [facility] Spec Grav, UA 1.01 1 - 1.03 [facility] Urobilinogen, UA 0.2 0.2 - 12 mg/dL [facility] AFP, SERUM, OPEN SPINA BIFID Aon 11-11-2024 AFP MOM 1.33 . [facility] AFP VALUE 32.0 ng/mL . [facility] COMMENT: Comment . [facility] Comment on above: Carla Briones , Ph.D., [facility] Director References: Available Upon Request. Multiples Of Median Cutoffs For AFP Elevations Adams 2.5 Black 2.8 IDD 2.0 Twins 4.5 Abbreviation Definitions IDD - Insulin Dep Diabetes OSBR - Open Spina Bifida Risk For further inquiries contact [facility] at [phone]. This test was developed and its performance characteristics determined by [employer]. It has not been cleared or approved by the Food and Drug Administration. Performed at: [facility] [address] [place], [place] [id number] Pipelayer: Quincy Montez [facility], Phone: [phone] GEST. AGE ON COLLECTION DATE 15.3 . weeks [facility] GESTAT. AGE BASED ON Ultrasound . [facility] Comment on above: 15.3 on 11/09/2024 Recalculations are not recommended when gestational dating by LMP and ultrasound are within 10 days. INSULIN DEP DIABETES No . [facility] INTERPRETATION Comment . [facility] Comment on above: Interpretation: Scre en [...] Customer Services to discuss available options. The [employer] [employer] recommends amniocentesis be offered to women age 35 and older. [age] LAN [age] [facility] MULTIPLE GESTATION No . [facility] OSBR RISK 1 [place] 4399 . [facility] RACE . [facility] RESULTS Report . [facility] TEST RESULTS: Negative . [facility] WEIGHT 216 . lbs [facility] N [id number] N ULTRASOUND [id number] 2 15 N 1 Y 216 N N N N N White/ [facility] RECURRENT VAGINITIS (HTRX)on 11-10-2024 ATOPOBIUM VAGINAE 0 [facility] ATOPOBIUM VAGINAE Not detected [facility] BVAB 2,3 (BACTERIAL VAGINOSIS ASSOCIATED BACTERIA 2, 3); MOBILUNCUS SPP 0 [facility] BVAB 2,3 (BACTERIAL VAGINOSIS ASSOCIATED BACTERIA 2, 3); MOBILUNCUS SPP Not detected [facility] MARIO ALBICANS, PARAPSILOSIS, TROPICALIS 0 [facility] MARIO ALBICANS, PARAPSILOSIS, TROPICALIS Not detected [facility] MARIO GLABRATA 0 [facility] MARIO GLABRATA Not detected [facility] MARIO KRUSEI 0 [facility] MARIO KRUSEI Not detected [facility] CHLAMYDIA TRACHOMATIS 0 [facility] CHLAMYDIA TRACHOMATIS Not detected N [facility] GARDNERELLA VAGINALIS 0 [facility] GARDNERELLA VAGINALIS Not detected N [facility] MEGASPHAERA (TYPES 1, 2) 0 [facility] MEGASPHAERA (TYPES 1, 2) Not detected [facility] MYCOPLASMA GENITALIUM 0 [facility] MYCOPLASMA GENITALIUM Not detected N [facility] NEISSERIA GONORRHOEAE 0 [facility] NEISSERIA GONORRHOEAE Not detected N [facility] TRICHOMONAS VAGINALIS 0 [facility] TRICHOMONAS VAGINALIS Not detected N [facility] Urinalysis macro (dipstick) panel (U)on 11-09-2024 Bilirubin, UA Negative Negative - 4(70) +++ mg/dL [facility] Blood, UA Negative Negative - 50 Neil/mcL [facility] Clarity, UA Clear [facility] Color, UA Yellow [facility] Glucose, UA Negative Negative - 2000(110) ++++ mg/dL [facility] Interpretation and review of laboratory results Normal [facility] Ketones, UA Negative Negative - 160(16) ++++ mg/dL [facility] Leukocytes, UA Negative Negative - 500+++ Chanel/mcL [facility] Nitrite, UA Negative Negative - Positive [facility] pH, UA 7.5 5 - 9 [facility] Protein, UA Negative Negative - 2000(20) ++++ mg/dL [facility] Spec Grav, UA 1.02 1 - 1.03 [facility] Urobilinogen, UA 0.2 0.2 - 12 mg/dL [facility] ALL CBC WITH AUTO DIFFon BASOPHILS ABSOLUTE AUTO 0 [facility] Basophils/100 WBC (Bld) 0.2 % 0.2 - 2.0 % [facility] Eosinophils/100 WBC (Bld) 1 % 0.9 - 7.0 % [facility] Erythrocyte distribution width (RBC) [Ratio] 11.9 % 11.0 - 15.0 % [facility] Hematocrit (Bld) [Volume fraction] 38 % 36.0 - 48.0 % [facility] Hemoglobin (Bld) [Mass/Vol] 13.1 g/dL 12.0 - 16.0 g/dL [facility] IMMATURE GRANULOCYTES ABS AUTO 0.04 High [facility] Immature granulocytes/100 WBC (Bld) 0.3 % 0.0 - 0.5 % [facility] Interpretation and review of laboratory results Abnormal [facility] LYMPHOCYTES ABSOLUTE AUTO 2.1 [facility] Lymphocytes/100 WBC (Bld) 16.5 % Low 20.5 - 60.0 % [facility] MCH (RBC) [Entitic mass] 30.5 pg 26.7 - 34.0 pg [facility] MCHC (RBC) [Mass/Vol] 34.5 g/dL 29.9 - 35.2 g/dL [facility] MCV (RBC) [Entitic vol] 88.4 fL 81.0 - 99.0 fL [facility] MONOCYTES ABSOLUTE AUTO 0.8 [facility] Monocytes/100 WBC (Bld) 6.1 % 1.7 - 12.0 % [facility] NEUTROPHILS ABSOLUTE AUTO 9.4 High [facility] Neutrophils/100 WBC (Bld) 75.9 % High 43.0 - 75.0 % [facility] Platelet mean volume (Bld) [Entitic vol] 9.5 fL 9.5 - 13.5 fL [facility] EO # 0.1 [facility] PLT 335 [facility] RBC 4.3 [facility] WBC 12.4 High [facility] BOX TESTon 10-10-2024 BOX TEST SENT OUT Y [facility] BOX1 UNITY [facility] BOX2 10/10/24 [facility] S[facility] RAPID (URINE )on 10-10-2024 AMPHETAMINE SCREEN URINE Negative NEGATIVE [facility] BARBITURATES SCREEN URINE Negative NEGATIVE [facility] BENZODIAZEPINES SCREEN URINE Negative NEGATIVE [facility] BUPRENORPHINE SCREEN URINE Negative NEGATIVE [facility] Comment on above: DRUG CLASS TEST [...] ng/mL CANNABINOID SCREEN URINE Positive Abnormal NEGATIVE [facility] COCAINE SCREEN URINE Negative NEGATIVE [facility] Interpretation and review of laboratory results Abnormal [facility] METHADONE SCREEN URINE Negative NEGATIVE [facility] METHAMPHETAMINES SCREEN URINE Negative NEGATIVE [facility] OPIATE SCREEN URINE Negative NEGATIVE [facility] OXYCODONE SCREEN URINE Negative NEGATIVE [facility] PHENCYCLIDINE SCREEN URINE Negative NEGATIVE [facility] TRICYCLIC ANTIDEPRESSANT URINE Negative NEGATIVE [facility] Urinalysis macro (dipstick) panel (U)on 10-10-2024 Bilirubin, UA Negative Negative - 4(70) +++ mg/dL [facility] Blood, UA Negative Negative - 50 Neil/mcL [facility] Clarity, UA Clear [facility] Color, UA Yellow [facility] Glucose, UA Negative Negative - 1999(110) ++++ mg/dL [facility] Interpretation and review of laboratory results Normal [facility] Ketones, UA Negative Negative - 160(16) ++++ mg/dL [facility] Leukocytes, UA Negative Negative - 500+++ Chanel/mcL [facility] Nitrite, UA Negative Negative - Positive [facility] pH, UA 7 5 - 9 [facility] Protein, UA Negative Negative - 1999(20) ++++ mg/dL [facility] Spec Grav, UA 1.02 1 - 1.03 [facility] Urobilinogen, UA 0.2 0.2 - 12 mg/dL [facility] HCG ( test) Ql (U)o n 09-07-2024 Interpretation and review of laboratory results Abnormal [facility] Preg Test, Ur Positive [facility] Urinalysis macro (dipstick) panel (U)on 09-07-2024 Bilirubin, UA Negative Negative - 4(70) +++ mg/dL [facility] Blood, UA Negative Negative - 50 Neil/mcL [facility] Clarity, UA Clear [facility] Color, UA Yellow [facility] Glucose, UA Negative Negative - 1999(110) ++++ mg/dL [facility] Interpretation and review of laboratory results Normal [facility] Ketones, UA Negative Negative - 160(16) ++++ mg/dL [facility] Leukocytes, UA Negative Negative - 500+++ Chanel/mcL [facility] Nitrite, UA Negative Negative - Positive [facility] pH, UA 6 5 - 9 [facility] Protein, UA Negative Negative - 1999(20) ++++ mg/dL [facility] Spec Grav, UA 1.02 1 - 1.03 [facility] Urobilinogen, UA 1.0 0.2 - 12 mg/dL [facility] Ambulatory Visit Summaryon 0 - Ambulatory Visit Summary Ambulatory Visit Summary JESICA OJEDA :1995 Visit Date:06/22/2024 Ambulatory Visit Instructions Your Diagnosis Adult wellness visit Former smoker BMI 34.0-34.9,adult Your Care Team Attending Physician - IGNACIA CRAWFORD CNP Primary Care Physician - Koki Zapata MD Procedures Performed section. Discharge Vitals Temperature [...] taki (more content not included)... Normal [facility] Family Medicine Office/Clini c Noteon 06-22-2024 [...] Illness 29 [address] of Dr[address] Zapata presents today for a well visit. She [...] Recorded varicella virus vaccine 07/15/1999 Recorded Normal [facility] Comment on above: Result Comment: Elec tronically Signed By: IGNACIA CRAWFORD CNP\Date and Time Signed: 06/22/24 14:51 EDT Provider Letteron 06-16-2024 Provider Letter Provider Letter June 16, 2024 JESICADarek OJEDA [address] [place] [address] : 1995 To Whom It May Concern, Please excuse above patient from work due to Covid diagnosis. Date of Illness: From: 06/15/2024 To: 06/22/2024 May Return to Work On: 06/23/2024 Comments: May return to work sooner if symptom free. Sincerely, [address] [address] Normal [facility] Ambulatory Visit Summaryon 0 06-15-2024 Ambulatory Visit Summary Ambulatory Visit Summary JESICA OJEDA :1995 Visit Date:06/15/2024 Ambulatory Visit Instructions Your Diagnosis COVID BMI 34.0-34.9,adult Class 1 obesity due to excess calories in adult Former smoker Your Care Team Attending Physician - Koki Zapata MD Primary Care Physician - Koki Zapata MD Procedures Performed section. Discharge Vitals Temperature (Oral) 36.9 ?C Heart Rate (Peripheral) 84 Respiratory Rate 18 Blood Pressure 122/80 Height 166 cm Height 65 in Weight 95.6 kg Weight 210.32 lb BMI 34.69 What to do next Scheduled Follow-Up Appointments 2023 8:30 AM EDT With: Koki Zapata MD Where: [place] [id number]- Allergies No Known Medication Allergies Problems Ongoing [...] for choosing us for your care. Normal [facility] Family Medicine Office/Clini c Noteon 06-15-2024 [...] Daily, # 3 tab(s), Refills(s) 0, Pharmacy: [facility] #[id number], 166, cm, 06/15/24 8:34:00 EDT, Height/Length Dosing, 95.6, kg, 06/15/24 8:34:00 EDT, Weight Dosing benzonatate, 200 mg = 1 cap(s), Oral, TID, X 7 day(s), # 21 cap(s), Refills(s) 0, Pharmacy: [facility] #[id number], 166, cm, 06/15/24 8:34:00 EDT, Height/Length Dosing, 95.6, kg, 06/15/24 8:34:00 EDT, Weight Dosing methylPREDNISolone, = 1 packet(s), Oral, As Directed, as directed on package labeling, X 6 day(s), # 21 tab(s), Refills(s) 0, Pharmacy: [id number], 166, cm, 06/15/24 8:34:00 EDT, Height/Length Dosing, 95.6, kg, 06/15/24 8:34:00 EDT, Weight Dosing 2. BMI 34.0-34.9,adult (Z68.34: Body mass index [BMI] 34.0-34.9, adult) - BMI education added Ordered: azithromycin, 500 mg = 1 tab(s), Oral, Daily, # 3 tab(s), Refills(s) 0, Pharmacy: [facility] #[id number], 166, cm, 06/15/24 8:34:00 EDT, Height/Length Dosing, 95.6, kg, 06/15/24 8:34:00 EDT, Weight Dosing benzonatate, 200 mg = 1 cap(s), Oral, TID, X 7 day(s), # 21 cap(s), Refills(s) 0, Pharmacy: [facility] #[id number], 166, cm, 06/15/24 8:34:00 EDT, Height/Length Dosing, 95.6, kg, 06/15/24 8:34:00 EDT, Weight Dosing methylPREDNISolone, = 1 packet(s), Oral, As Directed, as directed on package labeling, X 6 day(s), # 21 tab(s), Refills(s) 0, Pharmacy: [facility] #[id number], 166, cm, 06/15/24 8:34:00 EDT, Height/Length Dosing, 95.6, kg, 06/15/24 8:34:00 EDT, Weight Dosing Rapid COVID POC 74203 Rapid Strep POC 48281 3. Class 1 obesity due to excess calories in adult (E66.09: Other obesity due to excess calories) - Diet and exercise advised Ordered: azithromycin, 500 mg = 1 tab(s), Oral, Daily, # 3 tab(s), Refills(s) 0, Pharmacy: [facility] #[id number], 166, cm, 06/15/24 8:34:00 EDT, Height/Length Dosing, 95.6, kg, 06/15/24 8:34:00 EDT, Weight Dosing benzonatate, 200 mg = 1 cap(s), Oral, TID, X 7 day(s), # 21 cap(s), Refills(s) 0, Pharmacy: [facility] #[id number], 166, cm, 06/15/24 8:34:00 EDT, Height/Length Dosing, 95.6, kg, 06/15/24 8:34:00 EDT, Weight Dosing methylPREDNISolone, = 1 packet(s), Oral, As Directed, as directed on package labeling, X 6 day(s), # 21 tab(s), Refills(s) 0, Pharmacy: [facility] #[id number], 166, cm, 06/15/24 8:34:00 EDT, Height/Length Dosing, 95.6, kg, 06/15/24 8:34:00 EDT, Weight Dosing Rapid COVID POC 43858 Rapid Strep POC 87813 4. Former smoker (Z87.891: Personal history of nicotine dependence) - Please continue to not smoke. Ordered: azithromycin, 500 mg = 1 tab(s), Oral, Daily, # 3 tab(s), Refills(s) 0, Pharmacy: [facility] #[id number], 166, cm, 06/15/24 8:34:00 EDT, Height/Length Dosing, 95.6, kg, 06/15/24 8:34:00 EDT, Weight Dosing benzonatate, 200 mg = 1 cap(s), Oral, TID, X 7 day(s), # 21 cap(s), Refills(s) 0, Pharmacy: [facility] #[id number], 166, cm, 06/15/24 8:34:00 EDT, Height/Length Dosing, 95.6, kg, 06/15/24 8:34:00 EDT, Weight Dosing methylPREDNISolone, = 1 packet(s), Oral, As Directed, as directed on package labeling, X 6 day(s), # 21 tab(s), Refills(s) 0, [id number], 166, cm, 06/15/24 8:34:00 EDT, Height/Length Dosing, 95.6, kg, 06/15/24 8:34:00 EDT, Weight Dosing Rapid COVID POC 95729 Rapid Strep POC 16548 Follow-up No qualifying data available Problem List/Past Medical History Ongoing Acute URI Cough COVID Elevated BP without diagnosis of hypertension Smoker 17-MAY-2014 12:37:00<$> Historical No qualifying data Procedure/Surgical History section. Medications Azithromycin 3 Day Dose Pack 500 mg oral tabl (more content not included)... Normal [facility] Comment on above: Result Comment: Elec tronically Signed By: Justin PEREIRA, Koki Quinones\.br\Date and Time Signed: 06/15/24 09:10 EDT Provider Letteron 06-15-2024 Provider Letter Provider Letter June 15, 2024 JESICA OJEDA [address] [place] [address] : 1995 To Whom It May Concern, Please excuse above patient from work due to illness. Date of Illness: From: 06-15-24 To: 06-22-24 May Return to Work On:06-23-24 Restrictions: _ Comments: _ Sincerely, Family Medicine [address] [address] [facility] Ambulatory Visit Summaryon 0 11-23-2023 Ambulatory Visit Summary JESICA OJEDA :1995 Visit Date:11/23/2023 Ambulatory Visit Instructions Your Diagnosis Acute URI Cough BMI 36.0-36.9,adult Non-smoker Elevated BP without diagnosis of hypertension Your Care Team Attending Physician - Koki Zapata MD Primary Care Physician - Koki Zapata MD This Is Your Medications List benzonatate (benzonatate 200 mg oral capsule) methylPREDNISolone (Medrol Dosepack 4 mg Tab) Procedures Performed section. Discharge Vitals Temperature (Temporal Artery) 36.4 ?C Heart Rate (Peripheral) 101 Blood Pressure 140/100 Height 65 in Height 166 cm Weight 201.52 lb Weight 91.6 kg BMI 33.24 What to do next Scheduled Follow-Up Appointments Wednesday 3:15 PM EST With: Koki Zapata MD Where: [facility] Family Medicine Luis Normal [facility] Medicine Office/Clini c Noteon 11-23-2023 Family Medicine [...] day(s), # 21 cap(s), Refills(s) 0, Pharmacy: [facility] #[id number], 166, cm, 11/23/23 13:05:00 EST, Height/Length Dosing, 91.6, kg, 11/23/23 13:05:00 EST, Weight Dosing methylPREDNISolone, = 1 packet(s), Oral, As Directed, as directed on package labeling, X 6 day(s), # 21 tab(s), Refills(s) 0, Pharmacy: [facility] #[id number], 166, cm, 11/23/23 13:05:00 EST, Height/Length Dosing, 91.6, kg, 11/23/23 13:05:00 EST, Weight Dosing 2. Cough (R05.9: Cough, unspecified) - As above - Pending covid test. Ordered: benzonatate, 200 mg = 1 cap(s), Oral, TID, X 7 day(s), # 21 cap(s), Refills(s) 0, Pharmacy: [facility] #[id number], 166, cm, 11/23/23 13:05:00 EST, Height/Length Dosing, 91.6, kg, 11/23/23 13:05:00 EST, Weight Dosing methylPREDNISolone, = 1 packet(s), Oral, As Directed, as directed on package labeling, X 6 day(s), # 21 tab(s), Refills(s) 0, Pharmacy: [facility] #[id number], 166, cm, 11/23/23 13:05:00 EST, Height/Length Dosing, 91.6, kg, 11/23/23 13:05:00 EST, Weight Dosing 3. BMI 36.0-36.9,adult (Z68.36: Body mass index [BMI] 36.0-36.9, adult) - BMI education given Ordered: benzonatate, 200 mg = 1 cap(s), Oral, TID, X 7 day(s), # 21 cap(s), Refills(s) 0, Pharmacy: [facility] #[id number], 166, cm, 11/23/23 13:05:00 EST, Height/Length Dosing, 91.6, kg, 11/23/23 13:05:00 EST, Weight Dosing methylPREDNISolone, = 1 packet(s), Oral, As Directed, as directed on package labeling, X 6 day(s), # 21 tab(s), Refills(s) 0, Pharmacy: [facility] #[id number], 166, cm, 11/23/23 13:05:00 EST, Height/Length Dosing, 91.6, kg, 11/23/23 13:05:00 EST, Weight Dosing 4. Non-smoker (Z78.9: Other specified health status) - Please continue to not smoke Ordered: benzonatate, 200 mg = 1 cap(s), Oral, TID, X 7 day(s), # 21 cap(s), Refills(s) 0, Pharmacy: [facility] #[id number], 166, cm, 11/23/23 13:05:00 EST, Height/Length Dosing, 91.6, kg, 11/23/23 13:05:00 EST, Weight Dosing methylPREDNISolone, = 1 packet(s), Oral, As Directed, as directed on package labeling, X 6 day(s), # 21 tab(s), Refills(s) 0, Pharmacy: [facility] #[id number], 166, cm, 11/23/23 13:05:00 EST, Height/Length Dosing, [...] varicella virus vaccine 07/15/1999 Recorded Normal [facility] Comment on above: Result Comment: Elec tronically Signed By: Justin PEREIRA, Koki Quinones\.br\Date and Time Signed: 11/23/23 13:40 EST [...] numbers. This can be done either in [place] or metric measurements. Note that charts and online BMI calculators are available to help you find your BMI quickly and easily without having to do these calculations yourself. To calculate your BMI in [place] measurements: 1. Measure your weight in [...] for Disease Control and Prevention: www.cdc.gov ? [place] [employer]: www.heart.org ? National Heart, Lung, and Blood Boon: www.nhlbi.nih.gov Summary ? Body mass index (BMI) is a number that is calculated from a person's weight and height. ? BMI may help estimate how much of a person's weight is composed of fat. BMI can help identify those who may be at higher risk for certain medical problems. ? BMI can be measured using [place] measurements or metric measurements. ? BMI charts are used to identify whether you are underweight, normal weight, overweight, or obese. This information is not intended to replace advice given to you by your health care provider. Make sure you discuss any questions you have with your health care provider. Document Revised: 07/24/2020 Document Reviewed: 05/31/2020 [employer] Patient Education ? 2022 [employer] Normal [facility] GROUP A STREP CULTUREon 02-14 S. pyogenes Ag Ql (Unsp spec) Culture Observations: NEGATIVE FOR GROUP A STREPTOCOCCUS. Normal [facility] Comment on above: Performed By: #### G RASTCX, SSCRN #### [facility] [address] [place] [address] Dr. Aniceto Ashby MONOon 03-13-2023 Monocytes (Bld) [#/Vol] Negative Normal NEGATIVE [facility] Comment on above: Performed By: #### M ERVIN #### [facility] [address] [address] [address] Aniceto Ashby STREPT SCREENon 03-13-2023 STREP SCREEN A Negative Normal NEGATIVE [facility] Comment on above: Performed By: #### G RASTCX, SSCRN #### [facility] [address] [address] [address] Aniceto Ashby GROUP A STREP CULTUREon 02-14 S. pyogenes Ag Ql (Unsp spec) Culture Observations: NEGATIVE FOR GROUP A STREPTOCOCCUS. Normal [facility] Comment on above: Performed By: #### G RASTCX, SSCRN #### [facility] [address] [address] [address] Aniceto Ashby STREPT SCREENon 03-10-2023 STREP SCREEN A Negative Normal NEGATIVE [facility] Comment on above: Performed By: #### G RASTCX, SSCRN #### [facility] [address] [place] [address] Dr. Aniceto Ashby PAP ACOG PANEL 2: 21 to 29on 02-19-2023 . . Normal [facility] Comment on above: Performed By: #### [id number] #### [facility] [address] [place] [address] Dr. Aniceto Ashby Age Gdln ACOG Testing 21-29 [facility] Comment on above: Performed By: #### [id number] #### [facility] [address] [place] [address] Dr. Aniceto Ashby DIAGNOSIS: Comment [facility] Comment on above: Result Comment: NEGA TIVE FOR INTRAEPITHELIAL LESION OR MALIGNANCY. SHIFT IN DENNY SUGGESTIVE OF BACTERIAL VAGINOSIS. THIS SPECIMEN WAS RESCREENED PART OF OUR SHOT BLASTER PROGRAM. Performed By: #### [id number] #### [facility] [address] [place] [address] Dr. Aniceto Ashby Methodology: Comment [facility] Comment on above: Result Comment: This liquid based ThinPrep(R) pap test was screened with the use of an image guided system. Performed By: #### [id number] #### [facility] [address] [place] [address] Dr. Aniceto Ashby Note: Comment [facility] Comment on above: Result Comment: The Pap smear is a screening test designed to aid in the detection of premalignant and malignant conditions of the uterine cervix. It is not a diagnostic procedure and should not be used as the sole means of detecting cervical cancer. Both false-positive and false-negative reports do occur. . Performed By: #### [id number] #### [facility] [address] [place] [address] Dr. Aniceto Ashby Performed by: Comment Normal [facility] Comment on above: Result Comment: Cleo Dubon, Entry Rep (ASCP) Performed By: #### [id number] #### [facility] [address] [place] [address] Dr. Anicteo Ashby QC reviewed by: Comment Normal [facility] Comment on above: Result Comment: Cleo Dasilva Entry Rep (ASCP) Performed By: #### 4 [id number] #### [facility] [address] [place] [address] Dr. Aniceto Ashby Reflex Criteria: Comment Normal [facility] [facility] Comment on above: Result Comment: The HPV DNA reflex criteria were not met with this specimen result therefore, no HPV testing was performed. . Performed By: #### [id number] #### [facility] [address] [address] [address] Aniceto Ashby Specimen adequacy: Comment Normal [facility] Comment on above: Result Comment: Sati sfactory for evaluation. Endocervical and/or squamous metaplastic cells (endocervical component) are present. Performed By: #### [id number] #### [facility] [address] [address] [address] Aniceto Ashby Covid-19 PCR ([facility])on SARS-CoV-2 (COVID-19) RNA HUSEYIN+probe Ql (Unsp spec) Not detected Normal NOT DETECTED [facility] Comment on above: Result Comment: When [...] for this test is supported by the Flight Attendant Inflight Services of Health and Human Service's declaration that [...] By: #### C [id number] #### [facility] [address] [address] [address] Aniceto Ashby Vital Signs Date Time Vital Sign Value Performing Clinician Bebo angel 05-31-2025 14:13-0400 Body mass index (BMI) [Ratio] 37.24 kg/m2 Sugey BADILLO Work Phone: [facility] 05-31-2025 14:13-0400 Body weight 107.86 kg Sugey Chester PA Work Phone: [facility] 05-31-2025 14:13-0400 Diastolic blood pressure 74 mm[Hg] Sugey Chester PA Work Phone: [facility] 05-31-2025 14:13-0400 Systolic blood pressure 114 mm[Hg] Sugey Chester PA Work Phone: [facility] 04-26-2025 11:05-0400 Body mass index (BMI) [Ratio] 37.75 kg/m2 Sugey Julius PA Work Phone: [facility] 04-26-2025 11:05-0400 Body weight 109.32 kg Sugey Julius PA Work Phone: [facility] 04-26-2025 11:05-0400 Diastolic blood pressure 76 mm[Hg] Sugey Chester PA Work Phone: [facility] 04-26-2025 11:05-0400 Systolic blood pressure 116 mm[Hg] Sugey Julius PA Work Phone: [facility] 04-18-2025 14:35-0400 Body mass index (BMI) [Ratio] 39.98 kg/m2 Madiha Marika DO Work Phone: [facility] 04-18-2025 14:35-0400 Body weight 115.78 kg Madiha Marika DO Work Phone: [facility] 04-18-2025 14:35-0400 Diastolic blood pressure 80 mm[Hg] Madiha Marika DO Work Phone: [facility] Comment on above: 140/72 second BP 04-18-2025 14:35-0400 Systolic blood pressure 152 mm[Hg] Madiha Marika DO Work Phone: [facility] Comment on above: 140/72 second BP 04-10-2025 14:33-0400 Body mass index (BMI) [Ratio] 39.12 kg/m2 Madiha Marika DO Work Phone: [facility] 04-10-2025 14:33-0400 Body weight 113.29 kg Madiha Marika DO Work Phone: [facility] 04-10-2025 14:33-0400 Diastolic blood pressure 70 mm[Hg] Madiha Marika DO Work Phone: [facility] 04-10-2025 14:33-0400 Systolic blood pressure 136 mm[Hg] Madiha Marika DO Work Phone: [facility] 04-03-2025 14:53-0400 Body mass index (BMI) [Ratio] 38.9 kg/m2 Madiha Marika DO Work Phone: [facility] 04-03-2025 14:53-0400 Body weight 112.67 kg Madiha Marika DO Work Phone: [facility] 04-03-2025 14:53-0400 Diastolic blood pressure 76 mm[Hg] Madiha Marika DO Work Phone: [facility] 04-03-2025 14:53-0400 Systolic blood pressure 124 mm[Hg] Madiha Marika DO Work Phone: [facility] 03-19-2025 14:17-0400 Body mass index (BMI) [Ratio] 37.2 kg/m2 Madiha Marika DO Work Phone: [facility] 03-19-2025 14:17-0400 Body weight 107.73 kg Madiha Marika DO Work Phone: [facility] 03-19-2025 14:17-0400 Diastolic blood pressure 76 mm[Hg] Madiha Marika DO Work Phone: [facility] 03-19-2025 14:17-0400 Systolic blood pressure 122 mm[Hg] Madiha Marika DO Work Phone: [facility] 03-05-2025 15:48-0400 Body mass index (BMI) [Ratio] 36.65 kg/m2 Sugey BADILLO Work Phone: [facility] 03-05-2025 15:48-0400 Body weight 106.14 kg Sugey BADILLO Work Phone: [facility] 03-05-2025 15:48-0400 Diastolic blood pressure 74 mm[Hg] Sugey BADILLO Work Phone: [facility] 03-05-2025 15:48-0400 Systolic blood pressure 124 mm[Hg] Sugey BADILLO Work Phone: [facility] 02-19-2025 15:47-0400 Body mass index (BMI) [Ratio] 36.88 kg/m2 Madiha Marika DO Work Phone: [facility] 02-19-2025 15:47-0400 Body weight 106.82 kg Madiha Marika DO Work Phone: [facility] 02-19-2025 15:47-0400 Diastolic blood pressure 70 mm[Hg] Madiha Marika DO Work Phone: [facility] 02-19-2025 15:47-0400 Systolic blood pressure 130 mm[Hg] Madiha Marika DO Work Phone: [facility] 01-04-2025 09:11-0500 Body mass index (BMI) [Ratio] 35.55 kg/m2 Madiha Marika DO Work Phone: [facility] 01-04-2025 09:11-0500 Body weight 102.97 kg Madiha Marika DO Work Phone: [facility] 01-04-2025 09:11-0500 Diastolic blood pressure 78 mm[Hg] Madiha Marika DO Work Phone: [facility] 01-04-2025 09:11-0500 Systolic blood pressure 122 mm[Hg] Madiha Marika DO Work Phone: [facility] 12-07-2024 15:35-0500 Body mass index (BMI) [Ratio] 34.36 kg/m2 Sugey BADILLO Work Phone: [facility] 12-07-2024 15:35-0500 Body weight 99.52 kg Sugey BADILLO Work Phone: [facility] 12-07-2024 15:35-0500 Diastolic blood pressure 70 mm[Hg] Sugey BADILLO Work Phone: [facility] 12-07-2024 15:35-0500 Systolic blood pressure 122 mm[Hg] Sugey BADILLO Work Phone: [facility] 11-09-2024 10:53-0500 Body mass index (BMI) [Ratio] 33.67 kg/m2 Madiha Marika DO Work Phone: [facility] 11-09-2024 10:53-0500 Body weight 97.52 kg Madiha Marika DO Work Phone: [facility] 11-09-2024 10:53-0500 Diastolic blood pressure 82 mm[Hg] Madiha Mairka DO Work Phone: [facility] 11-09-2024 10:53-0500 Systolic blood pressure 122 mm[Hg] Madiha Marika DO Work Phone: [facility] 10-10-2024 13:35-0500 Body mass index (BMI) [Ratio] 33.17 kg/m2 Madiha Marika DO Work Phone: [facility] 10-10-2024 13:35-0500 Body weight 96.07 kg Madiha Marika DO Work Phone: [facility] 10-10-2024 13:35-0500 Diastolic blood pressure 80 mm[Hg] Madiha Marika DO Work Phone: [facility] 10-10-2024 13:35-0500 Systolic blood pressure 120 mm[Hg] Madiha Marika DO Work Phone: [facility] 09-07-2024 13:52-0400 Body mass index (BMI) [Ratio] 34.16 kg/m2 [facility] 09-07-2024 13:52-0400 Body weight 98.[address] [facility] Nurse [facility] 09-07-2024 13:52-0400 Diastolic blood pressure 70 mm[Hg] [facility] Nurse [facility] 09-07-2024 13:52-0400 Systolic blood pressure 120 mm[Hg] [facility] Encounters Encounter Date Encounter Type Care Provider Facility Start: 05-31-2025 End: 05-31-2025 care visit Sugey BADILLO Work Phone: [facility] Comment on above: 6 weeks f ollow-up ([facility]); control counseling Start: 04-26-2025 End: 04-26-2025 Bamboo flowsheet Sugey BADILLO Work Phone: [facility] Start: 04-26-2025 End: 04-26-2025 Bamboo flowsheet Sugey BADILLO Work Phone: [facility] Start: 04-26-2025 End: 04-26-2025 Postop follow up visit related to original px Sugey BADILLO Work Phone: [facility] Comment on above: Postop check; S/P section; Encounter for visit ([facility]); UTI symptoms Start: 04-26-2025 End: 04-26-2025 ambulatory SUGEY MADRID Not Available Start: 04-21-2025 End: 04-21-2025 Clinisync Result Encounter Madiha Marika DO Work Phone: [facility] Unsolicited Start: 04-21-2025 End: 04-21-2025 Clinisync Result Encounter Madiha Marika DO Work Phone: [facility] Unsolicited Start: 04-20-2025 End: 04-20-2025 Clinisync Result Encounter Madiha Marika DO Work Phone: [facility] Unsolicited Start: 04-20-2025 End: 04-20-2025 Clinisync Result Encounter Madiha Marika DO Work Phone: [facility] Unsolicited Start: 04-18-2025 End: 04-18-2025 Office outpatient visit 15 minutes Madiha Marika DO Work Phone: [facility] Comment on above: Third trimester preg john; 38 weeks gestation of ; induced hypertension, antepartum; Elevated blood pressure affecting , antepartum Start: 04-18-2025 End: 04-18-2025 ambulatory MADIHA MARIKA Not Available Start: 04-18-2025 End: 04-18-2025 Bamboo flowsheet Madiha Marika DO Work Phone: [facility] Start: 04-18-2025 End: 04-19-2025 Bamboo flowsheet Madiha Marika DO Work Phone: [facility] Start: 04-18-2025 End: 04-19-2025 Clinisync Result Encounter Madiha Marika DO Work Phone: [facility] External Department Unsolicited Start: 04-10-2025 End: 04-10-2025 Office outpatient visit [...] Available Start: 03-08-2025 End: 03-08-2025 ambulatory MADIHA [facility] Start: 03-05-2025 End: 03-05-2025 [...] Start: 02-08-2025 End: 02-08-2025 [facility] Start: 02-05-2025 End: 02-05-2025 ambulatory [...] End: 06-22-2024 ambulatory IGNACIA CRAWFORD Facility[facility] Start: 06-15-2024 End: 06-15-2024 ambulatory Koki Zapata Facility:[facility] [place] [facility] Start: 12-28-2023 ambulatory Koki Zapata Facility :[facility] Start: 11-23-2023 ambulatory Koki Zapata Facility :[facility] Start: 11-23-2023 ambulatory Koki Zapata Facility:[facility] [place] Start: 03-13-2023 End: 03-13-[address] SANGEETA FUNK Facility:[facility] Start: 03-10-2023 End: 03-10-[address] TODD Yeboah Facility:[facility] Start: 02-11-2023 End: 02-11-2023 ambulatory JEMAL BEGUM Facility:[facility] Start: 07-23-2022 End: 07-23-[address] KORY MCLEAN Facility:[facility] Procedures Date Procedure Procedure Detail Performing Clinician Start: 04-21-2025 ALL CBC WITH AUTO DIFF Madiha Marika DO Work Phone: Start: 04-20-2025 ALL CBC WITH AUTO DIFF Madiha Marika DO Work Phone: Start: 04-18-2025 US OB BPP W NON-STRESS Madiha Marika DO Work Phone: Start: 04-18-2025 [facility] URINE T PROTEIN CREAT RATIO Madiha Marika DO Work Phone: Start: 04-18-2025 ALL BUN Madiha Fazi o DO Work Phone: Start: 04-18-2025 ALL CBC WITH AUTO DIFF Madiha Marika DO Work Phone: Start: 04-18-2025 ALL LDH Madiha Fazi o DO Work Phone: Start: 04-18-2025 ALL URIC ACID Madiha Ty io DO Work Phone: Start: 04-18-2025 [facility] APTT Madiha Fazi o DO Work Phone: Start: 04-18-2025 [facility] AST Madiha Fazi o DO Work Phone: Start: 04-18-2025 SRMCOH PROTHROMBIN T AUDREY INR W/O COUM Madiha Marika DO Work Phone: Start: 04-18-2025 TB[facility] CREATININE Madiha Fa zio DO Work Phone: Start: 04-18-2025 Urnls dip stick/tabl et rgnt non-auto w/o micrscp Madiha Marika DO Work Phone: Start: 04-10-2025 Urnls dip stick/tabl et rgnt [...] w/o micrscp Madiha Marika DO Work Phone: H/O: section S/P sectio n Sugey BADILLO Work Phone: Plan of Treatment Date Care Activity Detail Author Start: 12-05-2025 End: 12-05-2025 Patient encounter procedure 12/05/2025 4:00 PM EST Procedure Visit [facility] [address] [place] [address] Madiha Hairston DO [address], [place] [id number] [facility] Start: 05-29-2025 End: 05-29-2025 ambulatory 05/29/2025 1:20 PM EDT Visit [facility] [address] [place] [address] Sugey Madrid PA [address] [place] [address] [facility] Start: 04-26-2025 End: 04-26-2025 Patient encounter procedure 04/26/2025 10:50 AM EDT Office Visit [facility] [address] [place] [id number] Sugey Madrid PA [address] [place] [address] Arrived [facility] Comment on above: Arrived Start: 04-18-2025 End: 04-18-2025 Patient encounter procedure [facility] Comment on above: Arrived Start: 04-18-2025 End: 04-18-2026 Alanine aminotransferase [Enzymatic activity/volume] in Serum or Plasma ALT Lab Routine induced hypertension, antepartum Expected: 04/18/2025 (Approximate), Expires: 04/18/2026 [facility] Comment on above: Expected: 04/18/2025 (Approximate), Expires: 04/18/2026 Start: 04-18-2025 End: 04-18-2026 Aspartate aminotransferase [Enzymatic activity/volume] in Serum or Plasma AST Lab Routine induced hypertension, antepartum Expected: 04/18/2025 (Approximate), Expires: 04/18/2026 [facility] Healthcare Comment on above: Expected: 04/18/2025 (Approximate), Expires: 04/18/2026 Start: 04-18-2025 End: 04-18-2026 CBC W Auto Differential panel - Blood CBC and differential Lab Routine induced hypertension, antepartum Expected: 04/18/2025 (Approximate), Expires: 04/18/2026 [facility] Healthcare Comment on above: Expected: 04/18/2025 (Approximate), Expires: 04/18/2026 Start: 04-18-2025 End: 04-18-2026 Creatinine [Mass/volume] in Serum or Plasma Creatinine Lab Routine induced hypertension, antepartum Expected: 04/18/2025 (Approximate), Expires: 04/18/2026 [facility] Work Phone: Comment on above: Expected: 04/18/2025 (Approximate), Expires: 04/18/2026 Start: 04-18-2025 End: 04-18-2026 Lactate dehydrogenase [Enzymatic activity/volume] in Serum or Plasma by Lactate to pyruvate reaction Lactate dehydrogenase Lab Routine induced hypertension, antepartum Expected: 04/18/2025, Expires: 04/18/2026 [facility] Comment on above: Expected: 04/18/2025 , Expires: 04/18/2026 Start: 04-18-2025 End: 04-18-2026 Protein, urine, 24 hour Protein, urine, 24 hour Lab Routine induced hypertension, antepartum Expected: 04/18/2025 (Approximate), Expires: 04/18/2026 [facility] Comment on above: Expected: 04/18/2025 (Approximate), Expires: 04/18/2026 Start: 04-18-2025 End: 04-18-2026 Pt and ptt Pt and ptt Lab Routine induced hypertension, antepartum Expected: 04/18/2025, Expires: 04/18/2026 [facility] Comment on above: Expected: 04/18/2025 , Expires: 04/18/2026 Start: 04-18-2025 End: 04-18-2026 Urate [Mass/volume] in Serum or Plasma Uric acid Lab Routine induced hypertension, antepartum Expected: 04/18/2025 (Approximate), Expires: 04/18/2026 [facility] Comment on above: Expected: 04/18/2025 (Approximate), Expires: 04/18/2026 Start: 04-18-2025 End: 04-18-2026 Urea nitrogen [Mass/volume] in Serum or Plasma BUN Lab Routine induced hypertension, antepartum Expected: 04/18/2025, Expires: 04/18/2026 [facility] Comment on above: Expected: 04/18/2025 , Expires: 04/18/2026 Start: 04-18-2025 End: 10-18-2025 US biophysical profile w non stress test US biophysical profile w non stress test Imaging Routine induced hypertension, antepartum Elevated blood pressure affecting , antepartum Expected: 04/18/2025 (Approximate), Expires: 10/18/2025 [facility] Comment on above: Expected: 04/18/2025 (Approximate), Expires: 10/18/2025 Start: 04-10-2025 End: 04-10-2025 Patient encounter procedure [...] PM EDT Routine [facility] [address] [place] [address] Madiha Hairston DO [address] [place] [address] Arrived [facility] Comment on above: [...] Expected: 01/04/2025 (Approximate), Expires: 01/04/2026 [facility] Comment on above: Expected: 01/04/2025 (Approximate), Expires: 01/04/2026 Start: 01-04-2025 End: 01-04-2025 Patient encounter procedure 01/04/2025 8:50 AM EST Routine [facility] [address] [place] [address] Madiha Hairston DO [address] [place] [address] [facility] Start: 12-18-2024 End: 12-18-2024 Professional / ancillary services management 12/18/2024 2:00 PM EST Ancillary Procedure [facility] [address] [facility] [place] [phone] [facility] Start: 12-07-2024 End: 12-07-2024 Patient encounter procedure 12/07/2024 3:30 PM EST Routine [facility] [address] [place] [address] Sugey Madrid, PA [address] [facility] [address] [place] [address] Arrived [facility] Comment on above: Arrived Start: 12-07-2024 End: 12-07-2024 Patient encounter procedure 12/07/2024 11:30 AM EST Routine [facility] [address] [facility] [place] [phone] Sugey Madrid, PA [address] [place] [address] [facility] Start: 11-09-2024 End: 01-10-2025 [...] encounter procedure 10/10/2024 1:10 PM EST Routine [facility] [address] [phone] Madiha Hairston DO [address] [facility] [address] [place] [address] [facility] Start: 09-07-2024 End: 09-07-2025 ABO/Rh ABO/Rh Lab Routine Missed menses , unspecified gestational age Expected: 09/07/2024 (Approximate), Expires: 09/07/2025 [facility] Healthcare Comment on above: Expected: 09/07/2024 (Approximate), Expires: 09/07/2025 Start: 09-07-2024 End: 09-07-2025 Blood type and Indirect antibody screen panel - Blood Type and screen Lab Routine Missed menses , unspecified gestational age Expected: 09/07/2024 (Approximate), Expires: 09/07/2025 [facility] Work Phone: Comment on above: Expected: 09/07/2024 (Approximate), Expires: 09/07/2025 Start: 09-07-2024 End: 09-07-2025 Drugs of abuse panel - Urine by Screen method Rapid drug screen, urine Lab Routine , unspecified gestational age Encounter for supervision of normal first in first trimester Expected: 09/07/2024 (Approximate), Expires: 09/07/2025 [facility] Healthcare Comment on above: Expected: 09/07/2024 (Approximate), Expires: 09/07/2025 Start: 09-07-2024 End: 09-07-2025 US Pelvis transvaginal US OB transvaginal Imaging Routine Missed menses Expected: 09/07/2024 (Approximate), Expires: 09/07/2025 [facility] Comment on above: Expected: 09/07/2024 (Approximate), Expires: 09/07/2025 Bacteria identified in Urine by Culture Urine culture Microbiology Routine Missed menses Ordered: 09/07/2024 [facility] Comment on above: Ordered: 09/07/2024 CBC W Auto Different ial panel - Blood CBC and differential Lab Routine Missed menses , unspecified gestational age Ordered: 09/07/2024 [facility] Comment on above: Ordered: 09/07/2024 CHLAMYDIA TRACHOMATI S (GENITO/STI) CHLAMYDIA TRACHOMATIS (GENITO/STI) Lab Routine 15 weeks gestation of Second trimester Ordered: 11/09/2024 [facility] Comment on above: Ordered: 11/09/2024 Cytology Cervical or vaginal smear or scraping study Pap Smear Pathology and Cytology Routine 15 weeks gestation of Second trimester Ordered: 11/09/2024 [facility] Work Phone: Comment on above: Ordered: 11/09/2024 Hemoglobin A1c/Hemoglobin.total in Blood Hemoglobin A1c Lab Routine Missed menses , unspecified gestational age Ordered: 09/07/2024 [facility] Comment on above: Ordered: 09/07/2024 Hepatitis B virus dugan rface Ag [Presence] in Serum or Plasma by Immunoassay Hepatitis B surface antigen Lab Routine Missed menses , unspecified gestational age Ordered: 09/07/2024 [facility] Comment on above: Ordered: 09/07/2024 Hepatitis C virus Ab [Presence] in Serum or Plasma by Immunoassay Hepatitis C antibody Lab Routine Missed menses , unspecified gestational age Ordered: 09/07/2024 [facility] Comment on above: Ordered: 09/07/2024 HIV-1/HIV-2 antigen/antibody combination immunoassay HIV-1 and HIV-2 antibodies Lab Routine Missed menses , unspecified gestational age Ordered: 09/07/2024 [facility] Comment on above: Ordered: 09/07/2024 Neisseria gonorrhoea e DNA [Presence] in Unspecified specimen by HUSEYIN with probe detection Neisseria gonorrhea DNA probe, direct Lab Routine 15 weeks gestation of Second trimester Ordered: 11/09/2024 [facility] Comment on above: Ordered: 11/09/2024 Protein/Creatinine [ Mass Ratio] in Urine Protein:Creatinine Ratio, Urine Lab Routine induced hypertension, antepartum Elevated blood pressure affecting , antepartum Ordered: 04/18/2025 [facility] Comment on above: Ordered: 04/18/2025 Reagin Ab [Presence] in Serum by RPR RPR Lab Routine Missed menses , unspecified gestational age Ordered: 09/07/2024 [facility] Comment on above: Ordered: 09/07/2024 Rubella antibody, IgG Rubella an tibody, IgG Lab Routine Missed menses , unspecified gestational age Ordered: 09/07/2024 [facility] Comment on above: Ordered: 09/07/2024 SURESWAB(R) ADVANCED VAGINITIS PLUS, TMA SURESWAB(R) ADVANCED VAGINITIS PLUS, TMA Pathology and Cytology Routine 15 weeks gestation of Second trimester Ordered: 11/09/2024 [facility] Comment on above: Ordered: 11/09/2024 Payers Date Payer Category Payer Medicaid [employer] [place] [id number] 2023 [facility] [id number] 2023 Unknown [id number] 2022 Medicaid [id number] 1996 Unknown [id number] 2.16840.1.982866.3.579.2. 593 1996 Unknown [id number] 2.16.840.1.492030.3.579.2. 593 1996 Unknown [id number] 2.16840.1.820972.3.579.2. 593 1996 Unknown [id number] 2.16840.1.294463.3.579.2. 593 1996 Unknown [id number] 2.16840.1.367110.3.579.2. 727 1996 Unknown [id number] 2.16.840.1.872405.3.579.2. 727 1996 Unknown [id number] 2.16.840.1.657560.3.579.2. 727 1996 Unknown [id number] 2.16.840.1.668043.3.579.2. 727 1996 Unknown [id number] 2.16.840.1.869804.3.579.2. 1286 1996 Unknown [id number] 2.16.840.1.295718.3.579.2. 1286 1996 Unknown [id number] 2.16.840.1.977304.3.579.2. 1259 1996 Unknown [id number] 2.16.840.1.414374.3.579.2. 1259 1996 Unknown [id number] 2.16.840.1.435971.3.579.2. 1258 1996 Unknown [id number] 2.16.840.1.831842.3.579.2. 1258 1996 Unknown [id number] 2.16.840.1.732295.3.579.2. 1258 1996 Unknown [id number] 2.16.840.1.936819.3.579.2. 1258 1996 Unknown [id number] 2.16.840.1.255232.3.579.2. 1258 1996 Unknown [id number] 2.16.840.1.081940.3.579.2. 1258 1996 Unknown [id number] 2.16.840.1.477710.3.579.2. 1258 1996 Unknown [id number] 2.16.840.1.255695.3.579.2. 1258 1996 Unknown [id number] 2.16.840.1.009147.3.579.2. 1258 1996 Unknown [id number] 2.16.840.1.165528.3.579.2. 1258 1996 Unknown [id number] 2.16.840.1.556211.3.579.2. 1258 1996 Unknown [id number] 2.16.840.1.207699.3.579.2. 1258 1959 Unknown [id number] Social History Date Type Detail Facility Start: 11-01-2023 Tobacco smoking status NMIS Ex-smoke r [facility] Start: 01-13-2013 End: 10-19-2022 History of tobacco use Current smoker [facility] Start: 01-13-2013 End: 10-19-2022 History of tobacco use Cigarette Smoker [facility] Start: 11-01-2023 End: 09-07-2024 [facility] of [facility] function [facility] Start: 11-01-2023 End: 09-07-2024 Tobacco use panel [facility] Start: 08-08-2024 [facility] Start: 1995 Sex assigned at Not on file [facility] Medical Equipment Procedure Code Equipment Code Equipment Origin al Text Equipment Identifier Dates 1 strip by In Vi tro route Daily Use in the morning prior to breakfast, 1 hour after each meal for a total of 4times daily. [id number] Start: 02-05-2025 End: 03-07-2025 1 each by In Vit ro route Daily Use to check FSBS four times daily [id number] Start: 02-05-2025 End: 03-07-2025 Clinical Notes 06-22-2024 to 05-31-2025 ABY Erickson - 05/31/2025 1:50 PM ABY Garibay - 04/26/2025 10:50 AM Deb Stone LPN - 04/18/2025 2:20 PM Deb Stone, ERICKSON - 04/10/2025 2:30 PM Deb Stone, ERICKSON - 04/03/2025 2:30 PM EDT Note Date & Type Note Facility 05-31-2025 History of Presen t illness Narrative Reason for Appointment: Patient ID: Jesica Ojeda is a 30 y.o. female who presents [...] Diagnosis Date Noted 15 weeks gestation of ([facility]) 11/09/2024 Second trimester ([facility]) 11/09/2024 Resolved Ambulatory Problems Diagnosis Date [...] Vitals: Estimated body mass index is 37.24 kg/m as calculated from the following: Height as of 08/11/23: 5' 7 . Weight as of this encounter: 237 lb 12.8 oz. BP: 114/74 No LMP recorded. ASSESSMENT & PLAN ICD-10-CM 1. 6 weeks follow-up ([facility]) Z39.2 2. control counseling Z30.09 norethindrone-ethinyl estradiol-ferrous fumarate (Blisovi 24 Fe) 1-20 MG-MCG(24) tablet Post Follow Up: Patient is [...] of: ABY Erickson documented in this encounter [facility] 04-26-2025 History of Presen t illness Narrative Reason for Appointment: Patient ID: Jesica Ojeda is a 29 y.o. female who presents for Care Patient presents today for Post Follow Up appointment. and 1 Week Post Op Follow Up appointment. MEDICATIONS Current Outpatient Medications [...] meal for a total of 4times daily. cephalexin (KEFLEX) 500 mg, Oral, 3 times daily phenazopyridine (PYRIDIUM) 100 mg, Oral, 3 times daily PRN Vit-Fe Fumarate-FA ( Vitamins) 28-0.8 MG tablet 1 tablet, Oral, Daily ALLERGIES No Known Allergies PROBLEMS Active Ambulatory Problems Diagnosis Date Noted 15 weeks gestation of ([facility]) 11/09/2024 Second trimester ([facility]) 11/09/2024 Resolved Ambulatory Problems Diagnosis Date Noted No Resolved Ambulatory Problems Past Medical History: Diagnosis Date Pap smear for cervical cancer screening 02/11/2023 HISTORY PAST MEDICAL HISTORY SOCIAL HISTORY Past Medical History: Diagnosis Date Pap smear for cervical cancer screening 02/11/2023 neg Social History Tobacco Use Smoking status: Former Current packs/day: 0.00 Types: Cigarettes Start date: 01/13/2013 Quit date: 10/19/2022 Years since quittin.5 Smokeless tobacco: Not on file Substance Use [...] breath sounds. Abdominal: Palpations: Abdomen is soft. Comments: Pfannenstiel incision clean and dry Musculoskeletal: General: Normal range of motion. Neurological: General: No focal deficit present. Mental Status: She is alert and oriented to person, place, and time. Psychiatric: Mood and Affect: Mood normal. Behavior: Behavior normal. Thought Content: Thought content normal. Judgment: Judgment normal. Vitals and nursing note reviewed. Vitals: Estimated body mass index is 37.75 kg/m as calculated from the following: Height as of 08/11/23: 5' 7 . Weight as of this encounter: 241 lb. BP: 116/76 Patient's last menstrual period was 07/02/2024. ASSESSMENT & PLAN ICD-10-CM 1. Postop check Z09 2. S/P section Z98.891 3. Encounter for visit ([facility]) Z39.2 4. UTI symptoms R39.9 cephalexin (Keflex) 500 MG capsule phenazopyridine (Pyridium) 100 MG tablet Patient presents today for a one week postop section check. Patient is doing well with minor complaints of pain. Incision has been noted as healing well with no signs and symptoms of infection. Follow Up: Patient is to return in 5 weeks for 6 week evaluation. Documented by ABY Erickson on behalf of: ABY Erickson documented in this encounter [facility] 04-18-2025 History of Presen t illness Narrative Reason for Appointment: Patient ID: Jesica Ojeda is a 29 y.o. female who presents [...] nursing note reviewed. Exam conducted with a lead pl sql developer present. Vitals: Estimated body mass index is 39.98 kg/m as calculated from the following: Height [...] Madiha Hairston DO documented in this encounter [facility] 04-10-2025 History of Presen t illness Narrative Reason for Appointment: Patient ID: Jesica Ojeda is a 29 y.o. female who presents for Routine Visit Patient presents today for Return OB appointment. MEDICATIONS Current Outpatient Medications Medication Instructions Alcohol Swabs (Alcohol Prep Pad) 70 % pads 1 Pad, Topical, Daily, Use four times daily to check FSBS. azithromycin (Zithromax Z-Twin) 250 MG tablet As directed Blood Glucose Monitoring Suppl ([employer] Glucometer) w/Device kit 1 kit, Does not [...] nursing note reviewed. Exam conducted with a lead pl sql developer present. Vitals: Estimated body mass index is [...] Madiha Hairston DO documented in this encounter [facility] 04-03-2025 History of Presen t illness Narrative Reason for Appointment: Patient ID: Jesica Ojeda is a 29 y.o. female who presents [...] nursing note reviewed. Exam conducted with a lead pl sql developer present. Vitals: Estimated body mass index is [...] Madiha Hairston DO documented in this encounter [facility] 03-19-2025 History of Presen t illness Narrative Reason for Appointment: Patient ID: Jesica Ojeda is a 29 y.o. female who presents [...] nursing note reviewed. Exam conducted with a lead pl sql developer present. Vitals: Estimated body mass index is [...] Madiha Hairston DO documented in this encounter [facility] 03-05-2025 History of Presen t illness Narrative Reason for Appointment: Patient ID: Jesica Ojeda is a 29 y.o. female who presents for Routine Visit Patient presents today for Return OB appointment. MEDICATIONS Current Outpatient Medications Medication Instructions Alcohol Swabs (Alcohol Prep Pad) 70 % pads 1 Pad, Topical, Daily, Use four times daily to check FSBS. azithromycin (Zithromax Z-Twin) 250 MG tablet As directed Blood Glucose Monitoring Suppl ([employer] Glucometer) w/Device kit 1 kit, Does not [...] nursing note reviewed. Exam conducted with a lead pl sql developer present. Vitals: Estimated body mass index is [...] Madiha Hairston DO documented in this encounter [facility] 02-19-2025 History of Presen t illness Narrative Reason for Appointment: Patient ID: Jesica Ojeda is a 29 y.o. female who presents for Routine Visit Patient presents today for Return OB appointment. MEDICATIONS Current Outpatient Medications Medication Instructions Alcohol Swabs (Alcohol Prep Pad) 70 % pads 1 Pad, Topical, Daily, Use four times daily to check FSBS. azithromycin (Zithromax Z-Twin) 250 MG tablet As directed Blood Glucose Monitoring Suppl ([employer] Glucometer) w/Device kit 1 kit, Does not [...] nursing note reviewed. Exam conducted with a lead pl sql developer present. Vitals: Estimated body mass index is [...] Madiha Hairston DO documented in this encounter [facility] 01-04-2025 History of Presen t illness Narrative Reason for Appointment: Patient ID: Jesica Ojeda is a 29 y.o. female who presents [...] nursing note reviewed. Exam conducted with a lead pl sql developer present. Vitals: Estimated body mass index is [...] Madiha Hairston DO documented in this encounter [facility] 12-11-2024 Telephone encounter Note Work note written and faxed to employer. [facility] 12-11-2024 Miscellaneous Notes Work note written [...] fax a work note Attn: Do @ [phone]? Thank you, Rohini Ritter LPN documented in this encounter [facility] 12-11-2024 Telephone encounter Note 12/11/24 @ [...] fax a work note Attn: Do @ [phone]? Thank you, Rohini Ritter LPN [facility] 12-07-2024 History of Presen t illness Narrative Reason for Appointment: Patient ID: Jesica Ojeda is a 29 y.o. female who presents [...] of: ABY Erickson documented in this encounter [facility] 11-09-2024 History of Presen t illness Narrative Reason for Appointment: Patient ID: Jesica Ojeda is a 29 y.o. female who presents [...] nursing note reviewed. Exam conducted with a lead pl sql developer present. Vitals: Estimated body mass index is [...] Madiha Hairston DO documented in this encounter [facility] 10-10-2024 History of Presen t illness Narrative Reason for Appointment: Patient ID: Jesica Ojeda is a 29 y.o. female who presents [...] nursing note reviewed. Exam conducted with a lead pl sql developer present. Vitals: Estimated body mass index is [...] and stay away from [facility]. Patient has been consulted regarding any further [...] Madiha Hairston DO documented in this encounter [facility] 09-07-2024 History of Presen t illness Narrative Reason for Appointment: Patient ID: Jesica Ojeda is a 29 y.o. female who presents [...] and stay away from [facility]. Patient has also been advised to not change litter boxes and eat 6 small meals a day. Patient has been consulted regarding the do's and don'ts of . Patient was given labs and all questions and concerns were answered. Script was sent for Zofran, and [place] labs given to patient. Follow Up: Patient is to return in 4 weeks for routine OB appointment. Follow Up: Patient is to have labs drawn at directed and return to office for initial OB appointment with provider. Patient may call office as needed with any concerns or questions. Nurse Visit Completed by: Milvia Chirinos LPN documented in this encounter [facility] 06-22-2024 Note Patient Education Obstetrics and [...] ? Know how (more content not included)... [facility] Evaluation note Diagnosis 6 weeks gestation [...] HealthcareEvaluation note* Diagnosis Third trimester state, incidental 38 weeks gestation of induced hypertension, antepartum Transient hypertension of , antepartum Elevated blood pressure affecting , antepartum [facility] Diagnosis Postop check Follow-up examination, following unspecified surgery S/P section Other postprocedural status Encounter for visit ([facility]) UTI symptoms documented [facility] this encounter [facility] Diagnosis 6 weeks follow-up ([facility]) control counseling documented in this encounter [facility] Summary [...] CREATED AUTHOR AUTHOR'S ORGANIZ ATION 06/24/2024 [facility] DATE CREATED AUTHOR AUTHOR'S ORGANIZ ATION 03/09/2025 [facility] DATE CREATED AUTHOR AUTHOR'S ORGANIZ ATION 04/29/2025 [facility] Reason for Visit (unrecogniz ed section and content) Reason Comments Amenorrhea Reason Comments [facility] Visit Reason Comments Routine Visit Reason Comments Care Care Teams (unrecognized sec tion and content) Slide Forming Machine Tender Relationship Specialty Start Date End Date Koki Zapata MD [address] [place] [id number] PCP - General Family Medicine 09/07/24 Slide Forming Machine Tender Relationship Specialty Start Date End Date Koki Zapata MD [address] [place] [id number] PCP - General Family Medicine 09/07/24 Slide Forming Machine Tender Relationship Specialty Start Date End Date Koki Zapata MD [address] [place] [id number] PCP - General Family Medicine 09/07/24 Slide Forming Machine Tender Relationship Specialty Start Date End Date Koki Zapata MD [address] [place] [address] PCP - General Family Medicine 09/07/24 Slide Forming Machine Tender Relationship Specialty Start Date End Date Koki Zapata MD [address] [place] [address] PCP - General Family Medicine 09/07/24 Slide Forming Machine Tender Relationship Specialty Start Date End Date Koki Zapata MD [address] [place] [address] PCP - General Family Medicine 09/07/24 Slide Forming Machine Tender Relationship Specialty Start Date End Date Koki Zapata MD [address] [place] [address] PCP - General Family Medicine 09/07/24 Slide Forming Machine Tender Relationship Specialty Start Date End Date Koki Zapata MD [address] [place] [address] PCP - General Family Medicine 09/07/24 Slide Forming Machine Tender Relationship Specialty Start Date End Date Koki Zapata MD [address] [place] [address] PCP - General Family Medicine 09/07/24 Slide Forming Machine Tender Relationship Specialty Start Date End Date Koki Zapata MD [address] [place] [address] PCP - General Family Medicine 09/07/24 Slide Forming Machine Tender Relationship Specialty Start Date End Date Koki Zapata MD [address] [place] [facility] [place] [address] PCP - General Family Medicine 09/07/24 Slide Forming Machine Tender Relationship Specialty Start Date End Date Koki Zapata MD [address] [place] [facility] [place] [address] PCP - General [facility] Medicine 09/07/24 Slide Forming Machine Tender Relationship Specialty Start Date End Date Koki Zapata MD [address] [facility] [place] [address] PCP - [facility] 09/07/24 Slide Forming Machine Tender Relationship Specialty Start Date End Date Koki Zapata MD [address] [place] [address] [facility] [place] [address] PCP - General [facility] 09/07/24 Slide Forming Machine Tender Relationship Specialty Start Date End Date Koki Zapata MD [address] [facility] [place] [address] PCP - General [facility] 09/07/24 Slide Forming Machine Tender Relationship Specialty Start Date End Date Koki Zapata MD [address] [place] [address] [facility] [place] [address] PCP - General [facility] Medicine 09/07/24 Slide Forming Machine Tender Relationship Specialty Start Date End Date Koki Zapata MD [address] [place] [address] [facility] [place] [address] PCP - General [facility] Medicine 09/07/24 FOR RECORDS PERTAINING TO PATIENTS [...] BE BASED ON THE PRIMARY CLINICAL RECORDS. [facility]. provides no warranty or guarantee of the accuracy or completeness of information in this document.
--- NOTE | 2025-06-01 13:56 | PC.NURSE ---
Jesica S.Ac. and 2 month old Yusef arrive for lactations support. Baby Yusef had revision of oral tethers per Dr Sheth on 06/29/2025. Upper lip and tongue tie released. Parents state that infant is now feeding very well. No noise with suckling and able to keep bottle nipple in his mouth. Taking feeding is 10 minutes vs. 40-50. Infant weight is up to 11-9.5 today. Infant's mouth inspected, upper lip healing well and tongue as well. Parents continue to do stretching exercises and suck training with baby 3-4 times daily. Mom notices big difference with feeding ability. Less fussy and irritable during feeds (no fussiness or discomfort noted per LC) Remains gassy per parents. Discuss more time or type of formula using as possible causes. Parents pleased with progress. Will call as needed for further support. Family leaves for home. No concerns voiced.
== END 2025-06-01 14:10 | disposition home or self-care (01) ==
LOC: FBCO 08:27
PROVIDERS: PCP Family Medicine; Visit Provider Obstetrics & Gynecology
DX: Z39.1 Encounter for care and examination of lactating mother (principal)